=== PATIENT | male | born 1960 | race Caucasian/White ===

== ENCOUNTER 2021-08-08 11:45 | Inpatient (IN) ==
[2021-08-08] MEDS ORDERED: RAPID SEQUENCE INDUCTION BAG ONE (11:49)
[2021-08-08] MEDS ORDERED: PROPOFOL IV EMULSION 10 MG/ML 100 ML VIAL IV ONE (11:56)
[2021-08-08] MEDS ORDERED: SODIUM CHLORIDE 0.9% 1000ML 1,000 ML IV ONE ×2 (12:02→12:58)
[2021-08-08] MEDS ORDERED: dexAMETHasone**PF** 10 MG/ML VIAL IV ONE (12:02)
--- NOTE | 2021-08-08 12:04 | Emergency Department Note ---
Impression & Plan Acute respiratory failure due to COVID-19, Elevated troponin I level, Elevated lactic acid level, Acute encephalopathy ED Provider Note Name: HOSSEIN SANCHEZ Age: 61 Sex: M Arrives Via: Walk-In Informant: Family: Mother & Sister in ER, Daughter over phone ED Provider: Klever Almeida MD Chief Complaint: Weakness Impression: Acute Respiratory Failure Due to Covid-19 Elevated lactic acid Elevated Troponin Acute Encephalopathy Medical Decision Makin yr old male with reported history alcoholism and no other reported PMH who has been ill for 5 days arrives via private vehicle with family for evaluation of respiratory distress and weakness. Obtunded on arrival, blue discoloration and O2 sats in 40s on RA. I was immediately called to bedside by nursing and evaluated patient. Placed on NRB with mild improvement sats to 70s, and patient a bit more responsive though minimal conversation able to be had. Given severity of respiratory distress felt intubation indicated emergently. By this time family had noted a known positive covid test for patient a few days ago (per them he is unvaccinated for covid). Intubated by me without difficulty. By exam he is significantly dehydrated and given 3L NSS bolus (2L NSS, 1 Banana bag). Required large dosing of sedation with some resultant hypotension. Labs consistent with dehydration, illness. Covid is positive. Reviewed at length with Dr Schaefer of [facility] who placed central line and feels hold off on ABX at this time. Dimer elevated though sats doing OK thus will defer CTA as well as CT head to primary team discussion. Had multiple discussions with mother to keep her informed of his situation. Prior Medical Record and Triage/Nursing Notes reviewed by Me Additional history obtained from family Differentials:Infection, dehydration, metabolic abnormality, hypo/hyperglycemia, electrolyte disturbance, anemia, hypoxia, cardiac sources, intracerebral event, toxicologic, neurologic, as well as other pathologies. Vital Signs: reviewed and remarkable for hypoxia, febrile Interventions: saline lock, nss bolus 2 L IV, banana bag 1 L IV, decadron 10mg iv, fentanyl iv, versed iv, propofol iv Labs:Reviewed and remarkable for elevated lactate, elevated cr, elevated troponin Imaging:X ray results are stated below per my interpretation: Chest: 1 view: ET Tube in place, diffuse infiltrates EKG:Per My Interpretation: Indication Respiratory Failure: NSR 97 bpm, qtc 447. No Ectopy. No Ischemia. No previous for comparison. Cardiac/Tele Monitoring: Cardiac Monitoring: An Order was placed for continuous cardiac monitoring. The monitor shows a rate of 90 with a normal sinus rhythm. Consults:Dr Schaefer [facility]. Dr Sabina Avery Hospitalist Plan: Disposition:Hospitalization. Condition: Guarded History of Present Illness:61 yr old male arrives for evaluation of breathing difficulty. Patient was diagnosed on Wednesday/Wednesday with covid. Since then worsening weakness. Today not answering phone thus family broke in to house and found him confused and blue with difficulty breathing. Brought him by POV to ed for evaluation. Patient without known history. Unknown if any treatments nor medications prior to arrival. Per family he is not covid vaccinated. 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 dehydrated appearing EYES: No scleral icterus, unremarkable pupils. ENT: Mucous membranes dry, no nasal congestion. NECK: No masses appreciated, nomeningismus, trachea is midline. RESPIRATORY: tachypnea/dyspnea though poor inspiratory effort, diffuse crackles CARDIOVASCULAR: Regular rate and rhythm.No murmurs, rubs, gallops appreciated. GASTROINTESTINAL: Abdomen soft, non-tender, no peritonitis.Bowel sounds positive.No masses appreciated. BACK: No midline tenderness, no CVA tenderness EXTREMITIES: Normal motion all extremities, no cyanosis, no edema. NEUROLOGIC: Obtunded, no acute motor or sensory deficits, no focal weakness, cranial nerves grossly intact. SKIN: Pale mottled extremities, no rash, no jaundice, no diaphoresis. ED Course: Times/Reassessments: extensive bedside management and frequent re-assessments over course of care Procedures: Endotracheal Intubation Indication: Respiratory Failure secondary to COVID 19 The patient was being bagged by respiratory with BVM. Suction, airway equipment, RSI drugs, respiratory equipment, and appropriate personnel were prepared prior to the initiation of the procedure. A time out was taken. Induction was performed with Etomidate/Succinylcholine. After observing the clinical benefit of the medications, the airway was easily visualized utilizing a Glidescope #3 blade and slight cricoid pressure. A 7.5 size ETT tube was placed atraumatically to 24 cm using standard technique. The cuff inflated without signs of malfunction. There were bilateral breath sounds, positive colormetric change, no gastric sounds, a good capnography waveform, and post procedure pulse oximetry was 91%. Post intubation sedation and paralysis was administered using propofol, versed, fentanyl. There were no complications. Critical Care: I have personally spent 55 minutes of critical care time in the direct management of this patient. Acute Respiratory Failure secondary to COVID 19. This was a life/limb threatening event. This 55 minutes is in excess of all separately billable procedures. Klever Almeida MD Past Med/Surg History Medical History Alcohol use History of tobacco use Surgical History No history of previous surgery Family History Father Diabetes Social History Smoking Status: Former smoker Hx Alcohol Use: Yes Feels Safe at Home: Declines to Answer Allergies Allergies Allergy/AdvReac Type Severity Reaction Status Date / Time No Known Allergies Allergy Unverified 08/08/21 13:09 Home Meds Home Medications Medication Instructions Recorded Confirmed No Known Home Medications 08/08/21 08/08/21 Results & Data (ED) Vital Signs Vital Signs - 24 hr 08/08/21 11:46 08/08/21 11:49 08/08/21 12:04 Temperature 37.9 C H Temperature Source Rectal Pulse Rate 116 H 108 H Pulse Rate from SpO2 Sensor 109 H Pulse Rhythm Regular Respiratory Rate 36 H 50 H Respiratory Effort / Characteristics Short of Breath Labored Short of Breath Respiratory Depth Shallow Shallow Respiratory Pattern Regular Gasping Irregular Blood Pressure 144/100 H 141/69 H Blood Pressure Mean 114 93 Blood Pressure Position Lying Pulse Oximetry 63 L 75 L Oxygen Delivery Method Non-rebreather Room Air Oxygen Flow Rate 15 Fraction of Inspired Oxygen Sepsis Recent Fever Within 48 Hours Yes Sepsis New/Unexplained Change in Mental Status Yes Sepsis Action Taken by Nursing MD Previously Notified End-Tidal CO2 08/08/21 12:05 08/08/21 12:22 08/08/21 12:30 Temperature Temperature Source Pulse Rate 101 H 98 H Pulse Rate from SpO2 Sensor 101 H 98 H Pulse Rhythm Respiratory Rate 16 Respiratory Effort / Characteristics Respiratory Depth Respiratory Pattern Blood Pressure 102/66 110/61 Blood Pressure Mean 78 77 Blood Pressure Position Pulse Oximetry 92 96 Oxygen Delivery Method Oxygen Flow Rate Fraction of Inspired Oxygen 100 Sepsis Recent Fever Within 48 Hours Sepsis New/Unexplained Change in Mental Status Sepsis Action Taken by Nursing End-Tidal CO2 35 08/08/21 12:40 08/08/21 12:50 08/08/21 13:01 Temperature Temperature Source Pulse Rate 95 H 92 H 89 Pulse Rate from SpO2 Sensor 96 H 92 H 91 H Pulse Rhythm Respiratory Rate Respiratory Effort / Characteristics Respiratory Depth Respiratory Pattern Blood Pressure 85/52 L 77/52 L 91/61 L Blood Pressure Mean 63 60 71 Blood Pressure Position Pulse Oximetry 98 96 94 Oxygen Delivery Method Oxygen Flow Rate Fraction of Inspired Oxygen Sepsis Recent Fever Within 48 Hours Sepsis New/Unexplained Change in Mental Status Sepsis Action Taken by Nursing End-Tidal CO2 19 33 74 08/08/21 13:10 08/08/21 13:20 08/08/21 13:30 Temperature Temperature Source Pulse Rate 88 90 90 Pulse Rate from SpO2 Sensor 93 H 90 90 Pulse Rhythm Respiratory Rate Respiratory Effort / Characteristics Respiratory Depth Respiratory Pattern Blood Pressure 101/60 96/59 L 94/60 L Blood Pressure Mean 73 71 71 Blood Pressure Position Pulse Oximetry 94 95 95 Oxygen Delivery Method Oxygen Flow Rate Fraction of Inspired Oxygen Sepsis Recent Fever Within 48 Hours Sepsis New/Unexplained Change in Mental Status Sepsis Action Taken by Nursing End-Tidal CO2 29 34 31 08/08/21 13:40 08/08/21 13:50 08/08/21 14:58 Temperature Temperature Source Pulse Rate 89 91 H 81 Pulse Rate from SpO2 Sensor 90 91 H Pulse Rhythm Respiratory Rate 16 Respiratory Effort / Characteristics Respiratory Depth Respiratory Pattern Blood Pressure 87/58 L 86/57 L Blood Pressure Mean 67 66 Blood Pressure Position Pulse Oximetry 97 97 94 Oxygen Delivery Method Oxygen Flow Rate Fraction of Inspired Oxygen 80 Sepsis Recent Fever Within 48 Hours Sepsis New/Unexplained Change in Mental Status Sepsis Action Taken by Nursing End-Tidal CO2 34 34 33 Laboratory Data Result diagrams: 08/08/21 12:01 08/08/21 12:01 Lab Results 08/08/21 08/08/21 08/08/21 Range/Units 12:01 12:01 12:01 WBC 11.94 H (4.8-10.8) K/uL RBC 4.18 L (4.7-6.1) M/uL Hgb 13.7 L (14.0-18.0) g/dL POC Hgb (14.0-18.0) g/dl Hct 40.3 L (42-52) % POC Hct (42-52) % MCV 96.4 (80-100) fL MCH 32.8 (25-34) pg MCHC 34.0 (32-36) g/dL RDW Std Deviation 44.7 (36.4-46.3) fL RDW Coeff of Roshan 12.7 (11.5-14.5) % Plt Count 395 (130-400) K/uL MPV 10.0 (7.4-10.4) fL Immature Gran % (Auto) 0.3 % Neut % (Auto) 83.1 % Lymph % (Auto) 11.0 % [place] % (Auto) 5.4 % Eos % (Auto) 0.0 % Baso % (Auto) 0.2 % Neut # (Auto) 9.92 H (1.4-6.5) K/uL Lymph # (Auto) 1.31 (1.2-3.4) K/uL [place] # (Auto) 0.65 H (0.11-0.59) K/uL Eos # (Auto) 0.00 (0-0.5) K/uL Baso # (Auto) 0.02 (0-0.2) K/uL Immature Gran # (Auto) 0.04 H (0.00-0.02) K/uL ESR (0-20) mm/hr PT 11.2 (9.0-12.0) Seconds INR 1.1 (0.9-1.1) D-Dimer 2070 H* (0-500) ug/L FEU POC pH (7.35-7.45) POC pCO2 (35-46) mmHg POC pO2 (80-95) mmHg POC HCO3 (19-24) jose ramon/L POC Total CO2 (24-31) mmol/L POC Base Excess (-9-1.8) jose ramon/L POC ABG O2 Sat (90-95) % POC Sodium (135-144) mmol/L Sodium (136-145) mmol/L POC Potassium (3.3-5.0) mmol/L Potassium (3.5-5.1) mmol/L Chloride (98-107) mmol/L Carbon Dioxide (21-32) mmol/L Anion Gap (3-11) BUN (7-18) mg/dl Creatinine (0.6-1.4) mg/dl Est Cr Clr Drug Dosing Est GFR ( Amer) ml/min Est GFR (Non-Af Amer) ml/min BUN/Creatinine Ratio (10-20) Glucose (70-99) mg/dl Lactate 3.0 H* (0.4-2.0) mmol/L Calcium (8.5-10.1) mg/dl Magnesium (1.8-2.4) mg/dl Ferritin (8-388) ng/ml Total Bilirubin (0.2-1) mg/dl Direct Bilirubin (0-0.2) mg/dl AST (15-37) U/L ALT (12-78) U/L Alkaline Phosphatase (45-117) U/L Troponin I (0-0.045) ng/ml C-Reactive Protein (0-0.29) mg/dl Total Protein (6.4-8.2) gm/dl Albumin (3.4-5.0) gm/dl Lipase (73-393) U/L Procalcitonin (0-0.5) ng/ml Urine Color Urine Appearance (Clear) Urine pH (4.5-7.5) Ur Specific [place] (1.000-1.030) Urine Protein (Negative) Urine Glucose (UA) (Negative) Urine Ketones (Negative) Urine Blood (Negative) Urine Nitrite (Negative) Urine Bilirubin (Negative) Urine Urobilinogen (Negative) Ur Leukocyte Esterase (Negative) Urine WBC (Auto) (0-5) /hpf Urine RBC (Auto) (0-4) /hpf U Hyaline Cast (Auto) (0-5) /lpf U Epithel Cells (Auto) (0-5) /lpf Urine Bacteria (Auto) (Negative) Ur Renal Epithelial Cell Amorphous Sediment (None Prsent) Granular Casts (0) /lpf Urine Mucus (None Prsent) Urine Yeast Ethyl Alcohol mg/dL (0-3) mg/dl Adenovirus (PCR) (NotDetected) B. pertussis DNA (PCR) (NotDetected) B.parapertussis DNA PCR (NotDetected) C. pneumoniae DNA (PCR) (NotDetected) Coronavirus OC43 (PCR) (NotDetected) Coronavirus HKU1 (PCR) (NotDetected) Coronavirus 229E (PCR) (NotDetected) COVID-19 Eval Order SARS-CoV-2 (PCR) (NotDetected) Coronavirus NL63 (PCR) (NotDetected) Human Metapneumovir PCR (NotDetected) Influenza Type A (PCR) (NotDetected) Influenza Type B (PCR) (NotDetected) M. pneumoniae (PCR) (NotDetected) Parainfluenza 1 (PCR) (NotDetected) Parainfluenza 2 (PCR) (NotDetected) Parainfluenza 3 (PCR) (NotDetected) Parainfluenza 4 (PCR) (NotDetected) RSV (PCR) (NotDetected) Entero/Rhino (PCR) (NotDetected) 08/08/21 08/08/21 08/08/21 Range/Units 12:01 12:01 12:01 WBC (4.8-10.8) K/uL RBC (4.7-6.1) M/uL Hgb (14.0-18.0) g/dL POC Hgb (14.0-18.0) g/dl Hct (42-52) % POC Hct (42-52) % MCV (80-100) fL MCH (25-34) pg MCHC (32-36) g/dL RDW Std Deviation (36.4-46.3) fL RDW Coeff of Roshan (11.5-14.5) % Plt Count (130-400) K/uL MPV (7.4-10.4) fL Immature Gran % (Auto) % Neut % (Auto) % Lymph % (Auto) % [place] % (Auto) % Eos % (Auto) % Baso % (Auto) % Neut # (Auto) (1.4-6.5) K/uL Lymph # (Auto) (1.2-3.4) K/uL [place] # (Auto) (0.11-0.59) K/uL Eos # (Auto) (0-0.5) K/uL Baso # (Auto) (0-0.2) K/uL Immature Gran # (Auto) (0.00-0.02) K/uL ESR (0-20) mm/hr PT (9.0-12.0) Seconds INR (0.9-1.1) D-Dimer Cancelled (0-500) ug/L FEU POC pH (7.35-7.45) POC pCO2 (35-46) mmHg POC pO2 (80-95) mmHg POC HCO3 (19-24) jose ramon/L POC Total CO2 (24-31) mmol/L POC Base Excess (-9-1.8) jose ramon/L POC ABG O2 Sat (90-95) % POC Sodium (135-144) mmol/L Sodium 133 L (136-145) mmol/L POC Potassium (3.3-5.0) mmol/L Potassium 3.8 (3.5-5.1) mmol/L Chloride 100 (98-107) mmol/L Carbon Dioxide 21 (21-32) mmol/L Anion Gap 11.0 (3-11) BUN 33 H (7-18) mg/dl Creatinine 1.69 H (0.6-1.4) mg/dl Est Cr Clr Drug Dosing Not Reportable Est GFR ( Amer) 50.4 ml/min Est GFR (Non-Af Amer) 43.5 ml/min BUN/Creatinine Ratio 19.6 (10-20) Glucose 135 H (70-99) mg/dl Lactate (0.4-2.0) mmol/L Calcium 8.4 L (8.5-10.1) mg/dl Magnesium 2.8 H (1.8-2.4) mg/dl Ferritin (8-388) ng/ml Total Bilirubin 0.7 (0.2-1) mg/dl Direct Bilirubin 0.3 H (0-0.2) mg/dl AST 64 H (15-37) U/L ALT 36 (12-78) U/L Alkaline Phosphatase 55 (45-117) U/L Troponin I 0.104 H* (0-0.045) ng/ml C-Reactive Protein (0-0.29) mg/dl Total Protein 8.0 (6.4-8.2) gm/dl Albumin 3.1 L (3.4-5.0) gm/dl Lipase 312 (73-393) U/L Procalcitonin 0.77 H (0-0.5) ng/ml Urine Color Urine Appearance (Clear) Urine pH (4.5-7.5) Ur Specific [place] (1.000-1.030) Urine Protein (Negative) Urine Glucose (UA) (Negative) Urine Ketones (Negative) Urine Blood (Negative) Urine Nitrite (Negative) Urine Bilirubin (Negative) Urine Urobilinogen (Negative) Ur Leukocyte Esterase (Negative) Urine WBC (Auto) (0-5) /hpf Urine RBC (Auto) (0-4) /hpf U Hyaline Cast (Auto) (0-5) /lpf U Epithel Cells (Auto) (0-5) /lpf Urine Bacteria (Auto) (Negative) Ur Renal Epithelial Cell Amorphous Sediment (None Prsent) Granular Casts (0) /lpf Urine Mucus (None Prsent) Urine Yeast Ethyl Alcohol mg/dL (0-3) mg/dl Adenovirus (PCR) (NotDetected) B. pertussis DNA (PCR) (NotDetected) B.parapertussis DNA PCR (NotDetected) C. pneumoniae DNA (PCR) (NotDetected) Coronavirus OC43 (PCR) (NotDetected) Coronavirus HKU1 (PCR) (NotDetected) Coronavirus 229E (PCR) (NotDetected) COVID-19 Eval Order SARS-CoV-2 (PCR) (NotDetected) Coronavirus NL63 (PCR) (NotDetected) Human Metapneumovir PCR (NotDetected) Influenza Type A (PCR) (NotDetected) Influenza Type B (PCR) (NotDetected) M. pneumoniae (PCR) (NotDetected) Parainfluenza 1 (PCR) (NotDetected) Parainfluenza 2 (PCR) (NotDetected) Parainfluenza 3 (PCR) (NotDetected) Parainfluenza 4 (PCR) (NotDetected) RSV (PCR) (NotDetected) Entero/Rhino (PCR) (NotDetected) 08/08/21 08/08/21 08/08/21 Range/Units 12:01 12:01 12:13 WBC (4.8-10.8) K/uL RBC (4.7-6.1) M/uL Hgb (14.0-18.0) g/dL POC Hgb 12.6 L (14.0-18.0) g/dl Hct (42-52) % POC Hct 37 L (42-52) % MCV (80-100) fL MCH (25-34) pg MCHC (32-36) g/dL RDW Std Deviation (36.4-46.3) fL RDW Coeff of Roshan (11.5-14.5) % Plt Count (130-400) K/uL MPV (7.4-10.4) fL Immature Gran % (Auto) % Neut % (Auto) % Lymph % (Auto) % [place] % (Auto) % Eos % (Auto) % Baso % (Auto) % Neut # (Auto) (1.4-6.5) K/uL Lymph # (Auto) (1.2-3.4) K/uL [place] # (Auto) (0.11-0.59) K/uL Eos # (Auto) (0-0.5) K/uL Baso # (Auto) (0-0.2) K/uL Immature Gran # (Auto) (0.00-0.02) K/uL ESR 94 H (0-20) mm/hr PT (9.0-12.0) Seconds INR (0.9-1.1) D-Dimer (0-500) ug/L FEU POC pH 7.34 L (7.35-7.45) POC pCO2 41 (35-46) mmHg POC pO2 65 L (80-95) mmHg POC HCO3 22 (19-24) jose ramon/L POC Total CO2 23 L (24-31) mmol/L POC Base Excess -4.0 (-9-1.8) jose ramon/L POC ABG O2 Sat 91.0 (90-95) % POC Sodium 137 (135-144) mmol/L Sodium (136-145) mmol/L POC Potassium 3.9 (3.3-5.0) mmol/L Potassium (3.5-5.1) mmol/L Chloride (98-107) mmol/L Carbon Dioxide (21-32) mmol/L Anion Gap (3-11) BUN (7-18) mg/dl Creatinine (0.6-1.4) mg/dl Est Cr Clr Drug Dosing Est GFR ( Amer) ml/min Est GFR (Non-Af Amer) ml/min BUN/Creatinine Ratio (10-20) Glucose (70-99) mg/dl Lactate (0.4-2.0) mmol/L Calcium (8.5-10.1) mg/dl Magnesium (1.8-2.4) mg/dl Ferritin 1191.7 H (8-388) ng/ml Total Bilirubin (0.2-1) mg/dl Direct Bilirubin (0-0.2) mg/dl AST (15-37) U/L ALT (12-78) U/L Alkaline Phosphatase (45-117) U/L Troponin I (0-0.045) ng/ml C-Reactive Protein 24.60 H (0-0.29) mg/dl Total Protein (6.4-8.2) gm/dl Albumin (3.4-5.0) gm/dl Lipase (73-393) U/L Procalcitonin (0-0.5) ng/ml Urine Color Urine Appearance (Clear) Urine pH (4.5-7.5) Ur Specific [place] (1.000-1.030) Urine Protein (Negative) Urine Glucose (UA) (Negative) Urine Ketones (Negative) Urine Blood (Negative) Urine Nitrite (Negative) Urine Bilirubin (Negative) Urine Urobilinogen (Negative) Ur Leukocyte Esterase (Negative) Urine WBC (Auto) (0-5) /hpf Urine RBC (Auto) (0-4) /hpf U Hyaline Cast (Auto) (0-5) /lpf U Epithel Cells (Auto) (0-5) /lpf Urine Bacteria (Auto) (Negative) Ur Renal Epithelial Cell Amorphous Sediment (None Prsent) Granular Casts (0) /lpf Urine Mucus (None Prsent) Urine Yeast Ethyl Alcohol mg/dL (0-3) mg/dl Adenovirus (PCR) (NotDetected) B. pertussis DNA (PCR) (NotDetected) B.parapertussis DNA PCR (NotDetected) C. pneumoniae DNA (PCR) (NotDetected) Coronavirus OC43 (PCR) (NotDetected) Coronavirus HKU1 (PCR) (NotDetected) Coronavirus 229E (PCR) (NotDetected) COVID-19 Eval Order SARS-CoV-2 (PCR) (NotDetected) Coronavirus NL63 (PCR) (NotDetected) Human Metapneumovir PCR (NotDetected) Influenza Type A (PCR) (NotDetected) Influenza Type B (PCR) (NotDetected) M. pneumoniae (PCR) (NotDetected) Parainfluenza 1 (PCR) (NotDetected) Parainfluenza 2 (PCR) (NotDetected) Parainfluenza 3 (PCR) (NotDetected) Parainfluenza 4 (PCR) (NotDetected) RSV (PCR) (NotDetected) Entero/Rhino (PCR) (NotDetected) 08/08/21 08/08/21 08/08/21 Range/Units 12:14 12:14 12:33 WBC (4.8-10.8) K/uL RBC (4.7-6.1) M/uL Hgb (14.0-18.0) g/dL POC Hgb (14.0-18.0) g/dl Hct (42-52) % POC Hct (42-52) % MCV (80-100) fL MCH (25-34) pg MCHC (32-36) g/dL RDW Std Deviation (36.4-46.3) fL RDW Coeff of Roshan (11.5-14.5) % Plt Count (130-400) K/uL MPV (7.4-10.4) fL Immature Gran % (Auto) % Neut % (Auto) % Lymph % (Auto) % [place] % (Auto) % Eos % (Auto) % Baso % (Auto) % Neut # (Auto) (1.4-6.5) K/uL Lymph # (Auto) (1.2-3.4) K/uL [place] # (Auto) (0.11-0.59) K/uL Eos # (Auto) (0-0.5) K/uL Baso # (Auto) (0-0.2) K/uL Immature Gran # (Auto) (0.00-0.02) K/uL ESR (0-20) mm/hr PT (9.0-12.0) Seconds INR (0.9-1.1) D-Dimer (0-500) ug/L FEU POC pH (7.35-7.45) POC pCO2 (35-46) mmHg POC pO2 (80-95) mmHg POC HCO3 (19-24) jose ramon/L POC Total CO2 (24-31) mmol/L POC Base Excess (-9-1.8) jose ramon/L POC ABG O2 Sat (90-95) % POC Sodium (135-144) mmol/L Sodium (136-145) mmol/L POC Potassium (3.3-5.0) mmol/L Potassium (3.5-5.1) mmol/L Chloride (98-107) mmol/L Carbon Dioxide (21-32) mmol/L Anion Gap (3-11) BUN (7-18) mg/dl Creatinine (0.6-1.4) mg/dl Est Cr Clr Drug Dosing Est GFR ( Amer) ml/min Est GFR (Non-Af Amer) ml/min BUN/Creatinine Ratio (10-20) Glucose (70-99) mg/dl Lactate (0.4-2.0) mmol/L Calcium (8.5-10.1) mg/dl Magnesium (1.8-2.4) mg/dl Ferritin (8-388) ng/ml Total Bilirubin (0.2-1) mg/dl Direct Bilirubin (0-0.2) mg/dl AST (15-37) U/L ALT (12-78) U/L Alkaline Phosphatase (45-117) U/L Troponin I (0-0.045) ng/ml C-Reactive Protein (0-0.29) mg/dl Total Protein (6.4-8.2) gm/dl Albumin (3.4-5.0) gm/dl Lipase (73-393) U/L Procalcitonin (0-0.5) ng/ml Urine Color Urine Appearance (Clear) Urine pH (4.5-7.5) Ur Specific [place] (1.000-1.030) Urine Protein (Negative) Urine Glucose (UA) (Negative) Urine Ketones (Negative) Urine Blood (Negative) Urine Nitrite (Negative) Urine Bilirubin (Negative) Urine Urobilinogen (Negative) Ur Leukocyte Esterase (Negative) Urine WBC (Auto) (0-5) /hpf Urine RBC (Auto) (0-4) /hpf U Hyaline Cast (Auto) (0-5) /lpf U Epithel Cells (Auto) (0-5) /lpf Urine Bacteria (Auto) (Negative) Ur Renal Epithelial Cell Amorphous Sediment (None Prsent) Granular Casts (0) /lpf Urine Mucus (None Prsent) Urine Yeast Ethyl Alcohol mg/dL < 3.0 (0-3) mg/dl Adenovirus (PCR) Not Detected (NotDetected) B. pertussis DNA (PCR) Not Detected (NotDetected) B.parapertussis DNA PCR Not Detected (NotDetected) C. pneumoniae DNA (PCR) Not Detected (NotDetected) Coronavirus OC43 (PCR) Not Detected (NotDetected) Coronavirus HKU1 (PCR) Not Detected (NotDetected) Coronavirus 229E (PCR) Not Detected (NotDetected) COVID-19 Eval Order [facility] at [facility] SARS-CoV-2 (PCR) DETECTED A* (NotDetected) Coronavirus NL63 (PCR) Not Detected (NotDetected) Human Metapneumovir PCR Not Detected (NotDetected) Influenza Type A (PCR) Not Detected (NotDetected) Influenza Type B (PCR) Not Detected (NotDetected) M. pneumoniae (PCR) Not Detected (NotDetected) Parainfluenza 1 (PCR) Not Detected (NotDetected) Parainfluenza 2 (PCR) Not Detected (NotDetected) Parainfluenza 3 (PCR) Not Detected (NotDetected) Parainfluenza 4 (PCR) Not Detected (NotDetected) RSV (PCR) Not Detected (NotDetected) Entero/Rhino (PCR) Not Detected (NotDetected) 08/08/21 08/08/21 Range/Units 12:35 13:57 WBC (4.8-10.8) K/uL RBC (4.7-6.1) M/uL Hgb (14.0-18.0) g/dL POC Hgb (14.0-18.0) g/dl Hct (42-52) % POC Hct (42-52) % MCV (80-100) fL MCH (25-34) pg MCHC (32-36) g/dL RDW Std Deviation (36.4-46.3) fL RDW Coeff of Roshan (11.5-14.5) % Plt Count (130-400) K/uL MPV (7.4-10.4) fL Immature Gran % (Auto) % Neut % (Auto) % Lymph % (Auto) % [place] % (Auto) % Eos % (Auto) % Baso % (Auto) % Neut # (Auto) (1.4-6.5) K/uL Lymph # (Auto) (1.2-3.4) K/uL [place] # (Auto) (0.11-0.59) K/uL Eos # (Auto) (0-0.5) K/uL Baso # (Auto) (0-0.2) K/uL Immature Gran # (Auto) (0.00-0.02) K/uL ESR (0-20) mm/hr PT (9.0-12.0) Seconds INR (0.9-1.1) D-Dimer (0-500) ug/L FEU POC pH (7.35-7.45) POC pCO2 (35-46) mmHg POC pO2 (80-95) mmHg POC HCO3 (19-24) jose ramon/L POC Total CO2 (24-31) mmol/L POC Base Excess (-9-1.8) jose ramon/L POC ABG O2 Sat (90-95) % POC Sodium (135-144) mmol/L Sodium (136-145) mmol/L POC Potassium (3.3-5.0) mmol/L Potassium (3.5-5.1) mmol/L Chloride (98-107) mmol/L Carbon Dioxide (21-32) mmol/L Anion Gap (3-11) BUN (7-18) mg/dl Creatinine (0.6-1.4) mg/dl Est Cr Clr Drug Dosing Est GFR ( Amer) ml/min Est GFR (Non-Af Amer) ml/min BUN/Creatinine Ratio (10-20) Glucose (70-99) mg/dl Lactate 1.2 (0.4-2.0) mmol/L Calcium (8.5-10.1) mg/dl Magnesium (1.8-2.4) mg/dl Ferritin (8-388) ng/ml Total Bilirubin (0.2-1) mg/dl Direct Bilirubin (0-0.2) mg/dl AST (15-37) U/L ALT (12-78) U/L Alkaline Phosphatase (45-117) U/L Troponin I (0-0.045) ng/ml C-Reactive Protein (0-0.29) mg/dl Total Protein (6.4-8.2) gm/dl Albumin (3.4-5.0) gm/dl Lipase (73-393) U/L Procalcitonin (0-0.5) ng/ml Urine Color Dark Yellow Urine Appearance Cloudy A (Clear) Urine pH 5.5 (4.5-7.5) Ur Specific [place] 1.023 (1.000-1.030) Urine Protein 2+ H (Negative) Urine Glucose (UA) Negative (Negative) Urine Ketones Trace H (Negative) Urine Blood Negative (Negative) Urine Nitrite Negative (Negative) Urine Bilirubin Negative (Negative) Urine Urobilinogen Negative (Negative) Ur Leukocyte Esterase Negative (Negative) Urine WBC (Auto) 5-10 H (0-5) /hpf Urine RBC (Auto) 0-4 (0-4) /hpf U Hyaline Cast (Auto) 1-5 (0-5) /lpf U Epithel Cells (Auto) >30 H (0-5) /lpf Urine Bacteria (Auto) 1+ H (Negative) Ur Renal Epithelial Cell Not Reportable Amorphous Sediment Present A (None Prsent) Granular Casts 1-5 H (0) /lpf Urine Mucus Present A (None Prsent) Urine Yeast Not Reportable Ethyl Alcohol mg/dL (0-3) mg/dl Adenovirus (PCR) (NotDetected) B. pertussis DNA (PCR) (NotDetected) B.parapertussis DNA PCR (NotDetected) C. pneumoniae DNA (PCR) (NotDetected) Coronavirus OC43 (PCR) (NotDetected) Coronavirus HKU1 (PCR) (NotDetected) Coronavirus 229E (PCR) (NotDetected) COVID-19 Eval Order SARS-CoV-2 (PCR) (NotDetected) Coronavirus NL63 (PCR) (NotDetected) Human Metapneumovir PCR (NotDetected) Influenza Type A (PCR) (NotDetected) Influenza Type B (PCR) (NotDetected) M. pneumoniae (PCR) (NotDetected) Parainfluenza 1 (PCR) (NotDetected) Parainfluenza 2 (PCR) (NotDetected) Parainfluenza 3 (PCR) (NotDetected) Parainfluenza 4 (PCR) (NotDetected) RSV (PCR) (NotDetected) Entero/Rhino (PCR) (NotDetected) Administered Medications Discontinued Medications Dexamethasone Sodium Phosphate (DexamethasonePf 10 Mg/Ml Vial) 10 mg IV NOW ONE Stop: 08/08/21 12:03 Last Admin: 08/08/21 12:44 Dose: 10 mg Documented by: [id number] Sodium Chloride (Nss 1000ml) 1,000 mls @ 999 mls/hr IV .Q1H1M ONE Stop: 08/08/21 13:02 Last Infusion: 08/08/21 14:10 Dose: 0 mls/hr Documented by: [id number] Admin: 08/08/21 12:16 Dose: 999 mls/hr Documented by: [id number] Multivitamins 10 ml/ Thiamine HCl 100 mg/ Folic Acid 1 mg/Sodium Chloride 1,011.2 mls @ 1,011.2 mls/hr IV .Q1H ONE Stop: 08/08/21 13:11 Last Admin: 08/08/21 14:04 Dose: 1,011.2 mls/hr Documented by: [id number] Sodium Chloride (Nss 1000ml) 1,000 mls @ 999 mls/hr IV .Q1H1M ONE Stop: 08/08/21 13:58 Last Infusion: 08/08/21 14:10 Dose: 0 mls/hr Documented by: [id number] Admin: 08/08/21 13:16 Dose: 999 mls/hr Documented by: [id number] Miscellaneous (Patient's Height And/Or Weight Needed) 1 ea N/A NOW ONE Stop: 08/08/21 12:46 Last Admin: 08/08/21 13:21 Dose: 1 ea Documented by: [id number] Propofol (Propofol Iv Emulsion 10 Mg/Ml 100 Ml Vial) Confirm Administered Dose 1,000 mg IV .[employer] ONE Stop: 08/08/21 11:57 Last Admin: 08/08/21 12:13 Dose: 1,000 mg Documented by: [id number] Cosigned by: [id number] Imaging Data Radiologist's Impression: Chest X-Ray 08/08/21 12:03 XR chest 1V portable INDICATION: MN ^post intubation . TECHNIQUE: Single frontal radiograph of the chest was obtained. Comparison: None available at the time of this dictation. FINDINGS: Endotracheal tube terminates 41 mm from the cee. The cardiomediastinal silhouette is normal. No focal airspace opacities are seen bilaterally. No evidence of pleural effusion or pneumothorax. IMPRESSION: 1. Multifocal airspace opacities which may represent atelectasis, pneumonia, and/or aspiration. 2. Satisfactory position of endotracheal tube. ACT 112: Negative or not required by law. Electronically signed by: Juan C Floyd M.D. 08/08/2021 12:31 PM Chest X-Ray 08/08/21 13:12 XR chest 1V portable HISTORY: 61 years-old Male post right subclavian central line acute respiratory failure COMPARISON: Chest radiograph of same day at 12:13 PM TECHNIQUE: Supine portable AP view of the chest FINDINGS: Cardiac silhouette is mildly enlarged. Endotracheal tube overlies the midline, 4.4 cm superior to the cee. Left IJ central venous catheter distal tip is noted in the expected location of the brachiocephalic vein. No pneumothorax or large pleural effusion. Multifocal airspace opacities are noted on a background of interstitial coarsening. Spondylitic spurring of the spine. IMPRESSION: 1. Endotracheal tube and left IJ central venous catheter placement as above. No pneumothorax. 2. Multifocal bilateral airspace opacities redemonstrated suggestive of multifocal pneumonia. ACT 112: Negative or not required by law. The above report was generated using voice recognition software. It may contain grammatical, syntax or spelling errors. Electronically signed by: Eddie Martins M.D. 08/08/2021 1:[address] 08/08/21 14:10 CT SCAN OF THE BRAIN WITHOUT IV CONTRAST CLINICAL HISTORY: Change in mental status. Covid. COMPARISON STUDY: No priors. TECHNIQUE: Unenhanced axial CT scan of the brain is performed from the vertex to the skull base. A dose lowering technique was utilized adhering to the principles of ALARA. CT DOSE: 671.51 mGycm FINDINGS: An endotracheal tube is noted on the sub master tomogram. Brain parenchyma: There is mild microradiographic change. There is no hemorrhage, mass effect, or evidence of acute territorial ischemia by CT criteria. Vargas-white matter differentiation is preserved. No extra-axial fluid collection is seen. Ventricles, sulci, cisterns: Normal in configuration. Intracranial vasculature: There is atherosclerotic calcification of the cavernous carotid and vertebral arteries. Calvarium: Unremarkable. Sinuses and mastoids: Moderate mucosal thickening is noted in the ethmoid sinuses. Trace mucosal thickening is seen within the frontal, maxillary, and sphenoid sinuses. The mastoid air cells are well pneumatized. Orbits: The bony orbits are grossly intact. IMPRESSION: There is no hemorrhage, mass effect, or evidence of acute territorial ischemia by CT criteria. ACT 112: Negative or not required by law. Electronically signed by: Ignacio Kwok M.D. 08/08/2021 2:56 PM Discharge Plan Visit Data Chief Complaint: Shortness of Breath/Dyspnea Stated Complaint: CANT MOVE,LOW OX,SOB ED Provider: Klever Almeida Discharge Problem: Acute respiratory failure due to COVID-19, Elevated troponin I level, Elevated lactic acid level, Acute encephalopathy Forms Stand Alone Forms: My [employer] Prescriptions Prescriptions: No Action No Known Home Medications RF: 0 Referrals Referrals: PCP,NO [Primary Care Provider] -
[2021-08-08] MEDS ORDERED: MULTI-VITAMIN INFUSION 10 ML, THIAMINE HCL 100 MG, FOLIC ACID 1 MG in SODIUM CHLORIDE 0... IV ONE (12:12)
[2021-08-08] MEDS ORDERED: MIDAZOLAM HCL 5 MG/ML 1 ML VIAL IV STA (12:21)
[2021-08-08] MEDS ORDERED: fentaNYL citrate 100 MCG/2 ML VIAL IV STA (12:21)
[2021-08-08 12:22] LABS: Hematocrit (blood only) 40.3 % (42-52); Hemoglobin 13.7 g/dL (14.0-18.0); Mean Corpuscular Hemoglobin 32.8 pg (25-34); Mean Corpuscular Volume 96.4 fL (80-100); Platelet Count 395 K/uL (130-400); RDW Coefficient of Variation 12.7 % (11.5-14.5); RDW Standard Deviation 44.7 fL (36.4-46.3); Red Blood Count 4.18 M/uL (4.7-6.1); White Blood Count 11.94 K/uL (4.8-10.8)
[2021-08-08] MEDS ORDERED: PROPOFOL BOLUS FROM BAG IV PRN (12:22)
[2021-08-08] MEDS ORDERED: STAT IV Infusion **Titration per Protocol STA ×2 (12:22→14:10)
[2021-08-08 12:27] LABS: iSTAT Arterial Blood Gas HCO3 22 meg/L (19-24); iSTAT Arterial Blood Gas pCO2 41 mmHg (35-46); iSTAT Arterial Blood Gas pH 7.34 (7.35-7.45); iSTAT Arterial Blood Gas pO2 65 mmHg (80-95); iSTAT Carbon Dioxide 23 mmol/L (24-31); iSTAT Hematocrit 37 % (42-52); iSTAT Hemoglobin 12.6 g/dl (14.0-18.0); iSTAT Potassium 3.9 mmol/L (3.3-5.0); iSTAT Sodium 137 mmol/L (135-144)
[2021-08-08 12:30] LABS: INR 1.1 (0.9-1.1); Prothrombin Time 11.2 Seconds (9.0-12.0)
--- NOTE | 2021-08-08 12:32 | XRay Report ---
XR chest 1V portable INDICATION: MN ^post intubation . TECHNIQUE: Single frontal radiograph of the chest was obtained. Comparison: None available at the time of this dictation. FINDINGS: Endotracheal tube terminates 41 mm from the cee. The cardiomediastinal silhouette is normal. No fo hiwot airspace opacities are seen bilaterally. No evidence of pleural effusion or pneumothorax. IMPRESSION: 1. Multifocal airspace opacities which may represent atelectasis, pneumonia, and/or aspiration. 2. Satisfactory position of endotracheal tube. ACT 112: Negative or not required by law. Electronically signed by: Juan C Floyd M.D. 08/08/2021 12:31 PM
[2021-08-08 12:39] LABS: Alanine Aminotransferase 36 U/L (12-78); Albumin Level 3.1 gm/dl (3.4-5.0); Aspartate Aminotransferase 64 U/L (15-37); BUN Creatinine Ratio 19.6 (10-20); Blood Urea Nitrogen 33 mg/dl (7-18); Calcium 8.4 mg/dl (8.5-10.1); Carbon Dioxide 21 mmol/L (21-32); Chloride 100 mmol/L (98-107); Est GFR (African American) 50.4 ml/min; Est GFR (Non-African American) 43.5 ml/min; Glucose 135 mg/dl (70-99); Lipase 312 U/L (73-393); Magnesium 2.8 mg/dl (1.8-2.4); Potassium 3.8 mmol/L (3.5-5.1); Sodium 133 mmol/L (136-145)
[2021-08-08] MEDS ORDERED: PATIENT'S HEIGHT AND/OR WEIGHT NEEDED ONE (12:45)
[2021-08-08 12:46] LABS: Basophils # (auto) 0.02 K/uL (0-0.2); Basophils % (auto) 0.2 %; Immature Granulocytes # (auto) 0.04 K/uL (0.00-0.02); Immature Granulocytes % (auto) 0.3 %; Lymphocytes # (auto) 1.31 K/uL (1.2-3.4); Monocytes # (auto) 0.65 K/uL (0.11-0.59); Monocytes % (auto) 5.4 %; Neutrophils # (auto) 9.92 K/uL (1.4-6.5); Neutrophils % (auto) 83.1 %
[2021-08-08 12:57] LABS: Alkaline Phosphatase 55 U/L (45-117); Bilirubin Direct 0.3 mg/dl (0-0.2); Bilirubin,Total 0.7 mg/dl (0.2-1); Troponin I 0.104 ng/ml (0-0.045)
[2021-08-08 12:58] LABS: D Dimer 2070 ug/L FEU (0-500)
--- NOTE | 2021-08-08 13:07 | History & Physical Report ---
Date of Service August 08, 2021 Assessment & Plan (1) Acute respiratory failure due to COVID-19: (2) Acute encephalopathy: (3) Hypotension: (4) Elevated troponin I level: (5) Elevated lactic acid level: (6) Elevated d-dimer: (7) Alcohol use: Plan: Pt is a 61 y/o M with PMH alcohol use and prior tobacco use presented to ER for respiratory distress. Reported pt tested positive for COVID-19 4 days ago. Non- vaccinated. +COVID-19 contact. In ER found to have oxygen sat in 40's-60's. Pt was intubated. CXR: multifocal airspace opacities. BP: 144/100 down to 77/52 He is on propofol, was given 2L NSS, banana bag, dexamethasone 10mg IV Cr: 1.69. Unsure of baseline Lactate: 3.0. Repeat pending CRP, ferritin pending Troponin: 0.1 Admit ICU Mechanical vent and further care per online trader Full Code as per discussion with pt's mother Pt does not have PCP for routine care Pt was seen and care coordinated with Dr Muhammad. See addendum History of Present Illness Chief Complaint: Respiratory distress Primary Care Provider: NO PCP Pt is a 61 y/o M with PMH alcohol use and prior tobacco use presented to ER for respiratory distress. History obtained from ER staff and pt's mother. Reported that pt tested positive for COVID-19 4 days ago. Thinks pt started with symptoms 4-5 days ago. Reports patient's brother is currently admitted at [facility] for COVID- 19. Patient and brother were together for the weekend 8 days ago. Pt did not answer phone today so they broke into his house and found him confused and blue in color. He was transported to ER via private vehicle. In ER found to have oxygen sat in 40's-60's. Pt was intubated. CXR: multifocal airspace opacities. He is on propofol, was given 2L NSS, banana bag, dexamethasone 10mg IV. Was able to speak to pt's mother, Chantell Perdue. She reports that pt is not vaccinated for COVID-19. She reports pt quit smoking approximately 10 years ago. She knows he drinks beer everyday but is not sure of the amount but thinks it may be a 12 pack. Unknown if pt uses illicit drugs. She is unaware of any medication allergies. Does not think patient has any known medical problems or takes any medications. States patient does not see PCP. Chantell Perdue - Mother. Home Phone number [phone] [employer] - Daughter. Is currently in the service and is in [place] (unsure of her phone number) Basia - Sister. Cell Phone number: [phone] Allergies Allergy/AdvReac Type Severity Reaction Status Date / Time No Known Allergies Allergy Unverified 08/08/21 13:09 Home Medications Medication Instructions Recorded Confirmed Type No Known Home Medications 08/08/21 08/08/21 History Past Med/Surg History Medical History Alcohol use History of tobacco use Surgical History No history of previous surgery Family History Father Diabetes Social History Smoking Status: Former smoker Hx Alcohol Use: Yes Component Inspector Required: No Current Living Situation: Alone Feels Safe at Home: Declines to Answer Review of Systems Review of Systems: Unobtainable due to endotracheal tube Physical Exam Physical Exam: PE per Dr Muhammad Results & Data Results & Data ([facility]) Vital Signs (Past 12 Hours) Vital Signs Temp Pulse Resp BP Pulse Ox 08/08/21 12:50 92 H 77/52 L 96 08/08/21 12:40 95 H 85/52 L 98 08/08/21 12:30 98 H 110/61 96 08/08/21 12:22 101 H 102/66 92 08/08/21 12:05 16 08/08/21 11:49 108 H 50 H 141/69 H 75 L 08/08/21 11:46 37.9 C H 116 H 36 H 144/100 H 63 L Laboratory Results Short CBC 08/08/21 Range/Units 12:01 WBC 11.94 H (4.8-10.8) K/uL Hgb 13.7 L (14.0-18.0) g/dL Hct 40.3 L (42-52) % Plt Count 395 (130-400) K/uL BMP 08/08/21 12:01 Sodium 133 L Potassium 3.8 Chloride 100 Carbon Dioxide 21 BUN 33 H Creatinine 1.69 H Glucose 135 H Calcium 8.4 L Cardiac Enzymes 08/08/21 Range/Units 12:01 Troponin I 0.104 H* (0-0.045) ng/ml Liver Function 08/08/21 Range/Units 12:01 Total Bilirubin 0.7 (0.2-1) mg/dl Direct Bilirubin 0.3 H (0-0.2) mg/dl AST 64 H (15-37) U/L ALT 36 (12-78) U/L Alkaline Phosphatase 55 (45-117) U/L Albumin 3.1 L (3.4-5.0) gm/dl Diagnostic Findings Chest X-Ray 08/08/21 12:03 XR chest 1V portable INDICATION: MN ^post intubation . TECHNIQUE: Single frontal radiograph of the chest was obtained. Comparison: None available at the time of this dictation. FINDINGS: Endotracheal tube terminates 41 mm from the cee. The cardiomediastinal silhouette is normal. No focal airspace opacities are seen bilaterally. No evidence of pleural effusion or pneumothorax. IMPRESSION: 1. Multifocal airspace opacities which may represent atelectasis, pneumonia, and/or aspiration. 2. Satisfactory position of endotracheal tube. ACT 112: Negative or not required by law. Electronically signed by: Juan C Floyd M.D. 08/08/2021 12:31 PM Code Status & VTE Plan VTE Prophylaxis Plan VTE Prophylaxis will be ordered: Yes Supervising Physician Co-Signing Physician Notes Patient is a 61-year-old male with history of alcohol and tobacco use disorder presents with respiratory distress. He was tested positive for quadrant 4 days ago. Currently while in ED he was intubated and sedated. Unable to obtain any history from the patient. He was found to be cyanotic and confused by family. He was found to be in acute respiratory failure with oxygen sats in 40s to 60s. CT head showed no acute intracranial findings. Chest x-ray showed multifocal opacities. Blood work suggestive of leukocytosis 12 K, D-dimer elevated at 2070, creatinine 1.69, lactic acidosis 3.0, ferritin 1191, mild troponin elevation 0.10, procalcitonin 0.7, CRP 24.6. Urinalysis likely contaminated sample. He did alcohol level less than 3.0. Physical Exam: Vitals signs as noted above General Appearance:Moderately built and nourished, sedated and intubated Head: normocephalic, Atraumatic Eyes: normal inspection Neck: supple, Trachea midline Respiratory/Chest: Decreased breath sounds, CTA, No accessory muscle use Cardiovascular: S1, S2, No murmur Abdomen/GI:Soft, Non tender, Bowel sounds present Extremities/Musculoskeletal:normal inspection, no edema Neurologic/Psych:Sedated and Intubated Skin: normal color, warm Acute respiratory failure with hypoxia Acute metabolic encephalopathy Multifocal COVID-19 pneumonia Respiratory support through vent Appreciate critical care input Continue IV dexamethasone Troponin elevation likely secondary to Covid On Lovenox for DVT prophylaxis Consider empiric antibiotics if needed Medications is likely secondary to hypoxia Alcohol use disorder Continue thiamine Monitor for withdrawal I personally reviewed the record. Patient is interviewed and examined at bedside. Patient's care is coordinated with Heidi Rich PA-C. Please refer to the documentation above for details of patient's presentation and for discussion of other issues.
[2021-08-08 13:34] LABS: Appearance Urine Cloudy (Clear); Bilirubin Urine Negative (Negative); Blood Urine Negative (Negative); Color Urine Dark Yellow; Epithelial Cell Urine Auto >30 /lpf (0-5); Glucose Urine UA Negative (Negative); Ketones Urine Trace (Negative); Leukocyte Esterase Urine Negative (Negative); Nitrite Urine Negative (Negative); Protein Urine 2+ (Negative); RBC Urine Automated 0-4 /hpf (0-4); Specific Gravity Urine 1.023 (1.000-1.030); Urobilinogen Urine Negative (Negative); pH Urine 5.5 (4.5-7.5)
[2021-08-08 13:41] LABS: Mucus Urine Present (None Prsent)
[2021-08-08 13:43] LABS: Amorphous Sediment Urine Present (None Prsent)
[2021-08-08 13:44] LABS: Bacteria Urine Automated 1+ (Negative)
--- NOTE | 2021-08-08 13:45 | XRay Report ---
XR chest 1V portable HISTORY: 61 years-old Male post right subclavian central line acute respiratory failure COMPARISON: Chest radiograph of same day at 12:13 PM TECHNIQUE: Supine portable AP view of the chest FINDINGS: Cardiac silhouette is mildly enlarged. Endotracheal tube overlies the midline, 4.4 cm superior to the cee. Left IJ central venous catheter distal tip is noted in the expected location of the brachioc ephalic vein. No pneumothorax or large pleural effusion. Multifocal airspace opacities are noted on a background of interstitial coarsening. Spondylitic spurring of the spine. IMPRESSION: 1. Endotracheal tube and left IJ central venous catheter placement as above. No pneumothorax. 2. Multifocal bilateral airspace opacities redemonstrated suggestive of multifocal pneumonia. ACT 112: Negative or not required by law. The above report was generated using voice recognition software. It may contain grammatical, syntax o r spelling errors. Electronically signed by: Eddie Martins M.D. 08/08/2021 1:43 PM
--- NOTE | 2021-08-08 13:49 | Procedure Note ---
Procedure Note Date of Service August 08, 2021 Note Procedure date: Noted above Procedure: Radial artery cannulation Pre-procedure Diagnosis: Need for invasive monitoring, hypotension/frequent blood draws Post-procedure Diagnosis: same as above Prior to Procedure: Informed Consent: Emergent consent implied. Attending Staff: Ivelisse Schaefer DO Skin Prep: Chlorhexidine Anesthesia: 3 mL 1% lidocaine without epinephrine The identity of the patient was confirmed and a bedside time out was performed. Description of Procedure: After sterile prep and sterile drape utilizing standard sterile technique the superficial skin of the left radial artery was anesthetized. The target artery was identified via dynamic ultrasound guidance and entered with a 20-gauge arrow Angiocath. Pulsatile bright red blood return was noted. Via modified Seldinger technique the self-contained guidewire was advanced and the Angiocath advanced over the guidewire. The guidewire was removed and brisk arterial blood return was noted. The pressure monitor was connected, and the arterial line was secured via commercial securement device. A sterile dressing was then applied. Complications: None Estimated blood loss: Trace Patient tolerated the procedure well. Coding CPT Codes Tubes, Drains, and Vasc Access - Tubes, Drains, and Vasc Access: [id number] Place Catheter In Artery ([id number]) [facility] [place] Codes (Charges) Tubes, Drains, and Vasc Access Procedure 1: Tubes, Drains, and Vasc Access: [id number] Place Catheter In Artery
--- NOTE | 2021-08-08 13:51 | Procedure Note ---
Procedure Note Date of Service August 08, 2021 Note Procedure date: Noted above Procedure: Central venous access Pre-procedure indication: Need for vasoactive medication administration Post-procedure Diagnosis: same as above Prior to Procedure: Informed Consent: Emergent consent implied. Attending Staff: Ivelisse Schaefer DO Resident/APC: Julien Skin Prep: Chlorhexidine Anesthesia: 4 mL 1% lidocaine without epinephrine The identity of the patient was confirmed and a bedside time out was performed. Description of Procedure: After sterile prep and sterile drape utilizing standard sterile technique the superficial skin of the left internal jugular area was anesthetized. The target vessel was identified via dynamic ultrasound guidance and entered with an 18-gauge needle. Dark venous blood return was noted. A guidewire was inserted through the needle and into the vessel. The needle was withdrawn and a skin mikael was made. A tissue dilator was advanced via Seldinger technique and removed. A triple lumen catheter was inserted via Seldinger technique and the guidewire removed. All ports veda and flushed easily. A Biopatch was placed, and the catheter was secured via silk suture. A sterile dressing was then applied. Complications: None Estimated blood loss: Trace Patient tolerated the procedure well. Coding CPT Codes Tubes, Drains, and Vasc Access - Tubes, Drains, and Vasc Access: [id number] Insertion Of Non-tunneled Catheter Age 7 Yrs> ([id number]) [facility] [place] Codes (Charges) Tubes, Drains, and Vasc Access Procedure 1: Tubes, Drains, and Vasc Access: [id number] Insertion Of Non-tunneled Catheter Age 7 Yrs>
[2021-08-08 13:56] LABS: Adenovirus PCR Not Detected (NotDetected); Bordetella parapertussis PCR Not Detected (NotDetected); Bordetella pertussis PCR Not Detected (NotDetected); Chlamydia pneumoniae PCR Not Detected (NotDetected); Coronavirus 229E PCR Not Detected (NotDetected); Coronavirus HKU1 PCR Not Detected (NotDetected); Coronavirus NL63 PCR Not Detected (NotDetected); Coronavirus OC43PCR Not Detected (NotDetected); Human Metapneumovirus PCR Not Detected (NotDetected); Influenza A PCR Not Detected (NotDetected); Influenza B PCR Not Detected (NotDetected); Mycoplasma pneumoniae PCR Not Detected (NotDetected); Parainfluenza Virus 1 PCR Not Detected (NotDetected); Parainfluenza Virus 2 PCR Not Detected (NotDetected); Parainfluenza Virus 3 PCR Not Detected (NotDetected); Parainfluenza Virus 4 PCR Not Detected (NotDetected); Respiratory Syncytial VirusPCR Not Detected (NotDetected); Rhinovirus/Enterovirus PCR Not Detected (NotDetected)
--- NOTE | 2021-08-08 14:02 | Critical Care Consultation ---
Date of Consultation August 08, 2021 Assessment & Plan (1) Acute respiratory failure due to COVID-19: Reason Critically Ill: 61-year-old male with acute encephalopathy and acute hypoxic respiratory failure secondary to COVID-19 pneumonia PLAN: Neuro: Acute encephalopathy -Probable toxic/metabolic -Obtain CT head low threshold for MRI -Low threshold for EEG rule out nonconvulsive status -Possible anoxic injury: Given clinical history of being found blue Alcohol dependence -Transition to Versed infusion and fentanyl for sedation -High-dose thiamine -Alcohol withdrawal scoring Resp: Acute hypoxic respiratory failure secondary to COVID-19 pneumonia -CRP pending, follow-up CRP in morning -Decadron 6 mg IV x10 days -High PEEP low FiO2 table -Intubation 08/08 day 1 CV: Elevated troponins -Trend troponins -If hypotensive will obtain echocardiogram otherwise can hold in setting of COVID-19 Fluids/Renal: Judicious use of maintenance fluids Elevated creatinine -Unknown baseline Electrolyte protocol ID: COVID-19 pneumonia GI/Nutrition: Trickle feeds Elevated AST -Suspect secondary to alcohol use however will send hepatitis panel Heme: Baseline anemia NOS - guaiac stool DVT prophylaxis: Lovenox 40 mg twice daily Endocrine: ICU hyperglycemia protocol Vascular access: Right subclavian triple-lumen placed 08/08, left radial arterial line placed 08/08 Code Status: Full Disposition: ICU (2) Acute encephalopathy: (3) Elevated AST (SGOT): (4) Elevated troponin I level: (5) Elevated lactic acid level: (6) Elevated creatine kinase: (7) Alcohol use: Supervising Physician Co-Signing Physician Notes I have personally spent 70 minutes of critical care time in the direct management of this patient. This is a life/limb threatening event. This includes time spent evaluating patient, direct bedside care, chart review, placing orders, interpretation of diagnostic studies, discussion with consultants, patient, and/or family members regarding treatment decisions, as well as other required patient management activities. This time is exclusive of all separately billable procedures, and teaching time and separate from and in addition to any other critical care service time. History of Present Illness Reason for Consultation: Acute hypoxic respiratory failure secondary to COVID-19 pneumonia Requesting Physician: Klever Almeida History of Present Illness History is obtained from prior records and internal medicine and emergency medicine staff.:Pt is a 61 y/o M with PMH alcohol use and prior tobacco use presented to ER for respiratory distress. History obtained from ER staff and pt's mother. Reported that pt tested positive for COVID-19 4-5 days ago. Pt did not answer phone today so they broke into his house and found him confused and blue in appearance. He was transported to ER via private vehicle. In ER found to have oxygen sat in 40's-60's. Pt was intubated. CXR: multifocal airspace opacities. He is on propofol, was given 2L NSS, banana bag, dexamethasone 10mg IV. Was able to speak to pt's mother, Chantell Perdue. She reports pt quit smoking approximately 10 years ago. She knows he drinks beer everyday but is not sure of the amount but thinks it may be a 12 pack. Unknown if pt uses illicit drugs. She is unaware of any medication allergies. Does not think patient has any known medical problems or takes any medications. States patient does not see PCP. Allergies Allergy/AdvReac Type Severity Reaction Status Date / Time No Known Allergies Allergy Unverified 08/08/21 13:09 Home Medications Medication Instructions Recorded Confirmed Type No Known Home Medications 08/08/21 08/08/21 History Patient History Medical History Alcohol use History of tobacco use Surgical History No history of previous surgery Family History Father Diabetes Social History Smoking Status: Former smoker Hx Alcohol Use: Yes Feels Safe at Home: Declines to Answer Review of Systems Review of Systems: Unobtainable due to endotracheal tube and Unobtainable due to reduced consciousness Physical Exam Physical Exam: General: Glascow Coma Scale: Eyes: 1, Verbal 1T, Motor 4, Total 6T. nontoxic. Skin: Warm, dry, Head: Atraumatic Ears, nose, mouth and throat: airway obscured by endotracheal tube Cardiovascular: Normal peripheral perfusion Respiratory: no respiratory distress, ventilator settings reviewed Gastrointestinal: Non distended Musculoskeletal: No deformity Results & Data Results & Data ([facility]) Vital Signs (Past 12 Hours) Vital Signs Temp Pulse Resp BP Pulse Ox 08/08/21 13:40 89 87/58 L 97 08/08/21 13:30 90 94/60 L 95 08/08/21 13:20 90 96/59 L 95 08/08/21 13:10 88 101/60 94 08/08/21 13:01 89 91/61 L 94 08/08/21 12:50 92 H 77/52 L 96 08/08/21 12:40 95 H 85/52 L 98 08/08/21 12:30 98 H 110/61 96 08/08/21 12:22 101 H 102/66 92 08/08/21 12:05 16 08/08/21 11:49 108 H 50 H 141/69 H 75 L 08/08/21 11:46 37.9 C H 116 H 36 H 144/100 H 63 L Laboratory Results 08/08/21 08/08/21 08/08/21 Range/Units 12:35 12:33 12:14 WBC (4.8-10.8) K/uL RBC (4.7-6.1) M/uL Hgb (14.0-18.0) g/dL POC Hgb (14.0-18.0) g/dl Hct (42-52) % POC Hct (42-52) % MCV (80-100) fL MCH (25-34) pg MCHC (32-36) g/dL RDW Std Deviation (36.4-46.3) fL RDW Coeff of Roshan (11.5-14.5) % Plt Count (130-400) K/uL MPV (7.4-10.4) fL Immature Gran % (Auto) % Neut % (Auto) % Lymph % (Auto) % Williams % (Auto) % Eos % (Auto) % Baso % (Auto) % Neut # (Auto) (1.4-6.5) K/uL Lymph # (Auto) (1.2-3.4) K/uL Williams # (Auto) (0.11-0.59) K/uL Eos # (Auto) (0-0.5) K/uL Baso # (Auto) (0-0.2) K/uL Immature Gran # (Auto) (0.00-0.02) K/uL ESR PT (9.0-12.0) Seconds INR (0.9-1.1) D-Dimer (0-500) ug/L FEU POC pH (7.35-7.45) POC pCO2 (35-46) mmHg POC pO2 (80-95) mmHg POC HCO3 (19-24) jose ramon/L POC Total CO2 (24-31) mmol/L POC Base Excess (-9-1.8) jose ramon/L POC ABG O2 Sat (90-95) % POC Sodium (135-144) mmol/L Sodium (136-145) mmol/L POC Potassium (3.3-5.0) mmol/L Potassium (3.5-5.1) mmol/L Chloride (98-107) mmol/L Carbon Dioxide (21-32) mmol/L Anion Gap (3-11) BUN (7-18) mg/dl Creatinine (0.6-1.4) mg/dl Est Cr Clr Drug Dosing Est GFR ( Amer) ml/min Est GFR (Non-Af Amer) ml/min BUN/Creatinine Ratio (10-20) Glucose (70-99) mg/dl Lactate (0.4-2.0) mmol/L Calcium (8.5-10.1) mg/dl Magnesium (1.8-2.4) mg/dl Ferritin Total Bilirubin (0.2-1) mg/dl Direct Bilirubin (0-0.2) mg/dl AST (15-37) U/L ALT (12-78) U/L Alkaline Phosphatase (45-117) U/L Troponin I (0-0.045) ng/ml C-Reactive Protein Total Protein (6.4-8.2) gm/dl Albumin (3.4-5.0) gm/dl Lipase (73-393) U/L Procalcitonin (0-0.5) ng/ml Urine Color Dark Yellow Urine Appearance Cloudy A (Clear) Urine pH 5.5 (4.5-7.5) Ur Specific Gormania 1.023 (1.000-1.030) Urine Protein 2+ H (Negative) Urine Glucose (UA) Negative (Negative) Urine Ketones Trace H (Negative) Urine Blood Negative (Negative) Urine Nitrite Negative (Negative) Urine Bilirubin Negative (Negative) Urine Urobilinogen Negative (Negative) Ur Leukocyte Esterase Negative (Negative) Urine WBC (Auto) 5-10 H (0-5) /hpf Urine RBC (Auto) 0-4 (0-4) /hpf U Hyaline Cast (Auto) 1-5 (0-5) /lpf U Epithel Cells (Auto) >30 H (0-5) /lpf Urine Bacteria (Auto) 1+ H (Negative) Ur Renal Epithelial Cell Not Reportable Amorphous Sediment Present A (None Prsent) Granular Casts 1-5 H (0) /lpf Urine Mucus Present A (None Prsent) Urine Yeast Not Reportable Ethyl Alcohol mg/dL < 3.0 (0-3) mg/dl Adenovirus (PCR) Pending B. pertussis DNA (PCR) Pending B.parapertussis DNA PCR Pending C. pneumoniae DNA (PCR) Pending Coronavirus OC43 (PCR) Pending Coronavirus HKU1 (PCR) Pending Coronavirus 229E (PCR) Pending COVID-19 Eval Order SARS-CoV-2 (PCR) Pending Coronavirus NL63 (PCR) Pending Human Metapneumovir PCR Pending Influenza Type B (PCR) Pending M. pneumoniae (PCR) Pending Parainfluenza 1 (PCR) Pending Parainfluenza 2 (PCR) Pending Parainfluenza 3 (PCR) Pending Parainfluenza 4 (PCR) Pending RSV (PCR) Pending Entero/Rhino (PCR) Pending 08/08/21 08/08/21 08/08/21 Range/Units 12:14 12:13 12:01 WBC (4.8-10.8) K/uL RBC (4.7-6.1) M/uL Hgb (14.0-18.0) g/dL POC Hgb 12.6 L (14.0-18.0) g/dl Hct (42-52) % POC Hct 37 L (42-52) % MCV (80-100) fL MCH (25-34) pg MCHC (32-36) g/dL RDW Std Deviation (36.4-46.3) fL RDW Coeff of Roshan (11.5-14.5) % Plt Count (130-400) K/uL MPV (7.4-10.4) fL Immature Gran % (Auto) % Neut % (Auto) % Lymph % (Auto) % Williams % (Auto) % Eos % (Auto) % Baso % (Auto) % Neut # (Auto) (1.4-6.5) K/uL Lymph # (Auto) (1.2-3.4) K/uL Williams # (Auto) (0.11-0.59) K/uL Eos # (Auto) (0-0.5) K/uL Baso # (Auto) (0-0.2) K/uL Immature Gran # (Auto) (0.00-0.02) K/uL ESR PT (9.0-12.0) Seconds INR (0.9-1.1) D-Dimer (0-500) ug/L FEU POC pH 7.34 L (7.35-7.45) POC pCO2 41 (35-46) mmHg POC pO2 65 L (80-95) mmHg POC HCO3 22 (19-24) jose ramon/L POC Total CO2 23 L (24-31) mmol/L POC Base Excess -4.0 (-9-1.8) jose ramon/L POC ABG O2 Sat 91.0 (90-95) % POC Sodium 137 (135-144) mmol/L Sodium (136-145) mmol/L POC Potassium 3.9 (3.3-5.0) mmol/L Potassium (3.5-5.1) mmol/L Chloride (98-107) mmol/L Carbon Dioxide (21-32) mmol/L Anion Gap (3-11) BUN (7-18) mg/dl Creatinine (0.6-1.4) mg/dl Est Cr Clr Drug Dosing Est GFR ( Amer) ml/min Est GFR (Non-Af Amer) ml/min BUN/Creatinine Ratio (10-20) Glucose (70-99) mg/dl Lactate (0.4-2.0) mmol/L Calcium (8.5-10.1) mg/dl Magnesium (1.8-2.4) mg/dl Ferritin Pending Total Bilirubin (0.2-1) mg/dl Direct Bilirubin (0-0.2) mg/dl AST (15-37) U/L ALT (12-78) U/L Alkaline Phosphatase (45-117) U/L Troponin I (0-0.045) ng/ml C-Reactive Protein Pending Total Protein (6.4-8.2) gm/dl Albumin (3.4-5.0) gm/dl Lipase (73-393) U/L Procalcitonin (0-0.5) ng/ml Urine Color Urine Appearance (Clear) Urine pH (4.5-7.5) Ur Specific Gormania (1.000-1.030) Urine Protein (Negative) Urine Glucose (UA) (Negative) Urine Ketones (Negative) Urine Blood (Negative) Urine Nitrite (Negative) Urine Bilirubin (Negative) Urine Urobilinogen (Negative) Ur Leukocyte Esterase (Negative) Urine WBC (Auto) (0-5) /hpf Urine RBC (Auto) (0-4) /hpf U Hyaline Cast (Auto) (0-5) /lpf U Epithel Cells (Auto) (0-5) /lpf Urine Bacteria (Auto) (Negative) Ur Renal Epithelial Cell Amorphous Sediment (None Prsent) Granular Casts (0) /lpf Urine Mucus (None Prsent) Urine Yeast Ethyl Alcohol mg/dL (0-3) mg/dl Adenovirus (PCR) B. pertussis DNA (PCR) B.parapertussis DNA PCR C. pneumoniae DNA (PCR) Coronavirus OC43 (PCR) Coronavirus HKU1 (PCR) Coronavirus 229E (PCR) COVID-19 Eval Order [facility]PNP at [facility] SARS-CoV-2 (PCR) Coronavirus NL63 (PCR) Human Metapneumovir PCR Influenza Type B (PCR) M. pneumoniae (PCR) Parainfluenza 1 (PCR) Parainfluenza 2 (PCR) Parainfluenza 3 (PCR) Parainfluenza 4 (PCR) RSV (PCR) Entero/Rhino (PCR) 08/08/21 08/08/21 08/08/21 Range/Units 12:01 12:01 12:01 WBC (4.8-10.8) K/uL RBC (4.7-6.1) M/uL Hgb (14.0-18.0) g/dL POC Hgb (14.0-18.0) g/dl Hct (42-52) % POC Hct (42-52) % MCV (80-100) fL MCH (25-34) pg MCHC (32-36) g/dL RDW Std Deviation (36.4-46.3) fL RDW Coeff of Roshan (11.5-14.5) % Plt Count (130-400) K/uL MPV (7.4-10.4) fL Immature Gran % (Auto) % Neut % (Auto) % Lymph % (Auto) % Williams % (Auto) % Eos % (Auto) % Baso % (Auto) % Neut # (Auto) (1.4-6.5) K/uL Lymph # (Auto) (1.2-3.4) K/uL Williams # (Auto) (0.11-0.59) K/uL Eos # (Auto) (0-0.5) K/uL Baso # (Auto) (0-0.2) K/uL Immature Gran # (Auto) (0.00-0.02) K/uL ESR Pending PT (9.0-12.0) Seconds INR (0.9-1.1) D-Dimer Cancelled (0-500) ug/L FEU POC pH (7.35-7.45) POC pCO2 (35-46) mmHg POC pO2 (80-95) mmHg POC HCO3 (19-24) jose ramon/L POC Total CO2 (24-31) mmol/L POC Base Excess (-9-1.8) jose ramon/L POC ABG O2 Sat (90-95) % POC Sodium (135-144) mmol/L Sodium (136-145) mmol/L POC Potassium (3.3-5.0) mmol/L Potassium (3.5-5.1) mmol/L Chloride (98-107) mmol/L Carbon Dioxide (21-32) mmol/L Anion Gap (3-11) BUN (7-18) mg/dl Creatinine (0.6-1.4) mg/dl Est Cr Clr Drug Dosing Est GFR ( Amer) ml/min Est GFR (Non-Af Amer) ml/min BUN/Creatinine Ratio (10-20) Glucose (70-99) mg/dl Lactate (0.4-2.0) mmol/L Calcium (8.5-10.1) mg/dl Magnesium (1.8-2.4) mg/dl Ferritin Total Bilirubin (0.2-1) mg/dl Direct Bilirubin (0-0.2) mg/dl AST (15-37) U/L ALT (12-78) U/L Alkaline Phosphatase (45-117) U/L Troponin I (0-0.045) ng/ml C-Reactive Protein Total Protein (6.4-8.2) gm/dl Albumin (3.4-5.0) gm/dl Lipase (73-393) U/L Procalcitonin 0.77 H (0-0.5) ng/ml Urine Color Urine Appearance (Clear) Urine pH (4.5-7.5) Ur Specific Gormania (1.000-1.030) Urine Protein (Negative) Urine Glucose (UA) (Negative) Urine Ketones (Negative) Urine Blood (Negative) Urine Nitrite (Negative) Urine Bilirubin (Negative) Urine Urobilinogen (Negative) Ur Leukocyte Esterase (Negative) Urine WBC (Auto) (0-5) /hpf Urine RBC (Auto) (0-4) /hpf U Hyaline Cast (Auto) (0-5) /lpf U Epithel Cells (Auto) (0-5) /lpf Urine Bacteria (Auto) (Negative) Ur Renal Epithelial Cell Amorphous Sediment (None Prsent) Granular Casts (0) /lpf Urine Mucus (None Prsent) Urine Yeast Ethyl Alcohol mg/dL (0-3) mg/dl Adenovirus (PCR) B. pertussis DNA (PCR) B.parapertussis DNA PCR C. pneumoniae DNA (PCR) Coronavirus OC43 (PCR) Coronavirus HKU1 (PCR) Coronavirus 229E (PCR) COVID-19 Eval Order SARS-CoV-2 (PCR) Coronavirus NL63 (PCR) Human Metapneumovir PCR Influenza Type B (PCR) M. pneumoniae (PCR) Parainfluenza 1 (PCR) Parainfluenza 2 (PCR) Parainfluenza 3 (PCR) Parainfluenza 4 (PCR) RSV (PCR) Entero/Rhino (PCR) 08/08/21 08/08/21 08/08/21 Range/Units 12:01 12:01 12:01 WBC 11.94 H (4.8-10.8) K/uL RBC 4.18 L (4.7-6.1) M/uL Hgb 13.7 L (14.0-18.0) g/dL POC Hgb (14.0-18.0) g/dl Hct 40.3 L (42-52) % POC Hct (42-52) % MCV 96.4 (80-100) fL MCH 32.8 (25-34) pg MCHC 34.0 (32-36) g/dL RDW Std Deviation 44.7 (36.4-46.3) fL RDW Coeff of Roshan 12.7 (11.5-14.5) % Plt Count 395 (130-400) K/uL MPV 10.0 (7.4-10.4) fL Immature Gran % (Auto) 0.3 % Neut % (Auto) 83.1 % Lymph % (Auto) 11.0 % Williams % (Auto) 5.4 % Eos % (Auto) 0.0 % Baso % (Auto) 0.2 % Neut # (Auto) 9.92 H (1.4-6.5) K/uL Lymph # (Auto) 1.31 (1.2-3.4) K/uL Williams # (Auto) 0.65 H (0.11-0.59) K/uL Eos # (Auto) 0.00 (0-0.5) K/uL Baso # (Auto) 0.02 (0-0.2) K/uL Immature Gran # (Auto) 0.04 H (0.00-0.02) K/uL ESR PT 11.2 (9.0-12.0) Seconds INR 1.1 (0.9-1.1) D-Dimer 2070 H* (0-500) ug/L FEU POC pH (7.35-7.45) POC pCO2 (35-46) mmHg POC pO2 (80-95) mmHg POC HCO3 (19-24) jose ramon/L POC Total CO2 (24-31) mmol/L POC Base Excess (-9-1.8) jose ramon/L POC ABG O2 Sat (90-95) % POC Sodium (135-144) mmol/L Sodium 133 L (136-145) mmol/L POC Potassium (3.3-5.0) mmol/L Potassium 3.8 (3.5-5.1) mmol/L Chloride 100 (98-107) mmol/L Carbon Dioxide 21 (21-32) mmol/L Anion Gap 11.0 (3-11) BUN 33 H (7-18) mg/dl Creatinine 1.69 H (0.6-1.4) mg/dl Est Cr Clr Drug Dosing Not Reportable Est GFR ( Amer) 50.4 ml/min Est GFR (Non-Af Amer) 43.5 ml/min BUN/Creatinine Ratio 19.6 (10-20) Glucose 135 H (70-99) mg/dl Lactate (0.4-2.0) mmol/L Calcium 8.4 L (8.5-10.1) mg/dl Magnesium 2.8 H (1.8-2.4) mg/dl Ferritin Total Bilirubin 0.7 (0.2-1) mg/dl Direct Bilirubin 0.3 H (0-0.2) mg/dl AST 64 H (15-37) U/L ALT 36 (12-78) U/L Alkaline Phosphatase 55 (45-117) U/L Troponin I 0.104 H* (0-0.045) ng/ml C-Reactive Protein Total Protein 8.0 (6.4-8.2) gm/dl Albumin 3.1 L (3.4-5.0) gm/dl Lipase 312 (73-393) U/L Procalcitonin (0-0.5) ng/ml Urine Color Urine Appearance (Clear) Urine pH (4.5-7.5) Ur Specific Gormania (1.000-1.030) Urine Protein (Negative) Urine Glucose (UA) (Negative) Urine Ketones (Negative) Urine Blood (Negative) Urine Nitrite (Negative) Urine Bilirubin (Negative) Urine Urobilinogen (Negative) Ur Leukocyte Esterase (Negative) Urine WBC (Auto) (0-5) /hpf Urine RBC (Auto) (0-4) /hpf U Hyaline Cast (Auto) (0-5) /lpf U Epithel Cells (Auto) (0-5) /lpf Urine Bacteria (Auto) (Negative) Ur Renal Epithelial Cell Amorphous Sediment (None Prsent) Granular Casts (0) /lpf Urine Mucus (None Prsent) Urine Yeast Ethyl Alcohol mg/dL (0-3) mg/dl Adenovirus (PCR) B. pertussis DNA (PCR) B.parapertussis DNA PCR C. pneumoniae DNA (PCR) Coronavirus OC43 (PCR) Coronavirus HKU1 (PCR) Coronavirus 229E (PCR) COVID-19 Eval Order SARS-CoV-2 (PCR) Coronavirus NL63 (PCR) Human Metapneumovir PCR Influenza Type B (PCR) M. pneumoniae (PCR) Parainfluenza 1 (PCR) Parainfluenza 2 (PCR) Parainfluenza 3 (PCR) Parainfluenza 4 (PCR) RSV (PCR) Entero/Rhino (PCR) 08/08/21 Range/Units 12:01 WBC (4.8-10.8) K/uL RBC (4.7-6.1) M/uL Hgb (14.0-18.0) g/dL POC Hgb (14.0-18.0) g/dl Hct (42-52) % POC Hct (42-52) % MCV (80-100) fL MCH (25-34) pg MCHC (32-36) g/dL RDW Std Deviation (36.4-46.3) fL RDW Coeff of Roshan (11.5-14.5) % Plt Count (130-400) K/uL MPV (7.4-10.4) fL Immature Gran % (Auto) % Neut % (Auto) % Lymph % (Auto) % Williams % (Auto) % Eos % (Auto) % Baso % (Auto) % Neut # (Auto) (1.4-6.5) K/uL Lymph # (Auto) (1.2-3.4) K/uL Williams # (Auto) (0.11-0.59) K/uL Eos # (Auto) (0-0.5) K/uL Baso # (Auto) (0-0.2) K/uL Immature Gran # (Auto) (0.00-0.02) K/uL ESR PT (9.0-12.0) Seconds INR (0.9-1.1) D-Dimer (0-500) ug/L FEU POC pH (7.35-7.45) POC pCO2 (35-46) mmHg POC pO2 (80-95) mmHg POC HCO3 (19-24) jose ramon/L POC Total CO2 (24-31) mmol/L POC Base Excess (-9-1.8) jose ramon/L POC ABG O2 Sat (90-95) % POC Sodium (135-144) mmol/L Sodium (136-145) mmol/L POC Potassium (3.3-5.0) mmol/L Potassium (3.5-5.1) mmol/L Chloride (98-107) mmol/L Carbon Dioxide (21-32) mmol/L Anion Gap (3-11) BUN (7-18) mg/dl Creatinine (0.6-1.4) mg/dl Est Cr Clr Drug Dosing Est GFR ( Amer) ml/min Est GFR (Non-Af Amer) ml/min BUN/Creatinine Ratio (10-20) Glucose (70-99) mg/dl Lactate 3.0 H* (0.4-2.0) mmol/L Calcium (8.5-10.1) mg/dl Magnesium (1.8-2.4) mg/dl Ferritin Total Bilirubin (0.2-1) mg/dl Direct Bilirubin (0-0.2) mg/dl AST (15-37) U/L ALT (12-78) U/L Alkaline Phosphatase (45-117) U/L Troponin I (0-0.045) ng/ml C-Reactive Protein Total Protein (6.4-8.2) gm/dl Albumin (3.4-5.0) gm/dl Lipase (73-393) U/L Procalcitonin (0-0.5) ng/ml Urine Color Urine Appearance (Clear) Urine pH (4.5-7.5) Ur Specific Gormania (1.000-1.030) Urine Protein (Negative) Urine Glucose (UA) (Negative) Urine Ketones (Negative) Urine Blood (Negative) Urine Nitrite (Negative) Urine Bilirubin (Negative) Urine Urobilinogen (Negative) Ur Leukocyte Esterase (Negative) Urine WBC (Auto) (0-5) /hpf Urine RBC (Auto) (0-4) /hpf U Hyaline Cast (Auto) (0-5) /lpf U Epithel Cells (Auto) (0-5) /lpf Urine Bacteria (Auto) (Negative) Ur Renal Epithelial Cell Amorphous Sediment (None Prsent) Granular Casts (0) /lpf Urine Mucus (None Prsent) Urine Yeast Ethyl Alcohol mg/dL (0-3) mg/dl Adenovirus (PCR) B. pertussis DNA (PCR) B.parapertussis DNA PCR C. pneumoniae DNA (PCR) Coronavirus OC43 (PCR) Coronavirus HKU1 (PCR) Coronavirus 229E (PCR) COVID-19 Eval Order SARS-CoV-2 (PCR) Coronavirus NL63 (PCR) Human Metapneumovir PCR Influenza Type B (PCR) M. pneumoniae (PCR) Parainfluenza 1 (PCR) Parainfluenza 2 (PCR) Parainfluenza 3 (PCR) Parainfluenza 4 (PCR) RSV (PCR) Entero/Rhino (PCR) Diagnostic Findings I have reviewed the chest x-ray status post central venous access Medications Administered Medication List Sodium Chloride (Nss 1000ml) 1,000 mls @ 999 mls/hr IV .Q1H1M ONE Stop: 08/08/21 13:58 Last Admin: 08/08/21 13:16 Dose: 999 mls/hr Documented by: [id number] Discontinued Medications Dexamethasone Sodium Phosphate (DexamethasonePf 10 Mg/Ml Vial) 10 mg IV NOW ONE Stop: 08/08/21 12:03 Last Admin: 08/08/21 12:44 Dose: 10 mg Documented by: [id number] Sodium Chloride (Nss 1000ml) 1,000 mls @ 999 mls/hr IV .Q1H1M ONE Stop: 08/08/21 13:02 Last Admin: 08/08/21 12:16 Dose: 999 mls/hr Documented by: [id number] Miscellaneous (Patient's Height And/Or Weight Needed) 1 ea N/A NOW ONE Stop: 08/08/21 12:46 Last Admin: 08/08/21 13:21 Dose: 1 ea Documented by: [id number] Propofol (Propofol Iv Emulsion 10 Mg/Ml 100 Ml Vial) Confirm Administered Dose 1,000 mg IV .STK-MED ONE Stop: 08/08/21 11:57 Last Admin: 08/08/21 12:13 Dose: 1,000 mg Documented by: [id number] Cosigned by: [id number] Coding Level of Care Code Critical Care 1st 30-74 mins Diagnoses Acute encephalopathy G93.40 Elevated AST (SGOT) R74.01 Elevated troponin I level R77.8 Elevated lactic acid level R79.89 Elevated creatine kinase R74.8 Acute respiratory failure due to COVID-19 U07.1; J96.00 Alcohol use Z72.89
[2021-08-08 14:03] LABS: Coronavirus CoV-2 (COVID19)PCR DETECTED (NotDetected)
[2021-08-08 14:16] LABS: C Reactive Protein 24.6 mg/dl (0-0.29); Ferritin 1191.7 ng/ml (8-388)
[2021-08-08] MEDS ORDERED: ETOMIDATE 2 MG/ML 20 ML VIAL IV ONE (14:20)
[2021-08-08] MEDS ORDERED: MIDAZOLAM HCL 5 MG/ML 1 ML VIAL IV ONE (14:20)
[2021-08-08] MEDS ORDERED: fentaNYL citrate 100 MCG/2 ML VIAL IV ONE (14:20)
[2021-08-08] MEDS ORDERED: SUCCINYLCHOLINE CHLORIDE 20 MG/ML 10 ML VIAL IV ONE (14:20)
--- NOTE | 2021-08-08 14:58 | CT Scan Report ---
CT SCAN OF THE BRAIN WITHOUT IV CONTRAST CLINICAL HISTORY: Change in mental status. Covid. COMPARISON STUDY: No priors. TECHNIQUE: Unenhanced axial CT scan of the brain is performed from the vertex to the skull base. A d ose lowering technique was utilized adhering to the principles of ALARA. CT DOSE: 671.51 mGycm FINDINGS: An endotracheal tube is noted on the tree thinner tomogram. Brain parenchyma: There is mild microradiographic change. There is no hemorrhage, mass effect, or alejandrina dence of acute territorial ischemia by CT criteria. Vargas-white matter differentiation is preserved. N o extra-axial fluid collection is seen. Ventricles, sulci, cisterns: Normal in configuration. Intracranial vasculature: There is atherosclerotic calcification of the cavernous carotid and vertebr al arteries. Calvarium: Unremarkable. Sinuses and mastoids: Moderate mucosal thickening is noted in the ethmoid sinuses. Trace mucosal thic kening is seen within the frontal, maxillary, and sphenoid sinuses. The mastoid air cells are well pn eumatized. Orbits: The bony orbits are grossly intact. IMPRESSION: There is no hemorrhage, mass effect, or evidence of acute territorial ischemia by CT kevin dalal. ACT 112: Negative or not required by law. Electronically signed by: Ignacio Kwok M.D. 08/08/2021 2:56 PM
[2021-08-08] MEDS ORDERED: NORMOSOL-R 1,000 ML IV SCH (15:44)
[2021-08-08] MEDS ORDERED: ICU PROTOCOL FOR HYPERGLYCEMIA PRN ×2 (15:44)
[2021-08-08] MEDS: propofoL 1,000 MG/100 ML VIAL IV SCH ×2 (15:59→21:51)
[2021-08-08] MEDS ORDERED: PATIENT'S HEIGHT AND/OR WEIGHT NEEDED SCH (16:00)
[2021-08-08] MEDS: NORMOSOL-R 1,000 ML IV SCH (16:41)
--- NOTE | 2021-08-08 16:59 | Electrocardiogram Report ---
Test Reason : Blood Pressure : / mmHG Vent. Rate : 076 BPM Atrial Rate : 076 BPM P-R Int : 184 ms QRS Dur : 074 ms QT Int : 404 ms P-R-T Axes : 064 040 034 degrees QTc Int : 454 ms Poor data quality, interpretation may be adversely affected Normal sinus rhythm Normal ECG No previous ECGs available Confirmed by Clem Bower ([id number]) on 08/08/2021 4:58:55 PM Referred By: REFERRED SELF Confirmed By:Clem Bower
[2021-08-08 17:36] LABS: Hepatitis B Surf Ag Rflx Conf Neg (Neg)
--- NOTE | 2021-08-08 17:40 | XRay Report ---
SINGLE VIEW CHEST CLINICAL HISTORY: Enteric tube placement. FINDINGS: An AP, portable, upright chest radiograph is compared to study performed earlier the same d ay 08/08/2021. An endotracheal tube and a left internal jugular central venous catheter are unchanged in position. An enteric tube has been placed. The tip projects below the diaphragm over the proximal stomach. The cardiomediastinal silhouette is unremarkable. Multifocal patchy airspace consolidation i s unchanged from today's earlier examination. No large pleural effusion or pneumothorax is seen. Ther e is chronic posttraumatic deformity of the right clavicle. IMPRESSION: 1. An enteric tube has been placed as above. 2. Additional lines and tubes are unchanged in position. 3. Multifocal airspace consolidation is unchanged from today's earlier examination and typical for mu ltifocal pneumonia. Radiographic follow-up to resolution is recommended. ACT 112: Negative or not required by law. Electronically signed by: Ignacio Kwok M.D. 08/08/2021 5:38 PM
[2021-08-08 18:04] LABS: Hepatitis C IgG 13Yrs+Old_Rflx Neg (Neg)
[2021-08-08] MEDS: THIAMINE HCL 500 MG in SODIUM CHLORIDE 0.9% 50 ML IV SCH ×2 (18:21→21:59)
[2021-08-08] MEDS: PEPTAMEN INTENSE VHP 1.0 CAL 1,000 ML BAG GT SCH (18:22)
[2021-08-08] MEDS: fentaNYL DRIP 1,250 MCG/250 ML BAG IV SCH (18:42)
[2021-08-08] MEDS: MIDAZOLAM HCL 125 MG/250 ML BAG IV SCH (18:44)
[2021-08-08] MEDS: MIDAZOLAM BOLUS FROM BAG IV PRN (19:57)
[2021-08-08] MEDS: ICU ELECTROLYTE REPLACEMENT PROTOCOL SCH (21:46)
[2021-08-08] MEDS: ENOXAPARIN INJ 40 MG/0.4 ML SYR SQ SCH (22:00)
[2021-08-08] MEDS ORDERED: DEXTROSE 50% 50 ML SYRINGE IV PRN (23:45)
[2021-08-08] MEDS ORDERED: CARBOHYDRATES FOR HYPOGLYCEMIA PO PRN (23:45)
[2021-08-08] MEDS ORDERED: GLUCOSE 10 TABS/TUBE PO PRN (23:45)
[2021-08-08] MEDS ORDERED: GLUCOSE 40% GEL 15 GM TUBE PO PRN (23:45)
[2021-08-08] MEDS ORDERED: GLUCAGON FOR INJ 1 MG VIAL IM PRN (23:45)
[2021-08-08] MEDS ORDERED: PHARMACY GLYCEMIC MGMT CONSULT PRN (23:54)
[2021-08-09] MEDS ORDERED: INSULIN GLARGINE SOLOSTAR 100 UNITS/ML 3 ML PEN SC ONE
[2021-08-09] MEDS: INSULIN ASPART 100 UNITS/ML 3 ML PEN SC SCH ×12 (00:25→23:30)
[2021-08-09 03:09] LABS: iSTAT Art Bld Gas pCO2 Correct 36 mmHg (35-46); iSTAT Art Bld Gas pH Corrected 7.415 (7.35-7.45); iSTAT Arterial Blood Gas HCO3 23 meg/L (19-24); iSTAT Arterial Blood Gas pCO2 38 mmHg (35-46); iSTAT Arterial Blood Gas pO2 90 mmHg (80-95); iSTAT Arterial Blood Gas pO2 C 85; iSTAT Carbon Dioxide 24 mmol/L (24-31); iSTAT FiO2 60 %; iSTAT Hematocrit 30 % (42-52); iSTAT Hemoglobin 10.2 g/dl (14.0-18.0); iSTAT Potassium 3.9 mmol/L (3.3-5.0); iSTAT Site Art Line; iSTAT Sodium 138 mmol/L (135-144)
[2021-08-09] MEDS: propofoL 1,000 MG/100 ML VIAL IV SCH ×3 (03:58→15:48)
[2021-08-09] MEDS ORDERED: STAT IV Infusion **Titration per Protocol STA (03:58)
[2021-08-09] MEDS ORDERED: NOREPINEPHRINE/D5W 8 MG/508 ML BAG IV SCH (04:00)
[2021-08-09] MEDS: NORMOSOL-R 1,000 ML IV SCH (04:03)
[2021-08-09] MEDS ORDERED: NOREPINEPHRINE/D5W 8 MG/508 ML IV ONE (04:06)
[2021-08-09 04:17] LABS: Basophils # (auto) 0.01 K/uL (0-0.2); Basophils % (auto) 0.1 %; Hematocrit (blood only) 32.9 % (42-52); Hemoglobin 10.9 g/dL (14.0-18.0); Immature Granulocytes # (auto) 0.03 K/uL (0.00-0.02); Immature Granulocytes % (auto) 0.4 %; Lymphocytes # (auto) 0.74 K/uL (1.2-3.4); Lymphocytes % (auto) 8.7 %; Mean Corpuscular Hemoglobin 32.3 pg (25-34); Mean Corpuscular Hgb Conc 33.1 g/dL (32-36); Mean Corpuscular Volume 97.6 fL (80-100); Mean Platelet Volume 9.8 fL (7.4-10.4); Monocytes # (auto) 0.29 K/uL (0.11-0.59); Monocytes % (auto) 3.4 %; Neutrophils # (auto) 7.39 K/uL (1.4-6.5); Neutrophils % (auto) 87.4 %; Platelet Count 280 K/uL (130-400); RDW Coefficient of Variation 13.1 % (11.5-14.5); RDW Standard Deviation 46.4 fL (36.4-46.3); Red Blood Count 3.37 M/uL (4.7-6.1); White Blood Count 8.46 K/uL (4.8-10.8)
[2021-08-09 04:51] LABS: Albumin Level 2.3 gm/dl (3.4-5.0); BUN Creatinine Ratio 30.6 (10-20); Bilirubin Direct 0.2 mg/dl (0-0.2); Bilirubin,Total 0.4 mg/dl (0.2-1); C Reactive Protein 20.9 mg/dl (0-0.29); Calcium 7.3 mg/dl (8.5-10.1); Creatinine Clr Calc Pharmacy 86.6 ml/min; Est GFR (African American) 84.7 ml/min; Est GFR (Non-African American) 73.1 ml/min; Phosphorus 2.8 mg/dl (2.5-4.9); Potassium 3.9 mmol/L (3.5-5.1); Total Protein 6.4 gm/dl (6.4-8.2); Troponin I 0.044 ng/ml (0-0.045)
[2021-08-09] MEDS: ICU ELECTROLYTE REPLACEMENT PROTOCOL SCH ×2 (04:59→17:21)
[2021-08-09] MEDS: POTASSIUM CHLORIDE 20 MEQ/15 ML UDC NG SCH ×2 (05:29→08:18)
[2021-08-09] MEDS: dexAMETHasone 6 MG in SYRINGE 0 ML IV SCH (08:14)
[2021-08-09] MEDS: ENOXAPARIN INJ 40 MG/0.4 ML SYR SQ SCH ×2 (08:14→19:59)
[2021-08-09] MEDS: THIAMINE HCL 500 MG in SODIUM CHLORIDE 0.9% 50 ML IV SCH ×3 (08:18→19:58)
--- NOTE | 2021-08-09 08:48 | XRay Report ---
XR chest 1V portable HISTORY: 61 years-old Male intubation acute respiratory failure COMPARISON: Chest radiograph 08/08/2021 TECHNIQUE: Portable AP view of the chest FINDINGS: Endotracheal tube overlies the midline 4.7 cm superior to the cee. Enteric tube distal tip project s over the proximal stomach. Left IJ central venous catheter is noted with distal tip noted within th e region of the brachiocephalic SVC confluence. No pneumothorax or large pleural effusion. Multifocal bilateral airspace opacities, left greater than right are unchanged. No acute fracture. IMPRESSION: 1. Lines and tubes as above. 2. Left greater than right bilateral airspace opacities compatible with multifocal pneumonia appear s table from comparison. ACT 112: Negative or not required by law. The above report was generated using voice recognition software. It may contain grammatical, syntax o r spelling errors. Electronically signed by: Eddie Martins M.D. 08/09/2021 8:47 AM
[2021-08-09] MEDS ORDERED: PANTOprazole 40 MG TAB PO SCH (09:00)
[2021-08-09] MEDS ORDERED: INSULIN GLARGINE SOLOSTAR 100 UNITS/ML 3 ML PEN SC SCH (09:00)
--- NOTE | 2021-08-09 10:06 | Critical Care Progress Note ---
Date of Service August 09, 2021 Assessment & Plan (1) Acute respiratory failure due to COVID-19: Plan: Reason Critically Ill: 61-year-old male with acute encephalopathy and acute hypoxic respiratory failure secondary to COVID-19 pneumonia PLAN: Neuro: Acute encephalopathy -Probable toxic/metabolic -CT head reviewed -Possible anoxic injury: Given clinical history of being found blue -low threshold for MRI -Low threshold for EEG rule out nonconvulsive status Alcohol dependence -Transition to Versed infusion and fentanyl for sedation -High-dose thiamine -Alcohol withdrawal scoring Resp: Acute hypoxic respiratory failure secondary to COVID-19 pneumonia -CRP pending, follow-up CRP in morning -Decadron 6 mg IV x10 days -High PEEP low FiO2 table: Wean as tolerated -Intubation 08/08 day 2 CV: Elevated troponins improving -Trend troponins -If hypotensive will obtain echocardiogram otherwise can hold in setting of COVID-19 Fluids/Renal: Elevated creatinine: Improving -Unknown baseline -Discontinue maintenance fluids today Electrolyte protocol ID: COVID-19 pneumonia GI/Nutrition: Trickle feeds: Can progress per dietary recommendations Elevated AST -Suspect secondary to alcohol use -Hepatitis panel preliminarily negative Elevated lipase -Continue to trend -If elevated tomorrow would modify tube feeds and obtain abdominal ultrasound Heme: Baseline anemia NOS - guaiac stool DVT prophylaxis: Lovenox 40 mg twice daily Endocrine: ICU hyperglycemia protocol Vascular access: Right subclavian triple-lumen placed 08/08, left radial arterial line placed 08/08 Code Status: Full Disposition: ICU (2) Acute encephalopathy: (3) Elevated AST (SGOT): (4) Elevated troponin I level: (5) Elevated lactic acid level: (6) Elevated creatine kinase: (7) Alcohol use: Admission and Anticipated Discharge Date Admission Date: August 08, 2021 Supervising Physician Co-Signing Physician Notes I have personally spent 45 minutes of critical care time in the direct management of this patient. This is a life/limb threatening event. This includes time spent evaluating patient, direct bedside care, chart review, placing orders, interpretation of diagnostic studies, discussion with consultants, patient, and/or family members regarding treatment decisions, as well as other required patient management activities. This time is exclusive of all separately billable procedures, and teaching time and separate from and in addition to any other critical care service time. Subjective No overnight events Physical Exam Physical Exam: General: nontoxic. Skin: Warm, dry, Head: Atraumatic Ears, nose, mouth and throat: airway obscured by endotracheal tube Cardiovascular: Normal peripheral perfusion Respiratory: no respiratory distress, ventilator settings reviewed Gastrointestinal: Non distended Musculoskeletal: No deformity Results & Data Results & Data ([facility]) Vital Signs (Past 12 Hours) Vital Signs Temp Pulse Resp BP Pulse Ox 08/09/21 08:44 69 25 H 93 08/09/21 06:00 36.5 C 77 16 112/74 90 08/09/21 05:00 36.5 C 73 18 146/87 H 91 08/09/21 04:00 36.3 C L 85 16 111/67 86 L 08/09/21 03:10 36.1 C L 80 20 110/63 92 08/09/21 03:00 35.6 C L 83 22 105/66 92 08/09/21 02:51 81 23 94 08/09/21 02:00 36.0 C L 82 12 101/60 90 08/09/21 01:17 84 08/09/21 01:00 36.2 C L 84 27 H 110/79 95 08/09/21 00:40 36.1 C L 80 16 08/09/21 00:00 36.1 C L 79 21 110/69 94 08/08/21 23:15 80 26 H 88 L 08/08/21 23:00 36.0 C L 80 22 118/68 93 08/08/21 22:00 35.8 C L 83 22 113/75 91 Laboratory Results 08/09/21 08/09/21 08/09/21 Range/Units 07:58 03:49 03:45 WBC (4.8-10.8) K/uL RBC (4.7-6.1) M/uL Hgb (14.0-18.0) g/dL POC Hgb (14.0-18.0) g/dl Hct (42-52) % POC Hct (42-52) % MCV (80-100) fL MCH (25-34) pg MCHC (32-36) g/dL RDW Std Deviation (36.4-46.3) fL RDW Coeff of Roshan (11.5-14.5) % Plt Count (130-400) K/uL MPV (7.4-10.4) fL Immature Gran % (Auto) % Neut % (Auto) % Lymph % (Auto) % [place] % (Auto) % Eos % (Auto) % Baso % (Auto) % Neut # (Auto) (1.4-6.5) K/uL Lymph # (Auto) (1.2-3.4) K/uL [place] # (Auto) (0.11-0.59) K/uL Eos # (Auto) (0-0.5) K/uL Baso # (Auto) (0-0.2) K/uL Immature Gran # (Auto) (0.00-0.02) K/uL ESR (0-20) mm/hr PT (9.0-12.0) Seconds INR (0.9-1.1) D-Dimer (0-500) ug/L FEU Sample Site POC pH (7.35-7.45) POC pCO2 (35-46) mmHg POC pO2 (80-95) mmHg POC HCO3 (19-24) jose ramon/L POC Total CO2 (24-31) mmol/L POC Base Excess (-9-1.8) jose ramon/L ABG pH (Temp Correct) (7.35-7.45) ABG pCO2 (Temp Corrct (35-46) mmHg POC ABG pO2 at Pt Temp POC ABG O2 Sat (90-95) % John Test O2 Delivery Device POC O2 Rate POC FiO2 % Tidal Volume PEEP POC Sodium (135-144) mmol/L Sodium 135 L (136-145) mmol/L POC Potassium (3.3-5.0) mmol/L Potassium 3.9 (3.5-5.1) mmol/L Chloride 108 H (98-107) mmol/L Carbon Dioxide 22 (21-32) mmol/L Anion Gap 5.0 (3-11) BUN 34 H (7-18) mg/dl Creatinine 1.10 D (0.6-1.4) mg/dl Est Cr Clr Drug Dosing 86.6 Est GFR ( Amer) 84.7 ml/min Est GFR (Non-Af Amer) 73.1 ml/min BUN/Creatinine Ratio 30.6 H (10-20) Glucose 202 H (70-99) mg/dl POC Glucose 198 H 200 H (70-99) mg/dl Lactate (0.4-2.0) mmol/L Calcium 7.3 L (8.5-10.1) mg/dl Phosphorus 2.8 (2.5-4.9) mg/dl Magnesium 3.0 H (1.8-2.4) mg/dl Ferritin (8-388) ng/ml Total Bilirubin 0.4 (0.2-1) mg/dl Direct Bilirubin 0.2 (0-0.2) mg/dl AST 55 H (15-37) U/L ALT 33 (12-78) U/L Alkaline Phosphatase 45 (45-117) U/L Troponin I 0.044 (0-0.045) ng/ml C-Reactive Protein 20.90 H (0-0.29) mg/dl Total Protein 6.4 (6.4-8.2) gm/dl Albumin 2.3 L (3.4-5.0) gm/dl Lipase 1575 H (73-393) U/L Procalcitonin (0-0.5) ng/ml Urine Color Urine Appearance (Clear) Urine pH (4.5-7.5) Ur Specific [place] (1.000-1.030) Urine Protein (Negative) Urine Glucose (UA) (Negative) Urine Ketones (Negative) Urine Blood (Negative) Urine Nitrite (Negative) Urine Bilirubin (Negative) Urine Urobilinogen (Negative) Ur Leukocyte Esterase (Negative) Urine WBC (Auto) (0-5) /hpf Urine RBC (Auto) (0-4) /hpf U Hyaline Cast (Auto) (0-5) /lpf U Epithel Cells (Auto) (0-5) /lpf Urine Bacteria (Auto) (Negative) Ur Renal Epithelial Cell Amorphous Sediment (None Prsent) Granular Casts (0) /lpf Urine Mucus (None Prsent) Urine Yeast Nasal Screen MRSA (PCR) (Negative) Ethyl Alcohol mg/dL (0-3) mg/dl Adenovirus (PCR) (NotDetected) B. pertussis DNA (PCR) (NotDetected) B.parapertussis DNA PCR (NotDetected) C. pneumoniae DNA (PCR) (NotDetected) Coronavirus OC43 (PCR) (NotDetected) Coronavirus HKU1 (PCR) (NotDetected) Coronavirus 229E (PCR) (NotDetected) COVID-19 Eval Order SARS-CoV-2 (PCR) (NotDetected) Coronavirus NL63 (PCR) (NotDetected) Hepatitis A IgM Ab Hep Bs Antigen (Neg) Hep B Core IgM Ab Hepatitis C Antibody (Neg) Human Metapneumovir PCR (NotDetected) Influenza Type A (PCR) (NotDetected) Influenza Type B (PCR) (NotDetected) M. pneumoniae (PCR) (NotDetected) Parainfluenza 1 (PCR) (NotDetected) Parainfluenza 2 (PCR) (NotDetected) Parainfluenza 3 (PCR) (NotDetected) Parainfluenza 4 (PCR) (NotDetected) RSV (PCR) (NotDetected) Entero/Rhino (PCR) (NotDetected) 08/09/21 08/09/21 08/08/21 Range/Units 03:45 02:50 23:49 WBC 8.46 (4.8-10.8) K/uL RBC 3.37 L (4.7-6.1) M/uL Hgb 10.9 L (14.0-18.0) g/dL POC Hgb 10.2 L (14.0-18.0) g/dl Hct 32.9 L (42-52) % POC Hct 30 L (42-52) % MCV 97.6 (80-100) fL MCH 32.3 (25-34) pg MCHC 33.1 (32-36) g/dL RDW Std Deviation 46.4 H (36.4-46.3) fL RDW Coeff of Roshan 13.1 (11.5-14.5) % Plt Count 280 (130-400) K/uL MPV 9.8 (7.4-10.4) fL Immature Gran % (Auto) 0.4 % Neut % (Auto) 87.4 % Lymph % (Auto) 8.7 % [place] % (Auto) 3.4 % Eos % (Auto) 0.0 % Baso % (Auto) 0.1 % Neut # (Auto) 7.39 H (1.4-6.5) K/uL Lymph # (Auto) 0.74 L (1.2-3.4) K/uL [place] # (Auto) 0.29 (0.11-0.59) K/uL Eos # (Auto) 0.00 (0-0.5) K/uL Baso # (Auto) 0.01 (0-0.2) K/uL Immature Gran # (Auto) 0.03 H (0.00-0.02) K/uL ESR (0-20) mm/hr PT (9.0-12.0) Seconds INR (0.9-1.1) D-Dimer (0-500) ug/L FEU Sample Site Art Line POC pH 7.40 (7.35-7.45) POC pCO2 38 (35-46) mmHg POC pO2 90 (80-95) mmHg POC HCO3 23 (19-24) jose ramon/L POC Total CO2 24 (24-31) mmol/L POC Base Excess -2.0 (-9-1.8) jose ramon/L ABG pH (Temp Correct) 7.415 (7.35-7.45) ABG pCO2 (Temp Corrct 36 (35-46) mmHg POC ABG pO2 at Pt Temp 85 POC ABG O2 Sat 97.0 H (90-95) % John Test NA O2 Delivery Device Ventilator POC O2 Rate 16 POC FiO2 60 % Tidal Volume 500 PEEP 16 POC Sodium 138 (135-144) mmol/L Sodium (136-145) mmol/L POC Potassium 3.9 (3.3-5.0) mmol/L Potassium (3.5-5.1) mmol/L Chloride (98-107) mmol/L Carbon Dioxide (21-32) mmol/L Anion Gap (3-11) BUN (7-18) mg/dl Creatinine (0.6-1.4) mg/dl Est Cr Clr Drug Dosing Est GFR ( Amer) ml/min Est GFR (Non-Af Amer) ml/min BUN/Creatinine Ratio (10-20) Glucose (70-99) mg/dl POC Glucose 199 H (70-99) mg/dl Lactate (0.4-2.0) mmol/L Calcium (8.5-10.1) mg/dl Phosphorus (2.5-4.9) mg/dl Magnesium (1.8-2.4) mg/dl Ferritin (8-388) ng/ml Total Bilirubin (0.2-1) mg/dl Direct Bilirubin (0-0.2) mg/dl AST (15-37) U/L ALT (12-78) U/L Alkaline Phosphatase (45-117) U/L Troponin I (0-0.045) ng/ml C-Reactive Protein (0-0.29) mg/dl Total Protein (6.4-8.2) gm/dl Albumin (3.4-5.0) gm/dl Lipase (73-393) U/L Procalcitonin (0-0.5) ng/ml Urine Color Urine Appearance (Clear) Urine pH (4.5-7.5) Ur Specific [place] (1.000-1.030) Urine Protein (Negative) Urine Glucose (UA) (Negative) Urine Ketones (Negative) Urine Blood (Negative) Urine Nitrite (Negative) Urine Bilirubin (Negative) Urine Urobilinogen (Negative) Ur Leukocyte Esterase (Negative) Urine WBC (Auto) (0-5) /hpf Urine RBC (Auto) (0-4) /hpf U Hyaline Cast (Auto) (0-5) /lpf U Epithel Cells (Auto) (0-5) /lpf Urine Bacteria (Auto) (Negative) Ur Renal Epithelial Cell Amorphous Sediment (None Prsent) Granular Casts (0) /lpf Urine Mucus (None Prsent) Urine Yeast Nasal Screen MRSA (PCR) (Negative) Ethyl Alcohol mg/dL (0-3) mg/dl Adenovirus (PCR) (NotDetected) B. pertussis DNA (PCR) (NotDetected) B.parapertussis DNA PCR (NotDetected) C. pneumoniae DNA (PCR) (NotDetected) Coronavirus OC43 (PCR) (NotDetected) Coronavirus HKU1 (PCR) (NotDetected) Coronavirus 229E (PCR) (NotDetected) COVID-19 Eval Order SARS-CoV-2 (PCR) (NotDetected) Coronavirus NL63 (PCR) (NotDetected) Hepatitis A IgM Ab Hep Bs Antigen (Neg) Hep B Core IgM Ab Hepatitis C Antibody (Neg) Human Metapneumovir PCR (NotDetected) Influenza Type A (PCR) (NotDetected) Influenza Type B (PCR) (NotDetected) M. pneumoniae (PCR) (NotDetected) Parainfluenza 1 (PCR) (NotDetected) Parainfluenza 2 (PCR) (NotDetected) Parainfluenza 3 (PCR) (NotDetected) Parainfluenza 4 (PCR) (NotDetected) RSV (PCR) (NotDetected) Entero/Rhino (PCR) (NotDetected) 08/08/21 08/08/21 08/08/21 Range/Units 21:12 17:00 16:36 WBC (4.8-10.8) K/uL RBC (4.7-6.1) M/uL Hgb (14.0-18.0) g/dL POC Hgb (14.0-18.0) g/dl Hct (42-52) % POC Hct (42-52) % MCV (80-100) fL MCH (25-34) pg MCHC (32-36) g/dL RDW Std Deviation (36.4-46.3) fL RDW Coeff of Roshan (11.5-14.5) % Plt Count (130-400) K/uL MPV (7.4-10.4) fL Immature Gran % (Auto) % Neut % (Auto) % Lymph % (Auto) % [place] % (Auto) % Eos % (Auto) % Baso % (Auto) % Neut # (Auto) (1.4-6.5) K/uL Lymph # (Auto) (1.2-3.4) K/uL [place] # (Auto) (0.11-0.59) K/uL Eos # (Auto) (0-0.5) K/uL Baso # (Auto) (0-0.2) K/uL Immature Gran # (Auto) (0.00-0.02) K/uL ESR (0-20) mm/hr PT (9.0-12.0) Seconds INR (0.9-1.1) D-Dimer (0-500) ug/L FEU Sample Site POC pH (7.35-7.45) POC pCO2 (35-46) mmHg POC pO2 (80-95) mmHg POC HCO3 (19-24) jose ramon/L POC Total CO2 (24-31) mmol/L POC Base Excess (-9-1.8) jose ramon/L ABG pH (Temp Correct) (7.35-7.45) ABG pCO2 (Temp Corrct (35-46) mmHg POC ABG pO2 at Pt Temp POC ABG O2 Sat (90-95) % John Test O2 Delivery Device POC O2 Rate POC FiO2 % Tidal Volume PEEP POC Sodium (135-144) mmol/L Sodium (136-145) mmol/L POC Potassium (3.3-5.0) mmol/L Potassium (3.5-5.1) mmol/L Chloride (98-107) mmol/L Carbon Dioxide (21-32) mmol/L Anion Gap (3-11) BUN (7-18) mg/dl Creatinine (0.6-1.4) mg/dl Est Cr Clr Drug Dosing Est GFR ( Amer) ml/min Est GFR (Non-Af Amer) ml/min BUN/Creatinine Ratio (10-20) Glucose (70-99) mg/dl POC Glucose (70-99) mg/dl Lactate (0.4-2.0) mmol/L Calcium (8.5-10.1) mg/dl Phosphorus (2.5-4.9) mg/dl Magnesium (1.8-2.4) mg/dl Ferritin (8-388) ng/ml Total Bilirubin (0.2-1) mg/dl Direct Bilirubin (0-0.2) mg/dl AST (15-37) U/L ALT (12-78) U/L Alkaline Phosphatase (45-117) U/L Troponin I 0.086 H* 0.189 H* (0-0.045) ng/ml C-Reactive Protein (0-0.29) mg/dl Total Protein (6.4-8.2) gm/dl Albumin (3.4-5.0) gm/dl Lipase (73-393) U/L Procalcitonin (0-0.5) ng/ml Urine Color Urine Appearance (Clear) Urine pH (4.5-7.5) Ur Specific [place] (1.000-1.030) Urine Protein (Negative) Urine Glucose (UA) (Negative) Urine Ketones (Negative) Urine Blood (Negative) Urine Nitrite (Negative) Urine Bilirubin (Negative) Urine Urobilinogen (Negative) Ur Leukocyte Esterase (Negative) Urine WBC (Auto) (0-5) /hpf Urine RBC (Auto) (0-4) /hpf U Hyaline Cast (Auto) (0-5) /lpf U Epithel Cells (Auto) (0-5) /lpf Urine Bacteria (Auto) (Negative) Ur Renal Epithelial Cell Amorphous Sediment (None Prsent) Granular Casts (0) /lpf Urine Mucus (None Prsent) Urine Yeast Nasal Screen MRSA (PCR) Negative (Negative) Ethyl Alcohol mg/dL (0-3) mg/dl Adenovirus (PCR) (NotDetected) B. pertussis DNA (PCR) (NotDetected) B.parapertussis DNA PCR (NotDetected) C. pneumoniae DNA (PCR) (NotDetected) Coronavirus OC43 (PCR) (NotDetected) Coronavirus HKU1 (PCR) (NotDetected) Coronavirus 229E (PCR) (NotDetected) COVID-19 Eval Order SARS-CoV-2 (PCR) (NotDetected) Coronavirus NL63 (PCR) (NotDetected) Hepatitis A IgM Ab Hep Bs Antigen (Neg) Hep B Core IgM Ab Hepatitis C Antibody (Neg) Human Metapneumovir PCR (NotDetected) Influenza Type A (PCR) (NotDetected) Influenza Type B (PCR) (NotDetected) M. pneumoniae (PCR) (NotDetected) Parainfluenza 1 (PCR) (NotDetected) Parainfluenza 2 (PCR) (NotDetected) Parainfluenza 3 (PCR) (NotDetected) Parainfluenza 4 (PCR) (NotDetected) RSV (PCR) (NotDetected) Entero/Rhino (PCR) (NotDetected) 08/08/21 08/08/21 08/08/21 Range/Units 16:36 16:36 16:16 WBC (4.8-10.8) K/uL RBC (4.7-6.1) M/uL Hgb (14.0-18.0) g/dL POC Hgb (14.0-18.0) g/dl Hct (42-52) % POC Hct (42-52) % MCV (80-100) fL MCH (25-34) pg MCHC (32-36) g/dL RDW Std Deviation (36.4-46.3) fL RDW Coeff of Roshan (11.5-14.5) % Plt Count (130-400) K/uL MPV (7.4-10.4) fL Immature Gran % (Auto) % Neut % (Auto) % Lymph % (Auto) % [place] % (Auto) % Eos % (Auto) % Baso % (Auto) % Neut # (Auto) (1.4-6.5) K/uL Lymph # (Auto) (1.2-3.4) K/uL [place] # (Auto) (0.11-0.59) K/uL Eos # (Auto) (0-0.5) K/uL Baso # (Auto) (0-0.2) K/uL Immature Gran # (Auto) (0.00-0.02) K/uL ESR (0-20) mm/hr PT (9.0-12.0) Seconds INR (0.9-1.1) D-Dimer (0-500) ug/L FEU Sample Site POC pH (7.35-7.45) POC pCO2 (35-46) mmHg POC pO2 (80-95) mmHg POC HCO3 (19-24) jose ramon/L POC Total CO2 (24-31) mmol/L POC Base Excess (-9-1.8) jose ramon/L ABG pH (Temp Correct) (7.35-7.45) ABG pCO2 (Temp Corrct (35-46) mmHg POC ABG pO2 at Pt Temp POC ABG O2 Sat (90-95) % John Test O2 Delivery Device POC O2 Rate POC FiO2 % Tidal Volume PEEP POC Sodium (135-144) mmol/L Sodium (136-145) mmol/L POC Potassium (3.3-5.0) mmol/L Potassium (3.5-5.1) mmol/L Chloride (98-107) mmol/L Carbon Dioxide (21-32) mmol/L Anion Gap (3-11) BUN (7-18) mg/dl Creatinine (0.6-1.4) mg/dl Est Cr Clr Drug Dosing Est GFR ( Amer) ml/min Est GFR (Non-Af Amer) ml/min BUN/Creatinine Ratio (10-20) Glucose (70-99) mg/dl POC Glucose 150 H (70-99) mg/dl Lactate (0.4-2.0) mmol/L Calcium (8.5-10.1) mg/dl Phosphorus (2.5-4.9) mg/dl Magnesium (1.8-2.4) mg/dl Ferritin (8-388) ng/ml Total Bilirubin (0.2-1) mg/dl Direct Bilirubin (0-0.2) mg/dl AST (15-37) U/L ALT (12-78) U/L Alkaline Phosphatase (45-117) U/L Troponin I (0-0.045) ng/ml C-Reactive Protein (0-0.29) mg/dl Total Protein (6.4-8.2) gm/dl Albumin (3.4-5.0) gm/dl Lipase (73-393) U/L Procalcitonin (0-0.5) ng/ml Urine Color Urine Appearance (Clear) Urine pH (4.5-7.5) Ur Specific [place] (1.000-1.030) Urine Protein (Negative) Urine Glucose (UA) (Negative) Urine Ketones (Negative) Urine Blood (Negative) Urine Nitrite (Negative) Urine Bilirubin (Negative) Urine Urobilinogen (Negative) Ur Leukocyte Esterase (Negative) Urine WBC (Auto) (0-5) /hpf Urine RBC (Auto) (0-4) /hpf U Hyaline Cast (Auto) (0-5) /lpf U Epithel Cells (Auto) (0-5) /lpf Urine Bacteria (Auto) (Negative) Ur Renal Epithelial Cell Amorphous Sediment (None Prsent) Granular Casts (0) /lpf Urine Mucus (None Prsent) Urine Yeast Nasal Screen MRSA (PCR) (Negative) Ethyl Alcohol mg/dL (0-3) mg/dl Adenovirus (PCR) (NotDetected) B. pertussis DNA (PCR) (NotDetected) B.parapertussis DNA PCR (NotDetected) C. pneumoniae DNA (PCR) (NotDetected) Coronavirus OC43 (PCR) (NotDetected) Coronavirus HKU1 (PCR) (NotDetected) Coronavirus 229E (PCR) (NotDetected) COVID-19 Eval Order SARS-CoV-2 (PCR) (NotDetected) Coronavirus NL63 (PCR) (NotDetected) Hepatitis A IgM Ab Pending Hep Bs Antigen Neg (Neg) Hep B Core IgM Ab Pending Hepatitis C Antibody Neg (Neg) Human Metapneumovir PCR (NotDetected) Influenza Type A (PCR) (NotDetected) Influenza Type B (PCR) (NotDetected) M. pneumoniae (PCR) (NotDetected) Parainfluenza 1 (PCR) (NotDetected) Parainfluenza 2 (PCR) (NotDetected) Parainfluenza 3 (PCR) (NotDetected) Parainfluenza 4 (PCR) (NotDetected) RSV (PCR) (NotDetected) Entero/Rhino (PCR) (NotDetected) 08/08/21 08/08/21 08/08/21 Range/Units 13:57 12:35 12:33 WBC (4.8-10.8) K/uL RBC (4.7-6.1) M/uL Hgb (14.0-18.0) g/dL POC Hgb (14.0-18.0) g/dl Hct (42-52) % POC Hct (42-52) % MCV (80-100) fL MCH (25-34) pg MCHC (32-36) g/dL RDW Std Deviation (36.4-46.3) fL RDW Coeff of Roshan (11.5-14.5) % Plt Count (130-400) K/uL MPV (7.4-10.4) fL Immature Gran % (Auto) % Neut % (Auto) % Lymph % (Auto) % [place] % (Auto) % Eos % (Auto) % Baso % (Auto) % Neut # (Auto) (1.4-6.5) K/uL Lymph # (Auto) (1.2-3.4) K/uL [place] # (Auto) (0.11-0.59) K/uL Eos # (Auto) (0-0.5) K/uL Baso # (Auto) (0-0.2) K/uL Immature Gran # (Auto) (0.00-0.02) K/uL ESR (0-20) mm/hr PT (9.0-12.0) Seconds INR (0.9-1.1) D-Dimer (0-500) ug/L FEU Sample Site POC pH (7.35-7.45) POC pCO2 (35-46) mmHg POC pO2 (80-95) mmHg POC HCO3 (19-24) jose ramon/L POC Total CO2 (24-31) mmol/L POC Base Excess (-9-1.8) jose ramon/L ABG pH (Temp Correct) (7.35-7.45) ABG pCO2 (Temp Corrct (35-46) mmHg POC ABG pO2 at Pt Temp POC ABG O2 Sat (90-95) % John Test O2 Delivery Device POC O2 Rate POC FiO2 % Tidal Volume PEEP POC Sodium (135-144) mmol/L Sodium (136-145) mmol/L POC Potassium (3.3-5.0) mmol/L Potassium (3.5-5.1) mmol/L Chloride (98-107) mmol/L Carbon Dioxide (21-32) mmol/L Anion Gap (3-11) BUN (7-18) mg/dl Creatinine (0.6-1.4) mg/dl Est Cr Clr Drug Dosing Est GFR ( Amer) ml/min Est GFR (Non-Af Amer) ml/min BUN/Creatinine Ratio (10-20) Glucose (70-99) mg/dl POC Glucose (70-99) mg/dl Lactate 1.2 (0.4-2.0) mmol/L Calcium (8.5-10.1) mg/dl Phosphorus (2.5-4.9) mg/dl Magnesium (1.8-2.4) mg/dl Ferritin (8-388) ng/ml Total Bilirubin (0.2-1) mg/dl Direct Bilirubin (0-0.2) mg/dl AST (15-37) U/L ALT (12-78) U/L Alkaline Phosphatase (45-117) U/L Troponin I (0-0.045) ng/ml C-Reactive Protein (0-0.29) mg/dl Total Protein (6.4-8.2) gm/dl Albumin (3.4-5.0) gm/dl Lipase (73-393) U/L Procalcitonin (0-0.5) ng/ml Urine Color Dark Yellow Urine Appearance Cloudy A (Clear) Urine pH 5.5 (4.5-7.5) Ur Specific [place] 1.023 (1.000-1.030) Urine Protein 2+ H (Negative) Urine Glucose (UA) Negative (Negative) Urine Ketones Trace H (Negative) Urine Blood Negative (Negative) Urine Nitrite Negative (Negative) Urine Bilirubin Negative (Negative) Urine Urobilinogen Negative (Negative) Ur Leukocyte Esterase Negative (Negative) Urine WBC (Auto) 5-10 H (0-5) /hpf Urine RBC (Auto) 0-4 (0-4) /hpf U Hyaline Cast (Auto) 1-5 (0-5) /lpf U Epithel Cells (Auto) >30 H (0-5) /lpf Urine Bacteria (Auto) 1+ H (Negative) Ur Renal Epithelial Cell Not Reportable Amorphous Sediment Present A (None Prsent) Granular Casts 1-5 H (0) /lpf Urine Mucus Present A (None Prsent) Urine Yeast Not Reportable Nasal Screen MRSA (PCR) (Negative) Ethyl Alcohol mg/dL < 3.0 (0-3) mg/dl Adenovirus (PCR) (NotDetected) B. pertussis DNA (PCR) (NotDetected) B.parapertussis DNA PCR (NotDetected) C. pneumoniae DNA (PCR) (NotDetected) Coronavirus OC43 (PCR) (NotDetected) Coronavirus HKU1 (PCR) (NotDetected) Coronavirus 229E (PCR) (NotDetected) COVID-19 Eval Order SARS-CoV-2 (PCR) (NotDetected) Coronavirus NL63 (PCR) (NotDetected) Hepatitis A IgM Ab Hep Bs Antigen (Neg) Hep B Core IgM Ab Hepatitis C Antibody (Neg) Human Metapneumovir PCR (NotDetected) Influenza Type A (PCR) (NotDetected) Influenza Type B (PCR) (NotDetected) M. pneumoniae (PCR) (NotDetected) Parainfluenza 1 (PCR) (NotDetected) Parainfluenza 2 (PCR) (NotDetected) Parainfluenza 3 (PCR) (NotDetected) Parainfluenza 4 (PCR) (NotDetected) RSV (PCR) (NotDetected) Entero/Rhino (PCR) (NotDetected) 08/08/21 08/08/21 08/08/21 Range/Units 12:14 12:14 12:13 WBC (4.8-10.8) K/uL RBC (4.7-6.1) M/uL Hgb (14.0-18.0) g/dL POC Hgb 12.6 L (14.0-18.0) g/dl Hct (42-52) % POC Hct 37 L (42-52) % MCV (80-100) fL MCH (25-34) pg MCHC (32-36) g/dL RDW Std Deviation (36.4-46.3) fL RDW Coeff of Roshan (11.5-14.5) % Plt Count (130-400) K/uL MPV (7.4-10.4) fL Immature Gran % (Auto) % Neut % (Auto) % Lymph % (Auto) % [place] % (Auto) % Eos % (Auto) % Baso % (Auto) % Neut # (Auto) (1.4-6.5) K/uL Lymph # (Auto) (1.2-3.4) K/uL [place] # (Auto) (0.11-0.59) K/uL Eos # (Auto) (0-0.5) K/uL Baso # (Auto) (0-0.2) K/uL Immature Gran # (Auto) (0.00-0.02) K/uL ESR (0-20) mm/hr PT (9.0-12.0) Seconds INR (0.9-1.1) D-Dimer (0-500) ug/L FEU Sample Site POC pH 7.34 L (7.35-7.45) POC pCO2 41 (35-46) mmHg POC pO2 65 L (80-95) mmHg POC HCO3 22 (19-24) jose ramon/L POC Total CO2 23 L (24-31) mmol/L POC Base Excess -4.0 (-9-1.8) jose ramon/L ABG pH (Temp Correct) (7.35-7.45) ABG pCO2 (Temp Corrct (35-46) mmHg POC ABG pO2 at Pt Temp POC ABG O2 Sat 91.0 (90-95) % John Test O2 Delivery Device POC O2 Rate POC FiO2 % [place] Volume PEEP POC Sodium 137 (135-144) mmol/L Sodium (136-145) mmol/L POC Potassium 3.9 (3.3-5.0) mmol/L Potassium (3.5-5.1) mmol/L Chloride (98-107) mmol/L Carbon Dioxide (21-32) mmol/L Anion Gap (3-11) BUN (7-18) mg/dl Creatinine (0.6-1.4) mg/dl Est Cr Clr Drug Dosing Est GFR ( Amer) ml/min Est GFR (Non-Af Amer) ml/min BUN/Creatinine Ratio (10-20) Glucose (70-99) mg/dl POC Glucose (70-99) mg/dl Lactate (0.4-2.0) mmol/L Calcium (8.5-10.1) mg/dl Phosphorus (2.5-4.9) mg/dl Magnesium (1.8-2.4) mg/dl Ferritin (8-388) ng/ml Total Bilirubin (0.2-1) mg/dl Direct Bilirubin (0-0.2) mg/dl AST (15-37) U/L ALT (12-78) U/L Alkaline Phosphatase (45-117) U/L Troponin I (0-0.045) ng/ml C-Reactive Protein (0-0.29) mg/dl Total Protein (6.4-8.2) gm/dl Albumin (3.4-5.0) gm/dl Lipase (73-393) U/L Procalcitonin (0-0.5) ng/ml Urine Color Urine Appearance (Clear) Urine pH (4.5-7.5) Ur Specific [place] (1.000-1.030) Urine Protein (Negative) Urine Glucose (UA) (Negative) Urine Ketones (Negative) Urine Blood (Negative) Urine Nitrite (Negative) Urine Bilirubin (Negative) Urine Urobilinogen (Negative) Ur Leukocyte Esterase (Negative) Urine WBC (Auto) (0-5) /hpf Urine RBC (Auto) (0-4) /hpf U Hyaline Cast (Auto) (0-5) /lpf U Epithel Cells (Auto) (0-5) /lpf Urine Bacteria (Auto) (Negative) Ur Renal Epithelial Cell Amorphous Sediment (None Prsent) Granular Casts (0) /lpf Urine Mucus (None Prsent) Urine Yeast Nasal Screen MRSA (PCR) (Negative) Ethyl Alcohol mg/dL (0-3) mg/dl Adenovirus (PCR) Not Detected (NotDetected) B. pertussis DNA (PCR) Not Detected (NotDetected) B.parapertussis DNA PCR Not Detected (NotDetected) C. pneumoniae DNA (PCR) Not Detected (NotDetected) Coronavirus OC43 (PCR) Not Detected (NotDetected) Coronavirus HKU1 (PCR) Not Detected (NotDetected) Coronavirus 229E (PCR) Not Detected (NotDetected) COVID-19 Eval Order RESPNP at [facility] SARS-CoV-2 (PCR) DETECTED A* (NotDetected) Coronavirus NL63 (PCR) Not Detected (NotDetected) Hepatitis A IgM Ab Hep Bs Antigen (Neg) Hep B Core IgM Ab Hepatitis C Antibody (Neg) Human Metapneumovir PCR Not Detected (NotDetected) Influenza Type A (PCR) Not Detected (NotDetected) Influenza Type B (PCR) Not Detected (NotDetected) M. pneumoniae (PCR) Not Detected (NotDetected) Parainfluenza 1 (PCR) Not Detected (NotDetected) Parainfluenza 2 (PCR) Not Detected (NotDetected) Parainfluenza 3 (PCR) Not Detected (NotDetected) Parainfluenza 4 (PCR) Not Detected (NotDetected) RSV (PCR) Not Detected (NotDetected) Entero/Rhino (PCR) Not Detected (NotDetected) 08/08/21 08/08/21 08/08/21 Range/Units 12:01 12:01 12:01 WBC (4.8-10.8) K/uL RBC (4.7-6.1) M/uL Hgb (14.0-18.0) g/dL POC Hgb (14.0-18.0) g/dl Hct (42-52) % POC Hct (42-52) % MCV (80-100) fL MCH (25-34) pg MCHC (32-36) g/dL RDW Std Deviation (36.4-46.3) fL RDW Coeff of Roshan (11.5-14.5) % Plt Count (130-400) K/uL MPV (7.4-10.4) fL Immature Gran % (Auto) % Neut % (Auto) % Lymph % (Auto) % [place] % (Auto) % Eos % (Auto) % Baso % (Auto) % Neut # (Auto) (1.4-6.5) K/uL Lymph # (Auto) (1.2-3.4) K/uL [place] # (Auto) (0.11-0.59) K/uL Eos # (Auto) (0-0.5) K/uL Baso # (Auto) (0-0.2) K/uL Immature Gran # (Auto) (0.00-0.02) K/uL ESR 94 H (0-20) mm/hr PT (9.0-12.0) Seconds INR (0.9-1.1) D-Dimer Cancelled (0-500) ug/L FEU Sample Site POC pH (7.35-7.45) POC pCO2 (35-46) mmHg POC pO2 (80-95) mmHg POC HCO3 (19-24) jose ramon/L POC Total CO2 (24-31) mmol/L POC Base Excess (-9-1.8) jose ramon/L ABG pH (Temp Correct) (7.35-7.45) ABG pCO2 (Temp Corrct (35-46) mmHg POC ABG pO2 at Pt Temp POC ABG O2 Sat (90-95) % John Test O2 Delivery Device POC O2 Rate POC FiO2 % Tidal Volume PEEP POC Sodium (135-144) mmol/L Sodium (136-145) mmol/L POC Potassium (3.3-5.0) mmol/L Potassium (3.5-5.1) mmol/L Chloride (98-107) mmol/L Carbon Dioxide (21-32) mmol/L Anion Gap (3-11) BUN (7-18) mg/dl Creatinine (0.6-1.4) mg/dl Est Cr Clr Drug Dosing Est GFR ( Amer) ml/min Est GFR (Non-Af Amer) ml/min BUN/Creatinine Ratio (10-20) Glucose (70-99) mg/dl POC Glucose (70-99) mg/dl Lactate (0.4-2.0) mmol/L Calcium (8.5-10.1) mg/dl Phosphorus (2.5-4.9) mg/dl Magnesium (1.8-2.4) mg/dl Ferritin 1191.7 H (8-388) ng/ml Total Bilirubin (0.2-1) mg/dl Direct Bilirubin (0-0.2) mg/dl AST (15-37) U/L ALT (12-78) U/L Alkaline Phosphatase (45-117) U/L Troponin I (0-0.045) ng/ml C-Reactive Protein 24.60 H (0-0.29) mg/dl Total Protein (6.4-8.2) gm/dl Albumin (3.4-5.0) gm/dl Lipase (73-393) U/L Procalcitonin (0-0.5) ng/ml Urine Color Urine Appearance (Clear) Urine pH (4.5-7.5) Ur Specific [place] (1.000-1.030) Urine Protein (Negative) Urine Glucose (UA) (Negative) Urine Ketones (Negative) Urine Blood (Negative) Urine Nitrite (Negative) Urine Bilirubin (Negative) Urine Urobilinogen (Negative) Ur Leukocyte Esterase (Negative) Urine WBC (Auto) (0-5) /hpf Urine RBC (Auto) (0-4) /hpf U Hyaline Cast (Auto) (0-5) /lpf U Epithel Cells (Auto) (0-5) /lpf Urine Bacteria (Auto) (Negative) Ur Renal Epithelial Cell Amorphous Sediment (None Prsent) Granular Casts (0) /lpf Urine Mucus (None Prsent) Urine Yeast Nasal Screen MRSA (PCR) (Negative) Ethyl Alcohol mg/dL (0-3) mg/dl Adenovirus (PCR) (NotDetected) B. pertussis DNA (PCR) (NotDetected) B.parapertussis DNA PCR (NotDetected) C. pneumoniae DNA (PCR) (NotDetected) Coronavirus OC43 (PCR) (NotDetected) Coronavirus HKU1 (PCR) (NotDetected) Coronavirus 229E (PCR) (NotDetected) COVID-19 Eval Order SARS-CoV-2 (PCR) (NotDetected) Coronavirus NL63 (PCR) (NotDetected) Hepatitis A IgM Ab Hep Bs Antigen (Neg) Hep B Core IgM Ab Hepatitis C Antibody (Neg) Human Metapneumovir PCR (NotDetected) Influenza Type A (PCR) (NotDetected) Influenza Type B (PCR) (NotDetected) M. pneumoniae (PCR) (NotDetected) Parainfluenza 1 (PCR) (NotDetected) Parainfluenza 2 (PCR) (NotDetected) Parainfluenza 3 (PCR) (NotDetected) Parainfluenza 4 (PCR) (NotDetected) RSV (PCR) (NotDetected) Entero/Rhino (PCR) (NotDetected) 08/08/21 08/08/21 08/08/21 Range/Units 12:01 12:01 12:01 WBC (4.8-10.8) K/uL RBC (4.7-6.1) M/uL Hgb (14.0-18.0) g/dL POC Hgb (14.0-18.0) g/dl Hct (42-52) % POC Hct (42-52) % MCV (80-100) fL MCH (25-34) pg MCHC (32-36) g/dL RDW Std Deviation (36.4-46.3) fL RDW Coeff of Roshan (11.5-14.5) % Plt Count (130-400) K/uL MPV (7.4-10.4) fL Immature Gran % (Auto) % Neut % (Auto) % Lymph % (Auto) % [place] % (Auto) % Eos % (Auto) % Baso % (Auto) % Neut # (Auto) (1.4-6.5) K/uL Lymph # (Auto) (1.2-3.4) K/uL [place] # (Auto) (0.11-0.59) K/uL Eos # (Auto) (0-0.5) K/uL Baso # (Auto) (0-0.2) K/uL Immature Gran # (Auto) (0.00-0.02) K/uL ESR (0-20) mm/hr PT 11.2 (9.0-12.0) Seconds INR 1.1 (0.9-1.1) D-Dimer 2070 H* (0-500) ug/L FEU Sample Site POC pH (7.35-7.45) POC pCO2 (35-46) mmHg POC pO2 (80-95) mmHg POC HCO3 (19-24) jose ramon/L POC Total CO2 (24-31) mmol/L POC Base Excess (-9-1.8) jose ramon/L ABG pH (Temp Correct) (7.35-7.45) ABG pCO2 (Temp Corrct (35-46) mmHg POC ABG pO2 at Pt Temp POC ABG O2 Sat (90-95) % John Test O2 Delivery Device POC O2 Rate POC FiO2 % Tidal Volume PEEP POC Sodium (135-144) mmol/L Sodium 133 L (136-145) mmol/L POC Potassium (3.3-5.0) mmol/L Potassium 3.8 (3.5-5.1) mmol/L Chloride 100 (98-107) mmol/L Carbon Dioxide 21 (21-32) mmol/L Anion Gap 11.0 (3-11) BUN 33 H (7-18) mg/dl Creatinine 1.69 H (0.6-1.4) mg/dl Est Cr Clr Drug Dosing Not Reportable Est GFR ( Amer) 50.4 ml/min Est GFR (Non-Af Amer) 43.5 ml/min BUN/Creatinine Ratio 19.6 (10-20) Glucose 135 H (70-99) mg/dl POC Glucose (70-99) mg/dl Lactate (0.4-2.0) mmol/L Calcium 8.4 L (8.5-10.1) mg/dl Phosphorus (2.5-4.9) mg/dl Magnesium 2.8 H (1.8-2.4) mg/dl Ferritin (8-388) ng/ml Total Bilirubin 0.7 (0.2-1) mg/dl Direct Bilirubin 0.3 H (0-0.2) mg/dl AST 64 H (15-37) U/L ALT 36 (12-78) U/L Alkaline Phosphatase 55 (45-117) U/L Troponin I 0.104 H* (0-0.045) ng/ml C-Reactive Protein (0-0.29) mg/dl Total Protein 8.0 (6.4-8.2) gm/dl Albumin 3.1 L (3.4-5.0) gm/dl Lipase 312 (73-393) U/L Procalcitonin 0.77 H (0-0.5) ng/ml Urine Color Urine Appearance (Clear) Urine pH (4.5-7.5) Ur Specific [place] (1.000-1.030) Urine Protein (Negative) Urine Glucose (UA) (Negative) Urine Ketones (Negative) Urine Blood (Negative) Urine Nitrite (Negative) Urine Bilirubin (Negative) Urine Urobilinogen (Negative) Ur Leukocyte Esterase (Negative) Urine WBC (Auto) (0-5) /hpf Urine RBC (Auto) (0-4) /hpf U Hyaline Cast (Auto) (0-5) /lpf U Epithel Cells (Auto) (0-5) /lpf Urine Bacteria (Auto) (Negative) Ur Renal Epithelial Cell Amorphous Sediment (None Prsent) Granular Casts (0) /lpf Urine Mucus (None Prsent) Urine Yeast Nasal Screen MRSA (PCR) (Negative) Ethyl Alcohol mg/dL (0-3) mg/dl Adenovirus (PCR) (NotDetected) B. pertussis DNA (PCR) (NotDetected) B.parapertussis DNA PCR (NotDetected) C. pneumoniae DNA (PCR) (NotDetected) Coronavirus OC43 (PCR) (NotDetected) Coronavirus HKU1 (PCR) (NotDetected) Coronavirus 229E (PCR) (NotDetected) COVID-19 Eval Order SARS-CoV-2 (PCR) (NotDetected) Coronavirus NL63 (PCR) (NotDetected) Hepatitis A IgM Ab Hep Bs Antigen (Neg) Hep B Core IgM Ab Hepatitis C Antibody (Neg) Human Metapneumovir PCR (NotDetected) Influenza Type A (PCR) (NotDetected) Influenza Type B (PCR) (NotDetected) M. pneumoniae (PCR) (NotDetected) Parainfluenza 1 (PCR) (NotDetected) Parainfluenza 2 (PCR) (NotDetected) Parainfluenza 3 (PCR) (NotDetected) Parainfluenza 4 (PCR) (NotDetected) RSV (PCR) (NotDetected) Entero/Rhino (PCR) (NotDetected) 08/08/21 08/08/21 Range/Units 12:01 12:01 WBC 11.94 H (4.8-10.8) K/uL RBC 4.18 L (4.7-6.1) M/uL Hgb 13.7 L (14.0-18.0) g/dL POC Hgb (14.0-18.0) g/dl Hct 40.3 L (42-52) % POC Hct (42-52) % MCV 96.4 (80-100) fL MCH 32.8 (25-34) pg MCHC 34.0 (32-36) g/dL RDW Std Deviation 44.7 (36.4-46.3) fL RDW Coeff of Roshan 12.7 (11.5-14.5) % Plt Count 395 (130-400) K/uL MPV 10.0 (7.4-10.4) fL Immature Gran % (Auto) 0.3 % Neut % (Auto) 83.1 % Lymph % (Auto) 11.0 % [place] % (Auto) 5.4 % Eos % (Auto) 0.0 % Baso % (Auto) 0.2 % Neut # (Auto) 9.92 H (1.4-6.5) K/uL Lymph # (Auto) 1.31 (1.2-3.4) K/uL [place] # (Auto) 0.65 H (0.11-0.59) K/uL Eos # (Auto) 0.00 (0-0.5) K/uL Baso # (Auto) 0.02 (0-0.2) K/uL Immature Gran # (Auto) 0.04 H (0.00-0.02) K/uL ESR (0-20) mm/hr PT (9.0-12.0) Seconds INR (0.9-1.1) D-Dimer (0-500) ug/L FEU Sample Site POC pH (7.35-7.45) POC pCO2 (35-46) mmHg POC pO2 (80-95) mmHg POC HCO3 (19-24) jose ramon/L POC Total CO2 (24-31) mmol/L POC Base Excess (-9-1.8) jose ramon/L ABG pH (Temp Correct) (7.35-7.45) ABG pCO2 (Temp Corrct (35-46) mmHg POC ABG pO2 at Pt Temp POC ABG O2 Sat (90-95) % John Test O2 Delivery Device POC O2 Rate POC FiO2 % Tidal Volume PEEP POC Sodium (135-144) mmol/L Sodium (136-145) mmol/L POC Potassium (3.3-5.0) mmol/L Potassium (3.5-5.1) mmol/L Chloride (98-107) mmol/L Carbon Dioxide (21-32) mmol/L Anion Gap (3-11) BUN (7-18) mg/dl Creatinine (0.6-1.4) mg/dl Est Cr Clr Drug Dosing Est GFR ( Amer) ml/min Est GFR (Non-Af Amer) ml/min BUN/Creatinine Ratio (10-20) Glucose (70-99) mg/dl POC Glucose (70-99) mg/dl Lactate 3.0 H* (0.4-2.0) mmol/L Calcium (8.5-10.1) mg/dl Phosphorus (2.5-4.9) mg/dl Magnesium (1.8-2.4) mg/dl Ferritin (8-388) ng/ml Total Bilirubin (0.2-1) mg/dl Direct Bilirubin (0-0.2) mg/dl AST (15-37) U/L ALT (12-78) U/L Alkaline Phosphatase (45-117) U/L Troponin I (0-0.045) ng/ml C-Reactive Protein (0-0.29) mg/dl Total Protein (6.4-8.2) gm/dl Albumin (3.4-5.0) gm/dl Lipase (73-393) U/L Procalcitonin (0-0.5) ng/ml Urine Color Urine Appearance (Clear) Urine pH (4.5-7.5) Ur Specific [place] (1.000-1.030) Urine Protein (Negative) Urine Glucose (UA) (Negative) Urine Ketones (Negative) Urine Blood (Negative) Urine Nitrite (Negative) Urine Bilirubin (Negative) Urine Urobilinogen (Negative) Ur Leukocyte Esterase (Negative) Urine WBC (Auto) (0-5) /hpf Urine RBC (Auto) (0-4) /hpf U Hyaline Cast (Auto) (0-5) /lpf U Epithel Cells (Auto) (0-5) /lpf Urine Bacteria (Auto) (Negative) Ur Renal Epithelial Cell Amorphous Sediment (None Prsent) Granular Casts (0) /lpf Urine Mucus (None Prsent) Urine Yeast Nasal Screen MRSA (PCR) (Negative) Ethyl Alcohol mg/dL (0-3) mg/dl Adenovirus (PCR) (NotDetected) B. pertussis DNA (PCR) (NotDetected) B.parapertussis DNA PCR (NotDetected) C. pneumoniae DNA (PCR) (NotDetected) Coronavirus OC43 (PCR) (NotDetected) Coronavirus HKU1 (PCR) (NotDetected) Coronavirus 229E (PCR) (NotDetected) COVID-19 Eval Order SARS-CoV-2 (PCR) (NotDetected) Coronavirus NL63 (PCR) (NotDetected) Hepatitis A IgM Ab Hep Bs Antigen (Neg) Hep B Core IgM Ab Hepatitis C Antibody (Neg) Human Metapneumovir PCR (NotDetected) Influenza Type A (PCR) (NotDetected) Influenza Type B (PCR) (NotDetected) M. pneumoniae (PCR) (NotDetected) Parainfluenza 1 (PCR) (NotDetected) Parainfluenza 2 (PCR) (NotDetected) Parainfluenza 3 (PCR) (NotDetected) Parainfluenza 4 (PCR) (NotDetected) RSV (PCR) (NotDetected) Entero/Rhino (PCR) (NotDetected) Coding Level of Care Code Critical Care 1st 30-74 mins Diagnoses Acute respiratory failure due to COVID-19 U07.1; J96.00 Acute encephalopathy G93.40 Elevated AST (SGOT) R74.01 Elevated troponin I level R77.8 Elevated lactic acid level R79.89 Elevated creatine kinase R74.8 Alcohol use Z72.89
[2021-08-09] MEDS: fentaNYL DRIP 1,250 MCG/250 ML BAG IV SCH ×2 (13:13→20:55)
[2021-08-09] MEDS ORDERED: VANCOMYCIN CONSULT ACTIVE PRN (14:52)
[2021-08-09] MEDS ORDERED: CEFEPIME CONSULT ACTIVE PRN (14:53)
[2021-08-09] MEDS ORDERED: CEFEPIME 2,000 MG in SYRINGE 0 ML IV SCH (15:15)
--- NOTE | 2021-08-09 15:40 | Hospitalist Progress Note ---
Date of Service August 09, 2021 Assessment & Plan (1) Acute respiratory failure due to COVID-19: (2) Acute encephalopathy: (3) Hypotension: (4) Elevated troponin I level: (5) Elevated lactic acid level: (6) Elevated d-dimer: (7) Alcohol use: Plan: Patient is a 61 yr male with H/O Alcohol use and prior tobacco use presented to ER for respiratory distress. Reported pt tested positive for COVID-19 4 days ago. Non-vaccinated. +COVID-19 contact. Acute respiratory failure with Hypoxia Secondary to COVID-19 pneumonia Acute metabolic encephalopathy secondary to above Lactic acidosis -CXR:Multifocal airspace opacities which may represent atelectasis, pneumonia, and/or aspiration. -CT Head:There is no hemorrhage, mass effect, or evidence of acute territorial ischemia by CT criteria. 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 Continue dexamethasone on Tube feeds Lasix/Nebs PRN Encourage to prone when able On Tube feeds Suspected Bacteremia Abnormal UA 1/2 Blood Cx: Gram-positive cocci in clusters MRSA PCR negative Urine culture: No growth to date Apparently started on cefepime Repeat blood cultures Alcohol use disorder Continue thiamine Monitor for withdrawal Evaded troponin Likely due to demand ischemia In setting of COVID-19 infection Denies chest pain Consider echo if needed DVT Px: On Lovenox SQ Code Status Full Code Admission and Anticipated Discharge Date Admission Date: August 08, 2021 Subjective Patient is seen and examined at bedside Sedated and Intubated Discussed with ICU team 1/2 Blood Cx: Gram positive cocci Leukocytosis resolved Review of Systems Review of Systems: Unobtainable due to endotracheal tube Physical Exam Physical Exam: Physical Exam: Vitals signs as noted above General Appearance:Moderately built and nourished, no apparent distress, +Intubated Head: normocephalic, Atraumatic Eyes: normal inspection, EOMI Neck: supple, Trachea midline Respiratory/Chest: Normal breath sounds, CTA Cardiovascular: S1, S2, No murmur Abdomen/GI:Soft, Non tender, Bowel sounds present Extremities/Musculoskeletal:normal inspection, no edema Neurologic/Psych:AA, grossly no focal neurological deficits, +Intubated Skin: normal color, warm Results & Data Results & Data ([facility]) Vital Signs (Past 12 Hours) Vital Signs Temp Pulse Resp BP Pulse Ox 08/09/21 15:00 37.0 C 74 19 100/68 86 L 08/09/21 14:00 36.9 C 71 16 105/67 93 08/09/21 13:00 36.7 C 70 17 100/65 91 08/09/21 12:00 36.6 C 70 12 99/65 L 91 08/09/21 11:49 70 16 92 08/09/21 11:30 36.6 C 72 18 90 08/09/21 11:00 36.6 C 71 16 91 08/09/21 10:30 36.6 C 68 18 91 08/09/21 10:23 69 08/09/21 10:01 36.7 C 92 H 18 84 L 08/09/21 09:00 36.5 C 70 20 126/79 93 08/09/21 08:44 69 25 H 93 08/09/21 08:00 36.5 C 70 21 119/77 92 08/09/21 07:00 36.6 C 75 17 105/78 92 08/09/21 06:00 36.5 C 77 16 112/74 90 08/09/21 05:00 36.5 C 73 18 146/87 H 91 08/09/21 04:00 36.3 C L 85 16 111/67 86 L Laboratory Results Short CBC 08/09/21 Range/Units 03:45 WBC 8.46 (4.8-10.8) K/uL Hgb 10.9 L (14.0-18.0) g/dL Hct 32.9 L (42-52) % Plt Count 280 (130-400) K/uL BMP 08/09/21 03:45 Sodium 135 L Potassium 3.9 Chloride 108 H Carbon Dioxide 22 BUN 34 H Creatinine 1.10 D Glucose 202 H Calcium 7.3 L Cardiac Enzymes 08/08/21 08/08/21 08/09/21 Range/Units 16:36 21:12 03:45 Troponin I 0.189 H* 0.086 H* 0.044 (0-0.045) ng/ml Liver Function 08/09/21 Range/Units 03:45 Total Bilirubin 0.4 (0.2-1) mg/dl Direct Bilirubin 0.2 (0-0.2) mg/dl AST 55 H (15-37) U/L ALT 33 (12-78) U/L Alkaline Phosphatase 45 (45-117) U/L Albumin 2.3 L (3.4-5.0) gm/dl
[2021-08-09] MEDS: CEFEPIME 2,000 MG in SYRINGE 0 ML IV SCH (16:59)
[2021-08-09] MEDS: PEPTAMEN INTENSE VHP 1.0 CAL 1,000 ML BAG GT SCH (17:00)
[2021-08-09] MEDS: MIDAZOLAM BOLUS FROM BAG IV PRN ×3 (17:49→23:53)
[2021-08-09] MEDS: PANTOprazole 40 MG in SYRINGE 0 ML IV SCH (18:07)
[2021-08-09] MEDS: INSULIN GLARGINE SOLOSTAR 100 UNITS/ML 3 ML PEN SC SCH (20:15)
[2021-08-09] MEDS: ACETAMINOPHEN 325 MG TAB PO PRN (23:30)
[2021-08-10] MEDS: fentaNYL DRIP 1,250 MCG/250 ML BAG IV SCH ×2 (02:40→16:10)
[2021-08-10] MEDS: MIDAZOLAM HCL 125 MG/250 ML BAG IV SCH (03:27)
[2021-08-10] MEDS: CEFEPIME 2,000 MG in SYRINGE 0 ML IV SCH ×2 (03:55→16:10)
[2021-08-10] MEDS: INSULIN ASPART 100 UNITS/ML 3 ML PEN SC SCH ×5 (03:55→20:23)
[2021-08-10 04:58] LABS: iSTAT Art Bld Gas pCO2 Correct 38 mmHg (35-46); iSTAT Art Bld Gas pH Corrected 7.405 (7.35-7.45); iSTAT Arterial Blood Gas HCO3 24 meg/L (19-24); iSTAT Arterial Blood Gas pCO2 37 mmHg (35-46); iSTAT Arterial Blood Gas pH 7.41 (7.35-7.45); iSTAT Arterial Blood Gas pO2 69 mmHg (80-95); iSTAT Arterial Blood Gas pO2 C 71; iSTAT Carbon Dioxide 25 mmol/L (24-31); iSTAT FiO2 60 %; iSTAT Hematocrit 30 % (42-52); iSTAT Hemoglobin 10.2 g/dl (14.0-18.0); iSTAT Potassium 4.8 mmol/L (3.3-5.0); iSTAT Site Art Line; iSTAT Sodium 141 mmol/L (135-144)
--- NOTE | 2021-08-10 06:44 | Electrocardiogram Report ---
Test Reason : Blood Pressure : / mmHG Vent. Rate : 095 BPM Atrial Rate : 095 BPM P-R Int : 142 ms QRS Dur : 078 ms QT Int : 356 ms P-R-T Axes : 062 035 046 degrees QTc Int : 447 ms Poor data quality, interpretation may be adversely affected Normal sinus rhythm Normal ECG No previous ECGs available Confirmed by Diomedes Gonzalez ([id number]) on 08/10/2021 6:44:07 AM Referred By: REFERRED SELF Confirmed By:Diomedes Gonzalez
[2021-08-10 07:01] LABS: Hepatitis A Antibody IgM NON-REACTIVE (NON-REACTIVE); Hepatitis B Core Antibody IgM NON-REACTIVE (NON-REACTIVE)
[2021-08-10 07:05] LABS: Basophils # (auto) 0.01 K/uL (0-0.2); Basophils % (auto) 0.1 %; Hematocrit (blood only) 32.3 % (42-52); Hemoglobin 10.7 g/dL (14.0-18.0); Immature Granulocytes # (auto) 0.08 K/uL (0.00-0.02); Immature Granulocytes % (auto) 0.7 %; Lymphocytes # (auto) 0.65 K/uL (1.2-3.4); Lymphocytes % (auto) 5.5 %; Mean Corpuscular Hgb Conc 33.1 g/dL (32-36); Mean Corpuscular Volume 96.7 fL (80-100); Monocytes # (auto) 0.23 K/uL (0.11-0.59); Monocytes % (auto) 1.9 %; Neutrophils # (auto) 10.84 K/uL (1.4-6.5); Neutrophils % (auto) 91.8 %; Platelet Count 338 K/uL (130-400); RDW Coefficient of Variation 13.3 % (11.5-14.5); RDW Standard Deviation 47.2 fL (36.4-46.3); Red Blood Count 3.34 M/uL (4.7-6.1); White Blood Count 11.81 K/uL (4.8-10.8)
[2021-08-10 07:40] LABS: Albumin Level 2.4 gm/dl (3.4-5.0); BUN Creatinine Ratio 32.5 (10-20); Bilirubin Direct 0.2 mg/dl (0-0.2); Bilirubin,Total 0.3 mg/dl (0.2-1); Creatinine Clr Calc Pharmacy 88.9 ml/min; Est GFR (African American) 86.6 ml/min; Est GFR (Non-African American) 74.7 ml/min; Magnesium 3.3 mg/dl (1.8-2.4); Phosphorus 2.7 mg/dl (2.5-4.9); Total Protein 6.4 gm/dl (6.4-8.2)
[2021-08-10] MEDS: ICU ELECTROLYTE REPLACEMENT PROTOCOL SCH ×2 (07:57→17:14)
[2021-08-10] MEDS: ENOXAPARIN INJ 40 MG/0.4 ML SYR SQ SCH ×2 (08:14→20:24)
[2021-08-10] MEDS: ACETAMINOPHEN 325 MG TAB PO PRN (08:14)
[2021-08-10] MEDS: THIAMINE HCL 500 MG in SODIUM CHLORIDE 0.9% 50 ML IV SCH ×3 (08:14→20:25)
[2021-08-10] MEDS: PANTOprazole 40 MG in SYRINGE 0 ML IV SCH (08:15)
[2021-08-10] MEDS: dexAMETHasone 6 MG in SYRINGE 0 ML IV SCH (08:17)
[2021-08-10] MEDS: INSULIN GLARGINE SOLOSTAR 100 UNITS/ML 3 ML PEN SC SCH ×2 (08:17→20:59)
--- NOTE | 2021-08-10 08:45 | XRay Report ---
SINGLE VIEW CHEST CLINICAL HISTORY: Respiratory failure. FINDINGS: An AP, portable, upright chest radiograph is compared to study performed earlier the same d ay 08/09/2021. The examination is degraded by portable technique and patient rotation. An endotracheal tube, an enteric tube, and a left internal jugular central venous catheter are unchanged in position . The cardiomediastinal silhouette is unremarkable. Multifocal patchy airspace consolidation is uncha nged to modestly worsened as compared to yesterday. No large pleural effusion or pneumothorax is seen . There is chronic posttraumatic deformity of the right clavicle. IMPRESSION: 1. Stable lines and tubes. 3. Multifocal airspace consolidation is unchanged to modestly worsened as compared to yesterday. Radi ographic follow-up to resolution is recommended. ACT 112: Negative or not required by law. Electronically signed by: Ignacio Kwok M.D. 08/10/2021 8:44 AM
[2021-08-10] MEDS ORDERED: STAT IV Infusion **Titration per Protocol STA (09:14)
[2021-08-10] MEDS ORDERED: CISATRACURIUM BESYLATE IV SOLN 2 MG/ML 10 ML VIAL IV STA (09:14)
[2021-08-10] MEDS ORDERED: CISATRACURIUM BESYLATE 40 MG in 0.9 % SODIUM CHLORIDE 80 ML IV SCH (09:15)
[2021-08-10] MEDS: ARTIFICIAL TEARS OP OINT 3.5 GM TUBE OP SCH ×4 (10:13→20:25)
--- NOTE | 2021-08-10 12:07 | Critical Care Progress Note ---
Date of Service August 10, 2021 Assessment & Plan (1) Acute respiratory failure due to COVID-19: Plan: Reason Critically Ill: 61-year-old male with acute encephalopathy and acute hypoxic respiratory failure secondary to COVID-19 pneumonia PLAN: Neuro: Acute encephalopathy -Probable toxic/metabolic -CT head reviewed -Possible anoxic injury: Given clinical history of being found blue -low threshold for MRI -Staff report patient was following complex commands while being intubated Alcohol dependence -Transition to Versed infusion and fentanyl for sedation -High-dose thiamine -Alcohol withdrawal precautions Resp: Acute hypoxic respiratory failure secondary to COVID-19 pneumonia -CRP pending, follow-up CRP in morning -Decadron 10 mg IV x10 days -High PEEP low FiO2 table: Wean as tolerated -Intubation 08/08 day 3 Severe ARDS -Intermittent boluses of neuromuscular eleazar -I feel this is safer than continuous infusion and may allow patient to show signs of alcohol withdrawal if this develops CV: Elevated troponins resolved -If hypotensive will obtain echocardiogram otherwise can hold in setting of COVID-19 Fluids/Renal: Elevated creatinine (acute kidney injury): Resolved -Unknown baseline Electrolyte protocol ID: COVID-19 pneumonia GI/Nutrition: Trickle feeds: Secondary to neuromuscular eleazar Elevated AST -Suspect secondary to alcohol use -Hepatitis panel negative Elevated lipase: Improving -Continue observation for development of pancreatitis Heme: Baseline anemia NOS - guaiac stool -Suspect bone marrow suppression, will send reticulocyte count and iron studies DVT prophylaxis: Lovenox 40 mg twice daily Endocrine: ICU hyperglycemia protocol Vascular access: Right subclavian triple-lumen placed 08/08, left radial arterial line placed 08/08 Code Status: Full Disposition: ICU (2) Acute encephalopathy: (3) Elevated AST (SGOT): (4) Elevated troponin I level: (5) Elevated lactic acid level: (6) Elevated creatine kinase: (7) Alcohol use: Admission and Anticipated Discharge Date Admission Date: August 08, 2021 Supervising Physician Co-Signing Physician Notes I have personally spent 45 minutes of critical care time in the direct management of this patient. This is a life/limb threatening event. This includes time spent evaluating patient, direct bedside care, chart review, placing orders, interpretation of diagnostic studies, discussion with consultants, patient, and/or family members regarding treatment decisions, as well as other required patient management activities. This time is exclusive of all separately billable procedures, and teaching time and separate from and in addition to any other critical care service time. Subjective No overnight events in the morning he had high peak pressures and was desaturating requiring neuromuscular blockade Physical Exam Physical Exam: General: GCS: 3 TP. nontoxic. Skin: Warm, dry, Head: Atraumatic Ears, nose, mouth and throat: airway obscured by endotracheal tube Cardiovascular: Normal peripheral perfusion Respiratory: no respiratory distress, ventilator settings reviewed Gastrointestinal: Non distended Musculoskeletal: No deformity Results & Data Results & Data ([facility]) Vital Signs (Past 12 Hours) Vital Signs Temp Pulse Resp BP Pulse Ox 08/10/21 11:47 65 25 H 91 08/10/21 11:00 37.1 C 71 104/65 96 08/10/21 10:00 37.4 C 65 110/73 95 08/10/21 09:00 37.9 C H 69 108/72 93 08/10/21 08:48 72 27 H 94 08/10/21 08:00 38.1 C H 70 121/77 96 08/10/21 07:00 37.9 C H 70 119/72 95 08/10/21 06:00 37.8 C H 69 122/74 96 08/10/21 05:00 37.5 C 68 24 116/73 95 08/10/21 04:00 37.4 C 67 24 116/73 94 08/10/21 03:01 37.4 C 67 24 108/70 91 08/10/21 02:58 68 27 H 93 08/10/21 02:00 37.7 C H 68 24 96/61 L 94 08/10/21 01:00 37.9 C H 71 22 90/60 L 92 08/10/21 00:00 38.3 C H 76 107/63 90 08/09/21 23:59 75 Laboratory Results 08/10/21 08/10/21 08/10/21 Range/Units 08:04 06:07 06:07 WBC 11.81 H (4.8-10.8) K/uL RBC 3.34 L (4.7-6.1) M/uL Hgb 10.7 L (14.0-18.0) g/dL POC Hgb (14.0-18.0) g/dl Hct 32.3 L (42-52) % POC Hct (42-52) % MCV 96.7 (80-100) fL MCH 32.0 (25-34) pg MCHC 33.1 (32-36) g/dL RDW Std Deviation 47.2 H (36.4-46.3) fL RDW Coeff of Roshan 13.3 (11.5-14.5) % Plt Count 338 (130-400) K/uL MPV 10.0 (7.4-10.4) fL Immature Gran % (Auto) 0.7 % Neut % (Auto) 91.8 % Lymph % (Auto) 5.5 % Cobb % (Auto) 1.9 % Eos % (Auto) 0.0 % Baso % (Auto) 0.1 % Neut # (Auto) 10.84 H (1.4-6.5) K/uL Lymph # (Auto) 0.65 L (1.2-3.4) K/uL Cobb # (Auto) 0.23 (0.11-0.59) K/uL Eos # (Auto) 0.00 (0-0.5) K/uL Baso # (Auto) 0.01 (0-0.2) K/uL Immature Gran # (Auto) 0.08 H (0.00-0.02) K/uL Sample Site POC pH (7.35-7.45) POC pCO2 (35-46) mmHg POC pO2 (80-95) mmHg POC HCO3 (19-24) jose ramon/L POC Total CO2 (24-31) mmol/L POC Base Excess (-9-1.8) jose ramon/L ABG pH (Temp Correct) (7.35-7.45) ABG pCO2 (Temp Corrct (35-46) mmHg POC ABG pO2 at Pt Temp POC ABG O2 Sat (90-95) % John Test O2 Delivery Device POC O2 Rate Minute Ventilation POC FiO2 % Tidal Volume PEEP POC Sodium (135-144) mmol/L Sodium 140 (136-145) mmol/L POC Potassium (3.3-5.0) mmol/L Potassium 5.0 D (3.5-5.1) mmol/L Chloride 111 H (98-107) mmol/L Carbon Dioxide 23 (21-32) mmol/L Anion Gap 6.0 (3-11) BUN 35 H (7-18) mg/dl Creatinine 1.08 (0.6-1.4) mg/dl Est Cr Clr Drug Dosing 88.9 ml/min Est GFR ( Amer) 86.6 ml/min Est GFR (Non-Af Amer) 74.7 ml/min BUN/Creatinine Ratio 32.5 H (10-20) Glucose 134 H (70-99) mg/dl POC Glucose 114 H (70-99) mg/dl Estimat Average Glucose Hemoglobin A1c Calcium 8.0 L (8.5-10.1) mg/dl Phosphorus 2.7 (2.5-4.9) mg/dl Magnesium 3.3 H (1.8-2.4) mg/dl Total Bilirubin 0.3 (0.2-1) mg/dl Direct Bilirubin 0.2 (0-0.2) mg/dl AST 39 H (15-37) U/L ALT 29 (12-78) U/L Alkaline Phosphatase 50 (45-117) U/L Total Protein 6.4 (6.4-8.2) gm/dl Albumin 2.4 L (3.4-5.0) gm/dl Lipase 667 H (73-393) U/L Hepatitis A IgM Ab (NON-REACTIVE) Hep B Core IgM Ab (NON-REACTIVE) Bld Cult Staph aureus PCR (Negative) Blood Culture MRSA PCR (Negative) 08/10/21 08/10/21 08/10/21 Range/Units 06:07 04:43 03:53 WBC (4.8-10.8) K/uL RBC (4.7-6.1) M/uL Hgb (14.0-18.0) g/dL POC Hgb 10.2 L (14.0-18.0) g/dl Hct (42-52) % POC Hct 30 L (42-52) % MCV (80-100) fL MCH (25-34) pg MCHC (32-36) g/dL RDW Std Deviation (36.4-46.3) fL RDW Coeff of Roshan (11.5-14.5) % Plt Count (130-400) K/uL MPV (7.4-10.4) fL Immature Gran % (Auto) % Neut % (Auto) % Lymph % (Auto) % Cobb % (Auto) % Eos % (Auto) % Baso % (Auto) % Neut # (Auto) (1.4-6.5) K/uL Lymph # (Auto) (1.2-3.4) K/uL Cobb # (Auto) (0.11-0.59) K/uL Eos # (Auto) (0-0.5) K/uL Baso # (Auto) (0-0.2) K/uL Immature Gran # (Auto) (0.00-0.02) K/uL Sample Site Art Line POC pH 7.41 (7.35-7.45) POC pCO2 37 (35-46) mmHg POC pO2 69 L (80-95) mmHg POC HCO3 24 (19-24) jose ramon/L POC Total CO2 25 (24-31) mmol/L POC Base Excess -1.0 (-9-1.8) jose ramon/L ABG pH (Temp Correct) 7.405 (7.35-7.45) ABG pCO2 (Temp Corrct 38 (35-46) mmHg POC ABG pO2 at Pt Temp 71 POC ABG O2 Sat 94.0 (90-95) % John Test NA O2 Delivery Device Ventilator POC O2 Rate 16 Minute Ventilation 8.0 POC FiO2 60 % Tidal Volume 500 PEEP 20 POC Sodium 141 (135-144) mmol/L Sodium (136-145) mmol/L POC Potassium 4.8 (3.3-5.0) mmol/L Potassium (3.5-5.1) mmol/L Chloride (98-107) mmol/L Carbon Dioxide (21-32) mmol/L Anion Gap (3-11) BUN (7-18) mg/dl Creatinine (0.6-1.4) mg/dl Est Cr Clr Drug Dosing ml/min Est GFR ( Amer) ml/min Est GFR (Non-Af Amer) ml/min BUN/Creatinine Ratio (10-20) Glucose (70-99) mg/dl POC Glucose 124 H (70-99) mg/dl Estimat Average Glucose Pending Hemoglobin A1c Pending Calcium (8.5-10.1) mg/dl Phosphorus (2.5-4.9) mg/dl Magnesium (1.8-2.4) mg/dl Total Bilirubin (0.2-1) mg/dl Direct Bilirubin (0-0.2) mg/dl AST (15-37) U/L ALT (12-78) U/L Alkaline Phosphatase (45-117) U/L Total Protein (6.4-8.2) gm/dl Albumin (3.4-5.0) gm/dl Lipase (73-393) U/L Hepatitis A IgM Ab (NON-REACTIVE) Hep B Core IgM Ab (NON-REACTIVE) Bld Cult Staph aureus PCR (Negative) Blood Culture MRSA PCR (Negative) 08/09/21 08/09/21 08/09/21 Range/Units 23:29 19:48 16:44 WBC (4.8-10.8) K/uL RBC (4.7-6.1) M/uL Hgb (14.0-18.0) g/dL POC Hgb (14.0-18.0) g/dl Hct (42-52) % POC Hct (42-52) % MCV (80-100) fL MCH (25-34) pg MCHC (32-36) g/dL RDW Std Deviation (36.4-46.3) fL RDW Coeff of Roshan (11.5-14.5) % Plt Count (130-400) K/uL MPV (7.4-10.4) fL Immature Gran % (Auto) % Neut % (Auto) % Lymph % (Auto) % Cobb % (Auto) % Eos % (Auto) % Baso % (Auto) % Neut # (Auto) (1.4-6.5) K/uL Lymph # (Auto) (1.2-3.4) K/uL Cobb # (Auto) (0.11-0.59) K/uL Eos # (Auto) (0-0.5) K/uL Baso # (Auto) (0-0.2) K/uL Immature Gran # (Auto) (0.00-0.02) K/uL Sample Site POC pH (7.35-7.45) POC pCO2 (35-46) mmHg POC pO2 (80-95) mmHg POC HCO3 (19-24) jose ramon/L POC Total CO2 (24-31) mmol/L POC Base Excess (-9-1.8) jose ramon/L ABG pH (Temp Correct) (7.35-7.45) ABG pCO2 (Temp Corrct (35-46) mmHg POC ABG pO2 at Pt Temp POC ABG O2 Sat (90-95) % John Test O2 Delivery Device POC O2 Rate Minute Ventilation POC FiO2 % Tidal Volume PEEP POC Sodium (135-144) mmol/L Sodium (136-145) mmol/L POC Potassium (3.3-5.0) mmol/L Potassium (3.5-5.1) mmol/L Chloride (98-107) mmol/L Carbon Dioxide (21-32) mmol/L Anion Gap (3-11) BUN (7-18) mg/dl Creatinine (0.6-1.4) mg/dl Est Cr Clr Drug Dosing ml/min Est GFR ( Amer) ml/min Est GFR (Non-Af Amer) ml/min BUN/Creatinine Ratio (10-20) Glucose (70-99) mg/dl POC Glucose 140 H 146 H 180 H (70-99) mg/dl Estimat Average Glucose Hemoglobin A1c Calcium (8.5-10.1) mg/dl Phosphorus (2.5-4.9) mg/dl Magnesium (1.8-2.4) mg/dl Total Bilirubin (0.2-1) mg/dl Direct Bilirubin (0-0.2) mg/dl AST (15-37) U/L ALT (12-78) U/L Alkaline Phosphatase (45-117) U/L Total Protein (6.4-8.2) gm/dl Albumin (3.4-5.0) gm/dl Lipase (73-393) U/L Hepatitis A IgM Ab (NON-REACTIVE) Hep B Core IgM Ab (NON-REACTIVE) Bld Cult Staph aureus PCR (Negative) Blood Culture MRSA PCR (Negative) 08/09/21 08/08/21 08/08/21 Range/Units 12:19 16:36 12:04 WBC (4.8-10.8) K/uL RBC (4.7-6.1) M/uL Hgb (14.0-18.0) g/dL POC Hgb (14.0-18.0) g/dl Hct (42-52) % POC Hct (42-52) % MCV (80-100) fL MCH (25-34) pg MCHC (32-36) g/dL RDW Std Deviation (36.4-46.3) fL RDW Coeff of Orshan (11.5-14.5) % Plt Count (130-400) K/uL MPV (7.4-10.4) fL Immature Gran % (Auto) % Neut % (Auto) % Lymph % (Auto) % Cobb % (Auto) % Eos % (Auto) % Baso % (Auto) % Neut # (Auto) (1.4-6.5) K/uL Lymph # (Auto) (1.2-3.4) K/uL Cobb # (Auto) (0.11-0.59) K/uL Eos # (Auto) (0-0.5) K/uL Baso # (Auto) (0-0.2) K/uL Immature Gran # (Auto) (0.00-0.02) K/uL Sample Site POC pH (7.35-7.45) POC pCO2 (35-46) mmHg POC pO2 (80-95) mmHg POC HCO3 (19-24) jose ramon/L POC Total CO2 (24-31) mmol/L POC Base Excess (-9-1.8) jose ramon/L ABG pH (Temp Correct) (7.35-7.45) ABG pCO2 (Temp Corrct (35-46) mmHg POC ABG pO2 at Pt Temp POC ABG O2 Sat (90-95) % John Test O2 Delivery Device POC O2 Rate Minute Ventilation POC FiO2 % Tidal Volume PEEP POC Sodium (135-144) mmol/L Sodium (136-145) mmol/L POC Potassium (3.3-5.0) mmol/L Potassium (3.5-5.1) mmol/L Chloride (98-107) mmol/L Carbon Dioxide (21-32) mmol/L Anion Gap (3-11) BUN (7-18) mg/dl Creatinine (0.6-1.4) mg/dl Est Cr Clr Drug Dosing ml/min Est GFR ( Amer) ml/min Est GFR (Non-Af Amer) ml/min BUN/Creatinine Ratio (10-20) Glucose (70-99) mg/dl POC Glucose 170 H (70-99) mg/dl Estimat Average Glucose Hemoglobin A1c Calcium (8.5-10.1) mg/dl Phosphorus (2.5-4.9) mg/dl Magnesium (1.8-2.4) mg/dl Total Bilirubin (0.2-1) mg/dl Direct Bilirubin (0-0.2) mg/dl AST (15-37) U/L ALT (12-78) U/L Alkaline Phosphatase (45-117) U/L Total Protein (6.4-8.2) gm/dl Albumin (3.4-5.0) gm/dl Lipase (73-393) U/L Hepatitis A IgM Ab NON-REACTIVE (NON-REACTIVE) Hep B Core IgM Ab NON-REACTIVE (NON-REACTIVE) Bld Cult Staph aureus PCR Negative (Negative) Blood Culture MRSA PCR Negative (Negative) Coding Level of Care Code Critical Care 1st 30-74 mins Diagnoses Acute respiratory failure due to COVID-19 U07.1; J96.00 Acute encephalopathy G93.40 Elevated AST (SGOT) R74.01 Elevated troponin I level R77.8 Elevated lactic acid level R79.89 Elevated creatine kinase R74.8 Alcohol use Z72.89
[2021-08-10] MEDS: dexAMETHasone 10 MG in SYRINGE 0 ML IV SCH (13:07)
--- NOTE | 2021-08-10 13:07 | Pharmacy Report ---
Pharmacy Glycemic Short Note 2 - Date of Service August 10, 2021 - Glycemic Short BSG Results (Last 24 hours): 08/09/21 08/09/21 08/09/21 16:44 19:48 23:29 Glucose POC Glucose 180 H 146 H 140 H 08/10/21 08/10/21 08/10/21 03:53 06:07 08:04 Glucose 134 H POC Glucose 124 H 114 H 08/10/21 12:24 Glucose POC Glucose 135 H OUTPATIENT ANTIDIABETIC REGIMEN: * n/a * A1c pending ASSESSMENT: * Kp is a 61 yo male admitted with acute hypoxic respiratory failure secondary to COVID-19 pneumonia * No known h/o diabetes. No anti-diabetic agents on home med list. * Hyperglycemia likely due to COVID-19. Patient is on daily dexamethasone and fentanyl and versed infusions. * Patient was started on weight based SQ insulin on admission. He received a total of 28 units of insulin yesterday. Will continue to titrate. PLAN FOR INPATIENT GLYCEMIC CONTROL: * Basal insulin * Lantus per scale SQ BID: * 0 units for BSG < 140 * 7 units for BSG 140-180 * 15 units for BSG > 180 * Bolus insulin * NovoLog per scale ACHS or Q6hrs while NPO * Goal Range: Low 110 mg/dL - High 150 mg/dL * Correction Factor: 20 mg/dL/unit * Nutritional / Prandial insulin per carb ratio of 1 unit per 7 grams CHO consumed PLAN FOR DISCHARGE: *
[2021-08-10] MEDS: CISATRACURIUM BESYLATE IV SOLN 2 MG/ML 10 ML VIAL IV PRN ×4 (14:00→18:38)
--- NOTE | 2021-08-10 15:11 | Hospitalist Progress Note ---
Date of Service August 10, 2021 Assessment & Plan (1) Acute respiratory failure due to COVID-19: (2) Acute encephalopathy: (3) Hypotension: (4) Elevated troponin I level: (5) Elevated lactic acid level: (6) Elevated d-dimer: (7) Alcohol use: Plan: Patient is a 61 yr male with H/O Alcohol use and prior tobacco use presented to ER for respiratory distress. Reported pt tested positive for COVID-19 4 days ago. Non-vaccinated. +COVID-19 contact. Acute respiratory failure with Hypoxia Secondary to COVID-19 pneumonia Acute metabolic encephalopathy secondary to above Lactic acidosis ARDS -CXR:Multifocal airspace opacities which may represent atelectasis, pneumonia, and/or aspiration. -CT Head:There is no hemorrhage, mass effect, or evidence of acute territorial ischemia by CT criteria. Vent support as per ICU team Appreciate polisher apprentice help Continue dexamethasone on Tube feeds Lasix/Nebs PRN Encourage to prone when able On Tube feeds Neuromuscular blockade as per ICU Suspected Bacteremia--Less Likely Abnormal UA 1/2 Blood Cx: Coagulase-negative staph Repeat blood cultures pending MRSA PCR negative Urine culture: No growth to date Apparently started on cefepime Empirically started on cefepime Alcohol use disorder Continue thiamine Monitor for withdrawal Evaded troponin Likely due to demand ischemia In setting of COVID-19 infection Denies chest pain Consider echo if needed DVT Px: On Lovenox SQ Code Status Full Code Admission and Anticipated Discharge Date Admission Date: August 08, 2021 Subjective Patient is seen and examined at bedside Sedated and Intubated Discussed with ICU team Neuromuscular blockade overnight On Tube feeds Blood Cx: Negative Review of Systems Review of Systems: All systems reviewed & are unremarkable except as noted in Subjective Physical Exam Physical Exam: Physical Exam: Vitals signs as noted above General Appearance:Moderately built and nourished, no apparent distress, +Intubated Head: normocephalic, Atraumatic Eyes: normal inspection, EOMI Neck: supple, Trachea midline Respiratory/Chest: Normal breath sounds, CTA Cardiovascular: S1, S2, No murmur Abdomen/GI:Soft, Non tender, Bowel sounds present Extremities/Musculoskeletal:normal inspection, no edema Neurologic/Psych:AA, grossly no focal neurological deficits, +Intubated Skin: normal color, warm Results & Data Results & Data ([facility]) Vital Signs (Past 12 Hours) Vital Signs Temp Pulse Resp BP Pulse Ox 08/10/21 12:00 65 08/10/21 11:47 65 25 H 91 08/10/21 11:00 37.1 C 71 104/65 96 08/10/21 10:00 37.4 C 65 110/73 95 08/10/21 09:00 37.9 C H 69 108/72 93 08/10/21 08:48 72 27 H 94 08/10/21 08:00 38.1 C H 70 121/77 96 08/10/21 07:00 37.9 C H 70 119/72 95 08/10/21 06:00 37.8 C H 69 122/74 96 08/10/21 05:00 37.5 C 68 24 116/73 95 08/10/21 04:00 37.4 C 67 24 116/73 94 Laboratory Results Short CBC 08/10/21 Range/Units 06:07 WBC 11.81 H (4.8-10.8) K/uL Hgb 10.7 L (14.0-18.0) g/dL Hct 32.3 L (42-52) % Plt Count 338 (130-400) K/uL BMP 08/10/21 06:07 Sodium 140 Potassium 5.0 D Chloride 111 H Carbon Dioxide 23 BUN 35 H Creatinine 1.08 Glucose 134 H Calcium 8.0 L Liver Function 08/10/21 Range/Units 06:07 Total Bilirubin 0.3 (0.2-1) mg/dl Direct Bilirubin 0.2 (0-0.2) mg/dl AST 39 H (15-37) U/L ALT 29 (12-78) U/L Alkaline Phosphatase 50 (45-117) U/L Albumin 2.4 L (3.4-5.0) gm/dl
[2021-08-10] MEDS: PEPTAMEN INTENSE VHP 1.0 CAL 1,000 ML BAG GT SCH (16:10)
[2021-08-11] MEDS: INSULIN ASPART 100 UNITS/ML 3 ML PEN SC SCH ×6 (00:09→19:52)
[2021-08-11] MEDS: ARTIFICIAL TEARS OP OINT 3.5 GM TUBE OP SCH ×6 (03:30→21:56)
[2021-08-11] MEDS: CEFEPIME 2,000 MG in SYRINGE 0 ML IV SCH ×2 (03:30→15:48)
[2021-08-11] MEDS: fentaNYL DRIP 1,250 MCG/250 ML BAG IV SCH ×5 (03:38→19:55)
[2021-08-11] MEDS: MIDAZOLAM HCL 125 MG/250 ML BAG IV SCH ×3 (03:38→15:48)
[2021-08-11] MEDS: MIDAZOLAM BOLUS FROM BAG IV PRN ×5 (03:45→19:56)
[2021-08-11] MEDS: CISATRACURIUM BESYLATE IV SOLN 2 MG/ML 10 ML VIAL IV PRN (05:17)
[2021-08-11 05:19] LABS: iSTAT Allen Test Pass; iSTAT Art Bld Gas pCO2 Correct 36 mmHg (35-46); iSTAT Art Bld Gas pH Corrected 7.443 (7.35-7.45); iSTAT Arterial Blood Gas HCO3 25 meg/L (19-24); iSTAT Arterial Blood Gas pCO2 36 mmHg (35-46); iSTAT Arterial Blood Gas pH 7.44 (7.35-7.45); iSTAT Arterial Blood Gas pO2 56 mmHg (80-95); iSTAT Arterial Blood Gas pO2 C 56; iSTAT Carbon Dioxide 26 mmol/L (24-31); iSTAT FiO2 50 %; iSTAT Hematocrit 28 % (42-52); iSTAT Hemoglobin 9.5 g/dl (14.0-18.0); iSTAT Potassium 4.9 mmol/L (3.3-5.0); iSTAT Site L Radial; iSTAT Sodium 141 mmol/L (135-144)
[2021-08-11 06:14] LABS: Basophils # (auto) 0.01 K/uL (0-0.2); Basophils % (auto) 0.1 %; Hematocrit (blood only) 32.4 % (42-52); Hemoglobin 10.3 g/dL (14.0-18.0); Immature Granulocytes # (auto) 0.06 K/uL (0.00-0.02); Immature Granulocytes % (auto) 0.7 %; Lymphocytes # (auto) 0.59 K/uL (1.2-3.4); Lymphocytes % (auto) 7.2 %; Mean Corpuscular Hemoglobin 31.6 pg (25-34); Mean Corpuscular Hgb Conc 31.8 g/dL (32-36); Mean Corpuscular Volume 99.4 fL (80-100); Mean Platelet Volume 9.6 fL (7.4-10.4); Monocytes # (auto) 0.23 K/uL (0.11-0.59); Monocytes % (auto) 2.8 %; Neutrophils # (auto) 7.26 K/uL (1.4-6.5); Neutrophils % (auto) 89.2 %; Platelet Count 349 K/uL (130-400); RDW Coefficient of Variation 13.7 % (11.5-14.5); Red Blood Count 3.26 M/uL (4.7-6.1); Reticulocytes # 0.03 10^6/uL (0.02-0.10); White Blood Count 8.15 K/uL (4.8-10.8)
[2021-08-11 06:51] LABS: Albumin Level 2.1 gm/dl (3.4-5.0); BUN Creatinine Ratio 33.3 (10-20); Bilirubin Direct 0.1 mg/dl (0-0.2); Est GFR (African American) 105.1 ml/min; Est GFR (Non-African American) 90.7 ml/min; Magnesium 3.2 mg/dl (1.8-2.4); Phosphorus 3.2 mg/dl (2.5-4.9)
[2021-08-11 06:57] LABS: Bilirubin,Total 0.2 mg/dl (0.2-1); Ferritin 832.4 ng/ml (8-388); Total Protein 6.3 gm/dl (6.4-8.2)
[2021-08-11] MEDS: ICU ELECTROLYTE REPLACEMENT PROTOCOL SCH ×2 (06:58→18:34)
[2021-08-11 07:58] LABS: Estimated Average Glucose 134 mg/dl; Hemoglobin A1C 6.3 % (4.5-5.6)
--- NOTE | 2021-08-11 08:19 | XRay Report ---
SINGLE VIEW CHEST CLINICAL HISTORY: Respiratory failure. FINDINGS: An AP, portable, upright chest radiograph is compared to study dated 08/10/2021. The examina tion is degraded by portable technique and patient rotation. An endotracheal tube, an enteric tube, a nd a left internal jugular central venous catheter are unchanged in position. The cardiomediastinal s ilhouette is unremarkable. Multifocal patchy airspace consolidation is unchanged from yesterday. No l arge pleural effusion or pneumothorax is seen. There is chronic posttraumatic deformity of the right clavicle. IMPRESSION: 1. Stable lines and tubes. 2. Multifocal airspace consolidation is unchanged from yesterday. ACT 112: Negative or not required by law. Electronically signed by: Ignacio Kwok M.D. 08/11/2021 8:17 AM
[2021-08-11] MEDS ORDERED: FUROSEMIDE 40 MG in SYRINGE 0 ML IV ONE (08:22)
[2021-08-11] MEDS ORDERED: FUROSEMIDE 40 MG/4 ML VIAL IV ONE (08:30)
[2021-08-11] MEDS: INSULIN GLARGINE SOLOSTAR 100 UNITS/ML 3 ML PEN SC SCH ×2 (09:23→19:54)
[2021-08-11] MEDS: THIAMINE HCL 500 MG in SODIUM CHLORIDE 0.9% 50 ML IV SCH (09:24)
[2021-08-11] MEDS: dexAMETHasone 10 MG in SYRINGE 0 ML IV SCH (09:24)
[2021-08-11] MEDS: ENOXAPARIN INJ 40 MG/0.4 ML SYR SQ SCH ×2 (09:25→19:53)
[2021-08-11] MEDS: PANTOprazole 40 MG in SYRINGE 0 ML IV SCH (10:58)
[2021-08-11] MEDS: VECURONIUM BROMIDE 10 MG VIAL IV PRN (11:07)
[2021-08-11] MEDS: THIAMINE HCL 100 MG TAB PO SCH (11:19)
[2021-08-11] MEDS: TUBE FEEDING WATER FLUSH OG SCH ×3 (13:52→21:56)
--- NOTE | 2021-08-11 14:54 | Hospitalist Progress Note ---
Date of Service August 11, 2021 Assessment & Plan (1) Acute respiratory failure due to COVID-19: (2) Acute encephalopathy: (3) Hypotension: (4) Elevated troponin I level: (5) Elevated lactic acid level: (6) Elevated d-dimer: (7) Alcohol use: Plan: Patient is a 61 yr male with H/O Alcohol use and prior tobacco use presented to ER for respiratory distress. Reported pt tested positive for COVID-19 4 days ago. Non-vaccinated. +COVID-19 contact. Acute respiratory failure with Hypoxia Secondary to COVID-19 pneumonia Acute metabolic encephalopathy secondary to above Lactic acidosis ARDS -CXR:Multifocal airspace opacities which may represent atelectasis, pneumonia, and/or aspiration. -CT Head:There is no hemorrhage, mass effect, or evidence of acute territorial ischemia by CT criteria. Vent support as per ICU team Appreciate tar heater help Continue dexamethasone on Tube feeds Lasix/Nebs PRN Neuromuscular blockade as per ICU team Received a dose of lasix Suspected Bacteremia--Less Likely Abnormal UA 1/2 Blood Cx: Coagulase-negative staph Repeat blood cultures No growth MRSA PCR negative Urine culture: No growth to date Empirically started on cefepime Alcohol use disorder Continue thiamine Monitor for withdrawal Elevated troponin Likely due to demand ischemia In setting of COVID-19 infection Denies chest pain Consider echo if needed DVT Px: On Lovenox SQ Code Status Full Code Admission and Anticipated Discharge Date Admission Date: August 08, 2021 Subjective Patient is seen and examined at bedside Remains sedated and Intubated On Tube feeds Received a dose of Lasix Follows commands off sedation Review of Systems Review of Systems: Unobtainable due to endotracheal tube Physical Exam Physical Exam: Physical Exam: Vitals signs as noted above General Appearance:Moderately built and nourished, no apparent distress, +Intubated Head: normocephalic, Atraumatic Eyes: normal inspection, EOMI Neck: supple, Trachea midline Respiratory/Chest: Normal breath sounds, CTA Cardiovascular: S1, S2, No murmur Abdomen/GI:Soft, Non tender, Bowel sounds present Extremities/Musculoskeletal:normal inspection, no edema Neurologic/Psych:AA, grossly no focal neurological deficits, +Intubated Skin: normal color, warm Results & Data Results & Data ([facility]) Vital Signs (Past 12 Hours) Vital Signs Temp Pulse Resp BP Pulse Ox 08/11/21 13:00 37.1 C 57 L 128/71 91 08/11/21 12:00 37.1 C 61 123/71 90 08/11/21 11:24 60 23 92 08/11/21 11:14 60 08/11/21 11:00 37.1 C 62 22 131/76 91 08/11/21 10:30 37.0 C 57 L 138/87 89 L 08/11/21 10:00 36.9 C 61 141/87 H 90 08/11/21 09:30 36.9 C 60 142/72 H 90 08/11/21 09:00 36.9 C 56 L 131/77 91 08/11/21 08:30 36.8 C 57 L 137/76 91 08/11/21 08:08 58 L 26 H 90 08/11/21 08:00 36.9 C 58 L 129/79 92 08/11/21 07:30 37.0 C 60 128/77 89 L 08/11/21 07:00 37.0 C 58 L 126/76 91 08/11/21 06:30 37.0 C 59 L 16 127/79 90 08/11/21 06:00 37.0 C 61 16 121/75 91 08/11/21 05:30 37.0 C 62 16 127/76 96 08/11/21 05:03 37.0 C 61 122/75 88 L 08/11/21 04:30 61 18 125/68 92 08/11/21 04:00 37.0 C 61 18 119/66 88 L 08/11/21 03:30 37.1 C 65 22 122/65 89 L 08/11/21 03:00 37.3 C 61 18 114/68 91 Laboratory Results Short CBC 08/11/21 Range/Units 05:52 WBC 8.15 (4.8-10.8) K/uL Hgb 10.3 L (14.0-18.0) g/dL Hct 32.4 L (42-52) % Plt Count 349 (130-400) K/uL BMP 08/11/21 05:52 Sodium 141 Potassium 5.0 Chloride 111 H Carbon Dioxide 26 BUN 31 H Creatinine 0.92 Glucose 150 H Calcium 8.0 L Liver Function 08/11/21 Range/Units 05:52 Total Bilirubin 0.2 (0.2-1) mg/dl Direct Bilirubin 0.1 (0-0.2) mg/dl AST 29 (15-37) U/L ALT 25 (12-78) U/L Alkaline Phosphatase 48 (45-117) U/L Albumin 2.1 L (3.4-5.0) gm/dl
[2021-08-11] MEDS: PEPTAMEN INTENSE VHP 1.0 CAL 1,000 ML BAG OG SCH (15:48)
--- NOTE | 2021-08-11 17:12 | Critical Care Progress Note ---
Date of Service August 11, 2021 Assessment & Plan (1) Acute respiratory failure due to COVID-19: (2) Admitted to intensive care unit: (3) Elevated d-dimer: (4) Pneumonia due to 2019 novel coronavirus: Plan: Reason Critically Ill: 61-year-old male with acute encephalopathy and acute hypoxic respiratory failure secondary to COVID-19 pneumonia PLAN: Neuro: Acute encephalopathy -Probable toxic/metabolic -CT head reviewed -? anoxic injury: Given clinical history of being found blue --> unlikely -low threshold for MRI -Staff report patient was following complex commands while being intubated Alcohol dependence - Versed infusion and fentanyl for sedation -Continue with thiamine and multivitamin -Alcohol withdrawal precautions Resp: Acute hypoxic respiratory failure secondary to COVID-19 pneumonia -CRP pending, follow-up CRP in morning -Decadron 10 mg IV x10 days -High PEEP low FiO2 table: Wean as tolerated -Intubation 08/08 day 3 Severe ARDS -Intermittent boluses of neuromuscular eleazar CV: Elevated troponin Likely type II LA from demand ischemia Fluids/Renal: Monitor BUN/creatinine Avoid nephrotoxic medication Replace electrolytes as needed ID: COVID-19 pneumonia GI/Nutrition: Trickle feeds Elevated AST -Suspect secondary to alcohol use -Hepatitis panel negative Elevated lipase: Improving -Continue observation for development of pancreatitis -Avoid propofol Heme: Baseline anemia NOS --> monitor H&H DVT prophylaxis: Lovenox 40 mg twice daily Endocrine: ICU hyperglycemia protocol --Prophylaxis VTE: Lovenox GI: Protonix Lines:Right subclavian 08/08, left radial arterial line 08/08, positive Fregoso Diet: Tube feeds Plan: In/out: +128, urine output 1320, patient is positive 4179 since coming to the hospital AB.4/36/56 on PEEP of 16 50% FiO2 Patient has history of alcohol abuse, would continue with Versed drip for the time being he also had elevated lipase when he came in, avoid propofol. X-ray shows some improvement in the opacities bilaterally. 40 mg of Lasix given to the patient. Patient's potassium is a bit on the higher side. We will keep a close eye on it I gradually went down on the PEEP to 10. Patient does have breath stacking occasionally. Giving him as needed paralytics. I have personally spent 41 minutes of critical care time in the direct management of this patient. This is a life/limb threatening event. This includes time spent evaluating patient, direct bedside care, chart review, placing orders, interpretation of diagnostic studies, discussion with consultants, patient, and family members, as well as other required patient management activities. This time is exclusive of all separately billable procedures, and teaching time and separate from and in addition to any other critical care service time. Please note the above document was generated using voice recognition software. It may contain grammatical, syntax or spelling errors. Admission and Anticipated Discharge Date Admission Date: August 08, 2021 Subjective Patient seen and examined at bedside. No acute distress, no adverse events overnight Patient was on 5 of Versed, 100 of fentanyl at the time of examination He was breathing over the vent he did have breath stacking He does move his extremities on his own He was on PEEP of 14 Review of Systems Review of Systems: Unobtainable due to endotracheal tube Physical Exam Physical Exam: Constitutional: No acute distress HEENT: PERRLA, positive ETT Respiratory system: Decreased air entry bilaterally, no wheeze, no rhonchi, positive crackles bilateral lower lobes CVS: S1-S2 positive, no murmurs or gallops Abdomen: Soft, nontender, nondistended, positive bowel sounds x4 Extremities: +2 pulses bilaterally radialis/ dorsalis pedis, no cyanosis, no edema Neuro: RASS -1, breathing over the vent, moves extremities on his own Psych: Unable to assess G/U: Positive Fregoso Skin: no rashes, warm and dry Lymphatic: no cervical or axillary lymphadenopathy Results & Data Results & Data ([facility]) Vital Signs (Past 12 Hours) Vital Signs Temp Pulse Resp BP Pulse Ox 08/11/21 16:47 59 L 08/11/21 16:02 61 28 H 89 L 08/11/21 16:00 37.3 C 61 124/72 90 08/11/21 15:30 37.3 C 61 119/71 90 08/11/21 15:00 37.2 C 60 129/72 91 08/11/21 14:30 37.2 C 60 126/72 90 08/11/21 14:00 37.1 C 60 128/75 08/11/21 13:30 37.1 C 59 L 121/75 08/11/21 13:00 37.1 C 57 L 128/71 08/11/21 12:00 37.1 C 61 123/71 90 08/11/21 11:24 60 23 92 08/11/21 11:14 60 08/11/21 11:00 37.1 C 62 22 131/76 91 08/11/21 10:30 37.0 C 57 L 138/87 89 L 08/11/21 10:00 36.9 C 61 141/87 H 90 08/11/21 09:30 36.9 C 60 142/72 H 90 08/11/21 09:00 36.9 C 56 L 131/77 91 08/11/21 08:30 36.8 C 57 L 137/76 91 08/11/21 08:08 58 L 26 H 90 08/11/21 08:00 36.9 C 58 L 129/79 92 08/11/21 07:30 37.0 C 60 128/77 89 L 08/11/21 07:00 37.0 C 58 L 126/76 91 08/11/21 06:30 37.0 C 59 L 16 127/79 90 08/11/21 06:00 37.0 C 61 16 121/75 91 08/11/21 05:30 37.0 C 62 16 127/76 96 08/11/21 05:03 37.0 C 61 122/75 88 L 08/11/21 05:52 08/11/21 05:52 Coding Level of Care Code Critical Care 1st 30-74 mins Diagnoses Acute respiratory failure due to COVID-19 U07.1; J96.00 Admitted to intensive care unit Z78.9 Elevated d-dimer R79.89 Pneumonia due to 2019 novel coronavirus U07.1; J12.82 Time Spent (min) 41
[2021-08-12] MEDS: MIDAZOLAM HCL 125 MG/250 ML BAG IV SCH ×2 (00:31→15:08)
[2021-08-12] MEDS: INSULIN ASPART 100 UNITS/ML 3 ML PEN SC SCH ×6 (00:37→20:20)
[2021-08-12] MEDS: TUBE FEEDING WATER FLUSH OG SCH ×6 (01:39→22:43)
[2021-08-12] MEDS: ARTIFICIAL TEARS OP OINT 3.5 GM TUBE OP SCH ×6 (01:39→20:06)
[2021-08-12] MEDS: fentaNYL DRIP 1,250 MCG/250 ML BAG IV SCH ×8 (01:44→22:42)
[2021-08-12] MEDS: MIDAZOLAM BOLUS FROM BAG IV PRN ×6 (02:45→15:08)
[2021-08-12] MEDS: VECURONIUM BROMIDE 10 MG VIAL IV PRN ×3 (02:57→15:08)
[2021-08-12] MEDS: CEFEPIME 2,000 MG in SYRINGE 0 ML IV SCH ×3 (04:11→22:42)
[2021-08-12 05:07] LABS: iSTAT Allen Test Pass; iSTAT Art Bld Gas pCO2 Correct 39 mmHg (35-46); iSTAT Art Bld Gas pH Corrected 7.418 (7.35-7.45); iSTAT Arterial Blood Gas HCO3 25 meg/L (19-24); iSTAT Arterial Blood Gas pCO2 38 mmHg (35-46); iSTAT Arterial Blood Gas pH 7.42 (7.35-7.45); iSTAT Arterial Blood Gas pO2 51 mmHg (80-95); iSTAT Arterial Blood Gas pO2 C 52; iSTAT Carbon Dioxide 26 mmol/L (24-31); iSTAT FiO2 70 %; iSTAT Hematocrit 31 % (42-52); iSTAT Hemoglobin 10.5 g/dl (14.0-18.0); iSTAT Potassium 4.3 mmol/L (3.3-5.0); iSTAT Site R Radial; iSTAT Sodium 145 mmol/L (135-144)
[2021-08-12] MEDS ORDERED: VECURONIUM BROMIDE 10 MG VIAL IV STA (05:58)
[2021-08-12] MEDS ORDERED: STAT IV Infusion **Titration per Protocol STA ×2 (05:58→10:47)
[2021-08-12] MEDS: DEXMEDETOMIDINE HCL 200 MCG in SODIUM CHLORIDE 0.9% 48 ML IV SCH ×2 (06:32→09:56)
[2021-08-12] MEDS: ACETAMINOPHEN 325 MG TAB PO PRN (06:32)
[2021-08-12 07:15] LABS: Basophils # (auto) 0.02 K/uL (0-0.2); Basophils % (auto) 0.2 %; Eosinophils # (auto) 0.01 K/uL (0-0.5); Eosinophils % (auto) 0.1 %; Hematocrit (blood only) 37.7 % (42-52); Hemoglobin 11.6 g/dL (14.0-18.0); Immature Granulocytes # (auto) 0.17 K/uL (0.00-0.02); Immature Granulocytes % (auto) 1.5 %; Lymphocytes # (auto) 1.22 K/uL (1.2-3.4); Lymphocytes % (auto) 10.6 %; Mean Corpuscular Hemoglobin 31.7 pg (25-34); Mean Corpuscular Hgb Conc 30.8 g/dL (32-36); Mean Platelet Volume 9.7 fL (7.4-10.4); Monocytes # (auto) 0.31 K/uL (0.11-0.59); Monocytes % (auto) 2.7 %; Neutrophils # (auto) 9.78 K/uL (1.4-6.5); Neutrophils % (auto) 84.9 %; Platelet Count 429 K/uL (130-400); RDW Coefficient of Variation 13.6 % (11.5-14.5); RDW Standard Deviation 51.5 fL (36.4-46.3); Red Blood Count 3.66 M/uL (4.7-6.1); White Blood Count 11.51 K/uL (4.8-10.8)
[2021-08-12 07:41] LABS: BUN Creatinine Ratio 38.6 (10-20); Calcium 8.4 mg/dl (8.5-10.1); Creatinine Clr Calc Pharmacy 113.5 ml/min; Est GFR (African American) 111.1 ml/min; Est GFR (Non-African American) 95.8 ml/min; Magnesium 2.4 mg/dl (1.8-2.4); Phosphorus 3.4 mg/dl (2.5-4.9); Potassium 4.3 mmol/L (3.5-5.1)
[2021-08-12] MEDS: THIAMINE HCL 100 MG TAB PO SCH (07:41)
[2021-08-12] MEDS: MULTI VIT W/MINERALS LIQUID 15 ML UDP NG SCH (07:42)
[2021-08-12] MEDS: ENOXAPARIN INJ 40 MG/0.4 ML SYR SQ SCH ×2 (07:42→20:06)
[2021-08-12] MEDS: INSULIN GLARGINE SOLOSTAR 100 UNITS/ML 3 ML PEN SC SCH (07:53)
[2021-08-12] MEDS: dexAMETHasone 10 MG in SYRINGE 0 ML IV SCH (07:59)
[2021-08-12] MEDS: ICU ELECTROLYTE REPLACEMENT PROTOCOL SCH ×2 (08:32→17:05)
--- NOTE | 2021-08-12 10:35 | Critical Care Progress Note ---
Date of Service August 12, 2021 Assessment & Plan (1) Acute respiratory failure due to COVID-19: (2) Admitted to intensive care unit: (3) Elevated d-dimer: (4) Pneumonia due to 2019 novel coronavirus: Plan: Reason Critically Ill: 61-year-old male with acute encephalopathy and acute hypoxic respiratory failure secondary to COVID-19 pneumonia PLAN: Neuro: Acute encephalopathy -Probable toxic/metabolic -CT head reviewed -? anoxic injury: Given clinical history of being found blue --> unlikely -low threshold for MRI -Staff report patient was following complex commands while being intubated Alcohol dependence - Versed infusion and fentanyl for sedation -Continue with thiamine and multivitamin -Alcohol withdrawal precautions Resp: Acute hypoxic respiratory failure secondary to COVID-19 pneumonia -CRP pending, follow-up CRP in morning -Decadron 10 mg IV x10 days -High PEEP low FiO2 table: Wean as tolerated -Intubation 08/08 day 3 Severe ARDS -Intermittent boluses of neuromuscular eleazar CV: Elevated troponin Likely type II PA from demand ischemia Fluids/Renal: Monitor BUN/creatinine Avoid nephrotoxic medication Replace electrolytes as needed ID: COVID-19 pneumonia GI/Nutrition: Trickle feeds Elevated AST -Suspect secondary to alcohol use -Hepatitis panel negative Elevated lipase: Improving -Continue observation for development of pancreatitis -Avoid propofol Heme: Baseline anemia NOS --> monitor H&H DVT prophylaxis: Lovenox 40 mg twice daily Endocrine: ICU hyperglycemia protocol --Prophylaxis VTE: Lovenox GI: Protonix Lines:Right subclavian 08/08, left radial arterial line 08/08, positive Fregoso Diet: Tube feeds Plan: In/out: -1681, urine output 3610 AB.42/38/51 on PEEP 10, 70% FiO2 Chest x-ray from today does not show any significant change compared to yesterday. I will DC the Precedex and start the patient on propofol. Patient did have history of elevated lipase we will repeat the lipase prior to that. Continue with as needed rocuronium. We will decrease the frequency to every 4 hours. Patient has been spiking fever for a while. Blood cultures were done recently on the and have been negative so far We will do sputum culture Patient is making good amount of urine. We will consider another 20 mg of Lasix today. I have personally spent 36 minutes of critical care time in the direct management of this patient. This is a life/limb threatening event. This includes time spent evaluating patient, direct bedside care, chart review, placing orders, interpretation of diagnostic studies, discussion with consultants, patient, and family members, as well as other required patient management activities. This time is exclusive of all separately billable procedures, and teaching time and separate from and in addition to any other critical care service time. Please note the above document was generated using voice recognition software. It may contain grammatical, syntax or spelling errors. Admission and Anticipated Discharge Date Admission Date: August 08, 2021 Subjective Patient seen and examined at bedside. No acute distress. Overnight patient did get restless underwent he was given rocuronium as well as started on Precedex Patient's oxygen requirement also has increased along with the PEEP compared to yesterday Patient was on PEEP of 14, 70% the time of examination saturating 94% I went down on PEEP to 12 and decrease FiO2 to 60% Patient still having some breath stacking not that frequent. Review of Systems Review of Systems: Unobtainable due to endotracheal tube Physical Exam Physical Exam: Constitutional: No acute distress HEENT: PERRLA, positive ETT Respiratory system: Decreased air entry bilaterally, no wheeze, no rhonchi, positive crackles bilateral lower lobes CVS: S1-S2 positive, no murmurs or gallops Abdomen: Soft, nontender, nondistended, positive bowel sounds x4 Extremities: +2 pulses bilaterally radialis/ dorsalis pedis, no cyanosis, no edema Neuro: RASS -1, breathing over the vent, breathing over the vent Psych: Unable to assess G/U: Positive Fregoso Skin: no rashes, warm and dry Lymphatic: no cervical or axillary lymphadenopathy Results & Data Results & Data ([facility]) Vital Signs (Past 12 Hours) Vital Signs Temp Pulse Pulse Resp BP BP Pulse Ox 08/12/21 08:00 100 H 08/12/21 07:08 73 24 91 08/12/21 06:57 38.4 C H 84 26 H 141/90 H 87 L 08/12/21 06:31 38.1 C H 126 H 24 242/120 H 96 08/12/21 06:00 37.7 C H 80 22 191/98 H 92 08/12/21 05:30 37.4 C 64 135/81 94 08/12/21 05:00 37.3 C 65 128/74 90 08/12/21 04:30 37.3 C 69 128/75 83 L 08/12/21 04:01 37.1 C 103 H 86 L 08/12/21 03:41 77 23 91 08/12/21 03:30 37.3 C 64 131/73 91 08/12/21 03:00 37.6 C H 62 124/74 93 08/12/21 02:30 37.5 C 59 L 129/76 88 L 08/12/21 02:00 37.5 C 58 L 118/76 90 08/12/21 01:30 37.4 C 57 L 123/73 88 L 08/12/21 01:00 37.6 C H 59 L 125/70 91 08/12/21 00:30 37.5 C 60 125/74 88 L 08/12/21 00:00 37.5 C 59 L 131/73 92 08/11/21 23:30 37.4 C 59 L 123/70 91 08/11/21 23:00 37.4 C 57 L 123/73 91 08/11/21 22:51 87 27 H 91 08/12/21 06:27 08/12/21 06:27 Coding Level of Care Code Established Pt Critical Care 1st 30-74 mins Patient Type Established Diagnoses Acute respiratory failure due to COVID-19 U07.1; J96.00 Admitted to intensive care unit Z78.9 Elevated d-dimer R79.89 Pneumonia due to 2019 novel coronavirus U07.1; J12.82 Time Spent (min) 36
[2021-08-12] MEDS: propofoL 1,000 MG/100 ML VIAL IV SCH ×2 (10:52→18:51)
[2021-08-12] MEDS: PANTOprazole 40 MG in SYRINGE 0 ML IV SCH (10:52)
[2021-08-12] MEDS ORDERED: FUROSEMIDE 20 MG in SYRINGE 0 ML IV ONE (10:53)
[2021-08-12] MEDS ORDERED: FUROSEMIDE 40 MG/4 ML VIAL IV SCH (11:00)
--- NOTE | 2021-08-12 11:07 | XRay Report ---
XR chest 1V portable CLINICAL HISTORY: Resp failure COMPARISON STUDY: August 11, 2021 FINDINGS: No pneumothorax. No pleural effusion. Patchy airspace opacities are again seen bilaterally, unchanged since prior. Cardiomediastinal silhouette is within normal limits in size. Pulmonary vasculature is obscured.. Osseous structures: Degenerative changes of the spine. Tip of endotracheal tube is seen projecting 3.8 cm above cee. Stable position of the gastric tube with tip and fenestrated side-port below level of hemidiaphragm. Stable position of left-sided IJ central venous line. IMPRESSION: 1. Stable multifocal pneumonia. 2. Tip of endotracheal tube is seen projecting 3.8 cm above cee. The rest of support apparatus as above. ACT 112: Negative or not required by law. The above report was generated using voice recognition software. It may contain grammatical, syntax o r spelling errors. Electronically signed by: Michelle Tucker DO 08/12/2021 11:06 AM
[2021-08-12] MEDS: PEPTAMEN INTENSE VHP 1.0 CAL 1,000 ML BAG OG SCH (15:03)
--- NOTE | 2021-08-12 16:06 | Hospitalist Progress Note ---
Date of Service August 12, 2021 Assessment & Plan (1) Acute respiratory failure due to COVID-19: (2) Acute encephalopathy: (3) Hypotension: (4) Elevated troponin I level: (5) Elevated lactic acid level: (6) Elevated d-dimer: (7) Alcohol use: Plan: Patient is a 61 yr male with H/O Alcohol use and prior tobacco use presented to ER for respiratory distress. Reported pt tested positive for COVID-19 4 days ago. Non-vaccinated. +COVID-19 contact. Acute respiratory failure with Hypoxia Secondary to COVID-19 pneumonia Acute metabolic encephalopathy secondary to above Lactic acidosis ARDS -CXR:Multifocal airspace opacities which may represent atelectasis, pneumonia, and/or aspiration. -CT Head:There is no hemorrhage, mass effect, or evidence of acute territorial ischemia by CT criteria. Vent support as per ICU team Appreciate bolt labeler help Continue dexamethasone on Tube feeds Lasix/Nebs PRN Neuromuscular blockade PRN as per ICU team Received lasix Sputum Cx obtained Febrile today Blood Cultures remain negative Suspected Bacteremia--Less Likely Abnormal UA 1/2 Blood Cx: Coagulase-negative staph Repeat blood cultures No growth MRSA PCR negative Urine culture: No growth to date Empirically started on cefepime Alcohol use disorder Continue thiamine Monitor for withdrawal Elevated troponin Likely due to demand ischemia In setting of COVID-19 infection Denies chest pain Consider echo if needed DVT Px: On Lovenox SQ Code Status Full Code Admission and Anticipated Discharge Date Admission Date: August 08, 2021 Subjective Patient is seen and examined at bedside Sedated and Intubated Discussed with ICU team On Tube feeds Vent adjusted to PEEP 12, FiO2 60% No distress on exam Review of Systems Review of Systems: Unobtainable due to endotracheal tube Physical Exam Physical Exam: Physical Exam: Vitals signs as noted above General Appearance:Moderately built and nourished, no apparent distress, +Intubated Head: normocephalic, Atraumatic Eyes: normal inspection, EOMI Neck: supple, Trachea midline Respiratory/Chest: Normal breath sounds, CTA Cardiovascular: S1, S2, No murmur Abdomen/GI:Soft, Non tender, Bowel sounds present Extremities/Musculoskeletal:normal inspection, no edema Neurologic/Psych:AA, grossly no focal neurological deficits, +Intubated Skin: normal color, warm Results & Data Results & Data ([facility]) Vital Signs (Past 12 Hours) Vital Signs Temp Pulse Pulse Resp BP BP Pulse Ox 08/12/21 15:00 36.8 C 54 L 132/77 93 08/12/21 14:30 36.9 C 53 L 124/77 93 08/12/21 14:00 37.0 C 55 L 125/80 94 08/12/21 13:30 37.0 C 54 L 123/81 93 08/12/21 13:00 37.1 C 58 L 124/80 91 08/12/21 12:30 36.8 C 57 L 128/82 92 08/12/21 12:00 36.7 C 55 L 137/85 92 08/12/21 11:30 37.0 C 58 L 22 136/85 94 08/12/21 11:00 58 L 151/97 H 97 08/12/21 10:30 37.6 C H 58 L 159/97 H 93 08/12/21 10:00 37.7 C H 58 L 143/93 H 97 08/12/21 09:30 37.8 C H 58 L 147/93 H 96 08/12/21 09:00 37.8 C H 58 L 152/93 H 97 08/12/21 08:30 37.9 C H 59 L 154/94 H 97 08/12/21 08:00 37.9 C H 63 153/89 H 96 08/12/21 07:30 38.1 C H 76 142/99 H 85 L 08/12/21 07:08 73 24 91 08/12/21 07:00 38.4 C H 77 145/84 H 89 L 08/12/21 06:57 38.4 C H 84 26 H 141/90 H 87 L 08/12/21 06:31 38.1 C H 126 H 24 242/120 H 96 08/12/21 06:00 37.7 C H 80 22 191/98 H 92 08/12/21 05:30 37.4 C 64 135/81 94 08/12/21 05:00 37.3 C 65 128/74 90 08/12/21 04:30 37.3 C 69 128/75 83 L Laboratory Results Short CBC 08/12/21 Range/Units 06:27 WBC 11.51 H (4.8-10.8) K/uL Hgb 11.6 L (14.0-18.0) g/dL Hct 37.7 L (42-52) % Plt Count 429 H (130-400) K/uL BMP 08/12/21 06:27 Sodium 143 Potassium 4.3 Chloride 112 H Carbon Dioxide 28 BUN 33 H Creatinine 0.84 Glucose 108 H Calcium 8.4 L
[2021-08-12] MEDS ORDERED: INSULIN GLARGINE SOLOSTAR 100 UNITS/ML 3 ML PEN SC SCH (21:00)
[2021-08-13] MEDS: INSULIN ASPART 100 UNITS/ML 3 ML PEN SC SCH ×6 (00:21→20:00)
[2021-08-13] MEDS: TUBE FEEDING WATER FLUSH OG SCH ×5 (02:29→16:51)
[2021-08-13] MEDS: ARTIFICIAL TEARS OP OINT 3.5 GM TUBE OP SCH ×6 (02:29→22:14)
[2021-08-13] MEDS: MIDAZOLAM BOLUS FROM BAG IV PRN ×6 (02:30→21:41)
[2021-08-13] MEDS: VECURONIUM BROMIDE 10 MG VIAL IV PRN ×2 (02:42→06:51)
[2021-08-13] MEDS: MIDAZOLAM HCL 125 MG/250 ML BAG IV SCH ×5 (03:36→20:26)
[2021-08-13] MEDS: fentaNYL DRIP 1,250 MCG/250 ML BAG IV SCH ×7 (03:36→22:12)
[2021-08-13] MEDS: PROPOFOL BOLUS FROM BAG IV PRN ×5 (04:06→21:41)
[2021-08-13 04:43] LABS: iSTAT Allen Test Pass; iSTAT Art Bld Gas pCO2 Correct 47 mmHg (35-46); iSTAT Art Bld Gas pH Corrected 7.409 (7.35-7.45); iSTAT Arterial Blood Gas HCO3 29 meg/L (19-24); iSTAT Arterial Blood Gas pCO2 47 mmHg (35-46); iSTAT Arterial Blood Gas pH 7.41 (7.35-7.45); iSTAT Arterial Blood Gas pO2 52 mmHg (80-95); iSTAT Arterial Blood Gas pO2 C 52; iSTAT Carbon Dioxide 31 mmol/L (24-31); iSTAT FiO2 85 %; iSTAT Hematocrit 32 % (42-52); iSTAT Hemoglobin 10.9 g/dl (14.0-18.0); iSTAT Potassium 4.5 mmol/L (3.3-5.0); iSTAT Site R Radial; iSTAT Sodium 144 mmol/L (135-144)
[2021-08-13] MEDS: CEFEPIME 2,000 MG in SYRINGE 0 ML IV SCH ×3 (06:01→22:14)
[2021-08-13] MEDS: propofoL 1,000 MG/100 ML VIAL IV SCH ×2 (06:03→16:48)
[2021-08-13 06:38] LABS: Basophils # (auto) 0.01 K/uL (0-0.2); Basophils % (auto) 0.1 %; Eosinophils # (auto) 0.12 K/uL (0-0.5); Eosinophils % (auto) 1.2 %; Hematocrit (blood only) 35.2 % (42-52); Lymphocytes # (auto) 0.82 K/uL (1.2-3.4); Lymphocytes % (auto) 8.1 %; Mean Corpuscular Hemoglobin 32.4 pg (25-34); Mean Corpuscular Hgb Conc 31.3 g/dL (32-36); Mean Corpuscular Volume 103.8 fL (80-100); Mean Platelet Volume 9.5 fL (7.4-10.4); Monocytes # (auto) 0.19 K/uL (0.11-0.59); Monocytes % (auto) 1.9 %; Neutrophils # (auto) 8.77 K/uL (1.4-6.5); Neutrophils % (auto) 86.7 %; Platelet Count 392 K/uL (130-400); RDW Coefficient of Variation 13.6 % (11.5-14.5); RDW Standard Deviation 51.9 fL (36.4-46.3); Red Blood Count 3.39 M/uL (4.7-6.1); White Blood Count 10.11 K/uL (4.8-10.8)
[2021-08-13] MEDS: ACETAMINOPHEN 325 MG TAB PO PRN (06:55)
[2021-08-13 07:13] LABS: Calcium 8.3 mg/dl (8.5-10.1); Creatinine Clr Calc Pharmacy 132.3 ml/min; Est GFR (African American) 122.7 ml/min; Est GFR (Non-African American) 105.8 ml/min; Magnesium 2.4 mg/dl (1.8-2.4); Potassium 4.6 mmol/L (3.5-5.1)
[2021-08-13] MEDS: ICU ELECTROLYTE REPLACEMENT PROTOCOL SCH ×2 (07:29→18:17)
[2021-08-13] MEDS ORDERED: FUROSEMIDE 40 MG in SYRINGE 0 ML IV ONE (07:56)
[2021-08-13] MEDS: MULTI VIT W/MINERALS LIQUID 15 ML UDP NG SCH (07:57)
[2021-08-13] MEDS: ENOXAPARIN INJ 40 MG/0.4 ML SYR SQ SCH ×2 (07:57→20:09)
[2021-08-13] MEDS: THIAMINE HCL 100 MG TAB PO SCH (07:58)
[2021-08-13] MEDS: dexAMETHasone 10 MG in SYRINGE 0 ML IV SCH (08:09)
[2021-08-13] MEDS ORDERED: FUROSEMIDE 40 MG/4 ML VIAL IV ONE ×2 (08:15→19:00)
--- NOTE | 2021-08-13 09:15 | XRay Report ---
XR chest 1V portable CLINICAL HISTORY: Resp failure COMPARISON STUDY: August 12, 2021 FINDINGS: No pneumothorax. No pleural effusion. Redemonstration of patchy airspace opacities which are seen bilaterally, not significantly changed si nce prior. Cardiomediastinal silhouette is within normal limits in size. Pulmonary vasculature is obscured.. Osseous structures: Degenerative changes of the spine and right shoulder. Fracture deformity of the right clavicle. Tip of endotracheal tube is projecting 3.0 cm above cee. Stable position of the left-sided IJ veno us catheter and visualized portion of the gastric tube, tip and fenestrated side-port are outside of [id number] and below level of the left hemidiaphragm. IMPRESSION: 1. Stable multifocal pneumonia. 2. Tip of endotracheal tube is projecting 3.0 cm above cee. The rest of support apparatus as abov e. ACT 112: Negative or not required by law. The above report was generated using voice recognition software. It may contain grammatical, syntax o r spelling errors. Electronically signed by: Michelle Tucker DO 08/13/2021 9:13 AM
[2021-08-13] MEDS ORDERED: STAT IV Infusion **Titration per Protocol STA (10:30)
[2021-08-13] MEDS ORDERED: ARTIFICIAL TEARS OP OINT 3.5 GM TUBE OP SCH (10:30)
[2021-08-13] MEDS ORDERED: CISATRACURIUM BESYLATE IV SOLN 2 MG/ML 10 ML VIAL IV STA (10:30)
--- NOTE | 2021-08-13 10:52 | Hospitalist Progress Note ---
Date of Service August 13, 2021 Assessment & Plan (1) Acute respiratory failure due to COVID-19: (2) Acute encephalopathy: (3) Hypotension: (4) Elevated troponin I level: (5) Elevated lactic acid level: (6) Elevated d-dimer: (7) Alcohol use: Plan: 61 yr male with H/O Alcohol use and prior tobacco use presented to ER for respiratory distress. Reported pt tested positive for COVID-19 4 days ago. Non- vaccinated. +COVID-19 contact. Acute respiratory failure with Hypoxia Secondary to COVID-19 pneumonia Acute metabolic encephalopathy secondary to above Lactic acidosis ARDS -CXR:Multifocal airspace opacities which may represent atelectasis, pneumonia, and/or aspiration. -CT Head:There is no hemorrhage, mass effect, or evidence of acute territorial ischemia by CT criteria. Continue vent management per access specialist Appreciate senior recruiter help Continue dexamethasone 10mg IV Neuromuscular blockade PRN as per ICU team Follow-up sputum culture. Abnormal UA but negative urine culture 1/2 Blood Cx: Coagulase-negative staph Repeat blood cultures No growth Possibly contaminant MRSA PCR negative Was empirically started on cefepime Alcohol use disorder Continue thiamine Withdrawal precautions Elevated troponin Likely due to demand ischemia In setting of COVID-19 infection Troponin trended down DVT Px: On Lovenox SQ Code Status Full Code Admission and Anticipated Discharge Date Admission Date: August 08, 2021 Subjective 61-year-old man with a history of alcohol use who presented to the ER with respiratory distress Being managed for acute hypoxic respiratory failure due to COVID-19 pneumonia. Patient currently intubated. Currently on Versed and fentanyl. Review of Systems Review of Systems: Unobtainable due to endotracheal tube Physical Exam Constitutional: Intubated and sedated ENMT: ETT in situ Respiratory: Diminished breath sounds bilaterally on ventilatory support. Cardiovascular: Regular rate and rhythm Gastrointestinal (Abdomen): normal bowel sounds, soft, nontender, no hepatosplenomegaly Musculoskeletal: No pedal edema Neurologic: Intubated and sedated Genitourinary: Fregoso in situ Results & Data Results & Data ([facility]) Vital Signs (Past 12 Hours) Vital Signs Temp Pulse Resp BP Pulse Ox 08/13/21 09:30 37.9 C H 70 124/80 94 08/13/21 09:00 37.8 C H 67 127/81 91 08/13/21 08:30 38.1 C H 70 111/75 89 L 08/13/21 08:16 83 26 H 87 L 08/13/21 08:00 38.3 C H 87 129/71 88 L 08/13/21 07:30 38.4 C H 105 H 151/91 H 94 08/13/21 07:00 38.3 C H 81 152/79 H 93 08/13/21 06:30 38.2 C H 64 26 H 139/80 96 08/13/21 06:01 38.0 C H 66 26 H 98 08/13/21 05:30 37.7 C H 60 26 H 147/79 H 98 08/13/21 05:00 37.4 C 56 L 149/83 H 95 08/13/21 04:30 37.0 C 58 L 126/72 91 08/13/21 04:00 36.8 C 61 123/77 85 L 08/13/21 03:30 36.7 C 98 H 24 163/91 H 94 08/13/21 03:07 36.7 C 85 156/93 H 93 08/13/21 02:30 36.8 C 54 L 124/78 83 L 08/13/21 02:00 36.8 C 66 106/78 89 L 08/13/21 01:30 36.8 C 49 L 134/83 92 08/13/21 01:00 36.8 C 47 L 125/78 93 08/13/21 00:30 36.8 C 48 L 126/75 93 08/13/21 00:00 36.7 C 50 L 121/78 89 L 08/12/21 23:30 36.6 C 48 L 24 129/82 93 08/12/21 23:25 56 L 08/12/21 23:13 50 L 24 89 L 08/12/21 23:00 36.7 C 52 L 123/79 87 L Laboratory Results Abnormal lab results 08/12/21 08/12/21 08/13/21 Range/Units 16:40 19:58 00:07 RBC (4.7-6.1) M/uL Hgb (14.0-18.0) g/dL POC Hgb (14.0-18.0) g/dl Hct (42-52) % POC Hct (42-52) % MCV (80-100) fL MCHC (32-36) g/dL RDW Std Deviation (36.4-46.3) fL Neut # (Auto) (1.4-6.5) K/uL Lymph # (Auto) (1.2-3.4) K/uL Immature Gran # (Auto) (0.00-0.02) K/uL POC pCO2 (35-46) mmHg POC pO2 (80-95) mmHg POC HCO3 (19-24) jose ramon/L POC Base Excess (-9-1.8) jose ramon/L ABG pCO2 (Temp Corrct (35-46) mmHg POC ABG O2 Sat (90-95) % Chloride (98-107) mmol/L BUN (7-18) mg/dl BUN/Creatinine Ratio (10-20) Glucose (70-99) mg/dl POC Glucose 156 H 152 H 128 H (70-99) mg/dl Calcium (8.5-10.1) mg/dl 08/13/21 08/13/21 08/13/21 Range/Units 04:28 06:08 06:08 RBC 3.39 L (4.7-6.1) M/uL Hgb 11.0 L (14.0-18.0) g/dL POC Hgb 10.9 L (14.0-18.0) g/dl Hct 35.2 L (42-52) % POC Hct 32 L (42-52) % MCV 103.8 H (80-100) fL MCHC 31.3 L (32-36) g/dL RDW Std Deviation 51.9 H (36.4-46.3) fL Neut # (Auto) 8.77 H (1.4-6.5) K/uL Lymph # (Auto) 0.82 L (1.2-3.4) K/uL Immature Gran # (Auto) 0.20 H (0.00-0.02) K/uL POC pCO2 47 H (35-46) mmHg POC pO2 52 L (80-95) mmHg POC HCO3 29 H (19-24) jose ramon/L POC Base Excess 5.0 H (-9-1.8) jose ramon/L ABG pCO2 (Temp Corrct 47 H (35-46) mmHg POC ABG O2 Sat 86.0 L (90-95) % Chloride 109 H (98-107) mmol/L BUN 28 H (7-18) mg/dl BUN/Creatinine Ratio 42.0 H (10-20) Glucose 100 H (70-99) mg/dl POC Glucose (70-99) mg/dl Calcium 8.3 L (8.5-10.1) mg/dl 08/13/ Range/Units 11:29 RBC (4.7-6.1) M/uL Hgb (14.0-18.0) g/dL POC Hgb (14.0-18.0) g/dl Hct (42-52) % POC Hct (42-52) % MCV (80-100) fL MCHC (32-36) g/dL RDW Std Deviation (36.4-46.3) fL Neut # (Auto) (1.4-6.5) K/uL Lymph # (Auto) (1.2-3.4) K/uL Immature Gran # (Auto) (0.00-0.02) K/uL POC pCO2 (35-46) mmHg POC pO2 (80-95) mmHg POC HCO3 (19-24) jose ramon/L POC Base Excess (-9-1.8) jose ramon/L ABG pCO2 (Temp Corrct (35-46) mmHg POC ABG O2 Sat (90-95) % Chloride (98-107) mmol/L BUN (7-18) mg/dl BUN/Creatinine Ratio (10-20) Glucose (70-99) mg/dl POC Glucose 119 H (70-99) mg/dl Calcium (8.5-10.1) mg/dl
[2021-08-13] MEDS: PANTOprazole 40 MG in SYRINGE 0 ML IV SCH (11:35)
[2021-08-13] MEDS: CISATRACURIUM BESYLATE 40 MG in 0.9 % SODIUM CHLORIDE 80 ML IV SCH ×3 (11:36→19:15)
--- NOTE | 2021-08-13 11:59 | Critical Care Progress Note ---
Date of Service August 13, 2021 Assessment & Plan (1) Acute respiratory failure due to COVID-19: (2) Admitted to intensive care unit: (3) Elevated d-dimer: (4) Pneumonia due to 2019 novel coronavirus: Plan: Reason Critically Ill: 61-year-old male with acute encephalopathy and acute hypoxic respiratory failure secondary to COVID-19 pneumonia PLAN: Neuro: Acute encephalopathy -Probable toxic/metabolic -CT head reviewed -? anoxic injury: Given clinical history of being found blue --> unlikely -low threshold for MRI -Staff report patient was following complex commands while being intubated Alcohol dependence - Versed infusion and fentanyl for sedation -Continue with thiamine and multivitamin -Alcohol withdrawal precautions Resp: Acute hypoxic respiratory failure secondary to COVID-19 pneumonia -CRP pending, follow-up CRP in morning -Decadron 10 mg IV x10 days -High PEEP low FiO2 table: Wean as tolerated -Intubation 08/08 day 3 Severe ARDS -Intermittent boluses of neuromuscular eleazar CV: Elevated troponin Likely type II VT from demand ischemia Fluids/Renal: Monitor BUN/creatinine Avoid nephrotoxic medication Replace electrolytes as needed ID: COVID-19 pneumonia S/p 5 days of cefepime Blood culture 08/09/2021 negative to date Sputum culture 08/12/2021 negative GI/Nutrition: Trickle feeds Elevated AST -Suspect secondary to alcohol use -Trending down -Hepatitis panel negative Elevated lipase: Improving -Continue observation for development of pancreatitis Heme: Baseline anemia NOS --> monitor H&H DVT prophylaxis: Lovenox 40 mg twice daily Endocrine: ICU hyperglycemia protocol --Prophylaxis VTE: Lovenox GI: Protonix Lines:Right subclavian 08/08, left radial arterial line 08/08, positive Fregoso Diet: Tube feeds Plan: In/out: -343, urine output 2875 AB.41/47/52 on 14 of PEEP 85% Chest x-ray from today shows worsening of infiltrate bilaterally. A dose of Lasix given to the patient Patient has been bucking the vent and having dyssynchrony with the vent very frequently and he has been needing vecuronium also on a regular basis Because of the increasing oxygen demand as well as the increasing PEEP I will start the patient on Nimbex to paralyze him Chest x-ray from today does not show any significant change compared to yesterday. Sputum culture has been negative I have personally spent 38 minutes of critical care time in the direct management of this patient. This is a life/limb threatening event. This includes time spent evaluating patient, direct bedside care, chart review, placing orders, interpretation of diagnostic studies, discussion with consultants, patient, and family members, as well as other required patient management activities. This time is exclusive of all separately billable procedures, and teaching time and separate from and in addition to any other critical care service time. Please note the above document was generated using voice recognition software. It may contain grammatical, syntax or spelling errors. Admission and Anticipated Discharge Date Admission Date: August 08, 2021 Subjective Patient seen and examined at bedside. No acute distress. Overnight patient required 2 times rocuronium. Patient has been bucking the vent and having double triggering This has lead to any significant increase in the PEEP as well as FiO2 requirement Still spiking fever Review of Systems Review of Systems: Unobtainable due to endotracheal tube Physical Exam Physical Exam: Constitutional: No acute distress HEENT: PERRLA, positive ETT Respiratory system: Decreased air entry bilaterally, no wheeze, no rhonchi, positive crackles bilateral lower lobes CVS: S1-S2 positive, no murmurs or gallops Abdomen: Soft, nontender, nondistended, positive bowel sounds x4 Extremities: +2 pulses bilaterally radialis/ dorsalis pedis, no cyanosis, no jailene ma Neuro: Paralyzed and sedated Psych: Unable to assess G/U: Positive Fregoso Skin: no rashes, warm and dry Lymphatic: no cervical or axillary lymphadenopathy Results & Data Results & Data ([facility]) Vital Signs (Past 12 Hours) Vital Signs Temp Pulse Resp BP Pulse Ox 08/13/21 09:30 37.9 C H 70 124/80 94 08/13/21 09:00 37.8 C H 67 127/81 91 08/13/21 08:30 38.1 C H 70 111/75 89 L 08/13/21 08:16 83 26 H 87 L 08/13/21 08:00 38.3 C H 87 129/71 88 L 08/13/21 07:30 38.4 C H 105 H 151/91 H 94 08/13/21 07:00 38.3 C H 81 152/79 H 93 08/13/21 06:30 38.2 C H 64 26 H 139/80 96 09/29/21 06:01 38.0 C H 66 26 H 98 08/13/21 05:30 37.7 C H 60 26 H 147/79 H 98 08/13/21 05:00 37.4 C 56 L 149/83 H 95 08/13/21 04:30 37.0 C 58 L 126/72 91 08/13/21 04:00 36.8 C 61 123/77 85 L 08/13/21 03:30 36.7 C 98 H 24 163/91 H 94 08/13/21 03:07 36.7 C 85 156/93 H 93 08/13/21 02:30 36.8 C 54 L 124/78 83 L 08/13/21 02:00 36.8 C 66 106/78 89 L 08/13/21 01:30 36.8 C 49 L 134/83 92 08/13/21 01:00 36.8 C 47 L 125/78 93 08/13/21 00:30 36.8 C 48 L 126/75 93 08/13/21 00:00 36.7 C 50 L 121/78 89 L 08/13/21 06:08 08/13/21 06:08 Coding Level of Care Code Critical Care 1st 30-74 mins Diagnoses Acute respiratory failure due to COVID-19 U07.1; J96.00 Admitted to intensive care unit Z78.9 Elevated d-dimer R79.89 Pneumonia due to 2019 novel coronavirus U07.1; J12.82 Time Spent (min) 38
--- NOTE | 2021-08-13 13:43 | Pharmacy Report ---
Pharmacy Glycemic Short Note 2 - Date of Service August 13, 2021 - Glycemic Short BSG Results (Last 24 hours): 08/12/21 08/12/21 08/13/21 16:40 19:58 00:07 Glucose POC Glucose 156 H 152 H 128 H 08/13/21 08/13/21 08/13/21 03:40 06:08 08:15 Glucose 100 H POC Glucose 90 98 08/13/21 11:29 Glucose POC Glucose 119 H OUTPATIENT ANTIDIABETIC REGIMEN: * n/a * A1c pending ASSESSMENT: 08/13 * Patient continues to be intubated, sedated with fentanyl/versed/propofol, patient started on continues cisatracurium today * BSGs have been well controlled ranging 105-156 mg/dL yesterday * Fasting this AM 98 mg/dL- will decrease nightly lantus to 5 units * Continue to monitor for adjustments, continues on peptamen, Dex 10 mg IV daily 08/10 * Kp is a 61 yo male admitted with acute hypoxic respiratory failure secondary to COVID-19 pneumonia * No known h/o diabetes. No anti-diabetic agents on home med list. * Hyperglycemia likely due to COVID-19. Patient is on daily dexamethasone and fentanyl and versed infusions. * Patient was started on weight based SQ insulin on admission. He received a total of 28 units of insulin yesterday. Will continue to titrate. PLAN FOR INPATIENT GLYCEMIC CONTROL: * Basal insulin * Lantus 5 units HS * Bolus insulin * NovoLog per scale ACHS or Q6hrs while NPO * Goal Range: Low 110 mg/dL - High 150 mg/dL * Correction Factor: 20 mg/dL/unit * Nutritional / Prandial insulin per carb ratio of 1 unit per 7 grams CHO consumed PLAN FOR DISCHARGE: *
[2021-08-13] MEDS: PEPTAMEN INTENSE VHP 1.0 CAL 1,000 ML BAG OG SCH (14:10)
[2021-08-13] MEDS ORDERED: FUROSEMIDE 20 MG in SYRINGE 0 ML IV ONE (18:44)
[2021-08-13] MEDS: INSULIN GLARGINE SOLOSTAR 100 UNITS/ML 3 ML PEN SC SCH (21:37)
[2021-08-13] MEDS: CISATRACURIUM BESYLATE 80 MG in SODIUM CHLORIDE 0.9% 160 ML IV SCH (22:11)
[2021-08-14] MEDS: TUBE FEEDING WATER FLUSH OG SCH ×7 (00:33→21:40)
[2021-08-14] MEDS: INSULIN ASPART 100 UNITS/ML 3 ML PEN SC SCH ×6 (00:34→20:03)
[2021-08-14] MEDS: propofoL 1,000 MG/100 ML VIAL IV SCH ×6 (00:36→21:47)
[2021-08-14] MEDS: ARTIFICIAL TEARS OP OINT 3.5 GM TUBE OP SCH ×6 (00:37→21:40)
[2021-08-14] MEDS: CISATRACURIUM BESYLATE 40 MG in 0.9 % SODIUM CHLORIDE 80 ML IV SCH (00:38)
[2021-08-14] MEDS: CISATRACURIUM BESYLATE 80 MG in SODIUM CHLORIDE 0.9% 160 ML IV SCH ×4 (04:06→23:00)
[2021-08-14] MEDS: fentaNYL DRIP 1,250 MCG/250 ML BAG IV SCH ×8 (04:29→18:18)
[2021-08-14] MEDS: MIDAZOLAM BOLUS FROM BAG IV PRN ×2 (05:35→06:40)
[2021-08-14 05:45] LABS: iSTAT Art Bld Gas pCO2 Correct 56 mmHg (35-46); iSTAT Arterial Blood Gas HCO3 33 meg/L (19-24); iSTAT Arterial Blood Gas pCO2 56 mmHg (35-46); iSTAT Arterial Blood Gas pH 7.38 (7.35-7.45); iSTAT Arterial Blood Gas pO2 67 mmHg (80-95); iSTAT Arterial Blood Gas pO2 C 67; iSTAT Carbon Dioxide 35 mmol/L (24-31); iSTAT FiO2 80 %; iSTAT Hematocrit 34 % (42-52); iSTAT Hemoglobin 11.6 g/dl (14.0-18.0); iSTAT Potassium 4.1 mmol/L (3.3-5.0); iSTAT Site L Radial; iSTAT Sodium 142 mmol/L (135-144)
[2021-08-14] MEDS: CEFEPIME 2,000 MG in SYRINGE 0 ML IV SCH ×2 (06:01→16:18)
[2021-08-14] MEDS: MIDAZOLAM HCL 125 MG/250 ML BAG IV SCH ×2 (06:28→18:19)
[2021-08-14] MEDS: PROPOFOL BOLUS FROM BAG IV PRN (06:40)
[2021-08-14 06:47] LABS: Basophils # (auto) 0.02 K/uL (0-0.2); Basophils % (auto) 0.2 %; Eosinophils # (auto) 0.22 K/uL (0-0.5); Eosinophils % (auto) 2.2 %; Hematocrit (blood only) 35.4 % (42-52); Hemoglobin 11.4 g/dL (14.0-18.0); Immature Granulocytes # (auto) 0.43 K/uL (0.00-0.02); Immature Granulocytes % (auto) 4.3 %; Lymphocytes # (auto) 1.07 K/uL (1.2-3.4); Lymphocytes % (auto) 10.7 %; Mean Corpuscular Hgb Conc 32.2 g/dL (32-36); Mean Corpuscular Volume 99.4 fL (80-100); Mean Platelet Volume 9.5 fL (7.4-10.4); Monocytes # (auto) 0.26 K/uL (0.11-0.59); Monocytes % (auto) 2.6 %; Neutrophils # (auto) 8.02 K/uL (1.4-6.5); Platelet Count 384 K/uL (130-400); RDW Coefficient of Variation 13.5 % (11.5-14.5); RDW Standard Deviation 48.7 fL (36.4-46.3); Red Blood Count 3.56 M/uL (4.7-6.1); White Blood Count 10.02 K/uL (4.8-10.8)
[2021-08-14 07:14] LABS: D Dimer 15950 ug/L FEU (0-500)
[2021-08-14 07:20] LABS: Albumin Level 2.1 gm/dl (3.4-5.0); BUN Creatinine Ratio 45.1 (10-20); Calcium 8.4 mg/dl (8.5-10.1); Creatinine Clr Calc Pharmacy 154.6 ml/min; Est GFR (African American) 126.7 ml/min; Est GFR (Non-African American) 109.3 ml/min; Magnesium 2.2 mg/dl (1.8-2.4)
[2021-08-14 07:22] LABS: Albumin Globulin Ratio 0.5 (0.9-2); Bilirubin,Total 0.4 mg/dl (0.2-1); Globulin 4.4 gm/dl (2.5-4.0); Phosphorus 2.7 mg/dl (2.5-4.9); Total Protein 6.5 gm/dl (6.4-8.2)
[2021-08-14] MEDS: ICU ELECTROLYTE REPLACEMENT PROTOCOL SCH ×2 (07:35→17:07)
[2021-08-14] MEDS: dexAMETHasone 10 MG in SYRINGE 0 ML IV SCH (08:15)
[2021-08-14] MEDS: ENOXAPARIN INJ 40 MG/0.4 ML SYR SQ SCH ×2 (08:16→21:44)
[2021-08-14] MEDS: THIAMINE HCL 100 MG TAB PO SCH (08:16)
[2021-08-14] MEDS: MULTI VIT W/MINERALS LIQUID 15 ML UDP NG SCH (08:16)
--- NOTE | 2021-08-14 09:51 | XRay Report ---
XR chest 1V portable CLINICAL HISTORY: f/u COMPARISON STUDY: August 13, 2021 FINDINGS: No pneumothorax. No pleural effusion. Bilateral patchy airspace opacities are unchanged since prior. Evaluation is suboptimal due to rotation. Cardiomediastinal silhouette is within normal limits in size. Pulmonary vasculature is obscured.. Osseous structures: Degenerative changes of the spine and right shoulder. Tip of endotracheal tube is projecting 6.2 cm above cee. Stable position of left sided IJ intraven ous line. Fenestrated side-port of gastric tube is seen at the level of the left hemidiaphragm. Tip is projecti ng to the left upper quadrant. IMPRESSION: 1. Multifocal pneumonia, unchanged since prior. 2. Fenestrated side-port of gastric tube is seen at the level of hemidiaphragm. Repositioning approx imately 5 cm forward is recommended. 3. Tip of endotracheal tube is projecting 6.2 cm above cee. 4. The rest of findings as above. ACT 112: Negative or not required by law. The above report was generated using voice recognition software. It may contain grammatical, syntax o r spelling errors. Electronically signed by: Michelle Tucker DO 08/14/2021 9:49 AM
--- NOTE | 2021-08-14 10:15 | Hospitalist Progress Note ---
Date of Service August 14, 2021 Assessment & Plan (1) Acute respiratory failure due to COVID-19: (2) Acute encephalopathy: (3) Hypotension: (4) Elevated troponin I level: (5) Elevated lactic acid level: (6) Elevated d-dimer: (7) Alcohol use: Plan: 61 yr male with H/O Alcohol use and prior tobacco use presented to ER for respiratory distress. Reported pt tested positive for COVID-19 4 days ago. Non- vaccinated. +COVID-19 contact. Acute respiratory failure with Hypoxia Secondary to COVID-19 pneumonia Acute metabolic encephalopathy secondary to above Lactic acidosis ARDS -CXR:Multifocal airspace opacities which may represent atelectasis, pneumonia, and/or aspiration. -CT Head:There is no hemorrhage, mass effect, or evidence of acute territorial ischemia by CT criteria. Continue vent management per pharmacy specialist Currently on dexamethasone 10mg IV On propofol, fentanyl, Versed and Nimbex drips D-dimer is significantly elevated today at 15,000. CRP improving Abnormal UA but negative urine culture 1/2 Blood Cx: Coagulase-negative staph Repeat blood cultures No growth Possibly contaminant MRSA PCR negative Currently on cefepime. Will discuss with pharmacy specialist about discontinuing cefepime. Alcohol use disorder Continue thiamine Withdrawal precautions Elevated troponin Likely due to demand ischemia In setting of COVID-19 infection Troponin trended down DVT Px: On Lovenox SQ Code Status Full Code Admission and Anticipated Discharge Date Admission Date: August 08, 2021 Subjective 61-year-old man with a history of alcohol use who presented to the ER with respiratory distress Being managed for acute hypoxic respiratory failure due to COVID-19 pneumonia. Patient currently intubated. Had been bucking the vent was sedated on Nimbex drip. 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 Currently on propofol, fentanyl, Versed and Nimbex drips Review of Systems Review of Systems: Unobtainable due to endotracheal tube Physical Exam Constitutional: Intubated and sedated ENMT: ETT and OGT in place Neck: Left neck central line Respiratory: On mechanical ventilator Diminished breath sounds Cardiovascular: Regular rate and rhythm, S1-S2 Gastrointestinal (Abdomen): normal bowel sounds, soft, nontender, no hepatosplenomegaly Musculoskeletal: No pedal edema Neurologic: Intubated and sedated Genitourinary: Fregoso in situ Results & Data Results & Data ([facility]) Vital Signs (Past 12 Hours) Vital Signs Temp Pulse Resp BP Pulse Ox 08/14/21 09:30 37.2 C 75 90 08/14/21 09:00 144/81 H 08/14/21 08:30 169/94 H 08/14/21 08:00 193/93 H 08/14/21 07:43 97 H 22 89 L 08/14/21 07:30 37.2 C 77 91 08/14/21 07:00 136/78 08/14/21 06:30 193/88 H 08/14/21 06:00 36.2 C L 91 H 172/81 H 92 08/14/21 05:30 36.1 C L 95 H 160/80 H 93 08/14/21 05:00 131/81 08/14/21 04:30 36.8 C 55 L 116/67 88 L 08/14/21 04:00 36.8 C 55 L 22 110/63 88 L 08/14/21 03:30 36.7 C 53 L 22 112/63 88 L 08/14/21 03:00 36.7 C 54 L 22 111/65 88 L 08/14/21 02:30 22 109/64 88 L 08/14/21 02:00 36.6 C 53 L 22 106/94 88 L 08/14/21 01:30 36.6 C 55 L 104/63 88 L 08/14/21 01:00 36.6 C 56 L 22 102/64 88 L 08/14/21 00:30 36.7 C 75 89 L 08/14/21 00:00 56 L 104/63 91 08/13/21 23:55 58 L 08/13/21 23:30 36.6 C 58 L 102/64 91 08/13/21 23:00 36.6 C 56 L 91 08/13/21 22:30 36.6 C 59 L 90 Laboratory Results Abnormal lab results 08/13/21 08/13/21 08/13/21 Range/Units 11:29 15:42 19:59 RBC (4.7-6.1) M/uL Hgb (14.0-18.0) g/dL POC Hgb (14.0-18.0) g/dl Hct (42-52) % POC Hct (42-52) % RDW Std Deviation (36.4-46.3) fL Neut # (Auto) (1.4-6.5) K/uL Lymph # (Auto) (1.2-3.4) K/uL Immature Gran # (Auto) (0.00-0.02) K/uL D-Dimer (0-500) ug/L FEU POC pCO2 (35-46) mmHg POC pO2 (80-95) mmHg POC HCO3 (19-24) jose ramon/L POC Total CO2 (24-31) mmol/L POC Base Excess (-9-1.8) jose ramon/L ABG pCO2 (Temp Corrct (35-46) mmHg BUN (7-18) mg/dl BUN/Creatinine Ratio (10-20) Glucose (70-99) mg/dl POC Glucose 119 H 158 H 171 H (70-99) mg/dl Calcium (8.5-10.1) mg/dl AST (15-37) U/L ALT (12-78) U/L C-Reactive Protein (0-0.29) mg/dl Albumin (3.4-5.0) gm/dl Globulin (2.5-4.0) gm/dl Albumin/Globulin Ratio (0.9-2) 08/14/21 08/14/21 08/14/21 Range/Units 00:23 05:22 06:17 RBC 3.56 L (4.7-6.1) M/uL Hgb 11.4 L (14.0-18.0) g/dL POC Hgb 11.6 L (14.0-18.0) g/dl Hct 35.4 L (42-52) % POC Hct 34 L (42-52) % RDW Std Deviation 48.7 H (36.4-46.3) fL Neut # (Auto) 8.02 H (1.4-6.5) K/uL Lymph # (Auto) 1.07 L (1.2-3.4) K/uL Immature Gran # (Auto) 0.43 H (0.00-0.02) K/uL D-Dimer (0-500) ug/L FEU POC pCO2 56 H (35-46) mmHg POC pO2 67 L (80-95) mmHg POC HCO3 33 H (19-24) jose armon/L POC Total CO2 35 H (24-31) mmol/L POC Base Excess 8.0 H (-9-1.8) jose ramon/L ABG pCO2 (Temp Corrct 56 H (35-46) mmHg BUN (7-18) mg/dl BUN/Creatinine Ratio (10-20) Glucose (70-99) mg/dl POC Glucose 116 H (70-99) mg/dl Calcium (8.5-10.1) mg/dl AST (15-37) U/L ALT (12-78) U/L C-Reactive Protein (0-0.29) mg/dl Albumin (3.4-5.0) gm/dl Globulin (2.5-4.0) gm/dl Albumin/Globulin Ratio (0.9-2) 08/14/21 08/14/21 08/14/21 Range/Units 06:17 06:17 08:01 RBC (4.7-6.1) M/uL Hgb (14.0-18.0) g/dL POC Hgb (14.0-18.0) g/dl Hct (42-52) % POC Hct (42-52) % RDW Std Deviation (36.4-46.3) fL Neut # (Auto) (1.4-6.5) K/uL Lymph # (Auto) (1.2-3.4) K/uL Immature Gran # (Auto) (0.00-0.02) K/uL D-Dimer [id number] H* (0-500) ug/L FEU POC pCO2 (35-46) mmHg POC pO2 (80-95) mmHg POC HCO3 (19-24) jose ramon/L POC Total CO2 (24-31) mmol/L POC Base Excess (-9-1.8) jose ramon/L ABG pCO2 (Temp Corrct (35-46) mmHg BUN 27 H (7-18) mg/dl BUN/Creatinine Ratio 45.1 H (10-20) Glucose 115 H (70-99) mg/dl POC Glucose 112 H (70-99) mg/dl Calcium 8.4 L (8.5-10.1) mg/dl AST 60 H (15-37) U/L ALT 79 H (12-78) U/L C-Reactive Protein 11.00 H (0-0.29) mg/dl Albumin 2.1 L (3.4-5.0) gm/dl Globulin 4.4 H (2.5-4.0) gm/dl Albumin/Globulin Ratio 0.5 L (0.9-2)
[2021-08-14] MEDS: FUROSEMIDE 40 MG in SYRINGE 0 ML IV SCH ×2 (10:18→21:45)
[2021-08-14] MEDS: PANTOprazole 40 MG in SYRINGE 0 ML IV SCH (13:00)
[2021-08-14] MEDS: DOCUSATE SODIUM SYRUP 100 MG/10 ML UDC NG SCH ×2 (13:00→21:45)
[2021-08-14] MEDS: SENNOSIDES 8.8 MG/5 ML UDC PO SCH (13:42)
[2021-08-14] MEDS: PEPTAMEN INTENSE VHP 1.0 CAL 1,000 ML BAG OG SCH (16:18)
--- NOTE | 2021-08-14 18:00 | Critical Care Progress Note ---
Date of Service August 14, 2021 Assessment & Plan (1) Acute respiratory failure due to COVID-19: (2) Admitted to intensive care unit: (3) Elevated d-dimer: (4) Pneumonia due to 2019 novel coronavirus: Plan: Reason Critically Ill: 61-year-old male with acute encephalopathy and acute hypoxic respiratory failure secondary to COVID-19 pneumonia PLAN: Neuro: Acute encephalopathy -Probable toxic/metabolic -CT head reviewed -? anoxic injury: Given clinical history of being found blue --> unlikely -low threshold for MRI -Staff report patient was following complex commands while being intubated - On paralytics since 08/13/2021 Alcohol dependence - Versed infusion and fentanyl for sedation -Continue with thiamine and multivitamin -Alcohol withdrawal precautions Resp: Acute hypoxic respiratory failure secondary to COVID-19 pneumonia -CRP pending, follow-up CRP in morning -Decadron 10 mg IV x10 days -High PEEP low FiO2 table: Wean as tolerated -Intubation 08/08 day 3 Severe ARDS -Intermittent boluses of neuromuscular eleazar CV: Elevated troponin Likely type II IL from demand ischemia Fluids/Renal: Monitor BUN/creatinine Avoid nephrotoxic medication Replace electrolytes as needed ID: COVID-19 pneumonia S/p 5 days of cefepime Blood culture 08/09/2021 negative to date Sputum culture 08/12/2021 negative GI/Nutrition: Trickle feeds, Colace and senna on a daily basis Elevated AST -Suspect secondary to alcohol use -Trending down -Hepatitis panel negative Elevated lipase: Improving -Continue observation for development of pancreatitis Heme: Baseline anemia NOS --> monitor H&H DVT prophylaxis: Lovenox 40 mg twice daily Endocrine: ICU hyperglycemia protocol --Prophylaxis VTE: Lovenox GI: Protonix Lines:Right subclavian 08/08, left radial arterial line 08/08, positive Fregoso Diet: Tube feeds Plan: In/out:-1.5 L, urine output 4650 AB.38/56/67 on 12 of PEEP, 80% Chest x-ray from today still shows diffuse bilateral infiltrates I do think patient likely aspirated Patient was given Lasix today as well Is negative balance would continue diuresis Patient has completed 5 days of cefepime will discontinue today Will advance ET tube by 1 cm I have personally spent 37 minutes of critical care time in the direct management of this patient. This is a life/limb threatening event. This includes time spent evaluating patient, direct bedside care, chart review, placing orders, interpretation of diagnostic studies, discussion with consultants, patient, and family members, as well as other required patient management activities. This time is exclusive of all separately billable procedures, and teaching time and separate from and in addition to any other critical care service time. Please note the above document was generated using voice recognition software. It may contain grammatical, syntax or spelling errors. Admission and Anticipated Discharge Date Admission Date: August 08, 2021 Subjective Patient seen and examined at bedside. No acute distress Patient is paralyzed He was synchronized with Ventilator. He was on PEEP of 14, FiO2 65% saturating 91-92% I went down on FiO2 to 60% Review of Systems Review of Systems: Unobtainable due to endotracheal tube Physical Exam Physical Exam: Constitutional: No acute distress HEENT: PERRLA, positive ETT Respiratory system: Decreased air entry bilaterally, no wheeze, no rhonchi, positive crackles bilateral lower lobes CVS: S1-S2 positive, no murmurs or gallops Abdomen: Soft, nontender, nondistended, positive bowel sounds x4 Extremities: +2 pulses bilaterally radialis/ dorsalis pedis, no cyanosis, no edema Neuro: Paralyzed and sedated Psych: Unable to assess G/U: Positive Fregoso Skin: no rashes, warm and dry Lymphatic: no cervical or axillary lymphadenopathy Results & Data Results & Data ([facility]) Vital Signs (Past 12 Hours) Vital Signs Temp Pulse Resp BP Pulse Ox 08/14/21 17:00 36.7 C 58 L 114/72 89 L 08/14/21 16:00 36.8 C 67 89 L 08/14/21 15:22 117 H 22 91 08/14/21 15:00 36.5 C 66 22 116/74 90 08/14/21 14:00 36.7 C 109 H 22 155/98 H 91 08/14/21 13:00 37.1 C 63 22 122/71 94 08/14/21 12:00 37.3 C 65 22 94 08/14/21 11:30 37.2 C 63 08/14/21 11:02 65 22 92 08/14/21 11:00 37.1 C 63 22 126/81 08/14/21 10:00 37.2 C 69 22 127/78 08/14/21 09:30 37.2 C 75 90 08/14/21 09:00 144/81 H 08/14/21 08:30 169/94 H 08/14/21 08:00 193/93 H 08/14/21 07:43 97 H 22 89 L 08/14/21 07:30 37.2 C 77 91 08/14/21 07:00 136/78 08/14/21 06:30 193/88 H 08/14/21 06:00 36.2 C L 91 H 172/81 H 92 08/14/21 06:17 08/14/21 06:17 Coding Level of Care Code Critical Care 1st 30-74 mins Diagnoses Acute respiratory failure due to COVID-19 U07.1; J96.00 Admitted to intensive care unit Z78.9 Elevated d-dimer R79.89 Pneumonia due to 2019 novel coronavirus U07.1; J12.82 Time Spent (min) 37
[2021-08-14] MEDS ORDERED: FUROSEMIDE 20 MG in SYRINGE 0 ML IV ONE (18:01)
[2021-08-14] MEDS ORDERED: FUROSEMIDE 40 MG/4 ML VIAL IV SCH (18:15)
[2021-08-14] MEDS: INSULIN GLARGINE SOLOSTAR 100 UNITS/ML 3 ML PEN SC SCH (21:42)
[2021-08-15] MEDS: INSULIN ASPART 100 UNITS/ML 3 ML PEN SC SCH ×6 (00:14→22:01)
[2021-08-15] MEDS: ARTIFICIAL TEARS OP OINT 3.5 GM TUBE OP SCH ×6 (00:45→21:23)
[2021-08-15] MEDS: fentaNYL DRIP 1,250 MCG/250 ML BAG IV SCH ×3 (01:05→22:00)
[2021-08-15] MEDS: propofoL 1,000 MG/100 ML VIAL IV SCH ×4 (01:15→15:38)
[2021-08-15] MEDS: TUBE FEEDING WATER FLUSH OG SCH ×6 (02:08→22:02)
[2021-08-15 04:43] LABS: iSTAT Allen Test Pass; iSTAT Art Bld Gas pCO2 Correct 58 mmHg (35-46); iSTAT Art Bld Gas pH Corrected 7.391 (7.35-7.45); iSTAT Arterial Blood Gas HCO3 35 meg/L (19-24); iSTAT Arterial Blood Gas pCO2 58 mmHg (35-46); iSTAT Arterial Blood Gas pH 7.39 (7.35-7.45); iSTAT Arterial Blood Gas pO2 61 mmHg (80-95); iSTAT Arterial Blood Gas pO2 C 61; iSTAT Carbon Dioxide 37 mmol/L (24-31); iSTAT FiO2 75 %; iSTAT Hematocrit 35 % (42-52); iSTAT Hemoglobin 11.9 g/dl (14.0-18.0); iSTAT Site R Radial; iSTAT Sodium 141 mmol/L (135-144)
[2021-08-15] MEDS: CISATRACURIUM BESYLATE 80 MG in SODIUM CHLORIDE 0.9% 160 ML IV SCH ×4 (05:33→23:16)
[2021-08-15 06:21] LABS: Basophils # (auto) 0.02 K/uL (0-0.2); Basophils % (auto) 0.2 %; Eosinophils # (auto) 0.18 K/uL (0-0.5); Eosinophils % (auto) 1.5 %; Hematocrit (blood only) 35.8 % (42-52); Hemoglobin 11.5 g/dL (14.0-18.0); Immature Granulocytes # (auto) 0.52 K/uL (0.00-0.02); Immature Granulocytes % (auto) 4.4 %; Lymphocytes # (auto) 0.74 K/uL (1.2-3.4); Lymphocytes % (auto) 6.3 %; Mean Corpuscular Hgb Conc 32.1 g/dL (32-36); Mean Corpuscular Volume 99.7 fL (80-100); Mean Platelet Volume 9.5 fL (7.4-10.4); Monocytes # (auto) 0.54 K/uL (0.11-0.59); Monocytes % (auto) 4.6 %; Neutrophils # (auto) 9.78 K/uL (1.4-6.5); Platelet Count 388 K/uL (130-400); RDW Coefficient of Variation 13.4 % (11.5-14.5); RDW Standard Deviation 48.6 fL (36.4-46.3); Red Blood Count 3.59 M/uL (4.7-6.1); White Blood Count 11.78 K/uL (4.8-10.8)
[2021-08-15 07:02] LABS: BUN Creatinine Ratio 43.6 (10-20); Calcium 8.6 mg/dl (8.5-10.1); Creatinine Clr Calc Pharmacy 145.1 ml/min; Est GFR (African American) 123.4 ml/min; Est GFR (Non-African American) 106.5 ml/min; Magnesium 2.1 mg/dl (1.8-2.4); Phosphorus 3.1 mg/dl (2.5-4.9); Potassium 3.9 mmol/L (3.5-5.1)
[2021-08-15] MEDS: ICU ELECTROLYTE REPLACEMENT PROTOCOL SCH (07:30)
[2021-08-15] MEDS: MIDAZOLAM HCL 125 MG/250 ML BAG IV SCH ×4 (07:51→22:00)
[2021-08-15] MEDS: ENOXAPARIN INJ 40 MG/0.4 ML SYR SQ SCH ×2 (07:58→21:20)
[2021-08-15] MEDS: DOCUSATE SODIUM SYRUP 100 MG/10 ML UDC NG SCH ×2 (07:58→21:20)
[2021-08-15] MEDS: SENNOSIDES 8.8 MG/5 ML UDC PO SCH (07:58)
[2021-08-15] MEDS: MULTI VIT W/MINERALS LIQUID 15 ML UDP NG SCH (07:58)
[2021-08-15] MEDS: THIAMINE HCL 100 MG TAB PO SCH (07:58)
[2021-08-15] MEDS: dexAMETHasone 10 MG in SYRINGE 0 ML IV SCH (08:01)
[2021-08-15] MEDS: FUROSEMIDE 40 MG in SYRINGE 0 ML IV SCH ×2 (08:01→21:19)
--- NOTE | 2021-08-15 08:41 | XRay Report ---
XR chest 1V portable INDICATION: MN ^f/u . TECHNIQUE: Single frontal radiograph of the chest was obtained. Comparison: Comparison is made to chest one view 08/14/2021 FINDINGS: Previous seen noted enteric tube has been advanced and is now in satisfactory position. Additional li natali and tubes are stable. The cardiomediastinal silhouette is normal. Redemonstration of diffuse bila teral airspace opacities. No evidence of pleural effusion or pneumothorax. IMPRESSION: 1. Multifocal pneumonia, unchanged from prior. 2. Interval advancement of the enteric tube, now in satisfactory position. ACT 112: Negative or not required by law. Electronically signed by: Juan C Floyd M.D. 08/15/2021 8:40 AM
--- NOTE | 2021-08-15 10:31 | Hospitalist Progress Note ---
Date of Service August 15, 2021 Assessment & Plan (1) Acute respiratory failure due to COVID-19: (2) Acute encephalopathy: (3) Hypotension: (4) Elevated troponin I level: (5) Elevated lactic acid level: (6) Elevated d-dimer: (7) Alcohol use: Plan: 61 yr male with H/O Alcohol use and prior tobacco use presented to ER for respiratory distress. Reported pt tested positive for COVID-19 4 days ago. Non- vaccinated. +COVID-19 contact. Acute respiratory failure with Hypoxia Secondary to COVID-19 pneumonia Acute metabolic encephalopathy secondary to above Lactic acidosis ARDS -CXR:Multifocal airspace opacities which may represent atelectasis, pneumonia, and/or aspiration. -CT Head:There is no hemorrhage, mass effect, or evidence of acute territorial ischemia by CT criteria. Continue vent management per document design specialist Currently on dexamethasone 10mg IV On fentanyl, Versed and Nimbex drips Propofol drip discontinued for now due to elevated triglycerides Continue to monitor inflammatory markers. Follow-up CT PE ordered by client retention specialist Abnormal UA but negative urine culture 1/2 Blood Cx: Coagulase-negative staph Repeat blood cultures No growth Possibly contaminant MRSA PCR negative Alcohol use disorder Continue thiamine Withdrawal precautions Elevated troponin Likely due to demand ischemia In setting of COVID-19 infection Troponin trended down DVT Px: On Lovenox SQ Code Status Full Code Admission and Anticipated Discharge Date Admission Date: August 08, 2021 Subjective 61-year-old man with a history of alcohol use who presented to the ER with respiratory distress Being managed for acute hypoxic respiratory failure due to COVID-19 pneumonia. Patient currently intubated. Currently on fentanyl, Versed and Nimbex drips TG is 429. Propofol drip discontinued for now Review of Systems Review of Systems: Unobtainable due to endotracheal tube Physical Exam ENMT: ETT and OGT in place Respiratory: Mechanical ventilation Diminished breath sounds bilaterally Cardiovascular: RRR. S1-S2 Gastrointestinal (Abdomen): normal bowel sounds, soft, nontender, no hepatosplenomegaly Musculoskeletal: No pedal edema Neurologic: Intubated and sedated Genitourinary: Fregoso in situ Results & Data Results & Data ([facility]) Vital Signs (Past 12 Hours) Vital Signs Temp Pulse Resp BP Pulse Ox 08/15/21 09:00 37.1 C 107 H 137/76 89 L 08/15/21 08:55 87 23 89 L 08/15/21 08:45 37.2 C 109 H 133/81 88 L 08/15/21 08:30 37.2 C 106 H 147/78 H 89 L 08/15/21 08:15 37.1 C 87 125/75 88 L 08/15/21 08:00 37.1 C 92 H 132/69 89 L 08/15/21 07:45 37.1 C 96 H 132/71 89 L 08/15/21 07:30 37.2 C 91 H 129/70 88 L 08/15/21 07:15 37.2 C 94 H 128/66 88 L 08/15/21 07:00 37.2 C 89 128/66 89 L 08/15/21 06:45 37.2 C 96 H 138/73 88 L 08/15/21 06:30 37.3 C 105 H 151/78 H 88 L 08/15/21 06:15 37.3 C 103 H 144/75 H 88 L 08/15/21 06:00 37.3 C 93 H 150/77 H 87 L 08/15/21 05:45 37.3 C 92 H 138/71 87 L 08/15/21 05:30 37.3 C 94 H 142/75 H 87 L 08/15/21 05:15 37.3 C 97 H 146/73 H 87 L 08/15/21 05:00 37.3 C 102 H 152/75 H 87 L 08/15/21 04:45 37.3 C 100 H 159/76 H 87 L 08/15/21 04:30 37.2 C 103 H 165/81 H 88 L 08/15/21 04:15 37.1 C 99 H 146/71 H 87 L 08/15/21 04:00 37.1 C 95 H 155/76 H 87 L 08/15/21 03:45 37.0 C 94 H 155/76 H 88 L 08/15/21 03:34 100 H 22 90 08/15/21 03:30 36.8 C 101 H 150/76 H 90 08/15/21 03:15 36.8 C 101 H 146/74 H 92 08/15/21 03:00 36.7 C 96 H 22 146/73 H 93 08/15/21 02:45 36.8 C 85 139/66 92 08/15/21 02:30 36.9 C 68 141/69 H 93 08/15/21 02:15 65 116/64 90 08/15/21 02:00 36.9 C 61 22 106/64 89 L 08/15/21 01:45 36.9 C 54 L 92/59 L 89 L 08/15/21 01:30 36.9 C 55 L 98/59 L 89 L 08/15/21 01:16 36.8 C 54 L 90 08/15/21 01:00 36.9 C 56 L 22 93/61 L 88 L 08/15/21 00:45 36.9 C 57 L 97/60 L 87 L 08/15/21 00:30 36.8 C 56 L 84 L 08/15/21 00:18 36.9 C 59 L 88 L 08/15/21 00:00 37.0 C 57 L 22 99/58 L 89 L 08/14/21 23:45 37.0 C 57 L 100/59 L 88 L 08/14/21 23:30 37.0 C 58 L 96/59 L 87 L 08/14/21 23:15 36.9 C 58 L 97/58 L 87 L 08/14/21 23:00 36.9 C 57 L 22 100/58 L 87 L 08/14/21 22:45 36.9 C 54 L 22 100/55 L 87 L Laboratory Results Abnormal lab results 08/14/21 08/14/21 08/15/21 Range/Units 16:12 19:54 00:05 WBC (4.8-10.8) K/uL RBC (4.7-6.1) M/uL Hgb (14.0-18.0) g/dL POC Hgb (14.0-18.0) g/dl Hct (42-52) % POC Hct (42-52) % RDW Std Deviation (36.4-46.3) fL Neut # (Auto) (1.4-6.5) K/uL Lymph # (Auto) (1.2-3.4) K/uL Immature Gran # (Auto) (0.00-0.02) K/uL POC pCO2 (35-46) mmHg POC pO2 (80-95) mmHg POC HCO3 (19-24) jose ramon/L POC Total CO2 (24-31) mmol/L POC Base Excess (-9-1.8) jose ramon/L ABG pCO2 (Temp Corrct (35-46) mmHg BUN (7-18) mg/dl BUN/Creatinine Ratio (10-20) Glucose (70-99) mg/dl POC Glucose 180 H 148 H 110 H (70-99) mg/dl Triglycerides (0-150) mg/dl 08/15/21 08/15/21 08/15/21 Range/Units 04:26 06:00 06:00 WBC 11.78 H (4.8-10.8) K/uL RBC 3.59 L (4.7-6.1) M/uL Hgb 11.5 L (14.0-18.0) g/dL POC Hgb 11.9 L (14.0-18.0) g/dl Hct 35.8 L (42-52) % POC Hct 35 L (42-52) % RDW Std Deviation 48.6 H (36.4-46.3) fL Neut # (Auto) 9.78 H (1.4-6.5) K/uL Lymph # (Auto) 0.74 L (1.2-3.4) K/uL Immature Gran # (Auto) 0.52 H (0.00-0.02) K/uL POC pCO2 58 H (35-46) mmHg POC pO2 61 L (80-95) mmHg POC HCO3 35 H (19-24) jose ramon/L POC Total CO2 37 H (24-31) mmol/L POC Base Excess 10.0 H (-9-1.8) jose ramon/L ABG pCO2 (Temp Corrct 58 H (35-46) mmHg BUN 28 H (7-18) mg/dl BUN/Creatinine Ratio 43.6 H (10-20) Glucose 119 H (70-99) mg/dl POC Glucose (70-99) mg/dl Triglycerides 429 H (0-150) mg/dl 08/15/21 08/15/21 Range/Units 07:56 12:11 WBC (4.8-10.8) K/uL RBC (4.7-6.1) M/uL Hgb (14.0-18.0) g/dL POC Hgb (14.0-18.0) g/dl Hct (42-52) % POC Hct (42-52) % RDW Std Deviation (36.4-46.3) fL Neut # (Auto) (1.4-6.5) K/uL Lymph # (Auto) (1.2-3.4) K/uL Immature Gran # (Auto) (0.00-0.02) K/uL POC pCO2 (35-46) mmHg POC pO2 (80-95) mmHg POC HCO3 (19-24) jose ramon/L POC Total CO2 (24-31) mmol/L POC Base Excess (-9-1.8) jose ramon/L ABG pCO2 (Temp Corrct (35-46) mmHg BUN (7-18) mg/dl BUN/Creatinine Ratio (10-20) Glucose (70-99) mg/dl POC Glucose 126 H 183 H (70-99) mg/dl Triglycerides (0-150) mg/dl
[2021-08-15] MEDS: PANTOprazole 40 MG in SYRINGE 0 ML IV SCH (12:29)
[2021-08-15] MEDS: fentaNYL citrate 2,500 MCG/250 ML BAG IV SCH (14:22)
--- NOTE | 2021-08-15 14:23 | Pharmacy Report ---
Pharmacy Glycemic Short Note 2 - Date of Service August 15, 2021 - Glycemic Short BSG Results (Last 24 hours): 08/14/21 08/14/21 08/15/21 16:12 19:54 00:05 Glucose POC Glucose 180 H 148 H 110 H 08/15/21 08/15/21 08/15/21 04:08 06:00 07:56 Glucose 119 H POC Glucose 98 126 H 08/15/21 12:11 Glucose POC Glucose 183 H OUTPATIENT ANTIDIABETIC REGIMEN: * n/a * A1c pending ASSESSMENT: 08/15 * Intubated, sedated with fentanyl/versed, paralyzed with nimbex * Continue Dex 10 mg IV daily, Tube feeds were reduced to 10 ml/hr * BSGs slightly higher yesterday but still 180 mg/dL or less, will continue same today as tube feeds have been reduced 08/13 * Patient continues to be intubated, sedated with fentanyl/versed/propofol, patient started on continues cisatracurium today * BSGs have been well controlled ranging 105-156 mg/dL yesterday * Fasting this AM 98 mg/dL- will decrease nightly lantus to 5 units * Continue to monitor for adjustments, continues on peptamen, Dex 10 mg IV daily 08/10 * Kp is a 61 yo male admitted with acute hypoxic respiratory failure secondary to COVID-19 pneumonia * No known h/o diabetes. No anti-diabetic agents on home med list. * Hyperglycemia likely due to COVID-19. Patient is on daily dexamethasone and fentanyl and versed infusions. * Patient was started on weight based SQ insulin on admission. He received a total of 28 units of insulin yesterday. Will continue to titrate. PLAN FOR INPATIENT GLYCEMIC CONTROL: * Basal insulin * Lantus 5 units HS * Bolus insulin * NovoLog per scale ACHS or Q6hrs while NPO * Goal Range: Low 110 mg/dL - High 150 mg/dL * Correction Factor: 20 mg/dL/unit * Nutritional / Prandial insulin per carb ratio of 1 unit per 7 grams CHO consumed
--- NOTE | 2021-08-15 15:18 | Critical Care Progress Note ---
Date of Service August 15, 2021 Assessment & Plan (1) Acute respiratory failure due to COVID-19: (2) Admitted to intensive care unit: (3) Elevated d-dimer: (4) Pneumonia due to 2019 novel coronavirus: Plan: Reason Critically Ill: 61-year-old male with acute encephalopathy and acute hypoxic respiratory failure secondary to COVID-19 pneumonia PLAN: Neuro: Acute encephalopathy -Probable toxic/metabolic -CT head reviewed -? anoxic injury: Given clinical history of being found blue --> unlikely -low threshold for MRI -Staff report patient was following complex commands while being intubated - On paralytics since 08/13/2021 Alcohol dependence - Versed infusion and fentanyl for sedation -Continue with thiamine and multivitamin -Alcohol withdrawal precautions Resp: Acute hypoxic respiratory failure secondary to COVID-19 pneumonia -CRP pending, follow-up CRP in morning -Decadron 10 mg IV x10 days -High PEEP low FiO2 table: Wean as tolerated -Intubation 08/08 day 3 Severe ARDS -Intermittent boluses of neuromuscular eleazar CV: Elevated troponin Likely type II WA from demand ischemia Fluids/Renal: Monitor BUN/creatinine Avoid nephrotoxic medication Replace electrolytes as needed ID: COVID-19 pneumonia S/p 5 days of cefepime Blood culture 08/09/2021 negative to date Sputum culture 08/12/2021 negative GI/Nutrition: Trickle feeds, Colace and senna on a daily basis Elevated AST -Suspect secondary to alcohol use -Trending down -Hepatitis panel negative Elevated lipase: Improving -Continue observation for development of pancreatitis Heme: Baseline anemia NOS --> monitor H&H DVT prophylaxis: Lovenox 40 mg twice daily Endocrine: ICU hyperglycemia protocol --Prophylaxis VTE: Lovenox GI: Protonix Lines:Right subclavian 08/08, left radial arterial line 08/08, positive Fregoso Diet: Tube feeds Plan: In/out: -1421, urine output 4160 AB.39/58/61 on 12 of PEEP, 75% Chest x-ray still shows diffuse infiltrates bilaterally more on the left side Likely aspiration episode Patient has completed 5 days of cefepime. Blood cultures/sputum culture all have been negative Patient triglycerides are again going up. We will DC the propofol. Continue with midazolam and fentanyl I have personally spent 37 minutes of critical care time in the direct management of this patient. This is a life/limb threatening event. This includes time spent evaluating patient, direct bedside care, chart review, placing orders, interpretation of diagnostic studies, discussion with consultants, patient, and family members, as well as other required patient management activities. This time is exclusive of all separately billable procedures, and teaching time and separate from and in addition to any other critical care service time. Please note the above document was generated using voice recognition software. It may contain grammatical, syntax or spelling errors. Admission and Anticipated Discharge Date Admission Date: August 08, 2021 Subjective Patient seen and examined at bedside. No acute distress. Overnight patient again had an hypoxic episode for which his FiO2 was increased At the time of examination he was already on 75% FiO2. I was able to go down to 70% He is paralyzed Not breathing over the vent Review of Systems Review of Systems: Unobtainable due to endotracheal tube Physical Exam Physical Exam: Constitutional: No acute distress HEENT: PERRLA, positive ETT Respiratory system: Decreased air entry bilaterally, no wheeze, no rhonchi, positive crackles bilateral lower lobes CVS: S1-S2 positive, no murmurs or gallops Abdomen: Soft, nontender, nondistended, positive bowel sounds x4 Extremities: +2 pulses bilaterally radialis/ dorsalis pedis, no cyanosis, no edema Neuro: Paralyzed and sedated Psych: Unable to assess G/U: Positive Fregoso Skin: no rashes, warm and dry Lymphatic: no cervical or axillary lymphadenopathy Results & Data Results & Data ([facility]) Vital Signs (Past 12 Hours) Vital Signs Temp Pulse Resp BP Pulse Ox 08/15/21 15:09 91 H 22 92 08/15/21 13:15 37.0 C 102 H 136/84 92 08/15/21 13:00 37.0 C 108 H 130/87 93 08/15/21 12:46 93 08/15/21 12:45 36.9 C 91 H 144/79 H 93 08/15/21 12:30 36.9 C 89 135/88 92 08/15/21 12:15 36.9 C 96 H 129/74 92 08/15/21 12:00 36.9 C 91 H 141/77 H 91 08/15/21 11:45 36.9 C 93 H 131/78 90 08/15/21 11:30 37.0 C 98 H 133/83 90 08/15/21 11:27 88 24 89 L 08/15/21 11:15 37.0 C 97 H 131/78 90 08/15/21 11:00 37.1 C 101 H 141/80 H 90 08/15/21 10:45 37.1 C 100 H 158/90 H 91 08/15/21 10:30 37.1 C 110 H 173/94 H 92 08/15/21 10:15 37.1 C 94 H 124/73 88 L 08/15/21 10:00 37.1 C 95 H 117/68 88 L 08/15/21 09:45 37.1 C 97 H 118/68 88 L 08/15/21 09:30 37.1 C 105 H 147/82 H 89 L 08/15/21 09:15 37.1 C 108 H 132/74 89 L 08/15/21 09:00 37.1 C 107 H 137/76 89 L 08/15/21 08:55 87 23 89 L 08/15/21 08:45 37.2 C 109 H 133/81 88 L 08/15/21 08:30 37.2 C 106 H 147/78 H 89 L 08/15/21 08:15 37.1 C 87 125/75 88 L 08/15/21 08:00 37.1 C 92 H 132/69 89 L 08/15/21 07:45 37.1 C 96 H 132/71 89 L 08/15/21 07:30 37.2 C 91 H 129/70 88 L 08/15/21 07:15 37.2 C 94 H 128/66 88 L 08/15/21 07:00 37.2 C 89 128/66 89 L 08/15/21 06:45 37.2 C 96 H 138/73 88 L 08/15/21 06:30 37.3 C 105 H 151/78 H 88 L 08/15/21 06:15 37.3 C 103 H 144/75 H 88 L 08/15/21 06:00 37.3 C 93 H 150/77 H 87 L 08/15/21 05:45 37.3 C 92 H 138/71 87 L 08/15/21 05:30 37.3 C 94 H 142/75 H 87 L 08/15/21 05:15 37.3 C 97 H 146/73 H 87 L 08/15/21 05:00 37.3 C 102 H 152/75 H 87 L 08/15/21 04:45 37.3 C 100 H 159/76 H 87 L 08/15/21 04:30 37.2 C 103 H 165/81 H 88 L 08/15/21 04:15 37.1 C 99 H 146/71 H 87 L 08/15/21 04:00 37.1 C 95 H 155/76 H 87 L 08/15/21 03:45 37.0 C 94 H 155/76 H 88 L 08/15/21 03:34 100 H 22 90 08/15/21 03:30 36.8 C 101 H 150/76 H 90 08/15/21 06:00 08/15/21 06:00 Coding Level of Care Code Critical Care 1st 30-74 mins Diagnoses Acute respiratory failure due to COVID-19 U07.1; J96.00 Admitted to intensive care unit Z78.9 Elevated d-dimer R79.89 Pneumonia due to 2019 novel coronavirus U07.1; J12.82 Time Spent (min) 37
[2021-08-15] MEDS: PEPTAMEN INTENSE VHP 1.0 CAL 1,000 ML BAG OG SCH (17:02)
[2021-08-15] MEDS: INSULIN GLARGINE SOLOSTAR 100 UNITS/ML 3 ML PEN SC SCH (22:01)
[2021-08-16] MEDS: MIDAZOLAM HCL 125 MG/250 ML BAG IV SCH ×3 (00:17→17:53)
[2021-08-16] MEDS: ARTIFICIAL TEARS OP OINT 3.5 GM TUBE OP SCH ×6 (01:29→19:52)
[2021-08-16] MEDS: INSULIN ASPART 100 UNITS/ML 3 ML PEN SC SCH ×6 (01:29→20:14)
[2021-08-16] MEDS: fentaNYL citrate 2,500 MCG/250 ML BAG IV SCH ×3 (01:30→21:16)
[2021-08-16] MEDS: TUBE FEEDING WATER FLUSH OG SCH ×6 (03:03→19:54)
[2021-08-16] MEDS: CISATRACURIUM BESYLATE 80 MG in SODIUM CHLORIDE 0.9% 160 ML IV SCH ×5 (03:03→17:53)
[2021-08-16 05:43] LABS: iSTAT Allen Test Pass; iSTAT Art Bld Gas pCO2 Correct 66 mmHg (35-46); iSTAT Art Bld Gas pH Corrected 7.381 (7.35-7.45); iSTAT Arterial Blood Gas HCO3 39 meg/L (19-24); iSTAT Arterial Blood Gas pCO2 64 mmHg (35-46); iSTAT Arterial Blood Gas pH 7.39 (7.35-7.45); iSTAT Arterial Blood Gas pO2 68 mmHg (80-95); iSTAT Arterial Blood Gas pO2 C 72; iSTAT Carbon Dioxide > 40 mmol/L (24-31); iSTAT FiO2 80 %; iSTAT Hematocrit 37 % (42-52); iSTAT Hemoglobin 12.6 g/dl (14.0-18.0); iSTAT Potassium 4.1 mmol/L (3.3-5.0); iSTAT Site R Radial; iSTAT Sodium 141 mmol/L (135-144)
[2021-08-16 07:40] LABS: Hematocrit (blood only) 37.9 % (42-52); Hemoglobin 12.1 g/dL (14.0-18.0); Mean Corpuscular Hemoglobin 32.1 pg (25-34); Mean Corpuscular Hgb Conc 31.9 g/dL (32-36); Mean Corpuscular Volume 100.5 fL (80-100); Mean Platelet Volume 9.6 fL (7.4-10.4); Platelet Count 429 K/uL (130-400); RDW Coefficient of Variation 13.5 % (11.5-14.5); RDW Standard Deviation 49.1 fL (36.4-46.3); Red Blood Count 3.77 M/uL (4.7-6.1); White Blood Count 13.31 K/uL (4.8-10.8)
[2021-08-16 07:58] LABS: BUN Creatinine Ratio 46.8 (10-20); C Reactive Protein 6.76 mg/dl (0-0.29); Calcium 8.8 mg/dl (8.5-10.1); Creatinine Clr Calc Pharmacy 130.3 ml/min; Est GFR (African American) 121.9 ml/min; Est GFR (Non-African American) 105.2 ml/min; Magnesium 2.3 mg/dl (1.8-2.4); Phosphorus 2.7 mg/dl (2.5-4.9); Potassium 4.2 mmol/L (3.5-5.1)
[2021-08-16 08:03] LABS: D Dimer 8320 ug/L FEU (0-500)
[2021-08-16] MEDS: FUROSEMIDE 40 MG in SYRINGE 0 ML IV SCH ×2 (08:10→19:53)
[2021-08-16] MEDS: dexAMETHasone 10 MG in SYRINGE 0 ML IV SCH (08:10)
[2021-08-16] MEDS: DOCUSATE SODIUM SYRUP 100 MG/10 ML UDC NG SCH ×2 (08:10→19:53)
[2021-08-16] MEDS: MULTI VIT W/MINERALS LIQUID 15 ML UDP NG SCH (08:10)
[2021-08-16] MEDS: ENOXAPARIN INJ 40 MG/0.4 ML SYR SQ SCH ×2 (08:11→19:52)
[2021-08-16] MEDS: THIAMINE HCL 100 MG TAB PO SCH (08:11)
[2021-08-16] MEDS: SENNOSIDES 8.8 MG/5 ML UDC PO SCH (08:11)
--- NOTE | 2021-08-16 09:53 | XRay Report ---
XR chest 1V portable HISTORY: Respiratory failure. Shortness of breath. Follow-up. COMPARISON: Chest 08/15/2021. FINDINGS: Endotracheal tube terminates approximately 3.2 cm from the cee. Nasogastric tube termina kodi in the stomach. Left jugular central venous catheter terminates at the brachiocephalic/SVC juncti on. No pneumothorax. No pleural effusions. Hazy bilateral airspace opacities most pronounced within t he left lung persists. This likely represents a viral pneumonia. IMPRESSION: 1. Satisfactory support line placement. 2. No change in the multifocal airspace opacities consistent with a pneumonia. ACT 112: Negative or not required by law. Electronically signed by: Perico Baker M.D. 08/16/2021 9:52 AM
[2021-08-16] MEDS: PANTOprazole 40 MG in SYRINGE 0 ML IV SCH (11:21)
--- NOTE | 2021-08-16 11:34 | Hospitalist Progress Note ---
Date of Service August 16, 2021 Assessment & Plan (1) Acute respiratory failure due to COVID-19: (2) Acute encephalopathy: (3) Hypotension: (4) Elevated troponin I level: (5) Elevated lactic acid level: (6) Elevated d-dimer: (7) Alcohol use: Plan: 61 yr male with H/O Alcohol use and prior tobacco use presented to ER for respiratory distress. Reported pt tested positive for COVID-19 4 days ago. Non- vaccinated. +COVID-19 contact. Acute respiratory failure with Hypoxia Secondary to COVID-19 pneumonia Acute metabolic encephalopathy secondary to above Lactic acidosis ARDS -CXR:Multifocal airspace opacities which may represent atelectasis, pneumonia, and/or aspiration. -CT Head:There is no hemorrhage, mass effect, or evidence of acute territorial ischemia by CT criteria. Continue vent management per reservations specialist Currently on dexamethasone 10mg IV. Continue to complete 10 days On fentanyl, Versed and Nimbex drips Propofol drip discontinued due to elevated triglycerides Continue to monitor inflammatory markers. DD improved 35858->8320. CRP improved from 11-6.76 Abnormal UA but negative urine culture / Blood Cx: Coagulase-negative staph Repeat blood cultures No growth Possibly contaminant MRSA PCR negative Alcohol use disorder Continue thiamine Withdrawal precautions Elevated troponin Likely due to demand ischemia In setting of COVID-19 infection Troponin trended down DVT Px: On Lovenox SQ Code Status Full Code Called sister and updated her Admission and Anticipated Discharge Date Admission Date: August 08, 2021 Subjective 61-year-old man with a history of alcohol use who presented to the ER with respiratory distress Being managed for acute hypoxic respiratory failure due to COVID-19 pneumonia. Patient currently intubated. Has been on fentanyl, Versed and Nimbex drips Propofol discontinued on 08/15 due to elevated TG Review of Systems Review of Systems: Unobtainable due to endotracheal tube Physical Exam Constitutional: On mechanical ventilator ENMT: ETT and OGT in situ Respiratory: Diminished breath sounds bilaterally Cardiovascular: RRR. S1 S2 Gastrointestinal (Abdomen): normal bowel sounds, soft, nontender, no hepatosplenomegaly Musculoskeletal: No pedal edema Neurologic: Sedated and paralyzed Genitourinary: Fregoso in situ Results & Data Results & Data ([facility]) Vital Signs (Past 12 Hours) Vital Signs Temp Pulse Resp BP Pulse Ox 08/16/21 10:30 37.9 C H 100 H 122/62 92 08/16/21 10:15 38.0 C H 124 H 127/79 95 08/16/21 10:00 38.1 C H 101 H 125/85 92 08/16/21 09:45 38.1 C H 101 H 116/73 92 08/16/21 09:30 38.1 C H 105 H 119/69 92 08/16/21 09:15 38.0 C H 105 H 104/65 92 08/16/21 09:00 37.9 C H 111 H 109/68 91 08/16/21 08:45 37.9 C H 109 H 105/67 91 08/16/21 08:30 37.8 C H 110 H 131/98 91 08/16/21 08:15 37.8 C H 118 H 114/72 92 08/16/21 08:00 37.8 C H 115 H 123/71 92 08/16/21 07:45 37.8 C H 110 H 125/66 91 08/16/21 07:30 37.8 C H 121 H 126/72 92 08/16/21 07:25 115 H 24 92 08/16/21 07:15 37.8 C H 117 H 131/75 92 08/16/21 07:00 37.9 C H 111 H 126/78 91 08/16/21 06:45 37.9 C H 104 H 126/76 91 08/16/21 06:30 37.8 C H 112 H 103/65 90 08/16/21 06:15 37.8 C H 108 H 116/65 89 L 08/16/21 06:00 37.9 C H 117 H 158/93 H 91 08/16/21 05:45 37.9 C H 111 H 124/73 88 L 08/16/21 05:30 37.9 C H 119 H 149/74 H 89 L 08/16/21 05:29 37.9 C H 117 H 89 L 08/16/21 05:28 37.9 C H 117 H 88 L 08/16/21 05:27 37.9 C H 111 H 88 L 08/16/21 05:26 37.9 C H 116 H 89 L 08/16/21 05:25 37.9 C H 110 H 88 L 08/16/21 05:24 37.9 C H 112 H 89 L 08/16/21 05:23 37.9 C H 113 H 88 L 08/16/21 05:22 37.9 C H 115 H 89 L 08/16/21 05:21 37.9 C H 113 H 89 L 08/16/21 05:20 37.9 C H 114 H 89 L 08/16/21 05:19 37.9 C H 113 H 88 L 08/16/21 05:18 37.9 C H 114 H 88 L 08/16/21 05:17 37.9 C H 116 H 89 L 08/16/21 05:16 37.9 C H 115 H 89 L 08/16/21 05:15 37.9 C H 113 H 89 L 08/16/21 05:14 37.9 C H 116 H 89 L 08/16/21 05:13 37.9 C H 116 H 89 L 08/16/21 05:12 37.9 C H 115 H 89 L 08/16/21 05:11 37.9 C H 118 H 89 L 08/16/21 05:10 37.9 C H 117 H 89 L 08/16/21 05:09 37.9 C H 115 H 89 L 08/16/21 05:08 37.9 C H 116 H 89 L 08/16/21 05:07 37.9 C H 118 H 89 L 08/16/21 05:06 37.9 C H 117 H 89 L 08/16/21 05:05 37.9 C H 119 H 89 L 08/16/21 05:04 37.9 C H 120 H 89 L 08/16/21 05:03 37.9 C H 121 H 89 L 08/16/21 05:02 37.9 C H 118 H 89 L 08/16/21 05:01 37.9 C H 121 H 89 L 08/16/21 04:45 37.8 C H 116 H 158/80 H 89 L 08/16/21 04:30 37.8 C H 119 H 153/79 H 89 L 08/16/21 04:15 37.8 C H 116 H 161/78 H 88 L 08/16/21 04:00 37.8 C H 119 H 165/81 H 89 L 08/16/21 03:45 37.8 C H 114 H 147/84 H 88 L 08/16/21 03:30 37.7 C H 124 H 166/90 H 90 08/16/21 03:20 120 H 22 92 08/16/21 03:15 37.6 C H 123 H 153/85 H 93 08/16/21 03:00 37.5 C 124 H 171/84 H 94 08/16/21 02:45 37.6 C H 111 H 144/90 H 94 08/16/21 02:30 37.7 C H 103 H 115/80 93 08/16/21 02:15 37.7 C H 84 108/72 93 08/16/21 02:00 37.6 C H 83 86/59 L 92 08/16/21 01:45 37.6 C H 84 105/73 92 08/16/21 01:30 37.5 C 86 84/56 L 92 08/16/21 01:15 37.5 C 83 100/63 92 08/16/21 01:00 37.4 C 88 105/63 92 08/16/21 00:45 37.4 C 89 101/64 90 08/16/21 00:30 37.4 C 99 H 108/68 90 08/16/21 00:15 37.3 C 93 H 102/60 88 L 08/16/21 00:00 37.3 C 97 H 106/65 88 L 08/15/21 23:49 103 H 08/15/21 23:45 37.3 C 121 H 124/75 89 L Diagnostic Findings Abnormal lab results 08/15/21 08/15/21 08/16/21 Range/Units 16:47 20:29 00:04 WBC (4.8-10.8) K/uL RBC (4.7-6.1) M/uL Hgb (14.0-18.0) g/dL POC Hgb (14.0-18.0) g/dl Hct (42-52) % POC Hct (42-52) % MCV (80-100) fL MCHC (32-36) g/dL RDW Std Deviation (36.4-46.3) fL Plt Count (130-400) K/uL D-Dimer (0-500) ug/L FEU POC pCO2 (35-46) mmHg POC pO2 (80-95) mmHg POC HCO3 (19-24) jose ramon/L POC Total CO2 (24-31) mmol/L POC Base Excess (-9-1.8) jose ramon/L ABG pCO2 (Temp Corrct (35-46) mmHg Carbon Dioxide (21-32) mmol/L BUN (7-18) mg/dl BUN/Creatinine Ratio (10-20) Glucose (70-99) mg/dl POC Glucose 184 H 140 H 140 H (70-99) mg/dl C-Reactive Protein (0-0.29) mg/dl 08/16/21 08/16/21 08/16/21 Range/Units 04:50 04:54 06:42 WBC 13.31 H (4.8-10.8) K/uL RBC 3.77 L (4.7-6.1) M/uL Hgb 12.1 L (14.0-18.0) g/dL POC Hgb 12.6 L (14.0-18.0) g/dl Hct 37.9 L (42-52) % POC Hct 37 L (42-52) % MCV 100.5 H (80-100) fL MCHC 31.9 L (32-36) g/dL RDW Std Deviation 49.1 H (36.4-46.3) fL Plt Count 429 H (130-400) K/uL D-Dimer (0-500) ug/L FEU POC pCO2 64 H (35-46) mmHg POC pO2 68 L (80-95) mmHg POC HCO3 39 H (19-24) jose ramon/L POC Total CO2 > 40 H* (24-31) mmol/L POC Base Excess 14.0 H (-9-1.8) jose ramon/L ABG pCO2 (Temp Corrct 66 H (35-46) mmHg Carbon Dioxide (21-32) mmol/L BUN (7-18) mg/dl BUN/Creatinine Ratio (10-20) Glucose (70-99) mg/dl POC Glucose 155 H (70-99) mg/dl C-Reactive Protein (0-0.29) mg/dl 08/16/21 08/16/21 08/16/21 Range/Units 06:42 06:42 08:00 WBC (4.8-10.8) K/uL RBC (4.7-6.1) M/uL Hgb (14.0-18.0) g/dL POC Hgb (14.0-18.0) g/dl Hct (42-52) % POC Hct (42-52) % MCV (80-100) fL MCHC (32-36) g/dL RDW Std Deviation (36.4-46.3) fL Plt Count (130-400) K/uL D-Dimer 8320 H* (0-500) ug/L FEU POC pCO2 (35-46) mmHg POC pO2 (80-95) mmHg POC HCO3 (19-24) jose ramon/L POC Total CO2 (24-31) mmol/L POC Base Excess (-9-1.8) jose ramon/L ABG pCO2 (Temp Corrct (35-46) mmHg Carbon Dioxide 33 H (21-32) mmol/L BUN 31 H (7-18) mg/dl BUN/Creatinine Ratio 46.8 H (10-20) Glucose 159 H (70-99) mg/dl POC Glucose 149 H (70-99) mg/dl C-Reactive Protein 6.76 H (0-0.29) mg/dl 08/16/21 Range/Units 11:26 WBC (4.8-10.8) K/uL RBC (4.7-6.1) M/uL Hgb (14.0-18.0) g/dL POC Hgb (14.0-18.0) g/dl Hct (42-52) % POC Hct (42-52) % MCV (80-100) fL MCHC (32-36) g/dL RDW Std Deviation (36.4-46.3) fL Plt Count (130-400) K/uL D-Dimer (0-500) ug/L FEU POC pCO2 (35-46) mmHg POC pO2 (80-95) mmHg POC HCO3 (19-24) jose ramon/L POC Total CO2 (24-31) mmol/L POC Base Excess (-9-1.8) jose ramon/L ABG pCO2 (Temp Corrct (35-46) mmHg Carbon Dioxide (21-32) mmol/L BUN (7-18) mg/dl BUN/Creatinine Ratio (10-20) Glucose (70-99) mg/dl POC Glucose 210 H (70-99) mg/dl C-Reactive Protein (0-0.29) mg/dl
[2021-08-16] MEDS: MIDAZOLAM BOLUS FROM BAG IV PRN (12:26)
--- NOTE | 2021-08-16 13:33 | Critical Care Progress Note ---
Date of Service August 16, 2021 Assessment & Plan (1) Acute respiratory failure due to COVID-19: (2) Admitted to intensive care unit: (3) Elevated d-dimer: (4) Pneumonia due to 2019 novel coronavirus: Plan: Reason Critically Ill: 61-year-old male with acute encephalopathy and acute hypoxic respiratory failure secondary to COVID-19 pneumonia PLAN: Neuro: Acute encephalopathy -Probable toxic/metabolic -CT head reviewed -? anoxic injury: Given clinical history of being found blue --> unlikely -low threshold for MRI -Staff report patient was following complex commands while being intubated - On paralytics since 08/13/2021 Alcohol dependence - Versed infusion and fentanyl for sedation -Continue with thiamine and multivitamin -Alcohol withdrawal precautions Resp: Acute hypoxic respiratory failure secondary to COVID-19 pneumonia -CRP pending, follow-up CRP in morning -Decadron 10 mg IV x10 days -High PEEP low FiO2 table: Wean as tolerated -Intubation 08/08 day 3 Severe ARDS -Intermittent boluses of neuromuscular eleazar CV: Elevated troponin Likely type II NM from demand ischemia Fluids/Renal: Monitor BUN/creatinine Avoid nephrotoxic medication Replace electrolytes as needed ID: COVID-19 pneumonia S/p 5 days of cefepime, last dose 08/14/2021 Blood culture 08/09/2021 negative to date Sputum culture 08/12/2021 negative GI/Nutrition: Trickle feeds, Colace and senna on a daily basis Elevated AST -Suspect secondary to alcohol use -Trending down -Hepatitis panel negative Elevated lipase: Improving -Continue observation for development of pancreatitis Heme: Baseline anemia NOS --> monitor H&H DVT prophylaxis: Lovenox 40 mg twice daily Endocrine: ICU hyperglycemia protocol --Prophylaxis VTE: Lovenox GI: Protonix Lines:Right subclavian 08/08, left radial arterial line 08/08, positive Fregoso Diet: Tube feeds Plan: In/out: -1950, urine output 4095 AB.39/64/68 on PEEP of 12, 80% At the time of examination patient was saturating 95% on the same setting. I went down to FiO2 60% I will repeat sputum culture again today given the thick yellow phlegm on the suction Patient did just complete cefepime for 5 days course I will try to take the patient off the paralytics tomorrow to see how he does. Continue with Lasix twice daily Patient sister Basia Cannon [phone], was called and updated regarding patient's condition All questions inquiries were answered in depth. I have personally spent 37 minutes of critical care time in the direct management of this patient. This is a life/limb threatening event. This includes time spent evaluating patient, direct bedside care, chart review, placing orders, interpretation of diagnostic studies, discussion with consultants, patient, and family members, as well as other required patient management activities. This time is exclusive of all separately billable procedures, and teaching time and separate from and in addition to any other critical care service time. Please note the above document was generated using voice recognition software. It may contain grammatical, syntax or spelling errors. Admission and Anticipated Discharge Date Admission Date: August 08, 2021 Review of Systems Review of Systems: Unobtainable due to endotracheal tube Physical Exam Physical Exam: Constitutional: No acute distress HEENT: PERRLA, positive ETT Respiratory system: Decreased air entry bilaterally, no wheeze, no rhonchi, positive crackles bilateral lower lobes CVS: S1-S2 positive, no murmurs or gallops Abdomen: Soft, nontender, nondistended, positive bowel sounds x4 Extremities: +2 pulses bilaterally radialis/ dorsalis pedis, no cyanosis, no edema Neuro: Paralyzed and sedated Psych: Unable to assess G/U: Positive Fregoso Skin: no rashes, warm and dry Lymphatic: no cervical or axillary lymphadenopathy Results & Data Results & Data ([facility]) Vital Signs (Past 12 Hours) Vital Signs Temp Pulse Resp BP Pulse Ox 08/16/21 13:15 37.8 C H 77 102/59 L 94 08/16/21 13:00 37.7 C H 78 98/61 L 93 08/16/21 12:45 37.6 C H 85 98/58 L 93 08/16/21 12:30 37.6 C H 94 H 105/67 92 08/16/21 12:15 37.5 C 100 H 113/73 93 08/16/21 12:00 37.6 C H 105 H 129/75 93 08/16/21 11:50 105 H 22 93 08/16/21 11:45 37.8 C H 120 H 159/84 H 94 08/16/21 11:30 37.9 C H 97 H 141/75 H 92 08/16/21 11:15 38.0 C H 97 H 123/72 92 08/16/21 11:00 38.0 C H 95 H 103/59 L 91 08/16/21 10:45 38.0 C H 101 H 109/64 93 08/16/21 10:30 37.9 C H 100 H 122/62 92 08/16/21 10:15 38.0 C H 124 H 127/79 95 08/16/21 10:00 38.1 C H 101 H 125/85 92 08/16/21 09:45 38.1 C H 101 H 116/73 92 08/16/21 09:30 38.1 C H 105 H 119/69 92 08/16/21 09:15 38.0 C H 105 H 104/65 92 08/16/21 09:00 37.9 C H 111 H 109/68 91 08/16/21 08:45 37.9 C H 109 H 105/67 91 08/16/21 08:30 37.8 C H 110 H 131/98 91 08/16/21 08:15 37.8 C H 118 H 114/72 92 08/16/21 08:00 37.8 C H 115 H 123/71 92 08/16/21 07:45 37.8 C H 110 H 125/66 91 08/16/21 07:30 37.8 C H 121 H 126/72 92 08/16/21 07:25 115 H 24 92 08/16/21 07:15 37.8 C H 117 H 131/75 92 08/16/21 07:00 37.9 C H 111 H 126/78 91 08/16/21 06:45 37.9 C H 104 H 126/76 91 08/16/21 06:30 37.8 C H 112 H 103/65 90 08/16/21 06:15 37.8 C H 108 H 116/65 89 L 08/16/21 06:00 37.9 C H 117 H 158/93 H 91 08/16/21 05:45 37.9 C H 111 H 124/73 88 L 08/16/21 05:30 37.9 C H 119 H 149/74 H 89 L 08/16/21 05:29 37.9 C H 117 H 89 L 08/16/21 05:28 37.9 C H 117 H 88 L 08/16/21 05:27 37.9 C H 111 H 88 L 08/16/21 05:26 37.9 C H 116 H 89 L 08/16/21 05:25 37.9 C H 110 H 88 L 08/16/21 05:24 37.9 C H 112 H 89 L 08/16/21 05:23 37.9 C H 113 H 88 L 08/16/21 05:22 37.9 C H 115 H 89 L 08/16/21 05:21 37.9 C H 113 H 89 L 08/16/21 05:20 37.9 C H 114 H 89 L 08/16/21 05:19 37.9 C H 113 H 88 L 08/16/21 05:18 37.9 C H 114 H 88 L 08/16/21 05:17 37.9 C H 116 H 89 L 08/16/21 05:16 37.9 C H 115 H 89 L 08/16/21 05:15 37.9 C H 113 H 89 L 08/16/21 05:14 37.9 C H 116 H 89 L 08/16/21 05:13 37.9 C H 116 H 89 L 08/16/21 05:12 37.9 C H 115 H 89 L 08/16/21 05:11 37.9 C H 118 H 89 L 08/16/21 05:10 37.9 C H 117 H 89 L 08/16/21 05:09 37.9 C H 115 H 89 L 08/16/21 05:08 37.9 C H 116 H 89 L 08/16/21 05:07 37.9 C H 118 H 89 L 08/16/21 05:06 37.9 C H 117 H 89 L 08/16/21 05:05 37.9 C H 119 H 89 L 08/16/21 05:04 37.9 C H 120 H 89 L 08/16/21 05:03 37.9 C H 121 H 89 L 08/16/21 05:02 37.9 C H 118 H 89 L 08/16/21 05:01 37.9 C H 121 H 89 L 08/16/21 04:45 37.8 C H 116 H 158/80 H 89 L 08/16/21 04:30 37.8 C H 119 H 153/79 H 89 L 08/16/21 04:15 37.8 C H 116 H 161/78 H 88 L 08/16/21 04:00 37.8 C H 119 H 165/81 H 89 L 08/16/21 03:45 37.8 C H 114 H 147/84 H 88 L 08/16/21 03:30 37.7 C H 124 H 166/90 H 90 08/16/21 03:20 120 H 22 92 08/16/21 03:15 37.6 C H 123 H 153/85 H 93 08/16/21 03:00 37.5 C 124 H 171/84 H 94 08/16/21 02:45 37.6 C H 111 H 144/90 H 94 08/16/21 02:30 37.7 C H 103 H 115/80 93 08/16/21 02:15 37.7 C H 84 108/72 93 08/16/21 02:00 37.6 C H 83 86/59 L 92 08/16/21 01:45 37.6 C H 84 105/73 92 08/16/21 06:42 08/16/21 06:42 Coding Level of Care Code Critical Care 1st 30-74 mins Diagnoses Acute respiratory failure due to COVID-19 U07.1; J96.00 Admitted to intensive care unit Z78.9 Elevated d-dimer R79.89 Pneumonia due to 2019 novel coronavirus U07.1; J12.82 Time Spent (min) 37
[2021-08-16] MEDS: PEPTAMEN INTENSE VHP 1.0 CAL 1,000 ML BAG OG SCH (16:38)
[2021-08-16] MEDS: INSULIN GLARGINE SOLOSTAR 100 UNITS/ML 3 ML PEN SC SCH (21:17)
[2021-08-17] MEDS: CISATRACURIUM BESYLATE 80 MG in SODIUM CHLORIDE 0.9% 160 ML IV SCH ×2 (00:09→11:33)
[2021-08-17] MEDS: TUBE FEEDING WATER FLUSH OG SCH ×6 (01:45→19:35)
[2021-08-17] MEDS: INSULIN ASPART 100 UNITS/ML 3 ML PEN SC SCH ×5 (04:00→17:19)
[2021-08-17] MEDS: ARTIFICIAL TEARS OP OINT 3.5 GM TUBE OP SCH ×6 (04:25→19:35)
[2021-08-17] MEDS: MIDAZOLAM HCL 125 MG/250 ML BAG IV SCH ×2 (05:17→15:02)
[2021-08-17 05:44] LABS: iSTAT Allen Test Pass; iSTAT Art Bld Gas pCO2 Correct 56 mmHg (35-46); iSTAT Arterial Blood Gas HCO3 38 meg/L (19-24); iSTAT Arterial Blood Gas pCO2 53 mmHg (35-46); iSTAT Arterial Blood Gas pH 7.47 (7.35-7.45); iSTAT Arterial Blood Gas pO2 91 mmHg (80-95); iSTAT Arterial Blood Gas pO2 C 97; iSTAT Carbon Dioxide > 40 mmol/L (24-31); iSTAT FiO2 80 %; iSTAT Hematocrit 34 % (42-52); iSTAT Hemoglobin 11.6 g/dl (14.0-18.0); iSTAT Potassium 4.1 mmol/L (3.3-5.0); iSTAT Site L Radial; iSTAT Sodium 141 mmol/L (135-144)
[2021-08-17] MEDS: fentaNYL citrate 2,500 MCG/250 ML BAG IV SCH ×3 (06:32→23:44)
[2021-08-17 06:40] LABS: Hemoglobin 11.4 g/dL (14.0-18.0); Mean Corpuscular Hemoglobin 31.8 pg (25-34); Mean Corpuscular Hgb Conc 31.7 g/dL (32-36); Mean Corpuscular Volume 100.6 fL (80-100); Mean Platelet Volume 9.4 fL (7.4-10.4); Platelet Count 395 K/uL (130-400); RDW Coefficient of Variation 13.4 % (11.5-14.5); RDW Standard Deviation 49.5 fL (36.4-46.3); Red Blood Count 3.58 M/uL (4.7-6.1)
[2021-08-17 07:14] LABS: BUN Creatinine Ratio 50.5 (10-20); Calcium 8.7 mg/dl (8.5-10.1); Magnesium 2.5 mg/dl (1.8-2.4); Phosphorus 2.6 mg/dl (2.5-4.9)
[2021-08-17] MEDS: FUROSEMIDE 40 MG in SYRINGE 0 ML IV SCH ×2 (08:04→19:33)
[2021-08-17] MEDS: dexAMETHasone 10 MG in SYRINGE 0 ML IV SCH (08:04)
[2021-08-17] MEDS: MULTI VIT W/MINERALS LIQUID 15 ML UDP NG SCH (08:05)
[2021-08-17] MEDS: THIAMINE HCL 100 MG TAB PO SCH (08:05)
[2021-08-17] MEDS: DOCUSATE SODIUM SYRUP 100 MG/10 ML UDC NG SCH ×2 (08:05→19:32)
[2021-08-17] MEDS: ENOXAPARIN INJ 40 MG/0.4 ML SYR SQ SCH ×2 (08:05→19:33)
[2021-08-17] MEDS: SENNOSIDES 8.8 MG/5 ML UDC PO SCH (08:05)
--- NOTE | 2021-08-17 09:52 | XRay Report ---
XR chest 1V portable INDICATION: [place] ^f/u . TECHNIQUE: Single frontal radiograph of the chest was obtained. Comparison: None available at the time of this dictation. FINDINGS: Lines and tubes are stable. The cardiomediastinal silhouette is normal. Interval slight improvement i n left greater than right airspace opacities. No evidence of pleural effusion or pneumothorax. IMPRESSION: Multifocal airspace opacities have somewhat improved from prior exam. ACT 112: Negative or not required by law. Electronically signed by: Juan C Floyd M.D. 08/17/2021 9:51 AM
[2021-08-17] MEDS: ACETAMINOPHEN 325 MG TAB PO PRN ×2 (11:33→20:32)
[2021-08-17] MEDS: PANTOprazole 40 MG in SYRINGE 0 ML IV SCH (11:33)
[2021-08-17] MEDS: MIDAZOLAM BOLUS FROM BAG IV PRN (11:33)
--- NOTE | 2021-08-17 11:44 | Hospitalist Progress Note ---
Date of Service August 17, 2021 Assessment & Plan (1) Acute respiratory failure due to COVID-19: (2) Acute encephalopathy: (3) Hypotension: (4) Elevated troponin I level: (5) Elevated lactic acid level: (6) Elevated d-dimer: (7) Alcohol use: Plan: 61 yr male with H/O Alcohol use and prior tobacco use presented to ER for respiratory distress. Reported pt tested positive for COVID-19 4 days ago. Non- vaccinated. +COVID-19 contact. Acute respiratory failure with Hypoxia Secondary to COVID-19 pneumonia Acute metabolic encephalopathy secondary to above Lactic acidosis ARDS -CXR:Multifocal airspace opacities which may represent atelectasis, pneumonia, and/or aspiration. -CT Head:There is no hemorrhage, mass effect, or evidence of acute territorial ischemia by CT criteria. Continue vent management per guest experience specialist Currently on dexamethasone 10mg IV to complete 10 day therapy On fentanyl, Versed and Nimbex drips. marketing programs specialist may dc nimbex drip today Propofol drip discontinued due to elevated triglycerides Continue to monitor inflammatory markers. DD improved 50135->8320. CRP 11- >6.76 Abnormal UA but negative urine culture 1/2 Blood Cx: Coagulase-negative staph Repeat blood cultures No growth Possibly contaminant MRSA PCR negative Alcohol use disorder Continue thiamine Withdrawal precautions Elevated troponin Likely due to demand ischemia In setting of COVID-19 infection Troponin trended down DVT Px: On Lovenox SQ Code Status Full Code Admission and Anticipated Discharge Date Admission Date: August 08, 2021 Subjective 61-year-old man with a history of alcohol use who presented to the ER with respiratory distress Being managed for acute hypoxic respiratory failure due to COVID-19 pneumonia. Patient currently intubated. Has been on fentanyl, Versed and Nimbex drips Review of Systems Review of Systems: Unobtainable due to endotracheal tube Physical Exam Constitutional: + obese and + mechanically ventilated ENMT: ETT and OGT in situ Respiratory: +mechanically ventilated Diminished breath sounds Cardiovascular: Rate/Rhythm: regular rate and regular rhythm S1 S2 Gastrointestinal (Abdomen): normal bowel sounds, soft, nontender, no hepatosplenomegaly Musculoskeletal: No edema Neurologic: Sedated and intubated Genitourinary: Fregoso in situ Results & Data Results & Data ([facility]) Vital Signs (Past 12 Hours) Vital Signs Temp Pulse Resp BP Pulse Ox 10/03/21 11:00 38.5 C H 91 H 114/66 96 08/17/21 10:00 38.5 C H 95 H 128/79 97 08/17/21 09:54 72 L 08/17/21 09:00 38.2 C H 117 H 137/84 89 L 08/17/21 08:20 115 H 23 95 08/17/21 08:00 38.0 C H 103 H 171/94 H 93 08/17/21 07:00 37.9 C H 92 H 141/76 H 100 08/17/21 06:00 38.0 C H 94 H 118/61 94 08/17/21 05:27 108 H 22 91 08/17/21 05:00 38.1 C H 91 H 131/76 92 08/17/21 04:00 38.0 C H 105 H 117/66 92 08/17/21 03:00 38.0 C H 96 H 137/81 92 08/17/21 02:17 94 H 22 87 L 08/17/21 02:00 37.8 C H 106 H 111/64 86 L 08/17/21 01:00 37.8 C H 119 H 158/86 H 89 L 08/17/21 00:00 38.1 C H 81 110/65 90 Laboratory Results Abnormal lab results 08/16/21 08/16/21 08/17/21 Range/Units 16:02 20:13 00:05 WBC (4.8-10.8) K/uL RBC (4.7-6.1) M/uL Hgb (14.0-18.0) g/dL POC Hgb (14.0-18.0) g/dl Hct (42-52) % POC Hct (42-52) % MCV (80-100) fL MCHC (32-36) g/dL RDW Std Deviation (36.4-46.3) fL POC pH (7.35-7.45) POC pCO2 (35-46) mmHg POC HCO3 (19-24) jose ramon/L POC Total CO2 (24-31) mmol/L POC Base Excess (-9-1.8) jose ramon/L ABG pCO2 (Temp Corrct (35-46) mmHg POC ABG O2 Sat (90-95) % Carbon Dioxide (21-32) mmol/L BUN (7-18) mg/dl BUN/Creatinine Ratio (10-20) Glucose (70-99) mg/dl POC Glucose 142 H 128 H 114 H (70-99) mg/dl Magnesium (1.8-2.4) mg/dl 08/17/21 08/17/21 08/17/21 Range/Units 04:20 05:28 06:08 WBC 13.10 H (4.8-10.8) K/uL RBC 3.58 L (4.7-6.1) M/uL Hgb 11.4 L (14.0-18.0) g/dL POC Hgb 11.6 L (14.0-18.0) g/dl Hct 36.0 L (42-52) % POC Hct 34 L (42-52) % MCV 100.6 H (80-100) fL MCHC 31.7 L (32-36) g/dL RDW Std Deviation 49.5 H (36.4-46.3) fL POC pH 7.47 H (7.35-7.45) POC pCO2 53 H (35-46) mmHg POC HCO3 38 H (19-24) jose ramon/L POC Total CO2 > 40 H* (24-31) mmol/L POC Base Excess 14.0 H (-9-1.8) jose ramon/L ABG pCO2 (Temp Corrct 56 H (35-46) mmHg POC ABG O2 Sat 97.0 H (90-95) % Carbon Dioxide (21-32) mmol/L BUN (7-18) mg/dl BUN/Creatinine Ratio (10-20) Glucose (70-99) mg/dl POC Glucose 139 H (70-99) mg/dl Magnesium (1.8-2.4) mg/dl 08/17/21 08/17/21 Range/Units 06:08 08:17 WBC (4.8-10.8) K/uL RBC (4.7-6.1) M/uL Hgb (14.0-18.0) g/dL POC Hgb (14.0-18.0) g/dl Hct (42-52) % POC Hct (42-52) % MCV (80-100) fL MCHC (32-36) g/dL RDW Std Deviation (36.4-46.3) fL POC pH (7.35-7.45) POC pCO2 (35-46) mmHg POC HCO3 (19-24) jose ramon/L POC Total CO2 (24-31) mmol/L POC Base Excess (-9-1.8) jose ramon/L ABG pCO2 (Temp Corrct (35-46) mmHg POC ABG O2 Sat (90-95) % Carbon Dioxide 34 H (21-32) mmol/L BUN 37 H (7-18) mg/dl BUN/Creatinine Ratio 50.5 H (10-20) Glucose 123 H (70-99) mg/dl POC Glucose 134 H (70-99) mg/dl Magnesium 2.5 H (1.8-2.4) mg/dl
--- NOTE | 2021-08-17 13:58 | Critical Care Progress Note ---
Date of Service August 17, 2021 Assessment & Plan (1) Acute respiratory failure due to COVID-19: (2) Admitted to intensive care unit: (3) Elevated d-dimer: (4) Pneumonia due to 2019 novel coronavirus: Plan: Reason Critically Ill: 61-year-old male with acute encephalopathy and acute hypoxic respiratory failure secondary to COVID-19 pneumonia PLAN: Neuro: Acute encephalopathy -Probable toxic/metabolic -CT head reviewed -? anoxic injury: Given clinical history of being found blue --> unlikely -low threshold for MRI -Staff report patient was following complex commands while being intubated - On paralytics since 08/13/2021 Alcohol dependence - Versed infusion and fentanyl for sedation -Continue with thiamine and multivitamin -Alcohol withdrawal precautions Resp: Acute hypoxic respiratory failure secondary to COVID-19 pneumonia -CRP pending, follow-up CRP in morning -Decadron 10 mg IV x10 days -High PEEP low FiO2 table: Wean as tolerated -Intubation 08/08 day 3 Severe ARDS -Intermittent boluses of neuromuscular eleazar CV: Elevated troponin Likely type II UT from demand ischemia Fluids/Renal: Monitor BUN/creatinine Avoid nephrotoxic medication Replace electrolytes as needed ID: COVID-19 pneumonia S/p 5 days of cefepime, last dose 08/14/2021 Blood culture 08/09/2021 negative to date Sputum culture 08/12/2021 negative GI/Nutrition: Trickle feeds, Colace and senna on a daily basis Elevated AST -Suspect secondary to alcohol use -Trending down -Hepatitis panel negative Elevated lipase: Improving -Continue observation for development of pancreatitis Heme: Baseline anemia NOS --> monitor H&H DVT prophylaxis: Lovenox 40 mg twice daily Endocrine: ICU hyperglycemia protocol --Prophylaxis VTE: Lovenox GI: Protonix Lines:Right subclavian 08/08, left radial arterial line 08/08, positive Fregoso Diet: Tube feeds Plan: In/out: -2284, 4375 AB.47/53/91 on 10 Peep, 60 % Try taking off paralytics today Increase sedation. Add propofol if need be Patient sister Basia Cannon [phone] I have personally spent 35 minutes of critical care time in the direct management of this patient. This is a life/limb threatening event. This includes time spent evaluating patient, direct bedside care, chart review, placing orders, interpretation of diagnostic studies, discussion with consultants, patient, and family members, as well as other required patient management activities. This time is exclusive of all separately billable procedures, and teaching time and separate from and in addition to any other critical care service time. Please note the above document was generated using voice recognition software. It may contain grammatical, syntax or spelling errors. Admission and Anticipated Discharge Date Admission Date: August 08, 2021 Subjective Patient seen and examined at bedside. No acute distress He was still paralyzed. He was saturating 95% on 40% FiO2 and PEEP of 6. Has been spiking low-grade fever. Review of Systems Review of Systems: Unobtainable due to endotracheal tube Physical Exam Physical Exam: Constitutional: No acute distress HEENT: PERRLA, positive ETT Respiratory system: Decreased air entry bilaterally, no wheeze, no rhonchi, positive crackles bilateral lower lobes CVS: S1-S2 positive, no murmurs or gallops Abdomen: Soft, nontender, nondistended, positive bowel sounds x4 Extremities: +2 pulses bilaterally radialis/ dorsalis pedis, no cyanosis, no edema Neuro: Paralyzed and sedated Psych: Unable to assess G/U: Positive Fregoso Skin: no rashes, warm and dry Lymphatic: no cervical or axillary lymphadenopathy Results & Data Results & Data ([facility]) Vital Signs (Past 12 Hours) Vital Signs Temp Pulse Resp BP Pulse Ox 08/17/21 12:00 38.4 C H 82 98/55 L 95 08/17/21 11:20 98 H 23 95 08/17/21 11:00 38.5 C H 91 H 114/66 96 08/17/21 10:00 38.5 C H 95 H 128/79 97 08/17/21 09:54 72 L 08/17/21 09:00 38.2 C H 117 H 137/84 89 L 08/17/21 08:20 115 H 23 95 08/17/21 08:00 38.0 C H 103 H 171/94 H 93 08/17/21 07:00 37.9 C H 92 H 141/76 H 100 08/17/21 06:00 38.0 C H 94 H 118/61 94 08/17/21 05:27 108 H 22 91 08/17/21 05:00 38.1 C H 91 H 131/76 92 08/17/21 04:00 38.0 C H 105 H 117/66 92 08/17/21 03:00 38.0 C H 96 H 137/81 92 08/17/21 02:17 94 H 22 87 L 08/17/21 02:00 37.8 C H 106 H 111/64 86 L 08/17/21 06:08 08/17/21 06:08 Coding Level of Care Code Critical Care 1st 30-74 mins Diagnoses Acute respiratory failure due to COVID-19 U07.1; J96.00 Admitted to intensive care unit Z78.9 Elevated d-dimer R79.89 Pneumonia due to 2019 novel coronavirus U07.1; J12.82 Time Spent (min) 35
[2021-08-17] MEDS ORDERED: PROPOFOL BOLUS FROM BAG IV PRN (14:43)
[2021-08-17] MEDS ORDERED: STAT IV Infusion **Titration per Protocol STA (14:43)
[2021-08-17] MEDS: propofoL 1,000 MG/100 ML VIAL IV SCH ×2 (15:02→23:44)
[2021-08-17] MEDS: PEPTAMEN INTENSE VHP 1.0 CAL 1,000 ML BAG OG SCH (15:11)
[2021-08-17] MEDS: INSULIN GLARGINE SOLOSTAR 100 UNITS/ML 3 ML PEN SC SCH (19:33)
[2021-08-18] MEDS: INSULIN ASPART 100 UNITS/ML 3 ML PEN SC SCH ×4 (00:03→18:12)
[2021-08-18] MEDS: TUBE FEEDING WATER FLUSH OG SCH ×6 (01:15→20:51)
[2021-08-18] MEDS: ARTIFICIAL TEARS OP OINT 3.5 GM TUBE OP SCH ×6 (01:15→20:50)
[2021-08-18] MEDS: MIDAZOLAM HCL 125 MG/250 ML BAG IV SCH ×3 (03:15→11:02)
[2021-08-18 04:29] LABS: iSTAT Allen Test Pass; iSTAT Art Bld Gas pCO2 Correct 44 mmHg (35-46); iSTAT Art Bld Gas pH Corrected 7.537 (7.35-7.45); iSTAT Arterial Blood Gas HCO3 37 meg/L (19-24); iSTAT Arterial Blood Gas pCO2 42 mmHg (35-46); iSTAT Arterial Blood Gas pH 7.55 (7.35-7.45); iSTAT Arterial Blood Gas pO2 47 mmHg (80-95); iSTAT Arterial Blood Gas pO2 C 51; iSTAT Carbon Dioxide 38 mmol/L (24-31); iSTAT FiO2 40 %; iSTAT Hematocrit 32 % (42-52); iSTAT Hemoglobin 10.9 g/dl (14.0-18.0); iSTAT Potassium 3.5 mmol/L (3.3-5.0); iSTAT Site L Brachial; iSTAT Sodium 143 mmol/L (135-144)
[2021-08-18 06:08] LABS: Hematocrit (blood only) 34.2 % (42-52); Hemoglobin 10.9 g/dL (14.0-18.0); Mean Corpuscular Hgb Conc 31.9 g/dL (32-36); Mean Corpuscular Volume 100.3 fL (80-100); Mean Platelet Volume 9.3 fL (7.4-10.4); Platelet Count 302 K/uL (130-400); RDW Coefficient of Variation 13.2 % (11.5-14.5); RDW Standard Deviation 48.5 fL (36.4-46.3); Red Blood Count 3.41 M/uL (4.7-6.1); White Blood Count 13.67 K/uL (4.8-10.8)
[2021-08-18 06:58] LABS: BUN Creatinine Ratio 50.5 (10-20); C Reactive Protein 6.21 mg/dl (0-0.29); Calcium 8.7 mg/dl (8.5-10.1); Creatinine Clr Calc Pharmacy 109.1 ml/min; Est GFR (African American) 113.3 ml/min; Est GFR (Non-African American) 97.8 ml/min; Magnesium 2.6 mg/dl (1.8-2.4); Potassium 3.4 mmol/L (3.5-5.1)
[2021-08-18 07:18] LABS: D Dimer 6350 ug/L FEU (0-500)
--- NOTE | 2021-08-18 08:17 | XRay Report ---
XR chest 1V portable HISTORY: 61 years-old Male f/u acute respiratory failure COMPARISON: Chest radiograph 08/17/2021 TECHNIQUE: Portable AP view of the chest FINDINGS: Endotracheal tube overlies the midline, 3.8 cm superior to the cee. Enteric tube courses below the diaphragm outside the [id number]. Left IJ central venous catheter is unchanged with distal tip in the expected location of the brachiocephalic SVC confluence. Cardiac silhouette is unchanged. Mild i nterstitial coarsening with midlung zone and left basilar predominant airspace opacities, stable from comparison. Degenerative changes of the shoulders and spine. IMPRESSION: 1. Lines and tubes as above. 2. Unchanged multifocal bilateral airspace opacities compatible with pneumonia. 3. No pneumothorax. ACT 112: Negative or not required by law. The above report was generated using voice recognition software. It may contain grammatical, syntax o r spelling errors. Electronically signed by: Eddie Martins M.D. 08/18/2021 8:15 AM
[2021-08-18] MEDS: SENNOSIDES 8.8 MG/5 ML UDC PO SCH (08:24)
[2021-08-18] MEDS: POTASSIUM CHLORIDE / WTR 20 MEQ/100 ML PLCT IV SCH ×2 (08:24→10:48)
[2021-08-18] MEDS: FUROSEMIDE 40 MG in SYRINGE 0 ML IV SCH ×2 (08:25→20:50)
[2021-08-18] MEDS: ENOXAPARIN INJ 40 MG/0.4 ML SYR SQ SCH ×2 (08:25→20:50)
[2021-08-18] MEDS: MULTI VIT W/MINERALS LIQUID 15 ML UDP NG SCH (08:25)
[2021-08-18] MEDS: DOCUSATE SODIUM SYRUP 100 MG/10 ML UDC NG SCH ×2 (08:26→20:50)
[2021-08-18] MEDS: THIAMINE HCL 100 MG TAB PO SCH (08:26)
[2021-08-18] MEDS: dexAMETHasone 10 MG in SYRINGE 0 ML IV SCH (08:26)
--- NOTE | 2021-08-18 08:51 | Critical Care Progress Note ---
Date of Service August 18, 2021 Assessment & Plan (1) Acute respiratory failure due to COVID-19: (2) Admitted to intensive care unit: (3) Elevated d-dimer: (4) Pneumonia due to 2019 novel coronavirus: Plan: Reason Critically Ill: 61-year-old male with acute encephalopathy and acute hypoxic respiratory failure secondary to COVID-19 pneumonia PLAN: Neuro: Acute encephalopathy -Probable toxic/metabolic -CT head reviewed -possible anoxic injury: Given clinical history of being found blue --> unlikely -low threshold for MRI: CT head was normal -Staff report patient was following complex commands while being intubated Alcohol dependence - Versed infusion and fentanyl for sedation: Decreasing those requirements -Oxycodone 10 mg every 8 hours x3 days then 5 mg every 8 hours x3 days then discontinue -Transition to [facility] alcohol scoring for benzodiazepines -Alcohol withdrawal precautions Resp: Acute hypoxic respiratory failure secondary to COVID-19 pneumonia: Improving -Decadron 10 mg IV x10 days -High PEEP low FiO2 table: Wean as tolerated -Intubation 08/08 day 11: Trial of extubation today -Patient required BiPAP for additional support following extubation Severe ARDS -Intermittent boluses of neuromuscular eleazar: Resolved CV: Elevated troponin: Improved Likely type II SD from demand ischemia Fluids/Renal: Monitor BUN/creatinine Avoid nephrotoxic medication Replace electrolytes as needed ID: COVID-19 pneumonia S/p 5 days of cefepime, last dose 08/14/2021 Blood culture 08/09/2021 negative to date Sputum culture 08/12/2021 negative GI/Nutrition: Trickle feeds, Colace and senna on a daily basis -Course safe to allow additional feeding Elevated AST -Suspect secondary to alcohol use -Trending down -Hepatitis panel negative Elevated lipase: Improving -Continue observation for development of pancreatitis Heme: Baseline anemia NOS --> monitor H&H DVT prophylaxis: Lovenox 40 mg twice daily Endocrine: ICU hyperglycemia protocol --Prophylaxis VTE: Lovenox GI: Protonix Lines:Right subclavian 08/08, left radial arterial line 08/08, positive Fregoso -Discontinue subclavian and arterial line Diet: Tube feeds Patient sister Basia Cannon [phone] Admission and Anticipated Discharge Date Admission Date: August 08, 2021 Supervising Physician Co-Signing Physician Notes I have personally spent 60 minutes of critical care time in the direct management of this patient. This is a life/limb threatening event. This includes time spent evaluating patient, direct bedside care, chart review, placing orders, interpretation of diagnostic studies, discussion with consultants, patient, and/or family members regarding treatment decisions, as well as other required patient management activities. This time is exclusive of all separately billable procedures, and teaching time and separate from and in addition to any other critical care service time. Subjective No overnight events tolerating CPAP this morning Physical Exam Physical Exam: General: Following simple commands. nontoxic. Skin: Warm, dry, Head: Atraumatic Ears, nose, mouth and throat: airway patent Cardiovascular: Normal peripheral perfusion Respiratory: no respiratory distress, mild tachypnea Gastrointestinal: Non distended Musculoskeletal: No deformity Results & Data Results & Data ([facility]) Vital Signs (Past 12 Hours) Vital Signs Temp Pulse Resp BP Pulse Ox 08/18/21 07:57 83 15 92 08/18/21 06:00 38.0 C H 75 117/64 91 08/18/21 05:00 37.9 C H 65 88/54 L 90 08/18/21 04:00 37.9 C H 63 85/53 L 87 L 08/18/21 03:00 37.8 C H 67 22 95/54 L 89 L 08/18/21 02:00 37.7 C H 65 87/54 L 90 08/18/21 01:12 67 08/18/21 01:00 37.8 C H 63 86/54 L 90 08/18/21 00:00 37.8 C H 81 110/60 89 L 08/17/21 23:00 38.0 C H 74 96/57 L 90 08/17/21 22:59 65 23 90 08/17/21 22:00 38.1 C H 66 90/54 L 91 08/17/21 21:00 38.1 C H 67 93/53 L 90 Laboratory Results 08/18/21 08/18/21 08/18/21 Range/Units 05:51 05:51 05:51 WBC 13.67 H (4.8-10.8) K/uL RBC 3.41 L (4.7-6.1) M/uL Hgb 10.9 L (14.0-18.0) g/dL POC Hgb (14.0-18.0) g/dl Hct 34.2 L (42-52) % POC Hct (42-52) % MCV 100.3 H (80-100) fL MCH 32.0 (25-34) pg MCHC 31.9 L (32-36) g/dL RDW Std Deviation 48.5 H (36.4-46.3) fL RDW Coeff of Roshan 13.2 (11.5-14.5) % Plt Count 302 (130-400) K/uL MPV 9.3 (7.4-10.4) fL D-Dimer 6350 H* (0-500) ug/L FEU Sample Site POC pH (7.35-7.45) POC pCO2 (35-46) mmHg POC pO2 (80-95) mmHg POC HCO3 (19-24) jose ramon/L POC Total CO2 (24-31) mmol/L POC Base Excess (-9-1.8) jose ramon/L ABG pH (Temp Correct) (7.35-7.45) ABG pCO2 (Temp Corrct (35-46) mmHg POC ABG pO2 at Pt Temp POC ABG O2 Sat (90-95) % John Test O2 Delivery Device POC O2 Rate POC FiO2 % Tidal Volume PEEP POC Sodium (135-144) mmol/L Sodium 143 (136-145) mmol/L POC Potassium (3.3-5.0) mmol/L Potassium 3.4 L (3.5-5.1) mmol/L Chloride 103 (98-107) mmol/L Carbon Dioxide 34 H (21-32) mmol/L Anion Gap 6.0 (3-11) BUN 40 H (7-18) mg/dl Creatinine 0.80 (0.6-1.4) mg/dl Est Cr Clr Drug Dosing 109.1 ml/min Est GFR ( Amer) 113.3 ml/min Est GFR (Non-Af Amer) 97.8 ml/min BUN/Creatinine Ratio 50.5 H (10-20) Glucose 87 (70-99) mg/dl POC Glucose (70-99) mg/dl Calcium 8.7 (8.5-10.1) mg/dl Phosphorus 3.0 (2.5-4.9) mg/dl Magnesium 2.6 H (1.8-2.4) mg/dl C-Reactive Protein 6.21 H (0-0.29) mg/dl 08/18/21 08/18/21 08/17/21 Range/Units 04:14 04:11 23:59 WBC (4.8-10.8) K/uL RBC (4.7-6.1) M/uL Hgb (14.0-18.0) g/dL POC Hgb 10.9 L (14.0-18.0) g/dl Hct (42-52) % POC Hct 32 L (42-52) % MCV (80-100) fL MCH (25-34) pg MCHC (32-36) g/dL RDW Std Deviation (36.4-46.3) fL RDW Coeff of Roshan (11.5-14.5) % Plt Count (130-400) K/uL MPV (7.4-10.4) fL D-Dimer (0-500) ug/L FEU Sample Site L Brachial POC pH 7.55 H* (7.35-7.45) POC pCO2 42 (35-46) mmHg POC pO2 47 L (80-95) mmHg POC HCO3 37 H (19-24) jose ramon/L POC Total CO2 38 H (24-31) mmol/L POC Base Excess 15.0 H (-9-1.8) jose ramon/L ABG pH (Temp Correct) 7.537 H* (7.35-7.45) ABG pCO2 (Temp Corrct 44 (35-46) mmHg POC ABG pO2 at Pt Temp 51 POC ABG O2 Sat 88.0 L (90-95) % John Test Pass O2 Delivery Device Ventilator POC O2 Rate 22 POC FiO2 40 % Tidal Volume 480 PEEP 5 POC Sodium 143 (135-144) mmol/L Sodium (136-145) mmol/L POC Potassium 3.5 (3.3-5.0) mmol/L Potassium (3.5-5.1) mmol/L Chloride (98-107) mmol/L Carbon Dioxide (21-32) mmol/L Anion Gap (3-11) BUN (7-18) mg/dl Creatinine (0.6-1.4) mg/dl Est Cr Clr Drug Dosing ml/min Est GFR ( Amer) ml/min Est GFR (Non-Af Amer) ml/min BUN/Creatinine Ratio (10-20) Glucose (70-99) mg/dl POC Glucose 99 110 H (70-99) mg/dl Calcium (8.5-10.1) mg/dl Phosphorus (2.5-4.9) mg/dl Magnesium (1.8-2.4) mg/dl C-Reactive Protein (0-0.29) mg/dl 08/17/21 08/17/21 08/17/21 Range/Units 19:26 17:12 12:20 WBC (4.8-10.8) K/uL RBC (4.7-6.1) M/uL Hgb (14.0-18.0) g/dL POC Hgb (14.0-18.0) g/dl Hct (42-52) % POC Hct (42-52) % MCV (80-100) fL MCH (25-34) pg MCHC (32-36) g/dL RDW Std Deviation (36.4-46.3) fL RDW Coeff of Roshan (11.5-14.5) % Plt Count (130-400) K/uL MPV (7.4-10.4) fL D-Dimer (0-500) ug/L FEU Sample Site POC pH (7.35-7.45) POC pCO2 (35-46) mmHg POC pO2 (80-95) mmHg POC HCO3 (19-24) jose ramon/L POC Total CO2 (24-31) mmol/L POC Base Excess (-9-1.8) jose ramon/L ABG pH (Temp Correct) (7.35-7.45) ABG pCO2 (Temp Corrct (35-46) mmHg POC ABG pO2 at Pt Temp POC ABG O2 Sat (90-95) % John Test O2 Delivery Device POC O2 Rate POC FiO2 % Tidal Volume PEEP POC Sodium (135-144) mmol/L Sodium (136-145) mmol/L POC Potassium (3.3-5.0) mmol/L Potassium (3.5-5.1) mmol/L Chloride (98-107) mmol/L Carbon Dioxide (21-32) mmol/L Anion Gap (3-11) BUN (7-18) mg/dl Creatinine (0.6-1.4) mg/dl Est Cr Clr Drug Dosing ml/min Est GFR ( Amer) ml/min Est GFR (Non-Af Amer) ml/min BUN/Creatinine Ratio (10-20) Glucose (70-99) mg/dl POC Glucose 141 H 145 H 173 H (70-99) mg/dl Calcium (8.5-10.1) mg/dl Phosphorus (2.5-4.9) mg/dl Magnesium (1.8-2.4) mg/dl C-Reactive Protein (0-0.29) mg/dl Coding Level of Care Code Critical Care 1st 30-74 mins Diagnoses Acute respiratory failure due to COVID-19 U07.1; J96.00 Admitted to intensive care unit Z78.9 Elevated d-dimer R79.89 Pneumonia due to 2019 novel coronavirus U07.1; J12.82
--- NOTE | 2021-08-18 09:36 | XRay Report ---
KUB HISTORY: Check NG tube placement COMPARISON: None. FINDINGS: Feeding tube terminates at the gastroesophageal junction.. The bowel gas pattern is unremar kable. A rectal catheter is noted. No renal calculi. No ureteral calculi. No pneumoperitoneum or pne umatosis. IMPRESSION: Feeding tube terminates at the gastroesophageal junction. ACT 112: Negative or not required by law. Electronically signed by: Perico Baker M.D. 08/18/2021 9:35 AM
--- NOTE | 2021-08-18 09:37 | XRay Report ---
KUB HISTORY: REPOSITION NG TUBE COMPARISON: None. FINDINGS: The feeding tube is been repositioned and is now looped within the fundus of the stomach. T he bowel gas pattern is unremarkable. No renal calculi. No ureteral calculi. No pneumoperitoneum or pneumatosis. IMPRESSION: The feeding tube is now looped within the fundus of the stomach. ACT 112: Negative or not required by law. Electronically signed by: Perico Baker M.D. 08/18/2021 9:35 AM
[2021-08-18] MEDS ORDERED: LORazepam 2 MG/4 ML VIAL IV PRN (10:53)
[2021-08-18] MEDS ORDERED: LORazepam 1 MG/2 ML VIAL IV PRN (10:53)
[2021-08-18] MEDS ORDERED: LORazepam 3 MG/6 ML VIAL IV PRN (10:53)
[2021-08-18] MEDS ORDERED: ATIVAN IV ALCOHOL WITHDRAWL IV PRN (10:53)
[2021-08-18] MEDS: CISATRACURIUM BESYLATE 80 MG in SODIUM CHLORIDE 0.9% 160 ML IV SCH ×2 (11:00→11:01)
[2021-08-18] MEDS: propofoL 1,000 MG/100 ML VIAL IV SCH (11:02)
[2021-08-18] MEDS ORDERED: FUROSEMIDE 40 MG/4 ML VIAL IV ONE (12:20)
[2021-08-18] MEDS: oxyCODONE HCL SOLN 5 MG/5 ML UDC PO SCH ×2 (12:26→20:50)
[2021-08-18] MEDS: PANTOprazole 40 MG in SYRINGE 0 ML IV SCH (12:27)
--- NOTE | 2021-08-18 13:20 | Hospitalist Progress Note ---
Date of Service August 18, 2021 Assessment & Plan (1) Acute respiratory failure due to COVID-19: (2) Acute encephalopathy: (3) Hypotension: (4) Elevated troponin I level: (5) Elevated lactic acid level: (6) Elevated d-dimer: (7) Alcohol use: Plan: 61 yr male with H/O Alcohol use and prior tobacco use presented to ER for respiratory distress. Reported pt tested positive for COVID-19 4 days ago. Non- vaccinated. +COVID-19 contact. Acute respiratory failure with Hypoxia Secondary to COVID-19 pneumonia Acute metabolic encephalopathy secondary to above Lactic acidosis ARDS -CXR:Multifocal airspace opacities which may represent atelectasis, pneumonia, and/or aspiration. -CT Head:There is no hemorrhage, mass effect, or evidence of acute territorial ischemia by CT criteria. Extubated today to CPAP Monitor Currently on dexamethasone 10mg IV to complete 10 day therapy DD improved [id number]->[id number]. CRP 11->6.76 Abnormal UA but negative urine culture 1/2 Blood Cx: Coagulase-negative staph Repeat blood cultures No growth Possibly contaminant MRSA PCR negative Alcohol use disorder Continue thiamine Withdrawal precautions Elevated troponin Likely due to demand ischemia In setting of COVID-19 infection Troponin trended down DVT Px: On Lovenox SQ Code Status Full Code Will need PT/OT eval Admission and Anticipated Discharge Date Admission Date: August 08, 2021 Subjective 61-year-old man with a history of alcohol use who presented to the ER with respiratory distress Being managed for acute hypoxic respiratory failure due to COVID-19 pneumonia. Patient was extubated this morning Currently on CPAP Patient is awake and alert. Follows commands. Unable to do ROS due to CPAP Physical Exam Constitutional: + obese On CPAP Eyes: PERRL, conjunctivae normal, anicteric sclerae ENMT: CPAP mask on Respiratory: Diminished breath sounds lung bases No respiratory distress Cardiovascular: Rate/Rhythm: regular rate and regular rhythm S1 S2 Gastrointestinal (Abdomen): normal bowel sounds, soft, nontender, no hepatosplenomegaly Musculoskeletal: No pedal edema Neurologic: Awake and alert Follows commands Moves all extremities Genitourinary: Fregoso in situ Results & Data Results & Data ([facility]) Vital Signs (Past 12 Hours) Vital Signs Temp Pulse Pulse Resp BP Pulse Ox 08/18/21 12:15 90 27 H 90 08/18/21 11:20 101 H 16 90 08/18/21 10:01 38.8 C H 97 H 175/95 H 91 08/18/21 09:54 101 H 32 H 90 08/18/21 09:00 38.6 C H 89 155/87 H 89 L 08/18/21 08:00 38.4 C H 86 109/58 L 92 08/18/21 07:57 83 15 92 08/18/21 07:00 38.2 C H 78 118/63 92 08/18/21 06:00 38.0 C H 75 117/64 91 08/18/21 05:00 37.9 C H 65 88/54 L 90 08/18/21 04:00 37.9 C H 63 85/53 L 87 L 08/18/21 03:00 37.8 C H 67 22 95/54 L 89 L 08/18/21 02:00 37.7 C H 65 87/54 L 90 Laboratory Results Abnormal lab results 08/17/21 08/17/21 08/17/21 Range/Units 17:12 19:26 23:59 WBC (4.8-10.8) K/uL RBC (4.7-6.1) M/uL Hgb (14.0-18.0) g/dL POC Hgb (14.0-18.0) g/dl Hct (42-52) % POC Hct (42-52) % MCV (80-100) fL MCHC (32-36) g/dL RDW Std Deviation (36.4-46.3) fL D-Dimer (0-500) ug/L FEU POC pH (7.35-7.45) POC pO2 (80-95) mmHg POC HCO3 (19-24) jose ramon/L POC Total CO2 (24-31) mmol/L POC Base Excess (-9-1.8) jose ramon/L ABG pH (Temp Correct) (7.35-7.45) POC ABG O2 Sat (90-95) % Potassium (3.5-5.1) mmol/L Carbon Dioxide (21-32) mmol/L BUN (7-18) mg/dl BUN/Creatinine Ratio (10-20) POC Glucose 145 H 141 H 110 H (70-99) mg/dl Magnesium (1.8-2.4) mg/dl C-Reactive Protein (0-0.29) mg/dl 08/18/21 08/18/21 08/18/21 Range/Units 04:14 05:51 05:51 WBC 13.67 H (4.8-10.8) K/uL RBC 3.41 L (4.7-6.1) M/uL Hgb 10.9 L (14.0-18.0) g/dL POC Hgb 10.9 L (14.0-18.0) g/dl Hct 34.2 L (42-52) % POC Hct 32 L (42-52) % MCV 100.3 H (80-100) fL MCHC 31.9 L (32-36) g/dL RDW Std Deviation 48.5 H (36.4-46.3) fL D-Dimer 6350 H* (0-500) ug/L FEU POC pH 7.55 H* (7.35-7.45) POC pO2 47 L (80-95) mmHg POC HCO3 37 H (19-24) jose ramon/L POC Total CO2 38 H (24-31) mmol/L POC Base Excess 15.0 H (-9-1.8) jose ramon/L ABG pH (Temp Correct) 7.537 H* (7.35-7.45) POC ABG O2 Sat 88.0 L (90-95) % Potassium (3.5-5.1) mmol/L Carbon Dioxide (21-32) mmol/L BUN (7-18) mg/dl BUN/Creatinine Ratio (10-20) POC Glucose (70-99) mg/dl Magnesium (1.8-2.4) mg/dl C-Reactive Protein (0-0.29) mg/dl 08/18/21 08/18/21 Range/Units 05:51 11:55 WBC (4.8-10.8) K/uL RBC (4.7-6.1) M/uL Hgb (14.0-18.0) g/dL POC Hgb (14.0-18.0) g/dl Hct (42-52) % POC Hct (42-52) % MCV (80-100) fL MCHC (32-36) g/dL RDW Std Deviation (36.4-46.3) fL D-Dimer (0-500) ug/L FEU POC pH (7.35-7.45) POC pO2 (80-95) mmHg POC HCO3 (19-24) jose ramon/L POC Total CO2 (24-31) mmol/L POC Base Excess (-9-1.8) jose ramon/L ABG pH (Temp Correct) (7.35-7.45) POC ABG O2 Sat (90-95) % Potassium 3.4 L (3.5-5.1) mmol/L Carbon Dioxide 34 H (21-32) mmol/L BUN 40 H (7-18) mg/dl BUN/Creatinine Ratio 50.5 H (10-20) POC Glucose 156 H (70-99) mg/dl Magnesium 2.6 H (1.8-2.4) mg/dl C-Reactive Protein 6.21 H (0-0.29) mg/dl
--- NOTE | 2021-08-18 15:35 | Pharmacy Report ---
Pharmacy Glycemic Short Note 2 - Date of Service August 18, 2021 - Glycemic Short BSG Results (Last 24 hours): 08/17/21 08/17/21 08/17/21 17:12 19:26 23:59 Glucose POC Glucose 145 H 141 H 110 H 08/18/21 08/18/21 08/18/21 04:11 05:51 11:55 Glucose 87 POC Glucose 99 156 H OUTPATIENT ANTIDIABETIC REGIMEN: * n/a * A1c pending ASSESSMENT: 08/18 * Patient extubated today, but plan to continue TFs at trophic rate. Last day of Dexamethasone today. Given that and downtrending AM BSG, will hold lantus this evening and assess trend. BSGs overall well controlled. 08/15 * Intubated, sedated with fentanyl/versed, paralyzed with nimbex * Continue Dex 10 mg IV daily, Tube feeds were reduced to 10 ml/hr * BSGs slightly higher yesterday but still 180 mg/dL or less, will continue same today as tube feeds have been reduced 08/13 * Patient continues to be intubated, sedated with fentanyl/versed/propofol, patient started on continues cisatracurium today * BSGs have been well controlled ranging 105-156 mg/dL yesterday * Fasting this AM 98 mg/dL- will decrease nightly lantus to 5 units * Continue to monitor for adjustments, continues on peptamen, Dex 10 mg IV daily 08/10 * Kp is a 61 yo male admitted with acute hypoxic respiratory failure secondary to COVID-19 pneumonia * No known h/o diabetes. No anti-diabetic agents on home med list. * Hyperglycemia likely due to COVID-19. Patient is on daily dexamethasone and fentanyl and versed infusions. * Patient was started on weight based SQ insulin on admission. He received a total of 28 units of insulin yesterday. Will continue to titrate. PLAN FOR INPATIENT GLYCEMIC CONTROL: * Basal insulin * Lantus 5 units HS- hold * Bolus insulin * NovoLog per scale ACHS or Q6hrs while NPO * Goal Range: Low 110 mg/dL - High 150 mg/dL * Correction Factor: 20 mg/dL/unit * Nutritional / Prandial insulin per carb ratio of 1 unit per 7 grams CHO consumed
[2021-08-18] MEDS: ACETAMINOPHEN SUSP 325 MG/10.15 ML UDC PO PRN (17:41)
[2021-08-18] MEDS: PEPTAMEN INTENSE VHP 1.0 CAL 1,000 ML BAG OG SCH (17:42)
[2021-08-19] MEDS: INSULIN ASPART 100 UNITS/ML 3 ML PEN SC SCH ×4 (00:17→17:23)
[2021-08-19] MEDS: ARTIFICIAL TEARS OP OINT 3.5 GM TUBE OP SCH ×4 (00:38→13:21)
[2021-08-19] MEDS: TUBE FEEDING WATER FLUSH OG SCH ×5 (00:59→17:23)
[2021-08-19] MEDS: oxyCODONE HCL SOLN 5 MG/5 ML UDC PO SCH ×3 (03:37→18:42)
[2021-08-19 07:30] LABS: Hematocrit (blood only) 37.1 % (42-52); Hemoglobin 11.9 g/dL (14.0-18.0); Mean Corpuscular Hemoglobin 31.8 pg (25-34); Mean Corpuscular Hgb Conc 32.1 g/dL (32-36); Mean Corpuscular Volume 99.2 fL (80-100); Mean Platelet Volume 9.6 fL (7.4-10.4); Platelet Count 320 K/uL (130-400); RDW Coefficient of Variation 13.1 % (11.5-14.5); RDW Standard Deviation 47.3 fL (36.4-46.3); Red Blood Count 3.74 M/uL (4.7-6.1); White Blood Count 15.24 K/uL (4.8-10.8)
[2021-08-19 08:08] LABS: BUN Creatinine Ratio 42.5 (10-20); Calcium 9.2 mg/dl (8.5-10.1); Creatinine Clr Calc Pharmacy 119.6 ml/min; Est GFR (African American) 117.7 ml/min; Est GFR (Non-African American) 101.5 ml/min; Magnesium 2.3 mg/dl (1.8-2.4); Phosphorus 3.5 mg/dl (2.5-4.9); Potassium 3.2 mmol/L (3.5-5.1)
--- NOTE | 2021-08-19 08:15 | XRay Report ---
XR chest 1V portable HISTORY: Respiratory failure. Pneumonia. COMPARISON: Chest 08/18/2021. FINDINGS: Endotracheal tube is been removed. Feeding tube terminates below the diaphragm. The tip is not included on this study. No pneumothorax. No pleural effusions. Patchy bilateral airspace opacitie s persist. The heart remains normal in size. Old, healed right clavicle fracture. IMPRESSION: 1. Status post extubation. The feeding tube terminates below the diaphragm. 2. Patchy bilateral airspace opacities consistent with a pneumonia are not significantly changed. ACT 112: Negative or not required by law. Electronically signed by: Perico Baker M.D. 08/19/2021 8:14 AM
[2021-08-19] MEDS: THIAMINE HCL 100 MG TAB PO SCH (08:54)
[2021-08-19] MEDS: SENNOSIDES 8.8 MG/5 ML UDC PO SCH (08:54)
[2021-08-19] MEDS: ENOXAPARIN INJ 40 MG/0.4 ML SYR SQ SCH ×2 (08:54→20:39)
[2021-08-19] MEDS: MULTI VIT W/MINERALS LIQUID 15 ML UDP NG SCH (08:54)
[2021-08-19] MEDS: DOCUSATE SODIUM SYRUP 100 MG/10 ML UDC NG SCH ×2 (08:55→20:39)
[2021-08-19] MEDS ORDERED: POTASSIUM CHLORIDE 20 MEQ/15 ML UDC GT STA (09:28)
[2021-08-19] MEDS: PANTOprazole 40 MG in SYRINGE 0 ML IV SCH (11:01)
[2021-08-19] MEDS ORDERED: acetaZOLAMIDE 500 MG in SYRINGE 0 ML IV STA (11:45)
[2021-08-19] MEDS: FUROSEMIDE 40 MG in SYRINGE 0 ML IV SCH ×2 (12:15→20:40)
--- NOTE | 2021-08-19 12:22 | Critical Care Progress Note ---
Date of Service August 19, 2021 Assessment & Plan (1) Acute respiratory failure due to COVID-19: (2) Admitted to intensive care unit: (3) Elevated d-dimer: (4) Pneumonia due to 2019 novel coronavirus: Plan: Reason Critically Ill: 61-year-old male with acute encephalopathy and acute hypoxic respiratory failure secondary to COVID-19 pneumonia PLAN: Neuro: Acute encephalopathy: Improving -Probable toxic/metabolic -CT head reviewed -possible anoxic injury: Given clinical history of being found blue --> unlikely Alcohol dependence - Oxycodone 10 mg every 8 hours x3 days then 5 mg every 8 hours x3 days then discontinue -Transition to [facility] alcohol scoring for benzodiazepines -Alcohol withdrawal precautions Resp: Acute hypoxic respiratory failure secondary to COVID-19 pneumonia: Improving -Decadron 10 mg IV x10 days -High PEEP low FiO2 table: Wean as tolerated -Intubation 08/08 day 11: Trial of extubation 08/17 Severe ARDS: Improving -Intermittent boluses of neuromuscular eleazar: Resolved CV: Elevated troponin: Improved Fluids/Renal: Monitor BUN/creatinine Avoid nephrotoxic medication Replace electrolytes as needed ID: COVID-19 pneumonia S/p 5 days of cefepime, last dose 08/14/2021 Blood culture 08/09/2021 negative to date Sputum culture 08/12/2021 negative GI/Nutrition: Trickle feeds stopped supplemental tube feeding -Advance diet as tolerated per speech therapy recommendations Elevated AST -Suspect secondary to alcohol use -Trending down -Hepatitis panel negative Elevated lipase: Improving -Continue observation for development of pancreatitis Heme: Baseline anemia NOS --> monitor H&H DVT prophylaxis: Lovenox 40 mg twice daily Endocrine: ICU hyperglycemia protocol ENT R Vocal fold Polyp L vocal fold immobile -Per speech therapy -ENT follow-up --Prophylaxis VTE: Lovenox GI: Protonix Lines:Right subclavian 08/08, left radial arterial line 08/08, positive Fregoso -Discontinued subclavian and arterial line Diet: Tube feeds Patient sister Basia Cannon [phone] Patient's oxygen requirement is decreasing and is becoming more active, stable for downgrade from ICU standpoint. Admission and Anticipated Discharge Date Admission Date: August 08, 2021 Subjective Patient's mental status continues to slowly improve Physical Exam Physical Exam: General: Following commands. Requesting a water. Skin: Warm, dry, Head: Atraumatic Ears, nose, mouth and throat: airway patent Cardiovascular: Normal peripheral perfusion Respiratory: no respiratory distress Gastrointestinal: Non distended Musculoskeletal: No deformity Results & Data Results & Data ([facility]) Vital Signs (Past 12 Hours) Vital Signs Temp Pulse Pulse Resp BP Pulse Ox 08/19/21 11:40 84 24 93 08/19/21 11:34 91 H 22 91 08/19/21 09:00 81 143/76 H 94 08/19/21 08:37 74 18 95 08/19/21 08:00 37.5 C 82 140/79 92 08/19/21 07:00 37.5 C 78 129/77 94 08/19/21 06:00 37.6 C H 81 117/68 93 08/19/21 05:08 65 23 94 08/19/21 05:00 37.6 C H 79 130/73 94 08/19/21 04:00 37.6 C H 80 128/75 94 08/19/21 03:00 37.6 C H 86 127/75 93 08/19/21 02:00 37.6 C H 84 140/79 91 08/19/21 01:18 88 18 88 L 08/19/21 01:00 37.6 C H 83 92 Coding Level of Care Code 42154 Subseq Hosp Care Lvl 3 Diagnoses Acute respiratory failure due to COVID-19 U07.1; J96.00 Admitted to intensive care unit Z78.9 Elevated d-dimer R79.89 Pneumonia due to 2019 novel coronavirus U07.1; J12.82
--- NOTE | 2021-08-19 13:06 | Hospitalist Progress Note ---
Date of Service August 19, 2021 Assessment & Plan (1) Acute respiratory failure due to COVID-19: (2) Acute encephalopathy: (3) Hypotension: (4) Elevated troponin I level: (5) Elevated lactic acid level: (6) Elevated d-dimer: (7) Alcohol use: Plan: 61 yr male with H/O Alcohol use and prior tobacco use presented to ER for respiratory distress. Reported pt tested positive for COVID-19 4 days ago. Non- vaccinated. +COVID-19 contact. Acute respiratory failure with Hypoxia Secondary to COVID-19 pneumonia Acute metabolic encephalopathy secondary to above Lactic acidosis ARDS -CXR:Multifocal airspace opacities which may represent atelectasis, pneumonia, and/or aspiration. -CT Head:There is no hemorrhage, mass effect, or evidence of acute territorial ischemia by CT criteria. Extubated 2020 Currently on high flow nasal oxygen Wean oxygen as tolerated Completed dexamethasone today Abnormal UA but negative urine culture 1/2 Blood Cx: Coagulase-negative staph Repeat blood cultures No growth Possibly contaminant MRSA PCR negative Alcohol use disorder Continue thiamine Withdrawal precautions Elevated troponin Likely due to demand ischemia In setting of COVID-19 infection Troponin trended down DVT Px: On Lovenox SQ Code Status Full Code Speech evaluation. PT/OT eval Admission and Anticipated Discharge Date Admission Date: August 08, 2021 Subjective 61-year-old man with a history of alcohol use who presented to the ER with respiratory distress Being managed for acute hypoxic respiratory failure due to COVID-19 pneumonia. Patient was extubated on 08/18/21 Patient is currently on HFNC. Report cough, fatigue Denied any chest pain, shortness of breath Denied any nausea,vomiting, abd pain Review of Systems Review of Systems: All systems reviewed & are unremarkable except as noted in Subjective Physical Exam Constitutional: + obese Eyes: PERRL, conjunctivae normal, anicteric sclerae ENMT: on HFNC Respiratory: On high flow nasal cannula Diminished breath sounds Cardiovascular: Rate/Rhythm: regular rate and regular rhythm S1-S2 Gastrointestinal (Abdomen): normal bowel sounds, soft, nontender, no hepatosplenomegaly Musculoskeletal: No pedal edema Neurologic: PERRL, EOMI, accommodation nl, no face palsy, no dysarthria Genitourinary: Fregoso in situ Results & Data Results & Data ([facility]) Vital Signs (Past 12 Hours) Vital Signs Temp Pulse Pulse Resp BP Pulse Ox 08/19/21 11:40 84 24 93 08/19/21 11:34 91 H 22 91 08/19/21 09:00 81 143/76 H 94 08/19/21 08:37 74 18 95 08/19/21 08:00 37.5 C 82 140/79 92 08/19/21 07:00 37.5 C 78 129/77 94 08/19/21 06:00 37.6 C H 81 117/68 93 08/19/21 05:08 65 23 94 08/19/21 05:00 37.6 C H 79 130/73 94 08/19/21 04:00 37.6 C H 80 128/75 94 08/19/21 03:00 37.6 C H 86 127/75 93 08/19/21 02:00 37.6 C H 84 140/79 91 08/19/21 01:18 88 18 88 L Laboratory Results Abnormal lab results 08/18/21 08/19/21 08/19/21 Range/Units 17:46 06:05 06:30 WBC 15.24 H (4.8-10.8) K/uL RBC 3.74 L (4.7-6.1) M/uL Hgb 11.9 L (14.0-18.0) g/dL Hct 37.1 L (42-52) % RDW Std Deviation 47.3 H (36.4-46.3) fL Sodium (136-145) mmol/L Potassium (3.5-5.1) mmol/L BUN (7-18) mg/dl BUN/Creatinine Ratio (10-20) Glucose (70-99) mg/dl POC Glucose 133 H 112 H (70-99) mg/dl 08/19/21 08/19/21 08/19/21 Range/Units 06:30 08:04 11:30 WBC (4.8-10.8) K/uL RBC (4.7-6.1) M/uL Hgb (14.0-18.0) g/dL Hct (42-52) % RDW Std Deviation (36.4-46.3) fL Sodium 146 H (136-145) mmol/L Potassium 3.2 L (3.5-5.1) mmol/L BUN 31 H (7-18) mg/dl BUN/Creatinine Ratio 42.5 H (10-20) Glucose 105 H (70-99) mg/dl POC Glucose 118 H 127 H (70-99) mg/dl
[2021-08-19] MEDS: PEPTAMEN INTENSE VHP 1.0 CAL 1,000 ML BAG OG SCH (15:24)
[2021-08-19] MEDS ORDERED: acetaZOLAMIDE 500 MG in SYRINGE 0 ML IV ONE (21:00)
[2021-08-19] MEDS: ACETAMINOPHEN SUSP 325 MG/10.15 ML UDC PO PRN (23:41)
[2021-08-20] MEDS: INSULIN ASPART 100 UNITS/ML 3 ML PEN SC SCH ×5 (00:15→20:37)
[2021-08-20] MEDS: oxyCODONE HCL SOLN 5 MG/5 ML UDC PO SCH ×3 (03:32→21:31)
[2021-08-20] MEDS ORDERED: KETOROLAC TROMETHAMINE 15 MG/ML VIAL IV ONE (04:02)
[2021-08-20 05:37] LABS: Basophils # (auto) 0.02 K/uL (0-0.2); Basophils % (auto) 0.1 %; Eosinophils # (auto) 0.08 K/uL (0-0.5); Eosinophils % (auto) 0.6 %; Hemoglobin 12.8 g/dL (14.0-18.0); Immature Granulocytes # (auto) 0.12 K/uL (0.00-0.02); Immature Granulocytes % (auto) 0.8 %; Lymphocytes # (auto) 1.54 K/uL (1.2-3.4); Lymphocytes % (auto) 10.6 %; Mean Corpuscular Hemoglobin 32.2 pg (25-34); Mean Corpuscular Hgb Conc 32.8 g/dL (32-36); Mean Corpuscular Volume 98.2 fL (80-100); Mean Platelet Volume 9.5 fL (7.4-10.4); Monocytes # (auto) 0.67 K/uL (0.11-0.59); Monocytes % (auto) 4.6 %; Neutrophils # (auto) 12.11 K/uL (1.4-6.5); Neutrophils % (auto) 83.3 %; Platelet Count 333 K/uL (130-400); RDW Coefficient of Variation 13.1 % (11.5-14.5); RDW Standard Deviation 47.1 fL (36.4-46.3); Red Blood Count 3.97 M/uL (4.7-6.1); White Blood Count 14.54 K/uL (4.8-10.8)
[2021-08-20 05:44] LABS: Base Excess ABG 2.2 mEq/L (-9-1.8); HCO3 ABG 26 mmol/L (19-24); Oxygen Saturation ABG 96.2 % (90-95); PCO2 ABG 36 mmHg (35-46); PO2 ABG 77 mmHg (80-95); pH ABG 7.47 (7.35-7.45)
[2021-08-20 05:50] LABS: Allen Test Pos (Pos)
[2021-08-20 05:57] LABS: Albumin Level 2.6 gm/dl (3.4-5.0); BUN Creatinine Ratio 42.6 (10-20); Calcium 9.6 mg/dl (8.5-10.1); Creatinine Clr Calc Pharmacy 105.2 ml/min; Est GFR (African American) 111.6 ml/min; Est GFR (Non-African American) 96.3 ml/min; Magnesium 2.5 mg/dl (1.8-2.4); Potassium 3.6 mmol/L (3.5-5.1)
[2021-08-20 06:01] LABS: Albumin Globulin Ratio 0.5 (0.9-2); Bilirubin,Total 0.8 mg/dl (0.2-1); Globulin 5.7 gm/dl (2.5-4.0); Total Protein 8.3 gm/dl (6.4-8.2)
[2021-08-20] MEDS ORDERED: ALBUMIN 25% 12.5 GM/50 ML VIAL IV ONE (06:48)
--- NOTE | 2021-08-20 06:48 | Communication Note ---
Date of Service: August 20, 2021 Made aware by RN of fever, incomplete response to Tylenol. Temperature elevation since 10 AM on review of vitals. No cough, no diarrhea complaints as per RN. serum crea 0.83 (from 0.73 /) Procalcitonin within normal limits AP Fever ? Secondary to overdiuresis Rule out occult infection Rule out UTI Hold Lasix for now Check UA, follow CS Hold off on antibiotics for now until definitWill relay to AM provider.darin source found.
[2021-08-20] MEDS: ENOXAPARIN INJ 40 MG/0.4 ML SYR SQ SCH ×2 (07:58→20:12)
[2021-08-20] MEDS: DOCUSATE SODIUM SYRUP 100 MG/10 ML UDC NG SCH ×2 (07:58→20:12)
[2021-08-20] MEDS: MULTI VIT W/MINERALS LIQUID 15 ML UDP NG SCH (07:59)
[2021-08-20] MEDS: SENNOSIDES 8.8 MG/5 ML UDC PO SCH (07:59)
[2021-08-20] MEDS: THIAMINE HCL 100 MG TAB PO SCH (08:00)
--- NOTE | 2021-08-20 09:56 | Critical Care Progress Note ---
Date of Service August 20, 2021 Assessment & Plan (1) Acute respiratory failure due to COVID-19: (2) Admitted to intensive care unit: (3) Elevated d-dimer: (4) Pneumonia due to 2019 novel coronavirus: Plan: Reason Critically Ill: 61-year-old male with acute encephalopathy and acute hypoxic respiratory failure secondary to COVID-19 pneumonia. PLAN: Neuro: cam icu neg Acute encephalopathy: Improving -Probable toxic/metabolic -CT head reviewed -possible anoxic injury: Given clinical history of being found blue --> unlikely Alcohol dependence - Oxycodone 10 mg every 8 hours x3 days then 5 mg every 8 hours x3 days then discontinue -Transition to [facility] alcohol scoring for benzodiazepines. Continue [facility] protocol. -Alcohol withdrawal precautions Resp: Acute hypoxic respiratory failure secondary to COVID-19 pneumonia: Improving -Decadron 10 mg IV x10 days -High PEEP low FiO2 table: Wean as tolerated -Intubation 08/08; extubated 08/18. Currently on oxymask sa tting 92. Severe ARDS: Improving -Intermittent boluses of neuromuscular eleazar: Resolved CV: Elevated troponin: Improved Fluids/Renal: Monitor BUN/creatinine Avoid nephrotoxic medication Replace electrolytes as needed ID: COVID-19 pneumonia S/p 5 days of cefepime, last dose 08/14/2021 Blood culture 08/09/2021 negative. Repeated on 08/20, pending UC 08/20/21 pending Sputum culture 08/12/2021 negative GI/Nutrition: Trickle feeds stopped supplemental tube feeding -Advance diet as tolerated per speech therapy recommendations Elevated AST -Suspect secondary to alcohol use -Trending down -Hepatitis panel negative Elevated lipase: Improving -Continue observation for development of pancreatitis Constipation: 60mL mineral oil and methylnaltrexone Heme: Baseline anemia NOS --> monitor H&H DVT prophylaxis: Lovenox 40 mg twice daily Endocrine: ICU hyperglycemia protocol ENT R Vocal fold Polyp L vocal fold immobile -Per speech therapy -ENT follow-up --Prophylaxis VTE: Lovenox GI: Protonix Lines:Right subclavian 08/08, left radial arterial line 08/08, positive Moore -Discontinued subclavian and arterial line -Removed moore 08/20 Diet: Tube feeds Patient sister Basia Cannon [phone] Patient's oxygen requirement is decreasing and is becoming more active, stable for downgrade from ICU. Admission and Anticipated Discharge Date Admission Date: August 08, 2021 Supervising Physician Co-Signing Physician Notes Dr. Zaman was resident physician during care of patient. I separately evaluated patient for river portions of the history and the exam. I was present during the critical portion of medical decision making, and I discussed the case with the resident. I generally agree with the findings and plan. Constipation, 60 mL mineral oil and methylnaltrexone x1 Stable to discontinue tube feeds and core safe today Stable for downgrade out of ICU. Subjective No acute events overnight other than fever to 38.1C. Corsafe removed this AM. On oxymask 10L. Denies cp/sob, other ROS other than mild lower abd pain. Review of Systems Review of Systems: All systems reviewed & are unremarkable except as noted in HPI & below Physical Exam Physical Exam: General: a&Ox2 not to place. NAD. Cooperative. HEENT: Atraumatic, normocephalic. EOMI Pulm: CTAB. -wheezes, -rales, -rhonchi. No respiratory distress. Left anterior lung field is slightly decreased. Wearing oxymask 10L. Cardiac: RRR, -mrg. Radial pulses intact and symmetrical. No LE edema. Abdominal: Nontender, nondistended, soft. Integ: PIV. Results & Data Results & Data ([facility]) Vital Signs (Past 12 Hours) Vital Signs Temp Pulse Resp BP Pulse Ox 08/20/21 08:44 21 91 08/20/21 08:00 37.5 C 82 108/70 92 08/20/21 07:00 36.0 C L 82 91 08/20/21 06:00 83 93 08/20/21 05:00 37.9 C H 87 91 08/20/21 04:00 38.0 C H 87 135/88 90 08/20/21 03:00 38.1 C H 89 126/78 91 08/20/21 02:00 38.1 C H 92 H 125/88 92 08/20/21 01:00 38.1 C H 93 H 120/84 93 08/20/21 00:01 38.1 C H 103/78 89 L 08/19/21 23:00 38.0 C H 91 H 118/76 93 08/19/21 22:00 38.0 C H 90 130/83 92 Laboratory Results leukocytosis 14.54. Hb stable 12.8. AB 7.47/36/77/26. BMP reviewed. Slight bump in AST/ALT compared to admission. procalc 0.15. 08/20/21 05:07 08/20/21 05:07 Resident Activity Tracking Resident Involvement: Resident Care Provided Care Provided: Adult Hospital Medicine
--- NOTE | 2021-08-20 10:00 | Billing Data ---
Date of Service August 20, 2021 Coding Level of Care Code 10096 Subseq Hosp Care Lvl 3
[2021-08-20] MEDS ORDERED: MINERAL OIL 30 ML UDC PO STA (10:47)
[2021-08-20] MEDS ORDERED: METHYLNALTREXONE BROMIDE 12 MG/0.6 ML VIAL SQ STA (10:50)
[2021-08-20] MEDS ORDERED: POTASSIUM CHLORIDE PWD 20 MEQ PACK PO ONE (11:00)
[2021-08-20 11:28] LABS: Appearance Urine Clear (Clear); Bacteria Urine Automated 1+ (Negative); Blood Urine Negative (Negative); Color Urine Dark Yellow; Epithelial Cell Urine Auto 20-30 /lpf (0-5); Glucose Urine UA Negative (Negative); Ketones Urine Negative (Negative); Leukocyte Esterase Urine Trace (Negative); Nitrite Urine Positive (Negative); Protein Urine 1+ (Negative); Specific Gravity Urine 1.038 (1.000-1.030); Urobilinogen Urine Positive (Negative)
[2021-08-20 11:32] LABS: Bilirubin Urine 2+ (Negative)
[2021-08-20 11:45] LABS: RBC Urine Automated 0-4 /hpf (0-4)
--- NOTE | 2021-08-20 15:00 | Hospitalist Progress Note ---
Date of Service August 20, 2021 Assessment & Plan (1) Acute respiratory failure due to COVID-19: (2) Acute encephalopathy: (3) Hypotension: (4) Elevated troponin I level: (5) Elevated lactic acid level: (6) Elevated d-dimer: (7) Alcohol use: Plan: Patient is a 61 yr male with H/O Alcohol use and prior tobacco use presented to ER for respiratory distress. Reported pt tested positive for COVID-19 4 days ago. Non-vaccinated. +COVID-19 contact. Acute respiratory failure with Hypoxia Secondary to COVID-19 pneumonia Acute metabolic encephalopathy secondary to above Lactic acidosis ARDS -CXR:Multifocal airspace opacities which may represent atelectasis, pneumonia, and/or aspiration. -CT Head:There is no hemorrhage, mass effect, or evidence of acute territorial ischemia by CT criteria. 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 Elevated troponin Likely due to demand ischemia In setting of COVID-19 infection Troponin trended down DVT Px: On Lovenox SQ Code Status Full Code Admission and Anticipated Discharge Date Admission Date: August 08, 2021 Subjective Patient is seen and examined at bedside Minimal Non expectorant cough Had BM today Denies any Dyspnea, dizziness, nausea, abd pain ,chest pain Tolerates diet Has Hoarseness Review of Systems Review of Systems: All systems reviewed & are unremarkable except as noted in Subjective Physical Exam Physical Exam: Physical Exam: Vitals signs as noted above General Appearance:Moderately built and nourished, no apparent distress Head: normocephalic, Atraumatic Eyes: normal inspection, EOMI Neck: supple, Trachea midline Respiratory/Chest: Decreased breath sounds, CTA Cardiovascular: S1, S2, No murmur Abdomen/GI:Soft, Non tender, Bowel sounds present Extremities/Musculoskeletal:normal inspection, no edema Neurologic/Psych:AAO X3, grossly no focal neurological deficits Skin: normal color, warm Results & Data Results & Data ([facility]) Vital Signs (Past 12 Hours) Vital Signs Temp Pulse Resp BP Pulse Ox 08/20/21 13:00 37.7 C H 94 H 117/74 90 10/06/21 12:00 37.7 C H 97 H 113/71 92 08/20/21 11:00 37.7 C H 93 H 107/72 92 08/20/21 10:00 37.7 C H 93 H 91 08/20/21 09:00 37.4 C 106 H 108/64 92 08/20/21 08:44 21 91 08/20/21 08:00 37.5 C 82 108/70 92 08/20/21 07:00 36.0 C L 82 91 08/20/21 06:00 83 93 08/20/21 05:00 37.9 C H 87 91 08/20/21 04:00 38.0 C H 87 135/88 90 08/20/21 03:00 38.1 C H 89 126/78 91 Laboratory Results Short CBC 08/20/21 Range/Units 05:07 WBC 14.54 H (4.8-10.8) K/uL Hgb 12.8 L (14.0-18.0) g/dL Hct 39.0 L (42-52) % Plt Count 333 (130-400) K/uL BMP 08/20/21 05:07 Sodium 140 Potassium 3.6 Chloride 107 Carbon Dioxide 27 BUN 36 H Creatinine 0.83 Glucose 107 H Calcium 9.6 Liver Function 08/20/21 Range/Units 05:07 Total Bilirubin 0.8 (0.2-1) mg/dl AST 123 H (15-37) U/L ALT 187 H (12-78) U/L Alkaline Phosphatase 83 (45-117) U/L Albumin 2.6 L (3.4-5.0) gm/dl Urine 08/20/21 Range/Units 10:00 Urine Color Dark Yellow Urine Appearance Clear (Clear) Urine pH 5.0 (4.5-7.5) Ur Specific [place] 1.038 H (1.000-1.030) Urine Protein 1+ H (Negative) Urine Glucose (UA) Negative (Negative)
[2021-08-20] MEDS ORDERED: Nursing to Pharmacy Communication SCH (17:00)
[2021-08-20] MEDS ORDERED: POTASSIUM CHLORIDE CRTAB 20 MEQ TABCR PO ONE (17:18)
[2021-08-20] MEDS ORDERED: CEFEPIME CONSULT ACTIVE PRN (19:26)
[2021-08-20] MEDS: METOPROLOL TARTRATE 25 MG TAB PO SCH ×2 (20:09→20:37)
[2021-08-20] MEDS: ALBUMIN 25% 12.5 GM/50 ML VIAL IV SCH ×2 (20:18→21:30)
[2021-08-20] MEDS: CEFEPIME 2,000 MG/20 ML VIAL IV SCH (20:38)
[2021-08-21] MEDS: oxyCODONE HCL SOLN 5 MG/5 ML UDC PO SCH (03:18)
[2021-08-21 06:41] LABS: Hematocrit (blood only) 36.7 % (42-52); Mean Corpuscular Hemoglobin 31.7 pg (25-34); Mean Corpuscular Hgb Conc 32.7 g/dL (32-36); Mean Corpuscular Volume 96.8 fL (80-100); Mean Platelet Volume 9.4 fL (7.4-10.4); Platelet Count 271 K/uL (130-400); RDW Coefficient of Variation 13.1 % (11.5-14.5); RDW Standard Deviation 46.3 fL (36.4-46.3); Red Blood Count 3.79 M/uL (4.7-6.1); White Blood Count 11.41 K/uL (4.8-10.8)
[2021-08-21 07:29] LABS: BUN Creatinine Ratio 41.7 (10-20); Calcium 9.2 mg/dl (8.5-10.1); Magnesium 2.5 mg/dl (1.8-2.4); Potassium 4.4 mmol/L (3.5-5.1)
[2021-08-21 07:32] LABS: Albumin Globulin Ratio 0.6 (0.9-2); Bilirubin,Total 0.8 mg/dl (0.2-1); C Reactive Protein 5.47 mg/dl (0-0.29); Globulin 4.9 gm/dl (2.5-4.0); Total Protein 7.9 gm/dl (6.4-8.2)
[2021-08-21] MEDS: CEFEPIME 2,000 MG/20 ML VIAL IV SCH ×2 (08:21→20:18)
[2021-08-21] MEDS: MULTI VIT W/MINERALS LIQUID 15 ML UDP NG SCH (08:21)
[2021-08-21] MEDS: METOPROLOL TARTRATE 25 MG TAB PO SCH ×2 (08:22→20:18)
[2021-08-21] MEDS: THIAMINE HCL 100 MG TAB PO SCH (08:23)
[2021-08-21] MEDS: DOCUSATE SODIUM SYRUP 100 MG/10 ML UDC NG SCH ×2 (08:23→20:16)
[2021-08-21] MEDS: SENNOSIDES 8.8 MG/5 ML UDC PO SCH (08:23)
[2021-08-21] MEDS: ENOXAPARIN INJ 40 MG/0.4 ML SYR SQ SCH ×2 (08:24→20:16)
[2021-08-21] MEDS ORDERED: FUROSEMIDE 20 MG TAB PO ONE (08:38)
[2021-08-21] MEDS: INSULIN ASPART 100 UNITS/ML 3 ML PEN SC SCH ×4 (09:31→21:25)
[2021-08-21] MEDS ORDERED: oxyCODONE HCL SOLN 5 MG/5 ML UDC PO SCH (12:15)
--- NOTE | 2021-08-21 13:54 | Hospitalist Progress Note ---
Date of Service August 21, 2021 Assessment & Plan (1) Acute respiratory failure due to COVID-19: (2) Acute encephalopathy: (3) Hypotension: (4) Elevated troponin I level: (5) Elevated lactic acid level: (6) Elevated d-dimer: (7) Alcohol use: Plan: Patient is a 61 yr male with H/O Alcohol use and prior tobacco use presented to ER for respiratory distress. Reported pt tested positive for COVID-19 4 days ago. Non-vaccinated. +COVID-19 contact. Acute respiratory failure with Hypoxia Secondary to COVID-19 pneumonia Acute metabolic encephalopathy secondary to above Lactic acidosis ARDS -CXR:Multifocal airspace opacities which may represent atelectasis, pneumonia, and/or aspiration. -CT Head:There is no hemorrhage, mass effect, or evidence of acute territorial ischemia by CT criteria. Extubated on 08/08/21 Completed dexamethasone course Appreciate Critical Care Input Continue Pulmonary hygiene Titrate down oxygen as able Lasix PRN NSVT Asymptomatic Started on low dose Metoprolol UTI Urine culture growing gram-negative cocci Blood cultures negative to date Empirically on cefepime Hoarseness Right vocal fold Polyp/Left vocal fold immobile ENT consulted for Input Speech therapy eval completed Alcohol use disorder Continue thiamine Continue withdrawal precautions [employer] to quit drinking Elevated troponin Likely due to demand ischemia In setting of COVID-19 infection Troponin trended down DVT Px: On Lovenox SQ Code Status Full Code Admission and Anticipated Discharge Date Admission Date: August 08, 2021 Subjective Patient is seen and examined at bedside No new complaints Cough about same as yesterday Denies any Dyspnea, dizziness, nausea, abd pain ,chest pain Persistent Hoarseness Saturating low 90s on 6 L of supplemental oxygen Review of Systems Review of Systems: All systems reviewed & are unremarkable except as noted in Subjective Physical Exam Physical Exam: Physical Exam: Vitals signs as noted above General Appearance:Moderately built and nourished, no apparent distress Head: normocephalic, Atraumatic Eyes: normal inspection, EOMI Neck: supple, Trachea midline Respiratory/Chest: Decreased breath sounds, Basal Crackles Cardiovascular: S1, S2, No murmur Abdomen/GI:Soft, Non tender, Bowel sounds present Extremities/Musculoskeletal:normal inspection, no edema Neurologic/Psych:AAO X3, grossly no focal neurological deficits Skin: normal color, warm Results & Data Results & Data ([facility]) Vital Signs (Past 12 Hours) Vital Signs Temp Pulse Resp BP Pulse Ox 08/21/21 11:53 37.0 C 94 H 28 H 106/64 93 08/21/21 08:05 37.0 C 82 24 97/62 L 92 08/21/21 06:02 37.6 C H 08/21/21 03:17 37.6 C H 08/21/21 03:15 78 16 119/69 92 Laboratory Results Short CBC 08/21/21 Range/Units 06:23 WBC 11.41 H (4.8-10.8) K/uL Hgb 12.0 L (14.0-18.0) g/dL Hct 36.7 L (42-52) % Plt Count 271 (130-400) K/uL BMP 08/21/21 06:23 Sodium 140 Potassium 4.4 D Chloride 111 H Carbon Dioxide 25 BUN 31 H Creatinine 0.74 Glucose 97 Calcium 9.2 Liver Function 08/21/21 Range/Units 06:23 Total Bilirubin 0.8 (0.2-1) mg/dl AST 89 H (15-37) U/L ALT 171 H (12-78) U/L Alkaline Phosphatase 77 (45-117) U/L Albumin 3.0 L (3.4-5.0) gm/dl
--- NOTE | 2021-08-21 14:43 | Pharmacy Report ---
Pharmacy Glycemic Short Note 2 - Date of Service August 21, 2021 - Glycemic Short BSG Results (Last 24 hours): 08/20/21 08/20/21 08/21/21 16:17 20:24 00:41 Glucose POC Glucose 113 H 99 92 08/21/21 08/21/21 08/21/21 06:23 07:51 11:43 Glucose 97 POC Glucose 103 H 102 H OUTPATIENT ANTIDIABETIC REGIMEN: * n/a * A1c pending ASSESSMENT: 08/21 * Patient well controlled requiring minimal bolus insulin and no basal. * Will monitor BSGs with increasing PO intake, but do not anticipate the need for any major adjustments. 08/18 * Patient extubated today, but plan to continue TFs at trophic rate. Last day of Dexamethasone today. Given that and downtrending AM BSG, will hold lantus this evening and assess trend. BSGs overall well controlled. 08/15 * Intubated, sedated with fentanyl/versed, paralyzed with nimbex * Continue Dex 10 mg IV daily, Tube feeds were reduced to 10 ml/hr * BSGs slightly higher yesterday but still 180 mg/dL or less, will continue same today as tube feeds have been reduced 08/13 * Patient continues to be intubated, sedated with fentanyl/versed/propofol, patient started on continues cisatracurium today * BSGs have been well controlled ranging 105-156 mg/dL yesterday * Fasting this AM 98 mg/dL- will decrease nightly lantus to 5 units * Continue to monitor for adjustments, continues on peptamen, Dex 10 mg IV daily 08/10 * Kp is a 61 yo male admitted with acute hypoxic respiratory failure secondary to COVID-19 pneumonia * No known h/o diabetes. No anti-diabetic agents on home med list. * Hyperglycemia likely due to COVID-19. Patient is on daily dexamethasone and fentanyl and versed infusions. * Patient was started on weight based SQ insulin on admission. He received a total of 28 units of insulin yesterday. Will continue to titrate. PLAN FOR INPATIENT GLYCEMIC CONTROL: * Basal insulin * none * Bolus insulin * NovoLog per scale ACHS or Q6hrs while NPO * Goal Range: Low 110 mg/dL - High 150 mg/dL * Correction Factor: 25 mg/dL/unit * Nutritional / Prandial insulin per carb ratio of 1 unit per 8 grams CHO consumed
[2021-08-22 07:03] LABS: Hematocrit (blood only) 33.6 % (42-52); Hemoglobin 11.1 g/dL (14.0-18.0); Mean Corpuscular Hemoglobin 31.6 pg (25-34); Mean Corpuscular Volume 95.7 fL (80-100); Mean Platelet Volume 9.4 fL (7.4-10.4); Platelet Count 247 K/uL (130-400); RDW Coefficient of Variation 13.3 % (11.5-14.5); RDW Standard Deviation 46.2 fL (36.4-46.3); Red Blood Count 3.51 M/uL (4.7-6.1); White Blood Count 12.02 K/uL (4.8-10.8)
[2021-08-22 07:27] LABS: Calcium 9.2 mg/dl (8.5-10.1); Creatinine Clr Calc Pharmacy 111.9 ml/min; Est GFR (African American) 114.5 ml/min; Est GFR (Non-African American) 98.8 ml/min; Potassium 3.9 mmol/L (3.5-5.1)
[2021-08-22] MEDS: SENNOSIDES 8.8 MG/5 ML UDC PO SCH (08:47)
[2021-08-22] MEDS: DOCUSATE SODIUM SYRUP 100 MG/10 ML UDC NG SCH ×2 (08:47→20:32)
[2021-08-22] MEDS: METOPROLOL TARTRATE 25 MG TAB PO SCH ×2 (08:49→19:46)
[2021-08-22] MEDS: CEFEPIME 2,000 MG/20 ML VIAL IV SCH (08:49)
[2021-08-22] MEDS: MULTI VIT W/MINERALS LIQUID 15 ML UDP NG SCH (08:50)
[2021-08-22] MEDS: THIAMINE HCL 100 MG TAB PO SCH (08:50)
[2021-08-22] MEDS: INSULIN ASPART 100 UNITS/ML 3 ML PEN SC SCH ×4 (09:01→19:43)
[2021-08-22] MEDS: ENOXAPARIN INJ 40 MG/0.4 ML SYR SQ SCH ×2 (09:02→19:46)
[2021-08-22] MEDS ORDERED: CONSULT PHARMACY PRN (10:04)
[2021-08-22] MEDS: AMPICILLIN 1,000 MG in SODIUM CHLOR 0.9% AD-VAN 50 ML IV SCH ×3 (12:42→23:39)
--- NOTE | 2021-08-22 14:44 | Hospitalist Progress Note ---
Date of Service August 22, 2021 Assessment & Plan (1) Acute respiratory failure due to COVID-19: (2) Acute encephalopathy: (3) Hypotension: (4) Elevated troponin I level: (5) Elevated lactic acid level: (6) Elevated d-dimer: (7) Alcohol use: Plan: Patient is a 61 yr male with H/O Alcohol use and prior tobacco use presented to ER for respiratory distress. Reported pt tested positive for COVID-19 4 days ago. Non-vaccinated. +COVID-19 contact. Acute respiratory failure with Hypoxia Secondary to COVID-19 pneumonia Acute metabolic encephalopathy secondary to above Lactic acidosis ARDS -CXR:Multifocal airspace opacities which may represent atelectasis, pneumonia, and/or aspiration. -CT Head:There is no hemorrhage, mass effect, or evidence of acute territorial ischemia by CT criteria. 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 Elevated troponin Likely due to demand ischemia In setting of COVID-19 infection Troponin trended down DVT Px: On Lovenox SQ Code Status Full Code Admission and Anticipated Discharge Date Admission Date: August 08, 2021 Subjective Patient is seen and examined at bedside States feeling very tired No proning much as advised Hoarseness is better today Denies any Dysphagia, dyspnea, dizziness, nausea, abd pain ,chest pain Appetite better Urine Cx growing Enterococcus Review of Systems Review of Systems: All systems reviewed & are unremarkable except as noted in Subjective Physical Exam Physical Exam: Physical Exam: Vitals signs as noted above General Appearance:Moderately built and nourished, no apparent distress Head: normocephalic, Atraumatic Eyes: normal inspection, EOMI Neck: supple, Trachea midline Respiratory/Chest: Decreased breath sounds, B/L Basal Crackles Cardiovascular: S1, S2, No murmur Abdomen/GI:Soft, Non tender, Bowel sounds present Extremities/Musculoskeletal:normal inspection, no edema Neurologic/Psych:AAO X3, grossly no focal neurological deficits Skin: normal color, warm Results & Data Results & Data ([facility]) Vital Signs (Past 12 Hours) Vital Signs Temp Pulse Pulse Resp BP BP Pulse Ox 08/22/21 11:51 36.5 C 79 22 91/59 L 92 08/22/21 08:22 37.4 C 84 24 105/68 90 08/22/21 08:00 81 08/22/21 07:29 63 22 92 08/22/21 03:56 37.6 C H 82 26 H 96/62 L 93 Laboratory Results Short CBC 08/22/21 Range/Units 06:47 WBC 12.02 H (4.8-10.8) K/uL Hgb 11.1 L (14.0-18.0) g/dL Hct 33.6 L (42-52) % Plt Count 247 (130-400) K/uL BMP 08/22/21 06:47 Sodium 136 Potassium 3.9 Chloride 109 H Carbon Dioxide 22 BUN 30 H Creatinine 0.78 Glucose 98 Calcium 9.2
[2021-08-23] MEDS: AMPICILLIN 1,000 MG in SODIUM CHLOR 0.9% AD-VAN 50 ML IV SCH ×3 (06:07→17:44)
[2021-08-23 06:49] LABS: Hematocrit (blood only) 33.4 % (42-52); Hemoglobin 10.9 g/dL (14.0-18.0); Mean Corpuscular Hemoglobin 31.2 pg (25-34); Mean Corpuscular Hgb Conc 32.6 g/dL (32-36); Mean Corpuscular Volume 95.7 fL (80-100); Mean Platelet Volume 9.5 fL (7.4-10.4); Platelet Count 224 K/uL (130-400); RDW Coefficient of Variation 13.1 % (11.5-14.5); RDW Standard Deviation 45.4 fL (36.4-46.3); Red Blood Count 3.49 M/uL (4.7-6.1); White Blood Count 10.44 K/uL (4.8-10.8)
[2021-08-23 07:11] LABS: Albumin Level 2.5 gm/dl (3.4-5.0); BUN Creatinine Ratio 38.9 (10-20); Bilirubin Direct 0.2 mg/dl (0-0.2); C Reactive Protein 8.31 mg/dl (0-0.29); Calcium 8.9 mg/dl (8.5-10.1); Creatinine Clr Calc Pharmacy 134.3 ml/min; Est GFR (African American) 123.4 ml/min; Est GFR (Non-African American) 106.5 ml/min; Magnesium 2.1 mg/dl (1.8-2.4); Potassium 3.6 mmol/L (3.5-5.1)
[2021-08-23 07:13] LABS: Bilirubin,Total 0.5 mg/dl (0.2-1); Total Protein 7.2 gm/dl (6.4-8.2)
[2021-08-23] MEDS ORDERED: POTASSIUM CHLORIDE CRTAB 20 MEQ TABCR PO ONE (07:45)
--- NOTE | 2021-08-23 07:46 | XRay Report ---
XR chest 1V portable HISTORY: 61 years-old Male covid acute shortness of breath with viral pneumonia COMPARISON: Chest radiograph 08/19/2021 TECHNIQUE: Portable AP view of the chest FINDINGS: The cardiomediastinal and hilar silhouettes are within normal limits. Interval removal of the enteric tube. No pneumothorax, or large pleural effusion. Mildly progressed multifocal bilateral airspace op acities. No acute fracture. IMPRESSION: Mildly worsened multifocal opacities compatible with pneumonia. ACT 112: Negative or not required by law. The above report was generated using voice recognition software. It may contain grammatical, syntax o r spelling errors. Electronically signed by: Eddie Martins M.D. 08/23/2021 7:45 AM
--- NOTE | 2021-08-23 08:25 | Pharmacy Report ---
Pharmacy Glycemic Sign Off Nt - Date of Service August 23, 2021 - Assessment & Plan ASSESSMENT: * Pharmacy was consulted by Dr Muhammad on 08/08/21 for glycemic control and to write orders per [facility] inpatient glycemic control protocol. * Major changes made by pharmacy to antidiabetic regimen include: * titrating SQ basal bolus insulin regimen for steroid induced hyperglycemia secondary to dexamethasone for COVID * Patient has been receiving/requiring ~3 units of insulin per day for adequate glycemic control * BSGs ranging 96-120 mg/dl * Regimen has only required minor adjustments over the past 48hrs to achieve this level of control * Do not anticipate further changes in patient status that would quickly deteriorate glycemic control (i.e. patient to be NPO for upcoming procedure, steroids tapering, starting tube feedings, etc). * Please see recommendations for outpatient antidiabetic regimen below. PLAN FOR INPATIENT GLYCEMIC CONTROL: No changes needed to current regimen. * No basal needed * Continue NovoLog per scale ACHS/Q6hrs while NPO * Goal range = 110 140 mg/dl * CF = 25 mg/dl/unit * CR = 1 unit for ever 15 g CHO consumed * Pharmacy is signing off of glycemic consult and will no longer be making adjustments to inpatient regimen. Please feel free to re-consult if needed. Thank you. DISCHARGE RECOMMENDATIONS: * A1c 6.3 % on 08/10/21 indicating "Pre-diabetes" * ADA recs instituting lifestyle changes and atherosclerosis prevention
[2021-08-23] MEDS: DOCUSATE SODIUM SYRUP 100 MG/10 ML UDC NG SCH (08:46)
[2021-08-23] MEDS: MULTIVITAMIN TAB PO SCH (08:46)
[2021-08-23] MEDS: THIAMINE HCL 100 MG TAB PO SCH (08:46)
[2021-08-23] MEDS: METOPROLOL TARTRATE 25 MG TAB PO SCH ×2 (08:46→20:22)
[2021-08-23] MEDS: ENOXAPARIN INJ 40 MG/0.4 ML SYR SQ SCH ×2 (08:48→20:24)
[2021-08-23] MEDS: SENNOSIDES 8.8 MG/5 ML UDC PO SCH (08:48)
[2021-08-23] MEDS: INSULIN ASPART 100 UNITS/ML 3 ML PEN SC SCH ×4 (08:53→21:25)
[2021-08-23] MEDS ORDERED: ACETAMINOPHEN 325 MG TAB PO PRN (17:03)
[2021-08-23] MEDS: DOCUSATE SODIUM 100 MG CAP PO SCH (20:22)
--- NOTE | 2021-08-23 20:55 | Hospitalist Progress Note ---
Date of Service August 23, 2021 Assessment & Plan (1) Acute respiratory failure due to COVID-19: (2) Acute encephalopathy: (3) Hypotension: (4) Elevated troponin I level: (5) Elevated lactic acid level: (6) Elevated d-dimer: (7) Alcohol use: Plan: Patient is a 61 yr male with H/O Alcohol use and prior tobacco use presented to ER for respiratory distress. Reported pt tested positive for COVID-19 4 days ago. Non-vaccinated. +COVID-19 contact. Acute respiratory failure with Hypoxia Secondary to COVID-19 pneumonia Acute metabolic encephalopathy secondary to above Lactic acidosis ARDS -CXR:Multifocal airspace opacities which may represent atelectasis, pneumonia, and/or aspiration. -CT Head:There is no hemorrhage, mass effect, or evidence of acute territorial ischemia by CT criteria. Extubated on 08/08/21 Completed dexamethasone course Appreciate Critical Care Input Continue Pulmonary hygiene Titrate down oxygen as able Lasix PRN CXR today showed worsening pneumonia Encouraged to prone We will consider Lasix if blood pressure tolerated NSVT Asymptomatic Continue low dose Metoprolol UTI Urine culture growing Enterococcus Blood cultures negative to date Cefepime transitioned to Ampicillin Hoarseness Right vocal fold Polyp/Left vocal fold immobile ENT consulted for Input Speech therapy eval completed Hoarseness slowly improving Denies dysphagia Alcohol use disorder Continue thiamine 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 withdrawal 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 Elevated troponin Likely due to demand ischemia In setting of COVID-19 infection Troponin trended down DVT Px: On Lovenox SQ Code Status Full Code Admission and Anticipated Discharge Date Admission Date: August 08, 2021 Subjective Patient is seen and examined at bedside States feeling better today Has not been proning as advised CXR today showed worsening pneumonia Leukocytosis resolved Afebrile today Denies any Dysphagia, dyspnea, dizziness, nausea, abd pain ,chest pain Review of Systems Review of Systems: All systems reviewed & are unremarkable except as noted in Subjective Physical Exam Physical Exam: Physical Exam: Vitals signs as noted above General Appearance:Moderately built and nourished, no apparent distress Head: normocephalic, Atraumatic Eyes: normal inspection, EOMI Neck: supple, Trachea midline Respiratory/Chest: Decreased breath sounds, B/L Basal Crackles Cardiovascular: S1, S2, No murmur Abdomen/GI:Soft, Non tender, Bowel sounds present Extremities/Musculoskeletal:normal inspection, no edema Neurologic/Psych:AAO X3, grossly no focal neurological deficits Skin: normal color, warm Results & Data Results & Data ([facility]) Vital Signs (Past 12 Hours) Vital Signs Temp Pulse Pulse Resp BP Pulse Ox 08/23/21 20:26 37.1 C 98 H 24 108/59 L 15 L 08/23/21 18:35 85 08/23/21 16:13 37.3 C 77 20 103/60 93 08/23/21 11:39 37.1 C 80 24 103/60 91 Laboratory Results Short CBC 08/23/21 Range/Units 06:22 WBC 10.44 (4.8-10.8) K/uL Hgb 10.9 L (14.0-18.0) g/dL Hct 33.4 L (42-52) % Plt Count 224 (130-400) K/uL BMP 08/23/21 06:22 Sodium 137 Potassium 3.6 Chloride 108 H Carbon Dioxide 23 BUN 25 H Creatinine 0.65 Glucose 95 Calcium 8.9 Liver Function 08/23/21 Range/Units 06:22 Total Bilirubin 0.5 (0.2-1) mg/dl Direct Bilirubin 0.2 (0-0.2) mg/dl AST 50 H (15-37) U/L ALT 125 H (12-78) U/L Alkaline Phosphatase 70 (45-117) U/L Albumin 2.5 L (3.4-5.0) gm/dl
[2021-08-24] MEDS: AMPICILLIN 1,000 MG in SODIUM CHLOR 0.9% AD-VAN 50 ML IV SCH ×5 (02:22→23:34)
[2021-08-24 06:40] LABS: Hematocrit (blood only) 34.1 % (42-52); Hemoglobin 11.3 g/dL (14.0-18.0); Mean Corpuscular Hemoglobin 31.8 pg (25-34); Mean Corpuscular Hgb Conc 33.1 g/dL (32-36); Mean Corpuscular Volume 96.1 fL (80-100); Mean Platelet Volume 9.9 fL (7.4-10.4); Platelet Count 220 K/uL (130-400); RDW Standard Deviation 45.8 fL (36.4-46.3); Red Blood Count 3.55 M/uL (4.7-6.1)
[2021-08-24 07:06] LABS: BUN Creatinine Ratio 30.9 (10-20); Calcium 8.7 mg/dl (8.5-10.1); Creatinine Clr Calc Pharmacy 138.6 ml/min; Est GFR (Non-African American) 107.9 ml/min; Potassium 4.1 mmol/L (3.5-5.1)
--- NOTE | 2021-08-24 08:10 | Hospitalist Progress Note ---
Date of Service August 24, 2021 Assessment & Plan (1) Acute respiratory failure due to COVID-19: (2) Acute encephalopathy: (3) Hypotension: (4) Elevated troponin I level: (5) Elevated lactic acid level: (6) Elevated d-dimer: (7) Alcohol use: Plan: Patient is a 61 yr male with H/O Alcohol use and prior tobacco use presented to ER for respiratory distress. Reported pt tested positive for COVID-19 4 days ago. Non-vaccinated. +COVID-19 contact. Acute respiratory failure with Hypoxia Secondary to COVID-19 pneumonia Acute metabolic encephalopathy secondary to above Lactic acidosis ARDS -CXR:Multifocal airspace opacities which may represent atelectasis, pneumonia, and/or aspiration. -CT Head:There is no hemorrhage, mass effect, or evidence of acute territorial ischemia by CT criteria. 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 ENT consulted for Input Speech therapy eval completed Hoarseness slowly improving Denies dysphagia Alcohol use disorder Continue thiamine No signs of Alcohol withdrawal currently 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 Elevated troponin Likely due to demand ischemia In setting of COVID-19 infection Troponin trended down DVT Px: On Lovenox SQ Code Status Full Code Admission and Anticipated Discharge Date Admission Date: August 08, 2021 Subjective Patient is seen and examined at bedside Subjectively continues to improve Proned for about 2 hrs Denies any Dysphagia, dyspnea, dizziness, nausea, abd pain ,chest pain Less cough today Review of Systems Review of Systems: All systems reviewed & are unremarkable except as noted in Subjective Physical Exam Physical Exam: Physical Exam: Vitals signs as noted above General Appearance:Moderately built and nourished, no apparent distress Head: normocephalic, Atraumatic Eyes: normal inspection, EOMI Neck: supple, Trachea midline Respiratory/Chest: Decreased breath sounds, B/L Basal Crackles Cardiovascular: S1, S2, No murmur Abdomen/GI:Soft, Non tender, Bowel sounds present Extremities/Musculoskeletal:normal inspection, no edema Neurologic/Psych:AAO X3, grossly no focal neurological deficits Skin: normal color, warm Results & Data Results & Data ([facility]) Vital Signs (Past 12 Hours) Vital Signs Temp Pulse Pulse Resp BP Pulse Ox 08/24/21 07:24 36.5 C 81 27 H 99/55 L 92 08/24/21 04:30 83 08/24/21 00:00 37.3 C 85 24 104/63 92 08/23/21 20:26 37.1 C 98 H 24 108/59 L 15 L Laboratory Results Short CBC 08/24/21 Range/Units 06:01 WBC 8.60 (4.8-10.8) K/uL Hgb 11.3 L (14.0-18.0) g/dL Hct 34.1 L (42-52) % Plt Count 220 (130-400) K/uL BMP 08/24/21 06:01 Sodium 137 Potassium 4.1 Chloride 107 Carbon Dioxide 24 BUN 20 H Creatinine 0.63 Glucose 97 Calcium 8.7
[2021-08-24] MEDS: DOCUSATE SODIUM 100 MG CAP PO SCH ×2 (08:30→21:38)
[2021-08-24] MEDS ORDERED: FUROSEMIDE 20 MG TAB PO ONE (08:30)
[2021-08-24] MEDS: SENNA 8.6 MG TAB PO SCH (08:31)
[2021-08-24] MEDS: METOPROLOL TARTRATE 25 MG TAB PO SCH ×2 (08:32→21:38)
[2021-08-24] MEDS: ENOXAPARIN INJ 40 MG/0.4 ML SYR SQ SCH ×2 (08:32→21:39)
[2021-08-24] MEDS: THIAMINE HCL 100 MG TAB PO SCH (08:32)
[2021-08-24] MEDS: MULTIVITAMIN TAB PO SCH (08:32)
[2021-08-24] MEDS: INSULIN ASPART 100 UNITS/ML 3 ML PEN SC SCH ×4 (08:38→21:40)
[2021-08-24] MEDS: predniSONE 20 MG TAB PO SCH (08:41)
[2021-08-25] MEDS ORDERED: POLYETHYLENE (MIRALAX) 17 GM PACK PO PRN (00:51)
[2021-08-25] MEDS ORDERED: HYDROCORTISONE HC 2.5% CRM 30GM TUBE EXT PRN (00:52)
[2021-08-25] MEDS ORDERED: DOCUSATE SODIUM/SENNA 50/8.6MG TAB PO STA (00:57)
[2021-08-25 01:25] LABS: Basophils # (auto) 0.04 K/uL (0-0.2); Basophils % (auto) 0.5 %; Eosinophils # (auto) 0.38 K/uL (0-0.5); Eosinophils % (auto) 4.4 %; Hematocrit (blood only) 32.5 % (42-52); Hemoglobin 10.9 g/dL (14.0-18.0); Immature Granulocytes # (auto) 0.03 K/uL (0.00-0.02); Immature Granulocytes % (auto) 0.3 %; Lymphocytes # (auto) 1.51 K/uL (1.2-3.4); Lymphocytes % (auto) 17.4 %; Mean Corpuscular Hemoglobin 31.7 pg (25-34); Mean Corpuscular Hgb Conc 33.5 g/dL (32-36); Mean Corpuscular Volume 94.5 fL (80-100); Mean Platelet Volume 9.6 fL (7.4-10.4); Monocytes # (auto) 0.55 K/uL (0.11-0.59); Monocytes % (auto) 6.3 %; Neutrophils # (auto) 6.17 K/uL (1.4-6.5); Neutrophils % (auto) 71.1 %; Platelet Count 220 K/uL (130-400); RDW Standard Deviation 44.8 fL (36.4-46.3); Red Blood Count 3.44 M/uL (4.7-6.1); White Blood Count 8.68 K/uL (4.8-10.8)
[2021-08-25 01:45] LABS: Albumin Level 2.3 gm/dl (3.4-5.0); BUN Creatinine Ratio 27.8 (10-20); Calcium 8.8 mg/dl (8.5-10.1); Creatinine Clr Calc Pharmacy 134.3 ml/min; Est GFR (African American) 123.4 ml/min; Est GFR (Non-African American) 106.5 ml/min
[2021-08-25 01:48] LABS: Albumin Globulin Ratio 0.5 (0.9-2); Bilirubin,Total 0.4 mg/dl (0.2-1); Globulin 4.9 gm/dl (2.5-4.0); Total Protein 7.2 gm/dl (6.4-8.2)
[2021-08-25] MEDS: HYDROCORTISONE HC 2.5% CRM 30GM TUBE EXT PRN (05:07)
[2021-08-25] MEDS: AMPICILLIN 1,000 MG in SODIUM CHLOR 0.9% AD-VAN 50 ML IV SCH ×4 (05:08→23:55)
--- NOTE | 2021-08-25 05:39 | Communication Note ---
Date of Service: August 25, 2021 Made aware by RN of bleeding hemorrhoids. CBC now Hold Lovenox until labs back.
[2021-08-25 07:15] LABS: Hemoglobin 11.4 g/dL (14.0-18.0)
[2021-08-25] MEDS: DOCUSATE SODIUM/SENNA 50/8.6MG TAB PO SCH (08:31)
[2021-08-25] MEDS: THIAMINE HCL 100 MG TAB PO SCH (08:31)
[2021-08-25] MEDS: DOCUSATE SODIUM 100 MG CAP PO SCH ×2 (08:31→21:04)
[2021-08-25] MEDS: SENNA 8.6 MG TAB PO SCH (08:31)
[2021-08-25] MEDS: predniSONE 20 MG TAB PO SCH (08:31)
[2021-08-25] MEDS: MULTIVITAMIN TAB PO SCH (08:31)
[2021-08-25] MEDS: METOPROLOL TARTRATE 25 MG TAB PO SCH (08:33)
[2021-08-25] MEDS: INSULIN ASPART 100 UNITS/ML 3 ML PEN SC SCH ×4 (08:34→21:04)
--- NOTE | 2021-08-25 17:58 | Hospitalist Progress Note ---
Date of Service August 25, 2021 Assessment & Plan (1) Acute respiratory failure due to COVID-19: (2) Acute encephalopathy: (3) Hypotension: (4) Elevated troponin I level: (5) Elevated lactic acid level: (6) Elevated d-dimer: (7) Alcohol use: Plan: Patient is a 61 yr male with H/O Alcohol use and prior tobacco use presented to ER for respiratory distress. Reported pt tested positive for COVID-19 4 days ago. Non-vaccinated. +COVID-19 contact. Acute respiratory failure with Hypoxia Secondary to COVID-19 pneumonia Acute metabolic encephalopathy secondary to above Lactic acidosis ARDS -CXR:Multifocal airspace opacities which may represent atelectasis, pneumonia, and/or aspiration. -CT Head:There is no hemorrhage, mass effect, or evidence of acute territorial ischemia by CT criteria. 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 ENT consulted for Input Speech therapy eval completed Hoarseness slowly improving Denies dysphagia Alcohol use disorder Continue thiamine No signs of Alcohol withdrawal currently 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 Elevated troponin Likely due to demand ischemia In setting of COVID-19 infection Troponin trended down DVT Px: Lovenox SQ--Held due to hemorrhoidal bleed Code Status Full Code Admission and Anticipated Discharge Date Admission Date: August 08, 2021 Subjective Patient is seen and examined at bedside Had hemorrhoidal bleed overnight Hemoglobin stable Generalized weakness slowly improving Currently on oxymask Denies any Dysphagia, dyspnea, dizziness, nausea, abd pain ,chest pain Review of Systems Review of Systems: All systems reviewed & are unremarkable except as noted in Subjective Physical Exam Physical Exam: Physical Exam: Vitals signs as noted above General Appearance:Moderately built and nourished, no apparent distress Head: normocephalic, Atraumatic Eyes: normal inspection, EOMI Neck: supple, Trachea midline Respiratory/Chest: Decreased breath sounds, B/L Basal Crackles Cardiovascular: S1, S2, No murmur Abdomen/GI:Soft, Non tender, Bowel sounds present Extremities/Musculoskeletal:normal inspection, no edema Neurologic/Psych:AAO X3, grossly no focal neurological deficits Skin: normal color, warm Results & Data Results & Data ([facility]) Vital Signs (Past 12 Hours) Vital Signs Temp Pulse Pulse Pulse Resp BP Pulse Ox 08/25/21 17:12 37.2 C 82 19 109/71 90 08/25/21 15:00 81 08/25/21 11:19 37.5 C 87 18 98/59 L 92 08/25/21 10:49 91 08/25/21 08:43 90/47 L 08/25/21 07:36 37.2 C 85 19 99/56 L 92 Laboratory Results Short CBC 08/25/21 08/25/21 Range/Units 01:15 06:23 WBC 8.68 (4.8-10.8) K/uL Hgb 10.9 L 11.4 L (14.0-18.0) g/dL Hct 32.5 L 34.0 L (42-52) % Plt Count 220 (130-400) K/uL BMP 08/25/21 01:15 Sodium 139 Potassium 4.0 Chloride 107 Carbon Dioxide 25 BUN 18 Creatinine 0.65 Glucose 86 Calcium 8.8 Liver Function 08/25/21 Range/Units 01:15 Total Bilirubin 0.4 (0.2-1) mg/dl AST 44 H (15-37) U/L ALT 105 H (12-78) U/L Alkaline Phosphatase 70 (45-117) U/L Albumin 2.3 L (3.4-5.0) gm/dl
[2021-08-26] MEDS: AMPICILLIN 1,000 MG in SODIUM CHLOR 0.9% AD-VAN 50 ML IV SCH ×4 (05:44→23:29)
[2021-08-26 07:24] LABS: Hematocrit (blood only) 30.7 % (42-52); Hemoglobin 10.5 g/dL (14.0-18.0); Mean Corpuscular Hemoglobin 31.7 pg (25-34); Mean Corpuscular Hgb Conc 34.2 g/dL (32-36); Mean Corpuscular Volume 92.7 fL (80-100); Mean Platelet Volume 9.3 fL (7.4-10.4); Platelet Count 255 K/uL (130-400); RDW Coefficient of Variation 13.3 % (11.5-14.5); RDW Standard Deviation 44.7 fL (36.4-46.3); Red Blood Count 3.31 M/uL (4.7-6.1); White Blood Count 7.38 K/uL (4.8-10.8)
[2021-08-26 07:41] LABS: BUN Creatinine Ratio 27.5 (10-20); Calcium 8.7 mg/dl (8.5-10.1); Creatinine Clr Calc Pharmacy 155.9 ml/min; Est GFR (African American) 131.2 ml/min; Est GFR (Non-African American) 113.2 ml/min; Potassium 3.6 mmol/L (3.5-5.1)
[2021-08-26] MEDS: DOCUSATE SODIUM/SENNA 50/8.6MG TAB PO SCH (07:45)
[2021-08-26] MEDS: SENNA 8.6 MG TAB PO SCH (07:45)
[2021-08-26] MEDS: DOCUSATE SODIUM 100 MG CAP PO SCH ×2 (07:45→20:13)
[2021-08-26] MEDS: INSULIN ASPART 100 UNITS/ML 3 ML PEN SC SCH ×4 (08:45→20:18)
[2021-08-26] MEDS: MULTIVITAMIN TAB PO SCH (08:56)
[2021-08-26] MEDS: predniSONE 20 MG TAB PO SCH (08:56)
[2021-08-26] MEDS: THIAMINE HCL 100 MG TAB PO SCH (08:56)
[2021-08-26] MEDS: HYDROCORTISONE HC 2.5% CRM 30GM TUBE EXT PRN (16:05)
--- NOTE | 2021-08-26 17:06 | Hospitalist Progress Note ---
Date of Service August 26, 2021 Assessment & Plan (1) Acute respiratory failure due to COVID-19: (2) Acute encephalopathy: (3) Hypotension: (4) Elevated troponin I level: (5) Elevated lactic acid level: (6) Elevated d-dimer: (7) Alcohol use: Plan: Patient is a 61 yr male with H/O Alcohol use and prior tobacco use presented to ER for respiratory distress. Reported pt tested positive for COVID-19 4 days ago. Non-vaccinated. +COVID-19 contact. Acute respiratory failure with Hypoxia Secondary to COVID-19 pneumonia Acute metabolic encephalopathy secondary to above Lactic acidosis ARDS -CXR:Multifocal airspace opacities which may represent atelectasis, pneumonia, and/or aspiration. -CT Head:There is no hemorrhage, mass effect, or evidence of acute territorial ischemia by CT criteria. 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 ENT consulted for Input Speech therapy eval completed Hoarseness slowly improving Denies dysphagia Alcohol use disorder Continue thiamine No signs of Alcohol withdrawal currently 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 Elevated troponin Likely due to demand ischemia In setting of COVID-19 infection Troponin trended down DVT Px: Lovenox SQ--Held due to hemorrhoidal bleed Code Status Full Code Admission and Anticipated Discharge Date Admission Date: August 08, 2021 Subjective Patient is seen and examined at bedside Subjectively feels better Still has hemorrhoidal bleed Family at bedside Currently on 15L oxymask Denies any Dysphagia, dizziness, nausea, abd pain ,chest pain Less cough today Review of Systems Review of Systems: All systems reviewed & are unremarkable except as noted in Subjective Physical Exam Physical Exam: Physical Exam: Vitals signs as noted above General Appearance:Moderately built and nourished, no apparent distress Head: normocephalic, Atraumatic Eyes: normal inspection, EOMI Neck: supple, Trachea midline Respiratory/Chest: Decreased breath sounds, B/L Basal Crackles Cardiovascular: S1, S2, No murmur Abdomen/GI:Soft, Non tender, Bowel sounds present Extremities/Musculoskeletal:normal inspection, no edema Neurologic/Psych:AAO X3, grossly no focal neurological deficits Skin: normal color, warm Results & Data Results & Data ([facility]) Vital Signs (Past 12 Hours) Vital Signs Temp Pulse Pulse Resp BP Pulse Ox 08/26/21 15:00 36.4 C L 96 H 20 110/69 93 08/26/21 12:41 99 08/26/21 11:33 36.8 C 98 H 20 90/53 L 96 08/26/21 08:00 94 H 08/26/21 07:42 36.8 C 81 20 94/58 L 97 Laboratory Results Short CBC 08/26/21 Range/Units 06:50 WBC 7.38 (4.8-10.8) K/uL Hgb 10.5 L (14.0-18.0) g/dL Hct 30.7 L (42-52) % Plt Count 255 (130-400) K/uL BMP 08/26/21 06:50 Sodium 136 Potassium 3.6 Chloride 104 Carbon Dioxide 25 BUN 15 Creatinine 0.56 L Glucose 95 Calcium 8.7
[2021-08-27] MEDS: AMPICILLIN 1,000 MG in SODIUM CHLOR 0.9% AD-VAN 50 ML IV SCH (05:44)
[2021-08-27 07:53] LABS: Hemoglobin 10.1 g/dL (14.0-18.0); Mean Corpuscular Hemoglobin 31.6 pg (25-34); Mean Corpuscular Hgb Conc 33.7 g/dL (32-36); Mean Corpuscular Volume 93.8 fL (80-100); Mean Platelet Volume 9.1 fL (7.4-10.4); Platelet Count 271 K/uL (130-400); RDW Coefficient of Variation 13.3 % (11.5-14.5); RDW Standard Deviation 45.5 fL (36.4-46.3); White Blood Count 6.51 K/uL (4.8-10.8)
[2021-08-27 08:18] LABS: BUN Creatinine Ratio 24.1 (10-20); Calcium 8.5 mg/dl (8.5-10.1); Creatinine Clr Calc Pharmacy 158.7 ml/min; Est GFR (African American) 132.2 ml/min; Est GFR (Non-African American) 114.1 ml/min; Potassium 3.8 mmol/L (3.5-5.1)
[2021-08-27] MEDS: DOCUSATE SODIUM/SENNA 50/8.6MG TAB PO SCH (10:57)
[2021-08-27] MEDS: THIAMINE HCL 100 MG TAB PO SCH (10:58)
[2021-08-27] MEDS: SENNA 8.6 MG TAB PO SCH (10:58)
[2021-08-27] MEDS: predniSONE 20 MG TAB PO SCH (10:58)
[2021-08-27] MEDS: DOCUSATE SODIUM 100 MG CAP PO SCH ×2 (10:58→20:29)
[2021-08-27] MEDS: MULTIVITAMIN TAB PO SCH (10:58)
[2021-08-27] MEDS: INSULIN ASPART 100 UNITS/ML 3 ML PEN SC SCH ×4 (11:22→21:00)
--- NOTE | 2021-08-27 17:29 | Hospitalist Progress Note ---
Date of Service August 27, 2021 Assessment & Plan (1) Acute respiratory failure due to COVID-19: Plan: Secondary to ARDS and COVID-19 pneumonia. Status post intubation requiring paralytics. Status post course of Decadron and antibiotics. Still requiring high amounts of oxygen supplementation. 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 Anticoagulation held. We will reinitiate this as soon as we can. (5) UTI (urinary tract infection): Plan: UTI 2/2 enterococcus faecalis. Received 5 days of Ampicillin. Now off antibiotics. (6) Hoarseness of voice: Plan: possibly related to vocal cord dysfunction. Noted recent intubation and paralytics. No speech or voice issues prior to hospitalization. No dysphagia, s/p FEES by speech with aspiration precautions recommended. No straws, giving meds in a carrier, good oral hygiene, alternate solids and liquids. Doing well overall and hoarseness is improving. (7) DVT prophylaxis: Plan: SCDs Full Dispo-PCU while still requiring high amounts of supplemental oxygen Heike Brian DO [facility] Hospitalist Admission and Anticipated Discharge Date Admission Date: August 08, 2021 Subjective [id number] man admitted with COVID-19 pneumonia causing acute respiratory failure. He admitted to intensive care unit and was intubated for severe ARDS, required paralytics.. Received antibiotics, Decadron. Also with history of alcohol dependence and initial encephalopathy which has now resolved after treatment. 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 ENT follow-up recommended. Speech therapy evaluated. Extubated on 08/18. Also found to have a UTI secondary to Enterococcus with negative blood cultures. He was on cefepime which was transitioned to ampicillin for 5 days. Today he is still requiring large amounts of oxygen but denying significant shortness of breath except with movement. He is able to eat on 6 L nasal cannula per nursing for about 15 minutes but has to transition back to full facemask because of desaturation. High flow was discussed with nursing staff, will consider for later. Patient is compliant with proning. Otherwise no fever and appears to be recovering as well as can be expected given recent course. Review of Systems Review of Systems: At least ten systems were reviewed and negative except as indicated in HPI above. Physical Exam Physical Exam: CONSTITUTIONAL: WNWD, vitals as above, generally well- appearing EYES: normal conjunctivae, no scleral icterus ENT: external ear and nose normal, MMM NECK: trachea midline RESPIRATORY: min crackles throughout right lung field, no rales or wheezing, no increased work of breathing. CARDIOVASCULAR: regular rate and rhythm, S1 and 2 heard without murmurs, gallops or rubs, no JVD, no peripheral edema GASTROINTESTINAL: soft, nontender, nondistended. MUSCULOSKELETAL: strength 5/5 throughout, head is normocephalic and atraumatic SKIN: warm and dry NEUROLOGIC: CN 2-12 grossly intact, no sensory deficit, normal cognition, voice is hoarse, no tremor PSYCHIATRIC: alert cooperative and oriented to person, place and time. Results & Data Results & Data ([facility]) Vital Signs (Past 12 Hours) Vital Signs Temp Pulse Pulse Pulse Resp BP BP 08/27/21 15:29 36.9 C 81 24 100/63 08/27/21 11:54 36.4 C L 80 22 155/82 H 08/27/21 11:00 36.4 C L 80 24 98/62 L 08/27/21 08:22 36.4 C L 90 24 95/59 L 08/27/21 08:00 80 Pulse Ox 08/27/21 15:29 91 08/27/21 11:54 98 08/27/21 11:00 97 08/27/21 08:22 90 08/27/21 08:00 Laboratory Results Short CBC 08/27/21 Range/Units 07:33 WBC 6.51 (4.8-10.8) K/uL Hgb 10.1 L (14.0-18.0) g/dL Hct 30.0 L (42-52) % Plt Count 271 (130-400) K/uL BMP 08/27/21 07:33 Sodium 139 Potassium 3.8 Chloride 106 Carbon Dioxide 27 BUN 13 Creatinine 0.55 L Glucose 93 Calcium 8.5 Medications Administered Current Inpatient Medications Acetaminophen (Acetaminophen 325 Mg Tab) 650 mg PO Q4H PRN PRN Reason: Pain or Fever Stop: 09/22/21 17:02 Last Admin: 10/10/21 16:14 Dose: 650 mg Documented by: Dextrose (Dextrose 50% 50 Ml Syringe) 25 - 50 ml IV UD PRN; Protocol PRN Reason: Hypoglycemia Protocol Stop: 09/07/21 23:44 Docusate Sodium (Docusate Sodium 100 Mg Cap) 100 mg PO BID [facility] Stop: 09/22/21 20:59 Last Admin: 08/27/21 10:58 Dose: 100 mg Documented by: Enoxaparin Sodium (Enoxaparin Inj 40 Mg/0.4 Ml Syr) 40 mg SQ Q12H [facility] Stop: 09/07/21 20:59 Last Admin: 08/24/21 21:39 Dose: 40 mg Documented by: Glucagon (Glucagon For Inj 1 Mg Vial) 1 mg IM UD PRN; Protocol PRN Reason: Hypoglycemia Protocol Stop: 09/07/21 23:44 Glucose (Glucose 40% Gel 15 Gm Tube) 15 - 30 gm PO UD PRN; Protocol PRN Reason: Hypoglycemia Protocol Stop: 09/07/21 23:44 Glucose (Glucose 10 Tabs/Tube) 4 - 8 tabs PO UD PRN; Protocol PRN Reason: Hypoglycemia Protocol Stop: 09/07/21 23:44 Heparin Sodium (Beef Lung) (Heparin 10 Unit/Ml 5 Ml Flush) 5 ml FLUSH PRN PRN PRN Reason: Flush Stop: 09/13/21 07:37 Last Admin: 08/15/21 14:20 Dose: 15 ml Documented by: Hydrocortisone (Hydrocortisone Hc 2.5% Crm 30gm Tube) 1 appln EXT BID PRN PRN Reason: Hemorrhoid pain Stop: 09/24/21 00:51 Last Admin: 08/26/21 16:05 Dose: 1 appln Documented by: Insulin Aspart (Insulin Aspart 100 Units/Ml 3 Ml Pen) 0 units SC ACHS [facility] Stop: 09/19/21 16:59 Last Admin: 08/27/21 13:11 Dose: Not Given Documented by: Metoprolol Tartrate (Metoprolol Tartrate 25 Mg Tab) 6.25 mg PO BID [facility] Stop: 09/20/21 20:59 Last Admin: 08/25/21 08:33 Dose: Not Given Documented by: Miscellaneous (Carbohydrates For Hypoglycemia ) 15 - 30 gm PO UD PRN PRN Reason: Hypoglycemia Treatment Stop: 09/07/21 23:44 Multivitamins (Multivitamin Tab) 1 tab PO QAM [facility] Stop: 09/22/21 08:59 Last Admin: 08/27/21 10:58 Dose: 1 tab Documented by: Polyethylene Glycol (Polyethylene (Miralax) 17 Gm Pack) 17 gm PO DAILY PRN PRN Reason: Constipation Stop: 09/24/21 00:50 Prednisone (Prednisone 20 Mg Tab) 20 mg PO DAILY [facility] Stop: 08/29/21 08:59 Last Admin: 08/27/21 10:58 Dose: 20 mg Documented by: Senna/Docusate Sodium (Docusate Sodium/Senna 50/8.6mg Tab) 1 tab PO QAM [facility] Stop: 09/24/21 08:59 Last Admin: 08/27/21 10:57 Dose: 1 tab Documented by: Sennosides (Senna 8.6 Mg Tab) 8.6 mg PO QAM [facility] Stop: 09/23/21 08:59 Last Admin: 08/27/21 10:58 Dose: 8.6 mg Documented by: Thiamine HCl (Thiamine Hcl 100 Mg Tab) 100 mg PO DAILY [facility] Stop: 09/10/21 11:59 Last Admin: 08/27/21 10:58 Dose: 100 mg Documented by:
[2021-08-28] MEDS: INSULIN ASPART 100 UNITS/ML 3 ML PEN SC SCH ×4 (08:12→21:25)
[2021-08-28] MEDS: DOCUSATE SODIUM/SENNA 50/8.6MG TAB PO SCH (08:15)
[2021-08-28] MEDS: DOCUSATE SODIUM 100 MG CAP PO SCH ×2 (08:15→20:02)
[2021-08-28] MEDS: SENNA 8.6 MG TAB PO SCH (08:15)
[2021-08-28] MEDS: predniSONE 20 MG TAB PO SCH (08:16)
[2021-08-28] MEDS: MULTIVITAMIN TAB PO SCH (08:16)
[2021-08-28] MEDS: THIAMINE HCL 100 MG TAB PO SCH (08:16)
--- NOTE | 2021-08-28 09:54 | Hospitalist Progress Note ---
Date of Service August 28, 2021 Assessment & Plan (1) Acute respiratory failure due to COVID-19: Plan: Patient is a 61 yr male with H/O Alcohol use and prior tobacco use presented to ER for respiratory distress. Reported pt tested positive for COVID-19 4 days ago. Non-vaccinated. +COVID-19 contact. Initially presented with acute respiratory failure with Hypoxia 2/2 ARDS and COVID-19 pneumonia. Status post intubation requiring paralytics. Initially managed in the ICU Initial CXR with multifocal airspace opacities which may represent atelectasis, pneumonia, and/or aspiration. CT Head:There is no hemorrhage, mass effect, or evidence of acute territorial is chemia by CT criteria. Status post course of Decadron and antibiotics. Extubated on 08/08/21. Still requiring high amounts of oxygen supplementation - currently on 13 L Oxymask Continue supportive care with pulmonary hygiene (2) Acute encephalopathy: (3) Hypotension: (4) Elevated troponin I level: (5) Elevated lactic acid level: (6) Elevated d-dimer: Plan: Present on admission and have since resovled (7) Alcohol abuse: Plan: Alcohol use disorder. 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 Stool softener and Anusol started. Anticoagulation held. Recheck H&H in AM. Will reinitiate this as soon as we can. (10) UTI (urinary tract infection): Plan: UTI 2/2 enterococcus faecalis. Received 5 days of Ampicillin. Now off antibiotics. (11) Hoarseness of voice: Plan: possibly related to vocal cord dysfunction. Noted recent intubation and paralytics. No speech or voice issues prior to hospitalization. No dysphagia, s/p FEES by speech with aspiration precautions recommended. No straws, giving meds in a carrier, good oral hygiene, alternate solids and liquids. Doing well overall and hoarseness is improving. (12) DVT prophylaxis: Plan: SCDs Full Dispo-PCU while still requiring high amounts of supplemental oxygen Patient seen in collaboration with Dr. Brian. Please see addendum. Admission and Anticipated Discharge Date Admission Date: August 08, 2021 Supervising Physician Co-Signing Physician Notes I have seen and examined the patient and have discussed the case with the provider above. I agree with the assessment and plan as stated. 61-year-old man admitted with COVID-19 pneumonia causing acute respiratory failure. He admitted to intensive care unit and was intubated for severe ARDS, required paralytics. Received antibiotics, Decadron. Also with history of alcohol dependence and initial encephalopathy which has now resolved after treatment. 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 ENT follow-up recommended (not available inpatient). Speech therapy evaluated. Extubated on 08/18. Also found to have a UTI secondary to Enterococcus with negative blood cultures. He was on cefepime which was transitioned to ampicillin for 5 days-completed course. He continues to require large amounts on oxygen supplementation and is having desaturation wtih minimal exertion. He reports eating well. Denies fevers. Hemorrhoidal management as above. Noted holding DVT prophy. Physical exam with crackles throughout all lung downs, normal cardiac exam and no peripheral edema. He is oriented and cooperative with no gross neuromuscular deficits. Voice still notably hoarse but he is able to speak in a harsh whisper. Agree with plan as outlined above. [place], DO Subjective Patient is seen and examined at bedside. Subjectively feels better. Still has hemorrhoidal bleeding with bowel movements. Endorsing one Tbs of blood per bowel movement. Currently on 13 L oxymask. Denies any fever, chills, chest pain, SOB, dizziness, nausea, vomiting, abd pain, dysuria or constipation. Review of Systems Review of Systems: At least ten systems were reviewed and negative except as indicated in HPI above. Physical Exam Physical Exam: General Appearance: WD/WN, vitals as above, NAD, sitting up in bed, pleasant, communicating without issue Head: normocephalic, atraumatic Eyes: normal inspection, PERRL, conjunctivae normal, anicteric sclerae ENT: external ear and nose normal, oropharynx normal Neck: normal visual inspection, trachea midline, no thyromegaly Respiratory: min crackles throughout right lung field, no rales or wheezing, no increased work of breathing Cardiovascular: regular rate, rhythm, no murmur, normal peripheral pulses, no BLE edema. Vessels: no JVD Chest: normal inspection of chest Abdomen/GI: normal bowel sounds, soft, nontender, no hepatosplenomegaly Extremities/Musculoskeletal: no cyanosis or clubbing, extremities motor strength 5/5 Neurologic: PERRL, EOMI, accommodation nl, no face palsy, no dysarthria, CN's II-XI intact bilaterally and moves all extremities Psychiatric: A+Ox3, euthymic affect Skin: no rashes, normal color, warm/dry Results & Data Results & Data (MN) Vital Signs (Past 12 Hours) Vital Signs Temp Pulse Pulse Resp BP BP Pulse Ox 08/28/21 07:43 37 C 74 18 107/68 89 L 08/28/21 04:22 36.4 C L 74 18 99/62 L 93 08/28/21 00:03 36.4 C L 81 18 105/65 92 08/27/21 23:07 67 Diagnostic Findings Chest X-Ray 08/08/21 12:03 XR chest 1V portable INDICATION: MN ^post intubation . TECHNIQUE: Single frontal radiograph of the chest was obtained. Comparison: None available at the time of this dictation. FINDINGS: Endotracheal tube terminates 41 mm from the cee. The cardiomediastinal silhouette is normal. No focal airspace opacities are seen bilaterally. No evidence of pleural effusion or pneumothorax. IMPRESSION: 1. Multifocal airspace opacities which may represent atelectasis, pneumonia, and/or aspiration. 2. Satisfactory position of endotracheal tube. ACT 112: Negative or not required by law. Electronically signed by: Juan C Floyd M.D. 08/08/2021 12:31 PM Chest X-Ray 08/08/21 13:12 XR chest 1V portable HISTORY: 61 years-old Male post right subclavian central line acute respiratory failure COMPARISON: Chest radiograph of same day at 12:13 PM TECHNIQUE: Supine portable AP view of the chest FINDINGS: Cardiac silhouette is mildly enlarged. Endotracheal tube overlies the midline, 4.4 cm superior to the cee. Left IJ central venous catheter distal tip is noted in the expected location of the brachiocephalic vein. No pneumothorax or large pleural effusion. Multifocal airspace opacities are noted on a background of interstitial coarsening. Spondylitic spurring of the spine. IMPRESSION: 1. Endotracheal tube and left IJ central venous catheter placement as above. No pneumothorax. 2. Multifocal bilateral airspace opacities redemonstrated suggestive of multifocal pneumonia. ACT 112: Negative or not required by law. The above report was generated using voice recognition software. It may contain grammatical, syntax or spelling errors. Electronically signed by: Eddie Martins M.D. 08/08/2021 1:[address] 08/08/21 14:10 CT SCAN OF THE BRAIN WITHOUT IV CONTRAST CLINICAL HISTORY: Change in mental status. Covid. COMPARISON STUDY: No priors. TECHNIQUE: Unenhanced axial CT scan of the brain is performed from the vertex to the skull base. A dose lowering technique was utilized adhering to the principles of ALARA. CT DOSE: 671.51 mGycm FINDINGS: An endotracheal tube is noted on the rn pediatric icu tomogram. Brain parenchyma: There is mild microradiographic change. There is no hemorrhage, mass effect, or evidence of acute territorial ischemia by CT criteria. Vargas-white matter differentiation is preserved. No extra-axial fluid collection is seen. Ventricles, sulci, cisterns: Normal in configuration. Intracranial vasculature: There is atherosclerotic calcification of the cavernous carotid and vertebral arteries. Calvarium: Unremarkable. Sinuses and mastoids: Moderate mucosal thickening is noted in the ethmoid sinuses. Trace mucosal thickening is seen within the frontal, maxillary, and sphenoid sinuses. The mastoid air cells are well pneumatized. Orbits: The bony orbits are grossly intact. IMPRESSION: There is no hemorrhage, mass effect, or evidence of acute territoria l ischemia by CT criteria. ACT 112: Negative or not required by law. Electronically signed by: Ignacio Kwok M.D. 08/08/2021 2:56 PM Chest X-Ray 08/08/21 16:50 SINGLE VIEW CHEST CLINICAL HISTORY: Enteric tube placement. FINDINGS: An AP, portable, upright chest radiograph is compared to study performed earlier the same day 08/08/2021. An endotracheal tube and a left internal jugular central venous catheter are unchanged in position. An enteric tube has been placed. The tip projects below the diaphragm over the proximal stomach. The cardiomediastinal silhouette is unremarkable. Multifocal patchy airspace consolidation is unchanged from today's earlier examination. No large pleural effusion or pneumothorax is seen. There is chronic posttraumatic d eformity of the right clavicle. IMPRESSION: 1. An enteric tube has been placed as above. 2. Additional lines and tubes are unchanged in position. 3. Multifocal airspace consolidation is unchanged from today's earlier examination and typical for multifocal pneumonia. Radiographic follow-up to resolution is recommended. ACT 112: Negative or not required by law. Electronically signed by: Ignacio Kwok M.D. 08/08/2021 5:38 PM Chest X-Ray 08/09/21 06:00 XR chest 1V portable HISTORY: 61 years-old Male intubation acute respiratory failure COMPARISON: Chest radiograph 08/08/2021 TECHNIQUE: Portable AP view of the chest FINDINGS: Endotracheal tube overlies the midline 4.7 cm superior to the cee. Enteric tube distal tip projects over the proximal stomach. Left IJ central venous catheter is noted with distal tip noted within the region of the brachiocephalic SVC confluence. No pneumothorax or large pleural effusion. Multifocal bilateral airspace opacities, left greater than right are unchanged. No acute fracture. IMPRESSION: 1. Lines and tubes as above. 2. Left greater than right bilateral airspace opacities compatible with mult ifocal pneumonia appear stable from comparison. ACT 112: Negative or not required by law. The above report was generated using voice recognition software. It may contain grammatical, syntax or spelling errors. Electronically signed by: Eddie Martins M.D. 08/09/2021 8:47 AM Chest X-Ray 08/10/21 07:00 SINGLE VIEW CHEST CLINICAL HISTORY: Respiratory failure. FINDINGS: An AP, portable, upright chest radiograph is compared to study performed earlier the same day 08/09/2021. The examination is degraded by portable technique and patient rotation. An endotracheal tube, an enteric tube, and a left internal jugular central venous catheter are unchanged in position. The cardiomediastinal silhouette is unremarkable. Multifocal patchy airspace consolidation is unchanged to modestly worsened as compared to yesterday. No large pleural effusion or pneumothorax is seen. There is chronic posttraumatic deformity of the right clavicle. IMPRESSION: 1. Stable lines and tubes. 3. Multifocal airspace consolidation is unchanged to modestly worsened as compared to yesterday. Radiographic follow-up to resolution is recommended. ACT 112: Negative or not required by law. Electronically signed by: Ignacio Kwok M.D. 08/10/2021 8:44 AM Chest X-Ray 08/11/21 06:00 SINGLE VIEW CHEST CLINICAL HISTORY: Respiratory failure. FINDINGS: An AP, portable, upright chest radiograph is compared to study dated 08/10/2021. The examination is degraded by portable technique and patient rotation. An endotracheal tube, an enteric tube, and a left internal jugular central venous catheter are unchanged in position. The cardiomediastinal silhouette is unremarkable. Multifocal patchy airspace consolidation is unchanged from yesterday. No large pleural effusion or pneumothorax is seen. There is chronic posttraumatic deformity of the right clavicle. IMPRESSION: 1. Stable lines and tubes. 2. Multifocal airspace consolidation is unchanged from yesterday. ACT 112: Negative or not required by law. Electronically signed by: Ignacio Kwok M.D. 08/11/2021 8:17 AM Chest X-Ray 08/12/21 07:00 XR chest 1V portable CLINICAL HISTORY: Resp failure COMPARISON STUDY: August 11, 2021 FINDINGS: No pneumothorax. No pleural effusion. Patchy airspace opacities are again seen bilaterally, unchanged since prior. Cardiomediastinal silhouette is within normal limits in size. Pulmonary vasculature is obscured.. Osseous structures: Degenerative changes of the spine. Tip of endotracheal tube is seen projecting 3.8 cm above cee. Stable position of the gastric tube with tip and fenestrated side-port below level of hemidiaphragm. Stable position of left-sided IJ central venous line. IMPRESSION: 1. Stable multifocal pneumonia. 2. Tip of endotracheal tube is seen projecting 3.8 cm above cee. The rest of support apparatus as above. ACT 112: Negative or not required by law. The above report was generated using voice recognition software. It may contain grammatical, syntax or spelling errors. Electronically signed by: Michelle Tucker DO 08/12/2021 11:06 AM Chest X-Ray 08/13/21 07:00 XR chest 1V portable CLINICAL HISTORY: Resp failure COMPARISON STUDY: August 12, 2021 FINDINGS: No pneumothorax. No pleural effusion. Redemonstration of patchy airspace opacities which are seen bilaterally, not significantly changed since prior. Cardiomediastinal silhouette is within normal limits in size. Pulmonary vasculature is obscured.. Osseous structures: Degenerative changes of the spine and right shoulder. Fracture deformity of the right clavicle. Tip of endotracheal tube is projecting 3.0 cm above cee. Stable position of the left-sided IJ venous catheter and visualized portion of the gastric tube, tip and fenestrated side-port are outside of [id number] and below level of the left hemidiaphragm. IMPRESSION: 1. Stable multifocal pneumonia. 2. Tip of endotracheal tube is projecting 3.0 cm above cee. The rest of support apparatus as above. ACT 112: Negative or not required by law. The above report was generated using voice recognition software. It may contain grammatical, syntax or spelling errors. Electronically signed by: Michelle Tucker DO 08/13/2021 9:13 AM Chest X-Ray 08/14/21 08:23 XR chest 1V portable CLINICAL HISTORY: f/u COMPARISON STUDY: August 13, 2021 FINDINGS: No pneumothorax. No pleural effusion. Bilateral patchy airspace opacities are unchanged since prior. Evaluation is suboptimal due to rotation. Cardiomediastinal silhouette is within normal limits in size. Pulmonary vasculature is obscured.. Osseous structures: Degenerative changes of the spine and right shoulder. Tip of endotracheal tube is projecting 6.2 cm above cee. Stable position of left sided IJ intravenous line. Fenestrated side-port of gastric tube is seen at the level of the left hemidiaphragm. Tip is projecting to the left upper quadrant. IMPRESSION: 1. Multifocal pneumonia, unchanged since prior. 2. Fenestrated side-port of gastric tube is seen at the level of hemidiaphragm. Repositioning approximately 5 cm forward is recommended. 3. Tip of endotracheal tube is projecting 6.2 cm above cee. 4. The rest of findings as above. ACT 112: Negative or not required by law. The above report was generated using voice recognition software. It may contain grammatical, syntax or spelling errors. Electronically signed by: Michelle Tucker DO 08/14/2021 9:49 AM Chest X-Ray 08/15/21 07:00 XR chest 1V portable INDICATION: MN ^f/u . TECHNIQUE: Single frontal radiograph of the chest was obtained. Comparison: Comparison is made to chest one view 08/14/2021 FINDINGS: Previous seen noted enteric tube has been advanced and is now in satisfactory position. Additional lines and tubes are stable. The cardiomediastinal silhouette is normal. Redemonstration of diffuse bilateral airspace opacities. No evidence of pleural effusion or pneumothorax. IMPRESSION: 1. Multifocal pneumonia, unchanged from prior. 2. Interval advancement of the enteric tube, now in satisfactory position. ACT 112: Negative or not required by law. Electronically signed by: Juan C Floyd M.D. 08/15/2021 8:40 AM Chest X-Ray 08/16/21 07:00 XR chest 1V portable HISTORY: Respiratory failure. Shortness of breath. Follow-up. COMPARISON: Chest 08/15/2021. FINDINGS: Endotracheal tube terminates approximately 3.2 cm from the cee. Nasogastric tube terminates in the stomach. Left jugular central venous catheter terminates at the brachiocephalic/SVC junction. No pneumothorax. No pleural effusions. Hazy bilateral airspace opacities most pronounced within the left lung persists. This likely represents a viral pneumonia. IMPRESSION: 1. Satisfactory support line placement. 2. No change in the multifocal airspace opacities consistent with a pneumonia. ACT 112: Negative or not required by law. Electronically signed by: Perico Baker M.D. 08/16/2021 9:52 AM Chest X-Ray 08/17/21 07:00 XR chest 1V portable INDICATION: [place] ^f/u . TECHNIQUE: Single frontal radiograph of the chest was obtained. Comparison: None available at the time of this dictation. FINDINGS: Lines and tubes are stable. The cardiomediastinal silhouette is normal. Interval slight improvement in left greater than right airspace opacities. No evidence of pleural effusion or pneumothorax. IMPRESSION: Multifocal airspace opacities have somewhat improved from prior exam. ACT 112: Negative or not required by law. Electronically signed by: Juan C Floyd M.D. 08/17/2021 9:51 AM Chest X-Ray 08/18/21 07:00 XR chest 1V portable HISTORY: 61 years-old Male f/u acute respiratory failure COMPARISON: Chest radiograph 08/17/2021 TECHNIQUE: Portable AP view of the chest FINDINGS: Endotracheal tube overlies the midline, 3.8 cm superior to the cee. Enteric tube courses below the diaphragm outside the [id number]. Left IJ central venous catheter is unchanged with distal tip in the expected location of the brachiocephalic SVC confluence. Cardiac silhouette is unchanged. Mild interstitial coarsening with midlung zone and left basilar predominant airspace opacities, stable from comparison. Degenerative changes of the shoulders and spine. IMPRESSION: 1. Lines and tubes as above. 2. Unchanged multifocal bilateral airspace opacities compatible with pneumonia. 3. No pneumothorax. ACT 112: Negative or not required by law. The above report was generated using voice recognition software. It may contain grammatical, syntax or spelling errors. Electronically signed by: Eddie Martins M.D. 08/18/2021 8:15 AM KUB X-Ray 08/18/21 08:56 KUB HISTORY: Check NG tube placement COMPARISON: None. FINDINGS: Feeding tube terminates at the gastroesophageal junction.. The bowel gas pattern is unremarkable. A rectal catheter is noted. No renal calculi. No ureteral calculi. No pneumoperitoneum or pneumatosis. IMPRESSION: Feeding tube terminates at the gastroesophageal junction. ACT 112: Negative or not required by law. Electronically signed by: Perico Baker M.D. 08/18/2021 9:35 AM KUB X-Ray 08/18/21 09:30 KUB HISTORY: REPOSITION NG TUBE COMPARISON: None. FINDINGS: The feeding tube is been repositioned and is now looped within the fundus of the stomach. The bowel gas pattern is unremarkable. No renal calculi. No ureteral calculi. No pneumoperitoneum or pneumatosis. IMPRESSION: The feeding tube is now looped within the fundus of the stomach. ACT 112: Negative or not required by law. Electronically signed by: Perico Baker M.D. 08/18/2021 9:35 AM Chest X-Ray 08/19/21 07:00 XR chest 1V portable HISTORY: Respiratory failure. Pneumonia. COMPARISON: Chest 08/18/2021. FINDINGS: Endotracheal tube is been removed. Feeding tube terminates below the diaphragm. The tip is not included on this study. No pneumothorax. No pleural effusions. Patchy bilateral airspace opacities persist. The heart remains normal in size. Old, healed right clavicle fracture. IMPRESSION: 1. Status post extubation. The feeding tube terminates below the diaphragm. 2. Patchy bilateral airspace opacities consistent with a pneumonia are not significantly changed. ACT 112: Negative or not required by law. Electronically signed by: Perico Baker M.D. 08/19/2021 8:14 AM Chest X-Ray 08/23/21 07:00 XR chest 1V portable HISTORY: 61 years-old Male covid acute shortness of breath with viral pneumonia COMPARISON: Chest radiograph 08/19/2021 TECHNIQUE: Portable AP view of the chest FINDINGS: The cardiomediastinal and hilar silhouettes are within normal limits. Interval removal of the enteric tube. No pneumothorax, or large pleural effusion. Mildly progressed multifocal bilateral airspace opacities. No acute fracture. IMPRESSION: Mildly worsened multifocal opacities compatible with pneumonia. ACT 112: Negative or not required by law. The above report was generated using voice recognition software. It may contain grammatical, syntax or spelling errors. Electronically signed by: Eddie Martins M.D. 08/23/2021 7:45 AM
[2021-08-28] MEDS: ANUSOL SUPP 1 EA PR SCH (20:02)
[2021-08-28] MEDS ORDERED: ANUSOL SUPP 1 EA PR SCH (21:00)
[2021-08-29 07:06] LABS: Hemoglobin 11.2 g/dL (14.0-18.0); Mean Corpuscular Hemoglobin 31.7 pg (25-34); Mean Corpuscular Hgb Conc 32.9 g/dL (32-36); Mean Corpuscular Volume 96.3 fL (80-100); Mean Platelet Volume 9.2 fL (7.4-10.4); Platelet Count 383 K/uL (130-400); RDW Coefficient of Variation 13.5 % (11.5-14.5); Red Blood Count 3.53 M/uL (4.7-6.1); White Blood Count 7.58 K/uL (4.8-10.8)
[2021-08-29 07:46] LABS: BUN Creatinine Ratio 23.2 (10-20); Calcium 8.9 mg/dl (8.5-10.1); Creatinine Clr Calc Pharmacy 158.7 ml/min; Est GFR (African American) 132.2 ml/min; Est GFR (Non-African American) 114.1 ml/min; Potassium 4.3 mmol/L (3.5-5.1)
[2021-08-29] MEDS: INSULIN ASPART 100 UNITS/ML 3 ML PEN SC SCH ×4 (07:52→20:56)
[2021-08-29] MEDS: THIAMINE HCL 100 MG TAB PO SCH (07:57)
[2021-08-29] MEDS: MULTIVITAMIN TAB PO SCH (07:57)
[2021-08-29] MEDS: SENNA 8.6 MG TAB PO SCH (07:57)
[2021-08-29] MEDS: DOCUSATE SODIUM 100 MG CAP PO SCH ×2 (07:58→19:42)
--- NOTE | 2021-08-29 11:46 | Hospitalist Progress Note ---
Date of Service August 29, 2021 Assessment & Plan (1) Acute respiratory failure due to COVID-19: Plan: Patient is a 61 yr male with H/O Alcohol use and prior tobacco use presented to ER for respiratory distress. Reported pt tested positive for COVID-19 4 days ago. Non-vaccinated. +COVID-19 contact. Initially presented with acute respiratory failure with Hypoxia 2/2 ARDS and COVID-19 pneumonia. Status post intubation requiring paralytics. Initially managed in the ICU Initial CXR with multifocal airspace opacities which may represent atelectasis, pneumonia, and/or aspiration CT Head:There is no hemorrhage, mass effect, or evidence of acute territorial ischemia by CT criteria Status post course of Decadron and antibiotics Extubated on 08/08/21 Still requiring high amounts of oxygen supplementation - currently on 13 L Oxymask Chest CTA today showing extensive multilobar viral pneumonia. No pulmonary emboli. Mediastinal and hilar adenopathy is likely reactive Continue supportive care with pulmonary hygiene (2) Acute encephalopathy: (3) Hypotension: (4) Elevated troponin I level: (5) Elevated lactic acid level: (6) Elevated d-dimer: Plan: Present on admission and have since resovled (7) Alcohol abuse: Plan: Alcohol use disorder. Continue thiamine, No signs of Alcohol withdrawal currently, college counselor to quit drinking (8) Non-sustained ventricular tachycardia: Plan: Asymptomatic Hold Metoprolol due to Low BP Consider to restart BB if needed (9) Hemorrhoids: Plan: Some bleeding noted from hemorrhoids. Stool softener BID and Anusol started. Plan to continue Anusol HS x 20 days per GI. H&H stable today - resumed SQ Lovenox Recheck H&H daily (10) UTI (urinary tract infection): Plan: UTI 2/2 enterococcus faecalis. Received 5 days of Ampicillin. Now off of antibiotics (11) Hoarseness of voice: Plan: Possibly related to vocal cord dysfunction. Noted recent intubation and paralytics. No speech or voice issues prior to hospitalization. No dysphagia, s/p FEES by speech with aspiration precautions recommended. No straws, giving meds in a carrier, good oral hygiene, alternate solids and liquids. Doing well overall and hoarseness is improving. (12) DVT prophylaxis: Plan: SQ lovenox resumed this afternoon Full Dispo-PCU while still requiring high amounts of supplemental oxygen Patient seen in collaboration with Dr. Brian. Please see addendum. Admission and Anticipated Discharge Date Admission Date: August 08, 2021 Supervising Physician Co-Signing Physician Notes I have seen and examined the patient and have discussed the case with the provider above. I agree with the assessment and plan as stated. Pt is feeling well today overall, continues to stay positive and is excited that his CT scan did not reveal a blood clot. We reviewed the images and his progress together. He is improving. Set expectation that this will likely take at least another week or more and that he will probably require supplemental oxygen long-term. He verbalized understanding. Physical exam with coarse crackles at bases bilaterally, normal cardiac exam and no pulmonary edema. No evidence of alcohol withdrawal at this point. Neuro exam grossly normal with clear mentation. Reviewed CT scan with patient. Agree with restarting Lovenox with high risk of DVT despite hemorrhoids. Cont Anusol as prescribed. Pt not in much discomfort at this time. DO Roc Subjective Patient is seen and examined at bedside. Subjectively feels better. No hemorrhoidal bleeding today; received anusol last evening. No SOB at rest. Still on 13 L oxymask. Denies any fever, chills, chest pain, SOB, dizziness, nausea, vomiting, abd pain, dysuria or constipation. Review of Systems Review of Systems: At least ten systems were reviewed and negative except as indicated in HPI above. Physical Exam Physical Exam: Gen: WD/WN, NAD, sitting in bed eating breakfast, A&Ox3, vocal hoarseness HEENT: Normocephalic, atraumatic, conjunctivae moist, sclerae anicteric, wearing oxymask Lung: Clear to Auscultation bilaterally with scattered crackles. No wheezing or rhonchi noted Heart: Regular rate, regular rhythm, no murmurs, rubs, or gallops Abdomen: Soft, NT, ND +BS x 4 Extremities: no edema Skin: Warm, no rash Results & Data Results & Data ([facility]) Vital Signs (Past 12 Hours) Vital Signs Temp Pulse Pulse Pulse Resp BP Pulse Ox 08/29/21 11:06 36.5 C 68 21 106/70 94 08/29/21 08:00 36.9 C 88 70 16 99/60 L 95 08/29/21 04:43 37.0 C 79 18 100/64 94 10/15/21 00:38 94 H Laboratory Results Short CBC 08/29/21 Range/Units 06:23 WBC 7.58 (4.8-10.8) K/uL Hgb 11.2 L (14.0-18.0) g/dL Hct 34.0 L (42-52) % Plt Count 383 (130-400) K/uL BMP 08/29/21 06:23 Sodium 139 Potassium 4.3 Chloride 106 Carbon Dioxide 29 BUN 13 Creatinine 0.55 L Glucose 89 Calcium 8.9 Diagnostic Findings Chest CTA 08/29/21 09:55 CT angio chest PE protocol CT DOSE: 458.97 mGy.cm HISTORY: 61 years-old Male with PE. Acute cough with chest pain and shortness of breath. COVID Positive. TECHNIQUE: Multiple CTA images of the chest were obtained after the intravenous administration of 114 ml Optiray. Coronal and sagittal MIPS were obtained from the axial data set and were submitted for review. All measurements were obtained according to NASCET criteria. A dose lowering technique was utilized adhering to the principles of ALARA. COMPARISON: Chest radiograph 08/23/2021 FINDINGS: CTA: The heart is mildly enlarged. No pericardial effusion. Mild coronary artery calcifications. No thoracic aortic aneurysm or dissection. Patency of the imaged great vessels. The pulmonary arterial tree is opacified to the level of the subsegmental branches and demonstrates no filling defects to suggest thromboembolic disease. CT CHEST: Unremarkable thyroid. Pathologic mediastinal and hilar adenopathy include subcarinal adenopathy measuring up to 3.2 x 2.1 cm. No pneumothorax, or pleural effusion. Multifocal multilobar distribution of extensive groundglass and consolidative opacities with air bronchograms. The central airways are patent. No acute process of the imaged upper abdomen. Mild wall thickening of the distal esophagus. Unremarkable soft tissues. No acute fracture. IMPRESSION: 1. No pulmonary emboli. 2. Extensive multilobar viral pneumonia. 3. Mediastinal and hilar adenopathy is likely reactive. 4. Mild cardiomegaly. ACT 112: Negative or not required by law. The above report was generated using voice recognition software. It may contain grammatical, syntax or spelling errors. Electronically signed by: Eddie Martins M.D. 08/29/2021 2:57 PM
[2021-08-29] MEDS ORDERED: OPTIRAY 320 125ml IV ONE (14:01)
--- NOTE | 2021-08-29 14:58 | CT Scan Report ---
CT angio chest PE protocol CT DOSE: 458.97 mGy.cm HISTORY: 61 years-old Male with PE. Acute cough with chest pain and shortness of breath. COVID Posi tive. TECHNIQUE: Multiple CTA images of the chest were obtained after the intravenous administration of 114 ml Optiray. Coronal and sagittal MIPS were obtained from the axial data set and were submitted for review. All measurements were obtained according to NASCET criteria. A dose lowering technique was u tilized adhering to the principles of ALARA. COMPARISON: Chest radiograph 08/23/2021 FINDINGS: CTA: The heart is mildly enlarged. No pericardial effusion. Mild coronary artery calcifications. No thorac ic aortic aneurysm or dissection. Patency of the imaged great vessels. The pulmonary arterial tree is opacified to the level of the subsegmental branches and demonstrates no filling defects to suggest t hromboembolic disease. CT CHEST: Unremarkable thyroid. Pathologic mediastinal and hilar adenopathy include subcarinal adenopathy measu ring up to 3.2 x 2.1 cm. No pneumothorax, or pleural effusion. Multifocal multilobar distribution of extensive groundglass and consolidative opacities with air bronchograms. The central airways are lima nt. No acute process of the imaged upper abdomen. Mild wall thickening of the distal esophagus. Unremarka ble soft tissues. No acute fracture. IMPRESSION: 1. No pulmonary emboli. 2. Extensive multilobar viral pneumonia. 3. Mediastinal and hilar adenopathy is likely reactive. 4. Mild cardiomegaly. ACT 112: Negative or not required by law. The above report was generated using voice recognition software. It may contain grammatical, syntax o r spelling errors. Electronically signed by: Eddie Martins M.D. 08/29/2021 2:57 PM
[2021-08-29] MEDS: ENOXAPARIN INJ 40 MG/0.4 ML SYR SQ SCH (18:30)
[2021-08-29] MEDS: ANUSOL SUPP 1 EA PR SCH (19:40)
[2021-08-30] MEDS: INSULIN ASPART 100 UNITS/ML 3 ML PEN SC SCH ×4 (07:53→21:08)
[2021-08-30] MEDS: SENNA 8.6 MG TAB PO SCH (08:19)
[2021-08-30] MEDS: DOCUSATE SODIUM 100 MG CAP PO SCH ×2 (08:19→21:11)
[2021-08-30] MEDS: MULTIVITAMIN TAB PO SCH (08:19)
[2021-08-30] MEDS: THIAMINE HCL 100 MG TAB PO SCH (08:19)
[2021-08-30 08:41] LABS: Hematocrit (blood only) 34.2 % (42-52); Hemoglobin 11.2 g/dL (14.0-18.0)
--- NOTE | 2021-08-30 08:46 | Hospitalist Progress Note ---
Date of Service August 30, 2021 Assessment & Plan (1) Acute respiratory failure due to COVID-19: Plan: Secondary to ARDS and COVID-19 pneumonia. Status post intubation requiring paralytics. Status post course of Decadron and antibiotics. Still requiring high amounts of oxygen supplementation. Continue supportive care (2) Alcohol abuse: Plan: Alcohol use disorder. Continue thiamine, No signs of Alcohol withdrawal currently, vocational counselor to quit drinking (3) Hemorrhoids: Plan: Some bleeding noted from hemorrhoids. Stool softener BID and Anusol started. Plan to continue Anusol HS x 20 days per GI. H&H stable today - resumed SQ Lovenox Recheck H&H daily (4) UTI (urinary tract infection): Plan: UTI 2/2 enterococcus faecalis. Received 5 days of Ampicillin. Now off of antibiotics (5) Hoarseness of voice: Plan: Possibly related to vocal cord dysfunction. Noted recent intubation and paralytics. No speech or voice issues prior to hospitalization. No dysphagia, s/p FEES by speech with aspiration precautions recommended. No straws, giving meds in a carrier, good oral hygiene, alternate solids and liquids. Doing well overall and hoarseness continues to improve (6) DVT prophylaxis: Plan: SQ lovenox Full Dispo-PCU while still requiring high amounts of supplemental oxygen Heike Brian DO [facility] Hospitalist Admission and Anticipated Discharge Date Admission Date: August 08, 2021 Subjective 61-year-old man admitted with COVID-19 pneumonia causing acute respiratory failure. He admitted to intensive care unit and was intubated for severe ARDS, required paralytics. Received antibiotics, Decadron. Also with history of alcohol dependence and initial encephalopathy which has now resolved after treatment. 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 ENT follow-up recommended. Speech therapy evaluated. Extubated on 08/18. Also found to have a UTI secondary to Enterococcus with negative blood cultures. He was on cefepime which was transitioned to ampicillin for 5 days. denies acute SOB today feeling well 95% on 15L oxymask denies pain Review of Systems Review of Systems: At least ten systems were reviewed and negative except as indicated in HPI above. Physical Exam Physical Exam: CONSTITUTIONAL: WNWD, vitals as above, generally well- appearing EYES: normal conjunctivae, no scleral icterus ENT: external ear and nose normal, MMM NECK: trachea midline RESPIRATORY: clear to auscultation bilaterally, no crackles, rales or wheezes, normal respiratory effort CARDIOVASCULAR: regular rate and rhythm, S1 and 2 heard without murmurs, gallops or rubs, no JVD, no peripheral edema GASTROINTESTINAL: soft, nontender, ND, no guarding. MUSCULOSKELETAL: strength 5/5 throughout, head is normocephalic and atraumatic, neck supple, normal palpation of chest wall without tenderness SKIN: warm and dry NEUROLOGIC: CN 2-12 grossly intact, no sensory deficit, normal cognition, normal speech, no tremor PSYCHIATRIC: alert cooperative and oriented to person, place and time. Results & Data Results & Data ([facility]) Vital Signs (Past 12 Hours) Vital Signs Temp Pulse Pulse Resp BP BP Pulse Ox 08/30/21 03:48 36.7 C 76 20 111/70 95 08/30/21 00:04 36.5 C 85 24 102/68 96 08/29/21 20:58 36.7 C 91 H 24 114/73 96 Laboratory Results Short CBC 08/30/21 Range/Units 06:38 Hgb 11.2 L (14.0-18.0) g/dL Hct 34.2 L (42-52) % Medications Administered Current Inpatient Medications Acetaminophen (Acetaminophen 325 Mg Tab) 650 mg PO Q4H PRN PRN Reason: Pain or Fever Stop: 09/22/21 17:02 Last Admin: 08/24/21 16:14 Dose: 650 mg Documented by: Dextrose (Dextrose 50% 50 Ml Syringe) 25 - 50 ml IV UD PRN; Protocol PRN Reason: Hypoglycemia Protocol Stop: 09/07/21 23:44 Docusate Sodium (Docusate Sodium 100 Mg Cap) 100 mg PO BID [facility]CHOR Stop: 09/22/21 20:59 Last Admin: 08/30/21 08:19 Dose: Not Given Documented by: Enoxaparin Sodium (Enoxaparin Inj 40 Mg/0.4 Ml Syr) 40 mg SQ Q24H M[facility]CHOR Stop: 09/28/21 17:59 Last Admin: 08/29/21 18:30 Dose: 40 mg Documented by: Glucagon (Glucagon For Inj 1 Mg Vial) 1 mg IM UD PRN; Protocol PRN Reason: Hypoglycemia Protocol Stop: 09/07/21 23:44 Glucose (Glucose 40% Gel 15 Gm Tube) 15 - 30 gm PO UD PRN; Protocol PRN Reason: Hypoglycemia Protocol Stop: 09/07/21 23:44 Glucose (Glucose 10 Tabs/Tube) 4 - 8 tabs PO UD PRN; Protocol PRN Reason: Hypoglycemia Protocol Stop: 09/07/21 23:44 Heparin Sodium (Beef Lung) (Heparin 10 Unit/Ml 5 Ml Flush) 5 ml FLUSH PRN PRN PRN Reason: Flush Stop: 09/13/21 07:37 Last Admin: 08/15/21 14:20 Dose: 15 ml Documented by: Hydrocortisone (Hydrocortisone Hc 2.5% Crm 30gm Tube) 1 appln EXT BID PRN PRN Reason: Hemorrhoid pain Stop: 09/24/21 00:51 Last Admin: 08/26/21 16:05 Dose: 1 appln Documented by: Insulin Aspart (Insulin Aspart 100 Units/Ml 3 Ml Pen) 0 units SC ACHS [facility] Stop: 09/19/21 16:59 Last Admin: 08/30/21 07:53 Dose: 4 units Documented by: Miscellaneous (Carbohydrates For Hypoglycemia ) 15 - 30 gm PO UD PRN PRN Reason: Hypoglycemia Treatment Stop: 09/07/21 23:44 Multivitamins (Multivitamin Tab) 1 tab PO QAM [facility] Stop: 09/22/21 08:59 Last Admin: 08/30/21 08:19 Dose: 1 tab Documented by: Phenylephrine HCl (Anusol Supp 1 Ea) 1 ea [place] HS [facility] Stop: 09/27/21 20:59 Last Admin: 08/29/21 19:40 Dose: 1 ea Documented by: Polyethylene Glycol (Polyethylene (Miralax) 17 Gm Pack) 17 gm PO DAILY PRN PRN Reason: Constipation Stop: 09/24/21 00:50 Sennosides (Senna 8.6 Mg Tab) 8.6 mg PO QAM [facility] Stop: 09/23/21 08:59 Last Admin: 08/30/21 08:19 Dose: 8.6 mg Documented by: Thiamine HCl (Thiamine Hcl 100 Mg Tab) 100 mg PO DAILY [facility] Stop: 09/10/21 11:59 Last Admin: 08/30/21 08:19 Dose: 100 mg Documented by:
[2021-08-30] MEDS: ENOXAPARIN INJ 40 MG/0.4 ML SYR SQ SCH (17:05)
[2021-08-30] MEDS: ANUSOL SUPP 1 EA PR SCH (21:11)
[2021-08-31] MEDS: INSULIN ASPART 100 UNITS/ML 3 ML PEN SC SCH ×4 (09:06→20:47)
[2021-08-31] MEDS: THIAMINE HCL 100 MG TAB PO SCH (09:10)
[2021-08-31] MEDS: DOCUSATE SODIUM 100 MG CAP PO SCH ×2 (09:10→20:35)
[2021-08-31] MEDS: MULTIVITAMIN TAB PO SCH (09:10)
[2021-08-31] MEDS: SENNA 8.6 MG TAB PO SCH (09:10)
--- NOTE | 2021-08-31 10:16 | Hospitalist Progress Note ---
Date of Service August 31, 2021 Assessment & Plan (1) Acute respiratory failure due to COVID-19: Plan: Secondary to ARDS and COVID-19 pneumonia. Status post intubation requiring paralytics. Status post course of Decadron and antibiotics. Still requiring high amounts of oxygen supplementation. Continue supportive care. Amount of adventitial sounds improving and patient is feeling better. Cont to wean oxygen as tolerated. (2) Alcohol abuse: Plan: Alcohol use disorder. Continue thiamine, No signs of Alcohol withdrawal currently, patient financial counselor to quit drinking (3) Hemorrhoids: Plan: Some bleeding noted from hemorrhoids. Stool softener BID and Anusol started. Plan to continue Anusol HS x 20 days per GI. H&H stable today - resumed SQ Lovenox H/H is stable. (4) UTI (urinary tract infection): Plan: UTI 2/2 enterococcus faecalis. Received 5 days of Ampicillin. Now off of antibiotics (5) Hoarseness of voice: Plan: Possibly related to vocal cord dysfunction. Noted recent intubation and paralytics. No speech or voice issues prior to hospitalization. No dysphagia, s/p FEES by speech with aspiration precautions recommended. No straws, giving meds in a carrier, good oral hygiene, alternate solids and liquids. Doing well overall and hoarseness continues to improve (6) DVT prophylaxis: Plan: SQ lovenox Full Dispo-PCU while still requiring high amounts of supplemental oxygen Heike Brian DO [facility] Hospitalist Admission and Anticipated Discharge Date Admission Date: August 08, 2021 Subjective 61-year-old man admitted with COVID-19 pneumonia causing acute respiratory fail ure. He admitted to intensive care unit and was intubated for severe ARDS, required paralytics. Received antibiotics, Decadron. Also with history of alcohol dependence and initial encephalopathy which has now resolved after treatment. 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 ENT follow-up recommended. Speech therapy evaluated. Extubated on 08/18. Also found to have a UTI secondary to Enterococcus with negative blood cultures. He was on cefepime which was transitioned to ampicillin for 5 days. denies acute SOB today reports that he slept the best he has yet overnight last night feels better today--lungs are clearing on auscultation. denies pain afebrile, tolerating PO Review of Systems Review of Systems: At least ten systems were reviewed and negative except as indicated in HPI above. Physical Exam Physical Exam: CONSTITUTIONAL: WNWD, vitals as above, generally well- appearing EYES: normal conjunctivae, no scleral icterus ENT: external ear and nose normal, MMM NECK: trachea midline RESPIRATORY: crackles in left lower lobe, no rales or wheezes, normal respiratory effort CARDIOVASCULAR: regular rate and rhythm, S1 and 2 heard without murmurs, gallops or rubs, no JVD, no peripheral edema GASTROINTESTINAL: soft, nontender, ND, no guarding. MUSCULOSKELETAL: strength 5/5 throughout, head is normocephalic and atraumatic, neck supple, normal palpation of chest wall without tenderness SKIN: warm and dry NEUROLOGIC: CN 2-12 grossly intact, no sensory deficit, normal cognition, normal speech, no tremor PSYCHIATRIC: alert cooperative and oriented to person, place and time. Results & Data Results & Data ([facility]) Vital Signs (Past 12 Hours) Vital Signs Temp Pulse Pulse Pulse Resp BP BP 08/31/21 09:51 36.2 C L 101 H 20 90/61 L 08/31/21 08:00 73 08/31/21 04:47 36.5 C 82 16 109/68 08/30/21 23:44 37.1 C 70 18 112/71 Pulse Ox 08/31/21 09:51 92 08/31/21 08:00 08/31/21 04:47 93 08/30/21 23:44 97 Medications Administered Current Inpatient Medications Acetaminophen (Acetaminophen 325 Mg Tab) 650 mg PO Q4H PRN PRN Reason: Pain or Fever Stop: 09/22/21 17:02 Last Admin: 08/24/21 16:14 Dose: 650 mg Documented by: Dextrose (Dextrose 50% 50 Ml Syringe) 25 - 50 ml IV UD PRN; Protocol PRN Reason: Hypoglycemia Protocol Stop: 09/07/21 23:44 Docusate Sodium (Docusate Sodium 100 Mg Cap) 100 mg PO BID [facility] Stop: 09/22/21 20:59 Last Admin: 08/31/21 09:10 Dose: 100 mg Documented by: Enoxaparin Sodium (Enoxaparin Inj 40 Mg/0.4 Ml Syr) 40 mg SQ Q24H [facility] Stop: 09/28/21 17:59 Last Admin: 08/30/21 17:05 Dose: 40 mg Documented by: Glucagon (Glucagon For Inj 1 Mg Vial) 1 mg IM UD PRN; Protocol PRN Reason: Hypoglycemia Protocol Stop: 09/07/21 23:44 Glucose (Glucose 40% Gel 15 Gm Tube) 15 - 30 gm PO UD PRN; Protocol PRN Reason: Hypoglycemia Protocol Stop: 09/07/21 23:44 Glucose (Glucose 10 Tabs/Tube) 4 - 8 tabs PO UD PRN; Protocol PRN Reason: Hypoglycemia Protocol Stop: 09/07/21 23:44 Heparin Sodium (Beef Lung) (Heparin 10 Unit/Ml 5 Ml Flush) 5 ml FLUSH PRN PRN PRN Reason: Flush Stop: 09/13/21 07:37 Last Admin: 08/15/21 14:20 Dose: 15 ml Documented by: Hydrocortisone (Hydrocortisone Hc 2.5% Crm 30gm Tube) 1 appln EXT BID PRN PRN Reason: Hemorrhoid pain Stop: 09/24/21 00:51 Last Admin: 08/26/21 16:05 Dose: 1 appln Documented by: Insulin Aspart (Insulin Aspart 100 Units/Ml 3 Ml Pen) 0 units SC ACHS [facility] Stop: 09/19/21 16:59 Last Admin: 08/31/21 09:06 Dose: 3 units Documented by: Miscellaneous (Carbohydrates For Hypoglycemia ) 15 - 30 gm PO UD PRN PRN Reason: Hypoglycemia Treatment Stop: 09/07/21 23:44 Last Admin: 08/30/21 11:25 Dose: 15 gm Documented by: Multivitamins ([facility]ivitamin Tab) [facility] Stop: 09/22/21 08:59 Last Admin: 08/31/21 09:10 Dose: 1 tab Documented by: Phenylephrine HCl (Anusol Supp 1 Ea) 1 ea [place] HS [facility] Stop: 09/27/21 20:59 Last Admin: 08/30/21 21:11 Dose: 1 ea Documented by: Polyethylene Glycol (Polyethylene (Miralax) 17 Gm Pack) 17 gm PO DAILY PRN PRN Reason: Constipation Stop: 09/24/21 00:50 Sennosides (Senna 8.6 Mg Tab) 8.6 mg PO QAM [facility] Stop: 09/23/21 08:59 Last Admin: 08/31/21 09:10 Dose: 8.6 mg Documented by: Thiamine HCl (Thiamine Hcl 100 Mg Tab) 100 mg PO DAILY [facility] Stop: 09/10/21 11:59 Last Admin: 08/31/21 09:10 Dose: 100 mg Documented by:
[2021-08-31] MEDS: ENOXAPARIN INJ 40 MG/0.4 ML SYR SQ SCH (17:18)
[2021-08-31] MEDS: ANUSOL SUPP 1 EA PR SCH (20:35)
[2021-09-01] MEDS: SENNA 8.6 MG TAB PO SCH (08:34)
[2021-09-01] MEDS: MULTIVITAMIN TAB PO SCH (08:34)
[2021-09-01] MEDS: DOCUSATE SODIUM 100 MG CAP PO SCH ×2 (08:34→21:10)
[2021-09-01] MEDS: THIAMINE HCL 100 MG TAB PO SCH (08:34)
[2021-09-01] MEDS: INSULIN ASPART 100 UNITS/ML 3 ML PEN SC SCH ×4 (08:35→21:03)
[2021-09-01 08:48] LABS: Hematocrit (blood only) 36.7 % (42-52); Mean Corpuscular Hemoglobin 31.8 pg (25-34); Mean Corpuscular Hgb Conc 32.7 g/dL (32-36); Mean Corpuscular Volume 97.3 fL (80-100); Platelet Count 436 K/uL (130-400); RDW Coefficient of Variation 13.8 % (11.5-14.5); RDW Standard Deviation 48.7 fL (36.4-46.3); Red Blood Count 3.77 M/uL (4.7-6.1); White Blood Count 8.13 K/uL (4.8-10.8)
[2021-09-01 09:15] LABS: BUN Creatinine Ratio 17.4 (10-20); Calcium 9.3 mg/dl (8.5-10.1); Creatinine Clr Calc Pharmacy 110.5 ml/min; Est GFR (African American) 113.9 ml/min; Est GFR (Non-African American) 98.3 ml/min; Potassium 3.9 mmol/L (3.5-5.1)
--- NOTE | 2021-09-01 14:49 | Hospitalist Progress Note ---
Date of Service September 01, 2021 Assessment & Plan (1) Acute respiratory failure due to COVID-19: Plan: Secondary to ARDS and COVID-19 pneumonia. Status post intubation requiring paralytics. Received course of Decadron and antibiotics. Still requiring high amounts of oxygen supplementation (10 L, 50% FiO2). Continue supportive care, wean O2 as able. PT/OT reconsulted (2) Alcohol abuse: Plan: Alcohol use disorder. Continue thiamine. No signs of Alcohol withdrawal. (3) Hemorrhoids: Plan: Some bleeding noted from hemorrhoids. Stool softener BID and Anusol started. Plan to continue Anusol HS x 20 days per GI. Hgb stable at 12.0 (4) UTI (urinary tract infection): Plan: UTI 2/2 enterococcus faecalis. Received 5 days of Ampicillin. (5) Hoarseness of voice: Plan: Possibly related to vocal cord dysfunction. Noted recent intubation and paralytics. No speech or voice issues prior to hospitalization. No dysphagia, s/p FEES by speech with aspiration precautions recommended. No straws, giving meds in a carrier, good oral hygiene, alternate solids and liquids. Doing well overall and hoarseness continues to improve. May need outpatient ENT eval. (6) DVT prophylaxis: Plan: SQ Lovenox Dispo-PCU while still requiring high amounts of supplemental oxygen Admission and Anticipated Discharge Date Admission Date: August 08, 2021 Supervising Physician Co-Signing Physician Notes I have seen and examined the patient and have discussed the case with the provider above. I agree with the assessment and plan as stated with the following exceptions. Pt is feeling well today overall, Physical exam with coarse crackles at bases bilaterally which have improved, normal cardiac exam and no pulmonary edema. Pt feels his voice hoarseness is improving. Cont plan as above. DO Lynette Brian 61-year-old man admitted with COVID-19 pneumonia causing acute respiratory failure. He admitted to intensive care unit and was intubated for severe ARDS, required paralytics. Received antibiotics, Decadron. Also with history of alcohol dependence and initial encephalopathy which has now resolved after emerita tment. 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 ENT follow-up recommended. Speech therapy evaluated. Extubated on 08/18. Also found to have a UTI secondary to Enterococcus with negative blood cultures. He was on cefepime which was transitioned to ampicillin for 5 days. Patient seen and examined. Resting in bed. Mother visiting at bedside. Continues to have shortness of breath with minimal exertion. Fatigues easily. Appetite good. Denies abdominal pain or nausea. Minimal cough. No chest pain. Afebrile Review of Systems Review of Systems: per HPI Physical Exam Constitutional: WD/WN, vitals as above no acute distress Respiratory: normal respiratory effort; no respiratory distress Auscultation: + diminished lung sounds Cardiovascular: Rate/Rhythm: regular rate and regular rhythm Vessels: normal peripheral pulses Extremities: no edema Gastrointestinal (Abdomen): Percussion/Palpation: abdomen soft; abdomen nontender Musculoskeletal: no cyanosis or clubbing, extremities motor strength 5/5 Skin: no rashes, warm and dry Psychiatric: A+Ox3, euthymic affect Results & Data Results & Data ([facility]) Vital Signs (Past 12 Hours) Vital Signs Temp Pulse Pulse Resp BP Pulse Ox 09/01/21 13:50 93 09/01/21 08:16 36.5 C 93 H 20 102/67 95 09/01/21 08:00 92 H 09/01/21 04:42 36.5 C 86 24 99/64 L 92 Laboratory Results Short CBC 09/01/21 Range/Units 08:18 WBC 8.13 (4.8-10.8) K/uL Hgb 12.0 L (14.0-18.0) g/dL Hct 36.7 L (42-52) % Plt Count 436 H (130-400) K/uL BMP 09/01/21 08:18 Sodium 137 Potassium 3.9 Chloride 104 Carbon Dioxide 27 BUN 14 Creatinine 0.79 Glucose 154 H Calcium 9.3
[2021-09-01] MEDS: ENOXAPARIN INJ 40 MG/0.4 ML SYR SQ SCH (17:47)
[2021-09-01] MEDS: ANUSOL SUPP 1 EA PR SCH (21:09)
[2021-09-02] MEDS: INSULIN ASPART 100 UNITS/ML 3 ML PEN SC SCH ×4 (08:03→21:11)
[2021-09-02] MEDS: DOCUSATE SODIUM 100 MG CAP PO SCH ×2 (08:05→21:15)
[2021-09-02] MEDS: SENNA 8.6 MG TAB PO SCH (08:05)
[2021-09-02] MEDS: MULTIVITAMIN TAB PO SCH (08:05)
[2021-09-02] MEDS: THIAMINE HCL 100 MG TAB PO SCH (08:06)
--- NOTE | 2021-09-02 11:27 | Hospitalist Progress Note ---
Date of Service September 02, 2021 Assessment & Plan (1) Acute respiratory failure due to COVID-19: Plan: Secondary to ARDS and COVID-19 pneumonia. Status post intubation requiring paralytics. Received courses of Decadron and antibiotics. Still requiring high amounts of oxygen supplementation (10 L HiFlo) Continue supportive care, wean O2 as able. PT/OT reconsulted ? D/C to [facility] - awaiting acceptance (2) Alcohol abuse: Plan: Alcohol use disorder. Continue thiamine. No signs of Alcohol withdrawal. (3) Hemorrhoids: Plan: Had some bleeding from hemorrhoids. Stool softener BID and Anusol started. Plan to continue Anusol HS x 20 days per GI. Hgb 12.0 on 09/01 (4) UTI (urinary tract infection): Plan: UTI 2/2 enterococcus faecalis. Received 5 days of Ampicillin. (5) Hoarseness of voice: Plan: Possibly related to vocal cord dysfunction. Noted recent intubation and paralytics. No speech or voice issues prior to hospitalization. No dysphagia, s/p FEES by speech with aspiration precautions recommended. No straws, giving meds in a carrier, good oral hygiene, alternate solids and liquids. Doing well overall and hoarseness continues to improve. May need outpatient ENT eval. (6) DVT prophylaxis: Plan: SQ Lovenox Dispo-PCU while still requiring high amounts of supplemental oxygen. Stable for discharge to acute rehab vs. LTAC. Awaiting acceptance decision from [facility]. Admission and Anticipated Discharge Date Admission Date: August 08, 2021 Supervising Physician Co-Signing Physician Notes I have seen and examined the patient and have discussed the case with the provider above. I agree with the assessment and plan as stated with the following exceptions. Pt is feeling well today overall, Physical exam with coarse crackles at bases bilaterally which have improved, normal cardiac exam and no peripheral edema. Cont plan as above. DO Lynette Brian 61-year-old man admitted with COVID-19 pneumonia causing acute respiratory failure. He admitted to intensive care unit and was intubated for severe ARDS, required paralytics. Received antibiotics, Decadron. Also with history of alcohol dependence and initial encephalopathy which has now resolved after treatment. 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 ENT follow-up recommended. Speech therapy evaluated. Extubated on 08/18. Also found to have a UTI secondary to Enterococcus with negative blood cultures. He was on cefepime which was transitioned to ampicillin for 5 days. Patient seen and examined. Resting in bed. Reports small improvements from yesterday however continues to have shortness of breath with minimal exertion, fatigues easily. Appetite good. Denies abdominal pain or nausea. Minimal cough. No chest pain. Afebrile Physical Exam Constitutional: WD/WN, vitals as above Respiratory: normal respiratory effort; no respiratory distress Auscultation: + diminished lung sounds (improved from yesterday, better air exchange) on 10L HiFlo Cardiovascular: Rate/Rhythm: regular rate; + abnormal rhythm (somewhat irregular - tele reviewed w/ PACs) Vessels: normal peripheral pulses Extremities: no edema Gastrointestinal (Abdomen): Percussion/Palpation: abdomen soft; abdomen nontender Skin: no rashes, warm and dry Neurologic: no focal motor deficits Psychiatric: A+Ox3, euthymic affect Results & Data Results & Data ([facility]) Vital Signs (Past 12 Hours) Vital Signs Temp Pulse Pulse Resp BP BP Pulse Ox 09/02/21 08:05 36.7 C 105 H 22 122/72 94 09/02/21 08:00 70 09/02/21 04:31 36.7 C 73 18 105/70 92 09/02/21 00:00 36.7 C 83 18 102/65 93
[2021-09-02] MEDS: ENOXAPARIN INJ 40 MG/0.4 ML SYR SQ SCH (17:18)
[2021-09-02] MEDS: ANUSOL SUPP 1 EA PR SCH (21:15)
[2021-09-03] MEDS: SENNA 8.6 MG TAB PO SCH (08:53)
[2021-09-03] MEDS: MULTIVITAMIN TAB PO SCH (08:53)
[2021-09-03] MEDS: THIAMINE HCL 100 MG TAB PO SCH (08:53)
[2021-09-03] MEDS: INSULIN ASPART 100 UNITS/ML 3 ML PEN SC SCH ×4 (08:54→20:50)
[2021-09-03] MEDS: DOCUSATE SODIUM 100 MG CAP PO SCH ×2 (08:59→20:38)
--- NOTE | 2021-09-03 12:42 | Hospitalist Progress Note ---
Date of Service September 03, 2021 Assessment & Plan (1) Acute respiratory failure due to COVID-19: Plan: Secondary to ARDS and COVID-19 pneumonia. Status post intubation requiring paralytics. Received courses of Decadron and antibiotics. Continues to require high amounts of oxygen supplementation (10 L HiFlo) - decreased to 8 L nasal cannula today and doing well Continue supportive care, wean O2 as able. PT/OT ? D/C to [facility] - awaiting acceptance (2) Alcohol abuse: Plan: Alcohol use disorder. Continue thiamine. No signs of Alcohol withdrawal. (3) Hemorrhoids: Plan: Had some bleeding from hemorrhoids. Stool softener BID and Anusol started. Plan to continue Anusol HS x 20 days per GI (until 09/17/21) Hgb 12.0 on 09/01 (4) UTI (urinary tract infection): Plan: UTI 2/2 enterococcus faecalis. Received 5 days of Ampicillin. (5) Hoarseness of voice: Plan: Possibly related to vocal cord dysfunction. Noted recent intubation and paralytics. No speech or voice issues prior to hospitalization. No dysphagia, s/p FEES by speech with aspiration precautions recommended. No straws, giving meds in a carrier, good oral hygiene, alternate solids and liquids. Doing well overall and hoarseness continues to improve. May need outpatient ENT eval. (6) DVT prophylaxis: Plan: SQ Lovenox Dispo-PCU while still requiring high amounts of supplemental oxygen. Stable for discharge to acute rehab. Awaiting acceptance decision from [facility]. Admission and Anticipated Discharge Date Admission Date: August 08, 2021 Supervising Physician Co-Signing Physician Notes I have seen and examined the patient and have discussed the case with the provider above. I agree with the assessment and plan as stated. Patient was examined at bedside, on 8 L nasal cannula oxygen, overall feeling better. On examination, 8 L nasal cannula oxygen with no acute distress, occasional bilateral crackles, no BLE edema, heart and abdomen examination within normal limit. Patient is getting high flow nasal cannula oxygen for ongoing acute respiratory failure due to COVID-19, wean oxygen as tolerated. Likely need placement upon discharge. Subjective 61-year-old man admitted with COVID-19 pneumonia causing acute respiratory failure. He admitted to intensive care unit and was intubated for severe ARDS, required paralytics. Received antibiotics, Decadron. Also with history of alcohol dependence and initial encephalopathy which has now resolved after treatment. 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 ENT follow-up recommended. Speech therapy evaluated. Extubated on 08/18. Also found to have a UTI secondary to Enterococcus with negative blood cultures. He was on cefepime which was transitioned to ampicillin for 5 days. Patient seen and examined. Sitting up in the chair. Oxygen decreased to 8 L today. Patient does report noticing a difference in his breathing with activity however is comfortable at rest. Offers no other complaints. No chest pain, minimal cough. Physical Exam Constitutional: WD/WN, vitals as above no acute distress Respiratory: normal respiratory effort; no respiratory distress and no cough Auscultation: + diminished lung sounds (mildly - continues to improve) Cardiovascular: Rate/Rhythm: regular rate and regular rhythm Vessels: normal peripheral pulses Extremities: no edema Gastrointestinal (Abdomen): Percussion/Palpation: abdomen soft; abdomen nontender Skin: no rashes, warm and dry Neurologic: no focal motor deficits Psychiatric: A+Ox3, euthymic affect Results & Data Results & Data ([facility]) Vital Signs (Past 12 Hours) Vital Signs Temp Pulse Pulse Resp BP Pulse Ox 09/03/21 11:48 36.7 C 79 19 106/68 93 09/03/21 08:00 77 09/03/21 07:06 36.5 C 77 20 101/64 91 09/03/21 03:25 36.7 C 86 20 106/63 94
[2021-09-03] MEDS: ENOXAPARIN INJ 40 MG/0.4 ML SYR SQ SCH (17:03)
[2021-09-03] MEDS: ANUSOL SUPP 1 EA PR SCH (20:39)
[2021-09-04] MEDS: SENNA 8.6 MG TAB PO SCH (07:57)
[2021-09-04] MEDS: THIAMINE HCL 100 MG TAB PO SCH (07:57)
[2021-09-04] MEDS: MULTIVITAMIN TAB PO SCH (07:57)
[2021-09-04] MEDS: DOCUSATE SODIUM 100 MG CAP PO SCH ×2 (08:00→21:00)
[2021-09-04] MEDS: INSULIN ASPART 100 UNITS/ML 3 ML PEN SC SCH (11:13)
--- NOTE | 2021-09-04 11:28 | Hospitalist Progress Note ---
Date of Service September 04, 2021 Assessment & Plan (1) Acute respiratory failure due to COVID-19: Plan: Secondary to ARDS and COVID-19 pneumonia. Status post intubation requiring paralytics. Received courses of Decadron and antibiotics Continues to require high amounts of oxygen supplementation (10 L HiFlo) Continue supportive care, wean O2 as able PT/OT ? D/C to [facility] - awaiting acceptance. Must be off of high flow O2 for at least 24 hrs (2) Alcohol abuse: Plan: Alcohol use disorder Continue thiamine No signs of Alcohol withdrawal (3) Hemorrhoids: Plan: Had some bleeding from hemorrhoids but overall improved with Anusol. Continue stool softener BID and Anusol HS x 20 days total per GI (until 09/17/21) Hgb 12.0 on 09/01 (4) UTI (urinary tract infection): Plan: UTI 2/2 enterococcus faecalis. Received 5 days of Ampicillin. (5) Hoarseness of voice: Plan: Possibly related to vocal cord dysfunction. Noted recent intubation and paralytics. No speech or voice issues prior to hospitalization. No dysphagia, s/p FEES by speech with aspiration precautions recommended. No straws, giving meds in a carrier, good oral hygiene, alternate solids and liquids. Doing well overall and hoarseness continues to improve. May need outpatient ENT eval. (6) DVT prophylaxis: Plan: SQ Lovenox Dispo-PCU while still requiring high amounts of supplemental oxygen. Stable for discharge to acute rehab. Awaiting acceptance decision from [facility]. Admission and Anticipated Discharge Date Admission Date: August 08, 2021 Supervising Physician Co-Signing Physician Notes I have seen and examined the patient and have discussed the case with the provider above. I agree with the assessment and plan as stated. Patient was examined at bedside, on 10 L nasal cannula oxygen, overall feeling better. On examination, 10 L nasal cannula oxygen with no acute distress, occasional bilateral crackles, no BLE edema, heart and abdomen examination within normal limit. Patient is getting high flow nasal cannula oxygen for ongoing acute respiratory failure due to COVID-19, wean oxygen as tolerated. Likely need placement upon discharge. MARNIE working with [facility]. Subjective 61-year-old man admitted with COVID-19 pneumonia causing acute respiratory failure. He admitted to intensive care unit and was intubated for severe ARDS, required paralytics. Received antibiotics, Decadron. Also with history of alcohol dependence and initial encephalopathy which has now resolved after treatment. 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 ENT follow-up recommended. Speech therapy evaluated. Extubated on 08/18. Also found to have a UTI secondary to Enterococcus with negative blood cultures. He was on cefepime which was transitioned to ampicillin for 5 days. Patient seen and examined. Sitting up in the chair. Oxygen decreased to 8 L today yesterday but back up to 10L high flow nasal cannula. Denies any SOB at rest. Offers no other complaints. No chest pain, minimal cough. Review of Systems Review of Systems: At least ten systems reviewed and negative except as noted in the HPI. Physical Exam Physical Exam: Gen: WD/WN, NAD, sitting in bed eating breakfast, A&Ox3, vocal hoarseness HEENT: Normocephalic, atraumatic, conjunctivae moist, sclerae anicteric, wearing oxymask Lung: Clear to Auscultation bilaterally. No wheezing or rhonchi noted Heart: Regular rate, regular rhythm, no murmurs, rubs, or gallops Abdomen: Soft, NT, ND +BS x 4 Extremities: no edema Skin: Warm, no rash Results & Data Results & Data ([facility]) Vital Signs (Past 12 Hours) Vital Signs Temp Pulse Resp BP BP Pulse Ox 09/04/21 11:25 36.8 C 92 H 19 104/68 91 09/04/21 07:25 36.6 C 88 19 103/66 95 09/04/21 03:14 36.8 C 78 18 101/67 95
[2021-09-04] MEDS: ENOXAPARIN INJ 40 MG/0.4 ML SYR SQ SCH (17:45)
[2021-09-04] MEDS: ANUSOL SUPP 1 EA PR SCH (21:04)
[2021-09-04] MEDS ORDERED: SODIUM CHLORIDE 0.65% NA SOLN 45 ML (OCEAN) ONE (22:32)
[2021-09-04] MEDS ORDERED: SODIUM CHLORIDE 0.65% NA SOLN 45 ML (OCEAN) PRN (22:52)
[2021-09-05] MEDS: SENNA 8.6 MG TAB PO SCH (08:10)
[2021-09-05] MEDS: MULTIVITAMIN TAB PO SCH (08:10)
[2021-09-05] MEDS: THIAMINE HCL 100 MG TAB PO SCH (08:10)
[2021-09-05] MEDS: DOCUSATE SODIUM 100 MG CAP PO SCH ×2 (08:11→20:53)
--- NOTE | 2021-09-05 10:07 | Hospitalist Progress Note ---
Date of Service September 05, 2021 Assessment & Plan (1) Acute respiratory failure due to COVID-19: Plan: Secondary to ARDS and COVID-19 pneumonia. Status post intubation requiring paralytics. Received courses of Decadron and antibiotics Continues to require high amounts of oxygen supplementation - decreased from 10 L HiFlo to 6 L, saturating around 93-95% Continue supportive care, wean O2 as able PT/OT ? D/C to [facility] - awaiting acceptance. Must be off of high flow O2 for at least 24 hrs (2) Alcohol abuse: Plan: Alcohol use disorder Continue thiamine No signs of Alcohol withdrawal (3) Hemorrhoids: Plan: Had some bleeding from hemorrhoids but overall improved with Anusol. Continue stool softener BID and Anusol HS x 20 days total per GI (until 09/17/21) Hgb 12.0 on 09/01 (4) UTI (urinary tract infection): Plan: UTI 2/2 enterococcus faecalis. Received 5 days of Ampicillin. (5) Hoarseness of voice: Plan: Possibly related to vocal cord dysfunction. Noted recent intubation and paralytics. No speech or voice issues prior to hospitalization. No dysphagia, s/p FEES by speech with aspiration precautions recommended. No straws, giving meds in a carrier, good oral hygiene, alternate solids and liquids. Doing well overall and hoarseness continues to improve. May need outpatient ENT eval (6) DVT prophylaxis: Plan: SQ Lovenox Dispo-PCU while still requiring high amounts of supplemental oxygen. Stable for discharge to acute rehab. Awaiting acceptance decision from [facility]. Admission and Anticipated Discharge Date Admission Date: August 08, 2021 Supervising Physician Co-Signing Physician Notes I have seen and examined the patient and have discussed the case with the provider above. I agree with the assessment and plan as stated. Patient was examined at bedside, on 8 L nasal cannula oxygen, overall feeling better. On examination, 8 L nasal cannula oxygen with no acute distress, occasional bibasilar crackles, no BLE edema, heart and abdomen examination within normal limit. Patient is getting high flow nasal cannula oxygen for ongoing acute respiratory failure due to COVID-19, wean oxygen as tolerated. Likely need placement upon discharge. CM working with [facility]. Subjective 61-year-old man admitted with COVID-19 pneumonia causing acute respiratory failure. He admitted to intensive care unit and was intubated for severe ARDS, required paralytics. Received antibiotics, Decadron. Also with history of alcohol dependence and initial encephalopathy which has now resolved after treatment. 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 ENT follow-up recommended. Speech therapy evaluated. Extubated on 08/18. Also found to have a UTI secondary to Enterococcus with negative blood cultures. He was on cefepime which was transitioned to ampicillin for 5 days. Patient seen and examined. Sitting up in the chair. Oxygen decreased to 6 L today and is saturating around 93-95%. Denies any SOB at rest. Offers no other complaints. No chest pain, minimal cough. Review of Systems Review of Systems: At least ten systems reviewed and negative except as noted in the HPI. Physical Exam Physical Exam: Gen: WD/WN, NAD, sitting in bed eating breakfast, A&Ox3, vocal hoarseness HEENT: Normocephalic, atraumatic, conjunctivae moist, sclerae anicteric, wearing oxymask Lung: Clear to Auscultation bilaterally. No wheezing or rhonchi noted Heart: Regular rate, regular rhythm, no murmurs, rubs, or gallops Abdomen: Soft, NT, ND +BS x 4 Extremities: no edema Skin: Warm, no rash Results & Data Results & Data ([facility]) Vital Signs (Past 12 Hours) Vital Signs Temp Pulse Pulse Resp BP BP Pulse Ox 09/05/21 08:16 36.4 C L 88 20 108/70 94 09/05/21 03:55 36.7 C 80 16 103/68 95 09/04/21 23:31 37.0 C 86 16 102/64 93 09/04/21 23:29 94 H Diagnostic Findings Chest X-Ray 08/08/21 12:03 XR chest 1V portable INDICATION: MN ^post intubation . TECHNIQUE: Single frontal radiograph of the chest was obtained. Comparison: None available at the time of this dictation. FINDINGS: Endotracheal tube terminates 41 mm from the cee. The cardiomediastinal silhouette is normal. No focal airspace opacities are seen bilaterally. No evidence of pleural effusion or pneumothorax. IMPRESSION: 1. Multifocal airspace opacities which may represent atelectasis, pneumonia, and/or aspiration. 2. Satisfactory position of endotracheal tube. ACT 112: Negative or not required by law. Electronically signed by: Juan C Floyd M.D. 08/08/2021 12:31 PM Chest X-Ray 08/08/21 13:12 XR chest 1V portable HISTORY: 61 years-old Male post right subclavian central line acute respiratory failure COMPARISON: Chest radiograph of same day at 12:13 PM TECHNIQUE: Supine portable AP view of the chest FINDINGS: Cardiac silhouette is mildly enlarged. Endotracheal tube overlies the midline, 4.4 cm superior to the cee. Left IJ central venous catheter distal tip is noted in the expected location of the brachiocephalic vein. No pneumothorax or large pleural effusion. Multifocal airspace opacities are noted on a background of interstitial coarsening. Spondylitic spurring of the spine. IMPRESSION: 1. Endotracheal tube and left IJ central venous catheter placement as above. No pneumothorax. 2. Multifocal bilateral airspace opacities redemonstrated suggestive of multifocal pneumonia. ACT 112: Negative or not required by law. The above report was generated using voice recognition software. It may contain grammatical, syntax or spelling errors. Electronically signed by: Eddie Martins M.D. 08/08/2021 1:[address] 08/08/21 14:10 CT SCAN OF THE BRAIN WITHOUT IV CONTRAST CLINICAL HISTORY: Change in mental status. Covid. COMPARISON STUDY: No priors. TECHNIQUE: Unenhanced axial CT scan of the brain is performed from the vertex to the skull base. A dose lowering technique was utilized adhering to the principles of ALARA. CT DOSE: 671.51 mGycm FINDINGS: An endotracheal tube is noted on the [employer] tomogram. Brain parenchyma: There is mild microradiographic change. There is no hemorrhage, mass effect, or evidence of acute territorial ischemia by CT criteria. Vargas-white matter differentiation is preserved. No extra-axial fluid collection is seen. Ventricles, sulci, cisterns: Normal in configuration. Intracranial vasculature: There is atherosclerotic calcification of the cavernous carotid and vertebral arteries. Calvarium: Unremarkable. Sinuses and mastoids: Moderate mucosal thickening is noted in the ethmoid sinuses. Trace mucosal thickening is seen within the frontal, maxillary, and sphenoid sinuses. The mastoid air cells are well pneumatized. Orbits: The bony orbits are grossly intact. IMPRESSION: There is no hemorrhage, mass effect, or evidence of acute territorial ischemia by CT criteria. ACT 112: Negative or not required by law. Electronically signed by: Ignacio Kwok M.D. 08/08/2021 2:56 PM Chest X-Ray 08/08/21 16:50 SINGLE VIEW CHEST CLINICAL HISTORY: Enteric tube placement. FINDINGS: An AP, portable, upright chest radiograph is compared to study performed earlier the same day 08/08/2021. An endotracheal tube and a left internal jugular central venous catheter are unchanged in position. An enteric tube has been placed. The tip projects below the diaphragm over the proximal stomach. The cardiomediastinal silhouette is unremarkable. Multifocal patchy airspace consolidation is unchanged from today's earlier examination. No large pleural effusion or pneumothorax is seen. There is chronic posttraumatic deformity of the right clavicle. IMPRESSION: 1. An enteric tube has been placed as above. 2. Additional lines and tubes are unchanged in position. 3. Multifocal airspace consolidation is unchanged from today's earlier examination and typical for multifocal pneumonia. Radiographic follow-up to resolution is recommended. ACT 112: Negative or not required by law. Electronically signed by: Ignacio Kwok M.D. 08/08/2021 5:38 PM Chest X-Ray 08/09/21 06:00 XR chest 1V portable HISTORY: 61 years-old Male intubation acute respiratory failure COMPARISON: Chest radiograph 08/08/2021 TECHNIQUE: Portable AP view of the chest FINDINGS: Endotracheal tube overlies the midline 4.7 cm superior to the cee. Enteric tube distal tip projects over the proximal stomach. Left IJ central venous catheter is noted with distal tip noted within the region of the brachiocephalic SVC confluence. No pneumothorax or large pleural effusion. Multifocal bilateral airspace opacities, left greater than right are unchanged. No acute fracture. IMPRESSION: 1. Lines and tubes as above. 2. Left greater than right bilateral airspace opacities compatible with multifocal pneumonia appear stable from comparison. ACT 112: Negative or not required by law. The above report was generated using voice recognition software. It may contain grammatical, syntax or spelling errors. Electronically signed by: Eddie Martins M.D. 08/09/2021 8:47 AM Chest X-Ray 08/10/21 07:00 SINGLE VIEW CHEST CLINICAL HISTORY: Respiratory failure. FINDINGS: An AP, portable, upright chest radiograph is compared to study performed earlier the same day 08/09/2021. The examination is degraded by portable technique and patient rotation. An endotracheal tube, an enteric tube, and a left internal jugular central venous catheter are unchanged in position. The cardiomediastinal silhouette is unremarkable. Multifocal patchy airspace consolidation is unchanged to modestly worsened as compared to yesterday. No large pleural effusion or pneumothorax is seen. There is chronic posttraumatic deformity of the right clavicle. IMPRESSION: 1. Stable lines and tubes. 3. Multifocal airspace consolidation is unchanged to modestly worsened as compared to yesterday. Radiographic follow-up to resolution is recommended. ACT 112: Negative or not required by law. Electronically signed by: Ignacio Kwok M.D. 08/10/2021 8:44 AM Chest X-Ray 08/11/21 06:00 SINGLE VIEW CHEST CLINICAL HISTORY: Respiratory failure. FINDINGS: An AP, portable, upright chest radiograph is compared to study dated 08/10/2021. The examination is degraded by portable technique and patient rot ation. An endotracheal tube, an enteric tube, and a left internal jugular central venous catheter are unchanged in position. The cardiomediastinal silhouette is unremarkable. Multifocal patchy airspace consolidation is unchanged from yesterday. No large pleural effusion or pneumothorax is seen. There is chronic posttraumatic deformity of the right clavicle. IMPRESSION: 1. Stable lines and tubes. 2. Multifocal airspace consolidation is unchanged from yesterday. ACT 112: Negative or not required by law. Electronically signed by: Ignacio Kwok M.D. 08/11/2021 8:17 AM Chest X-Ray 08/12/21 07:00 XR chest 1V portable CLINICAL HISTORY: Resp failure COMPARISON STUDY: August 11, 2021 FINDINGS: No pneumothorax. No pleural effusion. Patchy airspace opacities are again seen bilaterally, unchanged since prior. Cardiomediastinal silhouette is within normal limits in size. Pulmonary vasculature is obscured.. Osseous structures: Degenerative changes of the spine. Tip of endotracheal tube is seen projecting 3.8 cm above cee. Stable position of the gastric tube with tip and fenestrated side-port below level of hemidiaphragm. Stable position of left-sided IJ central venous line. IMPRESSION: 1. Stable multifocal pneumonia. 2. Tip of endotracheal tube is seen projecting 3.8 cm above cee. The rest of support apparatus as above. ACT 112: Negative or not required by law. The above report was generated using voice recognition software. It may contain grammatical, syntax or spelling errors. Electronically signed by: Michelle Tucker DO 08/12/2021 11:06 AM Chest X-Ray 08/13/21 07:00 XR chest 1V portable CLINICAL HISTORY: Resp failure COMPARISON STUDY: August 12, 2021 FINDINGS: No pneumothorax. No pleural effusion. Redemonstration of patchy airspace opacities which are seen bilaterally, not significantly changed since prior. Cardiomediastinal silhouette is within normal limits in size. Pulmonary vasculature is obscured.. Osseous structures: Degenerative changes of the spine and right shoulder. Fracture deformity of the right clavicle. Tip of endotracheal tube is projecting 3.0 cm above cee. Stable position of the left-sided IJ venous catheter and visualized portion of the gastric tube, tip and fenestrated side-port are outside of [id number] and below level of the left hemidiaphragm. IMPRESSION: 1. Stable multifocal pneumonia. 2. Tip of endotracheal tube is projecting 3.0 cm above cee. The rest of support apparatus as above. ACT 112: Negative or not required by law. The above report was generated using voice recognition software. It may contain grammatical, syntax or spelling errors. Electronically signed by: Michelle Tucker DO 08/13/2021 9:13 AM Chest X-Ray 08/14/21 08:23 XR chest 1V portable CLINICAL HISTORY: f/u COMPARISON STUDY: August 13, 2021 FINDINGS: No pneumothorax. No pleural effusion. Bilateral patchy airspace opacities are unchanged since prior. Evaluation is suboptimal due to rotation. Cardiomediastinal silhouette is within normal limits in size. Pulmonary vasculature is obscured.. Osseous structures: Degenerative changes of the spine and right shoulder. Tip of endotracheal tube is projecting 6.2 cm above cee. Stable position of left sided IJ intravenous line. Fenestrated side-port of gastric tube is seen at the level of the left hemidiaphragm. Tip is projecting to the left upper quadrant. IMPRESSION: 1. Multifocal pneumonia, unchanged since prior. 2. Fenestrated side-port of gastric tube is seen at the level of hemidiaphragm. Repositioning approximately 5 cm forward is recommended. 3. Tip of endotracheal tube is projecting 6.2 cm above cee. 4. The rest of findings as above. ACT 112: Negative or not required by law. The above report was generated using voice recognition software. It may contain grammatical, syntax or spelling errors. Electronically signed by: Michelle Tucker DO 08/14/2021 9:49 AM Chest X-Ray 08/15/21 07:00 XR chest 1V portable INDICATION: MN ^f/u . TECHNIQUE: Single frontal radiograph of the chest was obtained. Comparison: Comparison is made to chest one view 08/14/2021 FINDINGS: Previous seen noted enteric tube has been advanced and is now in satisfactory position. Additional lines and tubes are stable. The cardiomediastinal silhouette is normal. Redemonstration of diffuse bilateral airspace opacities. No evidence of pleural effusion or pneumothorax. IMPRESSION: 1. Multifocal pneumonia, unchanged from prior. 2. Interval advancement of the enteric tube, now in satisfactory position. ACT 112: Negative or not required by law. Electronically signed by: Juan C Floyd M.D. 08/15/2021 8:40 AM Chest X-Ray 08/16/21 07:00 XR chest 1V portable HISTORY: Respiratory failure. Shortness of breath. Follow-up. COMPARISON: Chest 08/15/2021. FINDINGS: Endotracheal tube terminates approximately 3.2 cm from the cee. Nasogastric tube terminates in the stomach. Left jugular central venous catheter terminates at the brachiocephalic/SVC junction. No pneumothorax. No pleural effusions. Hazy bilateral airspace opacities most pronounced within the left lung persists. This likely represents a viral pneumonia. IMPRESSION: 1. Satisfactory support line placement. 2. No change in the multifocal airspace opacities consistent with a pneumonia. ACT 112: Negative or not required by law. Electronically signed by: Perico Baker M.D. 08/16/2021 9:52 AM Chest X-Ray 08/17/21 07:00 XR chest 1V portable INDICATION: [place] ^f/u . TECHNIQUE: Single frontal radiograph of the chest was obtained. Comparison: None available at the time of this dictation. FINDINGS: Lines and tubes are stable. The cardiomediastinal silhouette is normal. Interval slight improvement in left greater than right airspace opacities. No evidence of pleural effusion or pneumothorax. IMPRESSION: Multifocal airspace opacities have somewhat improved from prior exam. ACT 112: Negative or not required by law. Electronically signed by: Juan C Floyd M.D. 08/17/2021 9:51 AM Chest X-Ray 08/18/21 07:00 XR chest 1V portable HISTORY: 61 years-old Male f/u acute respiratory failure COMPARISON: Chest radiograph 08/17/2021 TECHNIQUE: Portable AP view of the chest FINDINGS: Endotracheal tube overlies the midline, 3.8 cm superior to the cee. Enteric tube courses below the diaphragm outside the [id number]. Left IJ central venous catheter is unchanged with distal tip in the expected location of the brachiocephalic SVC confluence. Cardiac silhouette is unchanged. Mild interstitial coarsening with midlung zone and left basilar predominant airspace opacities, stable from comparison. Degenerative changes of the shoulders and spine. IMPRESSION: 1. Lines and tubes as above. 2. Unchanged multifocal bilateral airspace opacities compatible with pneumonia. 3. No pneumothorax. ACT 112: Negative or not required by law. The above report was generated using voice recognition software. It may contain grammatical, syntax or spelling errors. Electronically signed by: Eddie Martins M.D. 08/18/2021 8:15 AM KUB X-Ray 08/18/21 08:56 KUB HISTORY: Check NG tube placement COMPARISON: None. FINDINGS: Feeding tube terminates at the gastroesophageal junction.. The bowel gas pattern is unremarkable. A rectal catheter is noted. No renal calculi. No ureteral calculi. No pneumoperitoneum or pneumatosis. IMPRESSION: Feeding tube terminates at the gastroesophageal junction. ACT 112: Negative or not required by law. Electronically signed by: Perico Baker M.D. 08/18/2021 9:35 AM KUB X-Ray 08/18/21 09:30 KUB HISTORY: REPOSITION NG TUBE COMPARISON: None. FINDINGS: The feeding tube is been repositioned and is now looped within the fundus of the stomach. The bowel gas pattern is unremarkable. No renal calculi. No ureteral calculi. No pneumoperitoneum or pneumatosis. IMPRESSION: The feeding tube is now looped within the fundus of the stomach. ACT 112: Negative or not required by law. Electronically signed by: Perico Baker M.D. 08/18/2021 9:35 AM Chest X-Ray 08/19/21 07:00 XR chest 1V portable HISTORY: Respiratory failure. Pneumonia. COMPARISON: Chest 08/18/2021. FINDINGS: Endotracheal tube is been removed. Feeding tube terminates below the diaphragm. The tip is not included on this study. No pneumothorax. No pleural effusions. Patchy bilateral airspace opacities persist. The heart remains normal in size. Old, healed right clavicle fracture. IMPRESSION: 1. Status post extubation. The feeding tube terminates below the diaphragm. 2. Patchy bilateral airspace opacities consistent with a pneumonia are not significantly changed. ACT 112: Negative or not required by law. Electronically signed by: Perico Baker M.D. 08/19/2021 8:14 AM Chest X-Ray 08/23/21 07:00 XR chest 1V portable HISTORY: 61 years-old Male covid acute shortness of breath with viral pneumonia COMPARISON: Chest radiograph 08/19/2021 TECHNIQUE: Portable AP view of the chest FINDINGS: The cardiomediastinal and hilar silhouettes are within normal limits. Interval removal of the enteric tube. No pneumothorax, or large pleural effusion. Mildly progressed multifocal bilateral airspace opacities. No acute fracture. IMPRESSION: Mildly worsened multifocal opacities compatible with pneumonia. ACT 112: Negative or not required by law. The above report was generated using voice recognition software. It may contain grammatical, syntax or spelling errors. Electronically signed by: Eddie Martins M.D. 08/23/2021 7:45 AM Chest CTA 08/29/21 09:55 CT angio chest PE protocol CT DOSE: 458.97 mGy.cm HISTORY: 61 years-old Male with PE. Acute cough with chest pain and shortness of breath. COVID Positive. TECHNIQUE: Multiple CTA images of the chest were obtained after the intravenous administration of 114 ml Optiray. Coronal and sagittal MIPS were obtained from the axial data set and were submitted for review. All measurements were obtained according to NASCET criteria. A dose lowering technique was utilized adhering to the principles of ALARA. COMPARISON: Chest radiograph 08/23/2021 FINDINGS: CTA: The heart is mildly enlarged. No pericardial effusion. Mild coronary artery calcifications. No thoracic aortic aneurysm or dissection. Patency of the imaged great vessels. The pulmonary arterial tree is opacified to the level of the subsegmental branches and demonstrates no filling defects to suggest thromboembolic disease. CT CHEST: Unremarkable thyroid. Pathologic mediastinal and hilar adenopathy include subcarinal adenopathy measuring up to 3.2 x 2.1 cm. No pneumothorax, or pleural effusion. Multifocal multilobar distribution of extensive groundglass and consolidative opacities with air bronchograms. The central airways are patent. No acute process of the imaged upper abdomen. Mild wall thickening of the distal esophagus. Unremarkable soft tissues. No acute fracture. IMPRESSION: 1. No pulmonary emboli. 2. Extensive multilobar viral pneumonia. 3. Mediastinal and hilar adenopathy is likely reactive. 4. Mild cardiomegaly. ACT 112: Negative or not required by law. The above report was generated using voice recognition software. It may contain grammatical, syntax or spelling errors. Electronically signed by: Eddie Martins M.D. 08/29/2021 2:57 PM
[2021-09-05] MEDS: ENOXAPARIN INJ 40 MG/0.4 ML SYR SQ SCH (16:49)
[2021-09-05] MEDS: ANUSOL SUPP 1 EA PR SCH (20:52)
[2021-09-06 07:44] LABS: Hematocrit (blood only) 36.2 % (42-52); Hemoglobin 11.9 g/dL (14.0-18.0)
[2021-09-06] MEDS: SENNA 8.6 MG TAB PO SCH (08:08)
[2021-09-06] MEDS: DOCUSATE SODIUM 100 MG CAP PO SCH ×2 (08:09→20:37)
[2021-09-06] MEDS: THIAMINE HCL 100 MG TAB PO SCH (08:09)
[2021-09-06] MEDS: MULTIVITAMIN TAB PO SCH (08:09)
--- NOTE | 2021-09-06 16:56 | Hospitalist Progress Note ---
Date of Service September 06, 2021 Assessment & Plan (1) Acute respiratory failure due to COVID-19: Plan: #. Acute respiratory failure due to COVID-19: Secondary to ARDS and COVID-19 pneumonia. Status post intubation requiring paralytics. Received courses of Decadron and antibiotics Continues to require high amounts of oxygen supplementation - decreased to 6 L, saturating around 93-95% Continue supportive care, wean O2 as able PT/OT Lung sounds improving, bibasilar fine crackles appreciated. ? D/C to [facility] - awaiting acceptance. Must be off of high flow O2 for at least 24 hrs #. Alcohol abuse: Alcohol use disorder Continue thiamine, patient counseled. No signs of Alcohol withdrawal #. Hemorrhoids: Had some bleeding from hemorrhoids but overall improved with Anusol. Continue stool softener BID and Anusol HS x 20 days total per GI (until 09/17/21) Hemoglobin fairly stable between 11-12. #. UTI (urinary tract infection): UTI 2/2 enterococcus faecalis. Received 5 days of Ampicillin. #. Hoarseness of voice: Possibly related to vocal cord dysfunction. Noted recent intubation and paralytics. No speech or voice issues prior to hospitalization. No dysphagia, s/p FEES by speech with aspiration precautions recommended. No straws, giving meds in a carrier, good oral hygiene, alternate solids and liquids. Doing well overall and hoarseness continues to improve. May need outpatient ENT eval #. DVT prophylaxis: SQ Lovenox Dispo-PCU while still requiring high amounts of supplemental oxygen. Possible discharge to acute rehab in 1 to 2 days. Awaiting acceptance decision from [facility]. Admission and Anticipated Discharge Date Admission Date: August 08, 2021 Subjective Patient was lying semiupright in bed, on 6 L nasal cannula oxygen, NAD, no acute events overnight. Patient encouraged to continue spirometry every hour while awake. Patient denies any increased shortness of breath/fever/headache/chills/other review of symptoms. Physical Exam Physical Exam: GENERAL: Alert and oriented x3. NAD, on 6L HEENT: No pallor, no icterus. Pupils equal, round and reactive to light. Oral mucosa moist. NECK: No JVD, no neck masses. HEART: S1 and S2 heard. Regular rate and rhythm. No murmur, no gallop. RESPIRATORY SYSTEM: Normal AP diameter. No accessory muscle use. No wheezing, bibasilar fine crackles appreciated. ABDOMEN: Soft, bowel sounds present, nontender, no distention. CENTRAL NERVOUS SYSTEM: Alert and oriented x3. No facial droop. Speech is clear. Obeys simple commands. Moves extremities. EXTREMITIES: No edema, no erythema seen. Results & Data Results & Data ([facility]) Vital Signs (Past 12 Hours) Vital Signs Temp Pulse Pulse Resp BP BP Pulse Ox 09/06/21 16:33 94 H 09/06/21 15:58 36.6 C 94 H 22 105/70 92 09/06/21 14:43 92 09/06/21 11:43 36.4 C L 94 H 23 108/68 90 09/06/21 07:44 36.7 C 89 21 105/66 92 09/06/21 07:33 92 H
[2021-09-06] MEDS: ENOXAPARIN INJ 40 MG/0.4 ML SYR SQ SCH (19:07)
[2021-09-06] MEDS: ANUSOL SUPP 1 EA PR SCH (20:35)
[2021-09-07] MEDS: SENNA 8.6 MG TAB PO SCH (09:03)
[2021-09-07] MEDS: DOCUSATE SODIUM 100 MG CAP PO SCH ×3 (09:03→20:28)
[2021-09-07] MEDS: MULTIVITAMIN TAB PO SCH (09:03)
[2021-09-07] MEDS: THIAMINE HCL 100 MG TAB PO SCH (09:03)
--- NOTE | 2021-09-07 16:51 | Hospitalist Progress Note ---
Date of Service September 07, 2021 Assessment & Plan (1) Acute respiratory failure due to COVID-19: Plan: #. Acute respiratory failure due to COVID-19: Secondary to ARDS and COVID-19 pneumonia. Status post intubation requiring paralytics. Received courses of Decadron and antibiotics Continues to require high amounts of oxygen supplementation - decreased to 6 L, saturating around 93-95% Continue supportive care, wean O2 as able PT/OT Lung sounds improving, bibasilar fine crackles appreciated. ? D/C to [facility] - awaiting acceptance. Must be off of high flow O2 for at least 24 hrs Possible DC tomorrow #. Alcohol abuse: Alcohol use disorder Continue thiamine, patient counseled. No signs of Alcohol withdrawal #. Hemorrhoids: Had some bleeding from hemorrhoids but overall improved with Anusol. Continue stool softener BID and Anusol HS x 20 days total per GI (until 09/17/21) Hemoglobin fairly stable between 11-12. #. UTI (urinary tract infection): UTI 2/2 enterococcus faecalis. Received 5 days of Ampicillin. #. Hoarseness of voice: Possibly related to vocal cord dysfunction. Noted recent intubation and paralytics. No speech or voice issues prior to hospitalization. No dysphagia, s/p FEES by speech with aspiration precautions recommended. No straws, giving meds in a carrier, good oral hygiene, alternate solids and liquids. Doing well overall and hoarseness continues to improve. May need outpatient ENT eval #. DVT prophylaxis: SQ Lovenox Dispo-PCU while still requiring high amounts of supplemental oxygen. Possible discharge to acute rehab in 1 to 2 days. Awaiting acceptance decision from [facility]. Admission and Anticipated Discharge Date Admission Date: August 08, 2021 Subjective Patient was lying semiupright in bed, on 5 L nasal cannula oxygen, NAD, no acute events overnight. Patient encouraged to continue spirometry every hour while awake. Patient denies any increased shortness of breath/fever/headache/chills/other review of symptoms. Physical Exam Physical Exam: GENERAL: Alert and oriented x3. NAD, on 6L HEENT: No pallor, no icterus. Pupils equal, round and reactive to light. Oral mucosa moist. NECK: No JVD, no neck masses. HEART: S1 and S2 heard. Regular rate and rhythm. No murmur, no gallop. RESPIRATORY SYSTEM: Normal AP diameter. No accessory muscle use. No wheezing, bibasilar fine crackles appreciated. ABDOMEN: Soft, bowel sounds present, nontender, no distention. CENTRAL NERVOUS SYSTEM: Alert and oriented x3. No facial droop. Speech is hoarse but articulates clearly. Obeys simple commands. Moves extremities. EXTREMITIES: No edema, no erythema seen. Results & Data Results & Data ([facility]) Vital Signs (Past 12 Hours) Vital Signs Temp Pulse Resp BP Pulse Ox 09/07/21 16:28 36.7 C 96 H 18 114/64 91 09/07/21 13:17 36.5 C 20 L 20 105/68 90 09/07/21 12:17 36.0 C L 71 18 170/61 H 94 09/07/21 06:43 36.5 C 90 18 100/65 92
[2021-09-07] MEDS: ENOXAPARIN INJ 40 MG/0.4 ML SYR SQ SCH (17:45)
[2021-09-07] MEDS: ANUSOL SUPP 1 EA PR SCH (20:19)
[2021-09-08] MEDS: DOCUSATE SODIUM 100 MG CAP PO SCH ×2 (08:10→19:45)
[2021-09-08] MEDS: MULTIVITAMIN TAB PO SCH (08:10)
[2021-09-08] MEDS: SENNA 8.6 MG TAB PO SCH (08:10)
[2021-09-08] MEDS: THIAMINE HCL 100 MG TAB PO SCH (08:10)
[2021-09-08 08:41] LABS: Hematocrit (blood only) 38.5 % (42-52); Hemoglobin 12.4 g/dL (14.0-18.0); Mean Corpuscular Hemoglobin 31.2 pg (25-34); Mean Corpuscular Hgb Conc 32.2 g/dL (32-36); Mean Platelet Volume 9.3 fL (7.4-10.4); Platelet Count 341 K/uL (130-400); Red Blood Count 3.97 M/uL (4.7-6.1)
--- NOTE | 2021-09-08 11:14 | Hospitalist Progress Note ---
Date of Service September 08, 2021 Assessment & Plan (1) Acute respiratory failure due to COVID-19: (2) Pneumonia due to 2019 novel coronavirus: (3) Alcohol abuse: (4) DVT prophylaxis: Plan: Acute respiratory failure due to COVID-19: Secondary to ARDS and COVID-19 pneumonia. Status post intubation requiring paralytics. Received courses of Decadron and antibiotics Continues to require high amounts of oxygen supplementation - decreased from 10 L HiFlo to 6 L, now on 5L @ 92% Continue supportive care, wean O2 as able PT/OT D/C to [facility] - awaiting acceptance. Must be off of high flow O2 for at least 24 hrs Ambulatory Oxygen study rdered Alcohol abuse: Alcohol use disorder Continue thiamine No signs of Alcohol withdrawal Hemorrhoids: Had some bleeding from hemorrhoids but overall improved with Anusol. Continue stool softener BID and Anusol HS x 20 days total per GI (until 09/17/21) Hgb stable, 12.4 today UTI (urinary tract infection): UTI 2/2 enterococcus faecalis. Received 5 days of Ampicillin. Hoarseness of voice: Possibly related to vocal cord dysfunction. Noted recent intubation and paralytics. No speech or voice issues prior to hospitalization. No dysphagia, s/p FEES by speech with aspiration precautions recommended. No straws, giving meds in a carrier, good oral hygiene, alternate solids and liquids. Doing well overall and hoarseness continues to improve. May need outpatient ENT eval DVT prophylaxis: SQ Lovenox DISPO: d/c to [facility] when accepted based on O2 requirement FULL CODE: PCP: No PCP Admission and Anticipated Discharge Date Admission Date: August 08, 2021 Supervising Physician Co-Signing Physician Notes I have seen and examined the patient and have discussed the case with the provider above. I agree with the assessment and plan as stated. Patient was examined at bedside, on 5 L nasal cannula oxygen, overall feeling better. On examination, 5 L nasal cannula oxygen with no acute distress, occasional bibasilar crackles, no BLE edema, heart and abdomen examination within normal limit. Patient is on O2 supplementation for ongoing acute respiratory failure due to COVID-19, wean oxygen as tolerated. Likely need placement upon discharge. CM working with [facility]. Possible DC to [facility] tomorrow. Subjective Patient was seen and examined in room 285-2. Follow-up acute hypoxic respiratory failure setting of ARDS and Covid. Pt feels good this morning. Finally had a good night sleep. Denies f/c/s, chest pain, sob, n/v/d, abd pain. Continues on oxygen at 5L and complains of WRIGHT, minimal cough. Review of Systems Review of Systems: All systems reviewed & are unremarkable except as noted in HPI & below Physical Exam Physical Exam: Gen: WD/WN, NAD, A&O x3 HEENT: Normocephalic, atraumatic, conjunctivae moist, sclerae anicteric, mucous membranes moist. Lung: Clear to Auscultation bilaterally, no wheezes/rales/rhonchi Heart: Regular rate, regular rhythm, no murmurs, rubs, or gallops Abdomen: Soft, NT, ND +BS x 4 Extremities: No edema Skin: Warm, no rash, negative turgor. Results & Data Results & Data ([facility]) Vital Signs (Past 12 Hours) Vital Signs Temp Pulse Pulse Resp BP Pulse Ox 09/08/21 07:18 94 H 09/08/21 07:12 36.7 C 86 16 95/61 L 92 09/08/21 02:52 36.8 C 89 16 99/67 L 91 09/08/21 01:12 89 09/07/21 23:05 36.5 C 84 16 110/71 94 Laboratory Results Short CBC 09/08/21 Range/Units 08:19 WBC 8.90 (4.8-10.8) K/uL Hgb 12.4 L (14.0-18.0) g/dL Hct 38.5 L (42-52) % Plt Count 341 (130-400) K/uL Medications Administered Current Inpatient Medications Acetaminophen (Acetaminophen 325 Mg Tab) 650 mg PO Q4H PRN PRN Reason: Pain or Fever Stop: 09/22/21 17:02 Last Admin: 08/24/21 16:14 Dose: 650 mg Documented by: Docusate Sodium (Docusate Sodium 100 Mg Cap) 100 mg PO BID [facility] Stop: 09/22/21 20:59 Last Admin: 09/08/21 08:10 Dose: 100 mg Documented by: Enoxaparin Sodium (Enoxaparin Inj 40 Mg/0.4 Ml Syr) 40 mg SQ Q24H MELCHOR Stop: 09/28/21 17:59 Last Admin: 09/07/21 17:45 Dose: 40 mg Documented by: Heparin Sodium (Beef Lung) (Heparin 10 Unit/Ml 5 Ml Flush) 5 ml FLUSH PRN PRN PRN Reason: Flush Stop: 09/13/21 07:37 Last Admin: 08/15/21 14:20 Dose: 15 ml Documented by: Hydrocortisone (Hydrocortisone Hc 2.5% Crm 30gm Tube) 1 appln EXT BID PRN PRN Reason: Hemorrhoid pain Stop: 09/24/21 00:51 Last Admin: 08/26/21 16:05 Dose: 1 appln Documented by: Multivitamins (Multivitamin Tab) 1 tab PO QAM MELCHOR Stop: 09/22/21 08:59 Last Admin: 09/08/21 08:10 Dose: 1 tab Documented by: Phenylephrine HCl (Anusol Supp 1 Ea) 1 ea FL HS MELCHOR Stop: 09/27/21 20:59 Last Admin: 09/07/21 20:19 Dose: Not Given Documented by: Polyethylene Glycol (Polyethylene (Miralax) 17 Gm Pack) 17 gm PO DAILY PRN PRN Reason: Constipation Stop: 09/24/21 00:50 Sennosides (Senna 8.6 Mg Tab) 8.6 mg PO QAM MELCHOR Stop: 09/23/21 08:59 Last Admin: 09/08/21 08:10 Dose: 8.6 mg Documented by: Sodium Chloride (Sodium Chloride 0.65% Na Soln 45 Ml (Vega)) 1 sprays NA PRN PRN PRN Reason: Congestion Stop: 10/04/21 22:51 Thiamine HCl (Thiamine Hcl 100 Mg Tab) 100 mg PO DAILY MELCHOR Stop: 09/10/21 11:59 Last Admin: 09/08/21 08:10 Dose: 100 mg Documented by:
[2021-09-08] MEDS: POLYETHYLENE (MIRALAX) 17 GM PACK PO SCH (13:12)
[2021-09-08] MEDS: ENOXAPARIN INJ 40 MG/0.4 ML SYR SQ SCH (18:40)
[2021-09-08] MEDS: ANUSOL SUPP 1 EA PR SCH (19:44)
[2021-09-09] MEDS: THIAMINE HCL 100 MG TAB PO SCH (07:59)
[2021-09-09] MEDS: SENNA 8.6 MG TAB PO SCH (07:59)
[2021-09-09] MEDS: MULTIVITAMIN TAB PO SCH (07:59)
[2021-09-09] MEDS: POLYETHYLENE (MIRALAX) 17 GM PACK PO SCH (07:59)
[2021-09-09] MEDS: DOCUSATE SODIUM 100 MG CAP PO SCH (08:01)
--- NOTE | 2021-09-09 13:33 | Discharge Summary ---
Date of Service September 09, 2021 Admission HPI Per Admitting Provider Pt is a 61 y/o M with PMH alcohol use and prior tobacco use presented to ER for respiratory distress. History obtained from ER staff and pt's mother. Reported that pt tested positive for COVID-19 4 days ago. Thinks pt started with symptoms 4-5 days ago. Reports patient's brother is currently admitted at [facility] for COVID- 19. Patient and brother were together for the weekend 8 days ago. Pt did not answer phone today so they broke into his house and found him confused and blue in color. He was transported to ER via private vehicle. In ER found to have oxygen sat in 40's-60's. Pt was intubated. CXR: multifocal airspace opacities. He is on propofol, was given 2L NSS, banana bag, dexamethasone 10mg IV. Was able to speak to pt's mother, Chantell Perdue. She reports that pt is not vaccinated for COVID-19. She reports pt quit smoking approximately 10 years ago. She knows he drinks beer everyday but is not sure of the amount but thinks it may be a 12 pack. Unknown if pt uses illicit drugs. She is unaware of any m edication allergies. Does not think patient has any known medical problems or takes any medications. States patient does not see PCP. Chantell Perdue - Mother. Home Phone number [phone] [place] - Daughter. Is currently in the service and is in [place] (unsure of her phone number) Basia - Sister. Cell Phone number: [phone] Admission Exam Per Admitting Provider Physical Exam: Vitals signs as noted above General Appearance:Moderately built and nourished, sedated and intubated Head: normocephalic, Atraumatic Eyes: normal inspection Neck: supple, Trachea midline Respiratory/Chest: Decreased breath sounds, CTA, No accessory muscle use Cardiovascular: S1, S2, No murmur Abdomen/GI:Soft, Non tender, Bowel sounds present Extremities/Musculoskeletal:normal inspection, no edema Neurologic/Psych:Sedated and Intubated Skin: normal color, warm Principal Diagnosis Acute hypoxic respiratory failure ARDS Toxic metabolic encephalopathy UTI Alcohol use disorder without withdrawal Elevated troponin, type II in setting of demand ischemia hoarseness Hoarseness Discharge Exam Gen: WD/WN, M, NAD, A&O x3 HEENT: Normocephalic, atraumatic, conjunctivae moist, sclerae anicteric, mucous membranes moist. Lung: Clear to Auscultation bilaterally, no wheezes/rales/rhonchi on 4L of O2 Heart: Regular rate, regular rhythm, no murmurs, rubs, or gallops Abdomen: Soft, NT, ND +BS x 4 Extremities: No edema Skin: Warm, no rash, negative turgor. Discharge Data Allergies Allergy/AdvReac Type Severity Reaction Status Date / Time No Known Allergies Allergy Unverified 08/08/21 13:09 Consultations 08/08/21 12:37 ED Decision to Admit Stat 08/08/21 12:55 Consult Internal Medicine Routine 08/08/21 15:44 Consult Press Maintainer Routine 08/21/21 15:05 Consult Otolaryngology (Head and Neck) Routine Speech Therapy: FEES Mild oropharyngeal dysphagia regular diet thin liquids liquids and single sips only, aspiration precautions, oral hygiene qshift Ordered Studies Chest X-Ray 08/08/21 12:03 XR chest 1V portable INDICATION: MN ^post intubation . TECHNIQUE: Single frontal radiograph of the chest was obtained. Comparison: None available at the time of this dictation. FINDINGS: Endotracheal tube terminates 41 mm from the cee. The cardiomediastinal silhouette is normal. No focal airspace opacities are seen bilaterally. No evidence of pleural effusion or pneumothorax. IMPRESSION: 1. Multifocal airspace opacities which may represent atelectasis, pneumonia, and/or aspiration. 2. Satisfactory position of endotracheal tube. ACT 112: Negative or not required by law. Electronically signed by: Juan C Floyd M.D. 08/08/2021 12:31 PM Chest X-Ray 08/08/21 13:12 XR chest 1V portable HISTORY: 61 years-old Male post right subclavian central line acute respiratory failure COMPARISON: Chest radiograph of same day at 12:13 PM TECHNIQUE: Supine portable AP view of the chest FINDINGS: Cardiac silhouette is mildly enlarged. Endotracheal tube overlies the midline, 4.4 cm superior to the cee. Left IJ central venous catheter distal tip is noted in the expected location of the brachiocephalic vein. No pneumothorax or large pleural effusion. Multifocal airspace opacities are noted on a background of interstitial coarsening. Spondylitic spurring of the spine. IMPRESSION: 1. Endotracheal tube and left IJ central venous catheter placement as above. No pneumothorax. 2. Multifocal bilateral airspace opacities redemonstrated suggestive of multifocal pneumonia. ACT 112: Negative or not required by law. The above report was generated using voice recognition software. It may contain grammatical, syntax or spelling errors. Electronically signed by: Eddie Martins M.D. 08/08/2021 1:[address] 08/08/21 14:10 CT SCAN OF THE BRAIN WITHOUT IV CONTRAST CLINICAL HISTORY: Change in mental status. Covid. COMPARISON STUDY: No priors. TECHNIQUE: Unenhanced axial CT scan of the brain is performed from the vertex to the skull base. A dose lowering technique was utilized adhering to the principles of ALARA. CT DOSE: 671.51 mGycm FINDINGS: An endotracheal tube is noted on the public records researcher tomogram. Brain parenchyma: There is mild microradiographic change. There is no hemorrhage, mass effect, or evidence of acute territorial ischemia by CT criteria. Vargas-white matter differentiation is preserved. No extra-axial fluid collection is seen. Ventricles, sulci, cisterns: Normal in configuration. Intracranial vasculature: There is atherosclerotic calcification of the cavernous carotid and vertebral arteries. Calvarium: Unremarkable. Sinuses and mastoids: Moderate mucosal thickening is noted in the ethmoid sinuses. Trace mucosal thickening is seen within the frontal, maxillary, and sphenoid sinuses. The mastoid air cells are well pneumatized. Orbits: The bony orbits are grossly intact. IMPRESSION: There is no hemorrhage, mass effect, or evidence of acute ronnie torial ischemia by CT criteria. ACT 112: Negative or not required by law. Electronically signed by: Ignacio Kwok M.D. 08/08/2021 2:56 PM Chest X-Ray 08/08/21 16:50 SINGLE VIEW CHEST CLINICAL HISTORY: Enteric tube placement. FINDINGS: An AP, portable, upright chest radiograph is compared to study performed earlier the same day 08/08/2021. An endotracheal tube and a left internal jugular central venous catheter are unchanged in position. An enteric tube has been placed. The tip projects below the diaphragm over the proximal stomach. The cardiomediastinal silhouette is unremarkable. Multifocal patchy airspace consolidation is unchanged from today's earlier examination. No large pleural effusion or pneumothorax is seen. There is chronic posttraumatic deformity of the right clavicle. IMPRESSION: 1. An enteric tube has been placed as above. 2. Additional lines and tubes are unchanged in position. 3. Multifocal airspace consolidation is unchanged from today's earlier examination and typical for multifocal pneumonia. Radiographic follow-up to resolution is recommended. ACT 112: Negative or not required by law. Electronically signed by: Ignacio Kwok M.D. 08/08/2021 5:38 PM Chest X-Ray 08/09/21 06:00 XR chest 1V portable HISTORY: 61 years-old Male intubation acute respiratory failure COMPARISON: Chest radiograph 08/08/2021 TECHNIQUE: Portable AP view of the chest FINDINGS: Endotracheal tube overlies the midline 4.7 cm superior to the cee. Enteric tube distal tip projects over the proximal stomach. Left IJ central venous catheter is noted with distal tip noted within the region of the brachiocephalic SVC confluence. No pneumothorax or large pleural effusion. Multifocal bilateral airspace opacities, left greater than right are unchanged. No acute fracture. IMPRESSION: 1. Lines and tubes as above. 2. Left greater than right bilateral airspace opacities compatible with multifocal pneumonia appear stable from comparison. ACT 112: Negative or not required by law. The above report was generated using voice recognition software. It may contain grammatical, syntax or spelling errors. Electronically signed by: Eddie Martins M.D. 08/09/2021 8:47 AM Chest X-Ray 08/10/21 07:00 SINGLE VIEW CHEST CLINICAL HISTORY: Respiratory failure. FINDINGS: An AP, portable, upright chest radiograph is compared to study performed earlier the same day 08/09/2021. The examination is degraded by portable technique and patient rotation. An endotracheal tube, an enteric tube, and a left internal jugular central venous catheter are unchanged in position. The cardiomediastinal silhouette is unremarkable. Multifocal patchy airspace co nsolidation is unchanged to modestly worsened as compared to yesterday. No large pleural effusion or pneumothorax is seen. There is chronic posttraumatic deformity of the right clavicle. IMPRESSION: 1. Stable lines and tubes. 3. Multifocal airspace consolidation is unchanged to modestly worsened as compared to yesterday. Radiographic follow-up to resolution is recommended. ACT 112: Negative or not required by law. Electronically signed by: Ignacio Kwok M.D. 08/10/2021 8:44 AM Chest X-Ray 08/11/21 06:00 SINGLE VIEW CHEST CLINICAL HISTORY: Respiratory failure. FINDINGS: An AP, portable, upright chest radiograph is compared to study dated 08/10/2021. The examination is degraded by portable technique and patient rotation. An endotracheal tube, an enteric tube, and a left internal jugular central venous catheter are unchanged in position. The cardiomediastinal silhouette is unremarkable. Multifocal patchy airspace consolidation is unchang ed from yesterday. No large pleural effusion or pneumothorax is seen. There is chronic posttraumatic deformity of the right clavicle. IMPRESSION: 1. Stable lines and tubes. 2. Multifocal airspace consolidation is unchanged from yesterday. ACT 112: Negative or not required by law. Electronically signed by: Ignacio Kwok M.D. 08/11/2021 8:17 AM Chest X-Ray 08/12/21 07:00 XR chest 1V portable CLINICAL HISTORY: Resp failure COMPARISON STUDY: August 11, 2021 FINDINGS: No pneumothorax. No pleural effusion. Patchy airspace opacities are again seen bilaterally, unchanged since prior. Cardiomediastinal silhouette is within normal limits in size. Pulmonary vasculature is obscured.. Osseous structures: Degenerative changes of the spine. Tip of endotracheal tube is seen projecting 3.8 cm above cee. Stable position of the gastric tube with tip and fenestrated side-port below level of hemidiaphragm. Stable position of left-sided IJ central venous line. IMPRESSION: 1. Stable multifocal pneumonia. 2. Tip of endotracheal tube is seen projecting 3.8 cm above cee. The rest of support apparatus as above. ACT 112: Negative or not required by law. The above report was generated using voice recognition software. It may contain grammatical, syntax or spelling errors. Electronically signed by: Michelle Tucker DO 08/12/2021 11:06 AM Chest X-Ray 08/13/21 07:00 XR chest 1V portable CLINICAL HISTORY: Resp failure COMPARISON STUDY: August 12, 2021 FINDINGS: No pneumothorax. No pleural effusion. Redemonstration of patchy airspace opacities which are seen bilaterally, not significantly changed since prior. Cardiomediastinal silhouette is within normal limits in size. Pulmonary vasculature is obscured.. Osseous structures: Degenerative changes of the spine and right shoulder. Fracture deformity of the right clavicle. Tip of endotracheal tube is projecting 3.0 cm above cee. Stable position of the left-sided IJ venous catheter and visualized portion of the gastric tube, tip and fenestrated side-port are outside of [id number] and below level of t he left hemidiaphragm. IMPRESSION: 1. Stable multifocal pneumonia. 2. Tip of endotracheal tube is projecting 3.0 cm above cee. The rest of support apparatus as above. ACT 112: Negative or not required by law. The above report was generated using voice recognition software. It may contain grammatical, syntax or spelling errors. Electronically signed by: Michelle Tucker DO 08/13/2021 9:13 AM Chest X-Ray 08/14/21 08:23 XR chest 1V portable CLINICAL HISTORY: f/u COMPARISON STUDY: August 13, 2021 FINDINGS: No pneumothorax. No pleural effusion. Bilateral patchy airspace opacities are unchanged since prior. Evaluation is suboptimal due to rotation. Cardiomediastinal silhouette is within normal limits in size. Pulmonary vasculature is obscured.. Osseous structures: Degenerative changes of the spine and right shoulder. Tip of endotracheal tube is projecting 6.2 cm above cee. Stable position of left sided IJ intravenous line. Fenestrated side-port of gastric tube is seen at the level of the left hemidiaphragm. Tip is projecting to the left upper quadrant. IMPRESSION: 1. Multifocal pneumonia, unchanged since prior. 2. Fenestrated side-port of gastric tube is seen at the level of hemidiaphragm. Repositioning approximately 5 cm forward is recommended. 3. Tip of endotracheal tube is projecting 6.2 cm above cee. 4. The rest of findings as above. ACT 112: Negative or not required by law. The above report was generated using voice recognition software. It may contain grammatical, syntax or spelling errors. Electronically signed by: Michelle Tucker DO 08/14/2021 9:49 AM Chest X-Ray 08/15/21 07:00 XR chest 1V portable INDICATION: MN ^f/u . TECHNIQUE: Single frontal radiograph of the chest was obtained. Comparison: Comparison is made to chest one view 08/14/2021 FINDINGS: Previous seen noted enteric tube has been advanced and is now in satisfactory position. Additional lines and tubes are stable. The cardiomediastinal silhouette is normal. Redemonstration of diffuse bilateral airspace opacities. No evidence of pleural effusion or pneumothorax. IMPRESSION: 1. Multifocal pneumonia, unchanged from prior. 2. Interval advancement of the enteric tube, now in satisfactory position. ACT 112: Negative or not required by law. Electronically signed by: Juan C Floyd M.D. 08/15/2021 8:40 AM Chest X-Ray 08/16/21 07:00 XR chest 1V portable HISTORY: Respiratory failure. Shortness of breath. Follow-up. COMPARISON: Chest 08/15/2021. FINDINGS: Endotracheal tube terminates approximately 3.2 cm from the cee. Nasogastric tube terminates in the stomach. Left jugular central venous catheter terminates at the brachiocephalic/SVC junction. No pneumothorax. No pleural effusions. Hazy bilateral airspace opacities most pronounced within the left lung persists. This likely represents a viral pneumonia. IMPRESSION: 1. Satisfactory support line placement. 2. No change in the multifocal airspace opacities consistent with a pneumonia. ACT 112: Negative or not required by law. Electronically signed by: Perico Baker M.D. 08/16/2021 9:52 AM Chest X-Ray 08/17/21 07:00 XR chest 1V portable INDICATION: [place] ^f/u . TECHNIQUE: Single frontal radiograph of the chest was obtained. Comparison: None available at the time of this dictation. FINDINGS: Lines and tubes are stable. The cardiomediastinal silhouette is normal. Interval slight improvement in left greater than right airspace opacities. No evidence of pleural effusion or pneumothorax. IMPRESSION: Multifocal airspace opacities have somewhat improved from prior exam. ACT 112: Negative or not required by law. Electronically signed by: Juan C Floyd M.D. 08/17/2021 9:51 AM Chest X-Ray 08/18/21 07:00 XR chest 1V portable HISTORY: 61 years-old Male f/u acute respiratory failure COMPARISON: Chest radiograph 08/17/2021 TECHNIQUE: Portable AP view of the chest FINDINGS: Endotracheal tube overlies the midline, 3.8 cm superior to the cee. Enteric tube courses below the diaphragm outside the [id number]. Left IJ central venous catheter is unchanged with distal tip in the expected location of the brachiocephalic SVC confluence. Cardiac silhouette is unchanged. Mild interstitial coarsening with midlung zone and left basilar predominant airspace opacities, stable from comparison. Degenerative changes of the shoulders and spine. IMPRESSION: 1. Lines and tubes as above. 2. Unchanged multifocal bilateral airspace opacities compatible with pneumonia. 3. No pneumothorax. ACT 112: Negative or not required by law. The above report was generated using voice recognition software. It may contain grammatical, syntax or spelling errors. Electronically signed by: Eddie Martins M.D. 08/18/2021 8:15 AM KUB X-Ray 08/18/21 08:56 KUB HISTORY: Check NG tube placement COMPARISON: None. FINDINGS: Feeding tube terminates at the gastroesophageal junction.. The bowel gas pattern is unremarkable. A rectal catheter is noted. No renal calculi. No ureteral calculi. No pneumoperitoneum or pneumatosis. IMPRESSION: Feeding tube terminates at the gastroesophageal junction. ACT 112: Negative or not required by law. Electronically signed by: Perico Baker M.D. 08/18/2021 9:35 AM KUB X-Ray 08/18/21 09:30 KUB HISTORY: REPOSITION NG TUBE COMPARISON: None. FINDINGS: The feeding tube is been repositioned and is now looped within the fundus of the stomach. The bowel gas pattern is unremarkable. No renal calculi. No ureteral calculi. No pneumoperitoneum or pneumatosis. IMPRESSION: The feeding tube is now looped within the fundus of the stomach. ACT 112: Negative or not required by law. Electronically signed by: Perico Baker M.D. 08/18/2021 9:35 AM Chest X-Ray 08/19/21 07:00 XR chest 1V portable HISTORY: Respiratory failure. Pneumonia. COMPARISON: Chest 08/18/2021. FINDINGS: Endotracheal tube is been removed. Feeding tube terminates below the diaphragm. The tip is not included on this study. No pneumothorax. No pleural effusions. Patchy bilateral airspace opacities persist. The heart remains normal in size. Old, healed right clavicle fracture. IMPRESSION: 1. Status post extubation. The feeding tube terminates below the diaphragm. 2. Patchy bilateral airspace opacities consistent with a pneumonia are not significantly changed. ACT 112: Negative or not required by law. Electronically signed by: Perico Baker M.D. 08/19/2021 8:14 AM Chest X-Ray 08/23/21 07:00 XR chest 1V portable HISTORY: 61 years-old Male covid acute shortness of breath with viral pneumonia COMPARISON: Chest radiograph 08/19/2021 TECHNIQUE: Portable AP view of the chest FINDINGS: The cardiomediastinal and hilar silhouettes are within normal limits. Interval removal of the enteric tube. No pneumothorax, or large pleural effusion. Mildly progressed multifocal bilateral airspace opacities. No acute fracture. IMPRESSION: Mildly worsened multifocal opacities compatible with pneumonia. ACT 112: Negative or not required by law. The above report was generated using voice recognition software. It may contain grammatical, syntax or spelling errors. Electronically signed by: Eddie Martins M.D. 08/23/2021 7:45 AM Chest CTA 08/29/21 09:55 CT angio chest PE protocol CT DOSE: 458.97 mGy.cm HISTORY: 61 years-old Male with PE. Acute cough with chest pain and shortness of breath. COVID Positive. TECHNIQUE: Multiple CTA images of the chest were obtained after the intravenous administration of 114 ml Optiray. Coronal and sagittal MIPS were obtained from the axial data set and were submitted for review. All measurements were obtained according to NASCET criteria. A dose lowering technique was utilized adhering to the principles of ALARA. COMPARISON: Chest radiograph 08/23/2021 FINDINGS: CTA: The heart is mildly enlarged. No pericardial effusion. Mild coronary artery calcifications. No thoracic aortic aneurysm or dissection. Patency of the imaged great vessels. The pulmonary arterial tree is opacified to the level of the subsegmental branches and demonstrates no filling defects to suggest thromboembolic disease. CT CHEST: Unremarkable thyroid. Pathologic mediastinal and hilar adenopathy include subcarinal adenopathy measuring up to 3.2 x 2.1 cm. No pneumothorax, or pleural effusion. Multifocal multilobar distribution of extensive groundglass and consolidative opacities with air bronchograms. The central airways are patent. No acute process of the imaged upper abdomen. Mild wall thickening of the distal esophagus. Unremarkable soft tissues. No acute fracture. IMPRESSION: 1. No pulmonary emboli. 2. Extensive multilobar viral pneumonia. 3. Mediastinal and hilar adenopathy is likely reactive. 4. Mild cardiomegaly. ACT 112: Negative or not required by law. The above report was generated using voice recognition software. It may contain grammatical, syntax or spelling errors. Electronically signed by: Eddie Martins M.D. 08/29/2021 2:57 PM Diabetes Follow up Pre Diabetes A1C 6.3 Hospital Course (1) Acute respiratory failure due to COVID-19: (2) Pneumonia due to 2019 novel coronavirus: (3) Alcohol abuse: (4) DVT prophylaxis: Acute respiratory failure due to COVID-19: Secondary to ARDS and COVID-19 pneumonia. Status post intubation requiring paralytics. Received courses of Decadron and antibiotics Continues to require high amounts of oxygen supplementation - decreased from 10 L HiFlo to 6 L, now on 4L @ 90% Continue supportive care, wean O2 as able PT/OT D/C to [facility] Toxic metabolic encephalopathy - resolved Elevated troponin - demand ischemia, resolved lactic acidosis- resolved Alcohol abuse: Alcohol use disorder Continue thiamine No signs of Alcohol withdrawal Hemorrhoids: Had some bleeding from hemorrhoids but overall improved with Anusol. Continue stool softener BID and Anusol HS x 20 days total per GI (until 09/17/21) Hgb stable, 12.4 today Resolved UTI (urinary tract infection): UTI 2/2 enterococcus faecalis. Received 5 days of Ampicillin. Hoarseness of voice: Possibly related to vocal cord dysfunction. Noted recent intubation and paralytics. No speech or voice issues prior to hospitalization. No dysphagia, s/p FEES by speech with aspiration precautions recommended. No straws, giving meds in a carrier, good oral hygiene, alternate solids and liquids. Doing well overall and hoarseness continues to improve. May need outpatient ENT eval Pre Diabetes - a1c on admission 6.3, required insulin with IV steroids, recommend diet modification now DVT prophylaxis: SQ Lovenox, recommend to continue until more ambulatory DISPO: d/c to [facility] when accepted based on O2 requirement FULL CODE: PCP: No PCP - recommend establish with PCP at discharge Total Time Total Time Spent Total Time Spent (In Minutes): 60 minutes Discharge Plan Discharge Items Patient Disposition: Transfer Inpatient Rehab Fac Reason For Visit: ACUTE RESP FAILURE Discharge Diagnosis: Acute respiratory failure due to COVID-19 ARDS Pneumonia due to 2019 novel coronavirus UTI -Enterococcus facialis, treated Hemorrhoids -resolved Activity: Per Instructions section Lifting: Gradually increase as tolerated Bathing: No limitations Driving/Machine Use: Discharge to rehab, will need to be determined at discharge from acute reha Weightbearing: Full weightbearing Non-emergency contact: Primary Care Provider Call non-emergency contact if: you have any medication questions, your symptoms worsen, your pain is not controlled, your pain is worsening, your pain is unusual for you, your pain is concerning for you, you have a fever and your temperature is above 101 Follow-up/Referrals: PCP,NO [Primary Care Provider] - Diet: Carb Consistent or DM2 Diet Comment: Aspiration precautions Addtl Attending Provider Instructions: MEDICATION CHANGES: You are being discharged to acute rehab. Current Inpatient Medication is as follows: Current Inpatient Medications Acetaminophen (Acetaminophen 325 Mg Tab) 650 mg PO Q4H PRN PRN Reason: Pain or Fever Stop: 09/22/21 17:02 Last Admin: 08/24/21 16:14 Dose: 650 mg Documented by: Docusate Sodium (Docusate Sodium 100 Mg Cap) 100 mg PO BID MELCHOR Stop: 09/22/21 20:59 Last Admin: 09/08/21 08:10 Dose: 100 mg Documented by: Enoxaparin Sodium (Enoxaparin Inj 40 Mg/0.4 Ml Syr) 40 mg SQ Q24H MELCHOR Stop: 09/28/21 17:59 Last Admin: 09/07/21 17:45 Dose: 40 mg Documented by: Hydrocortisone (Hydrocortisone Hc 2.5% Crm 30gm Tube) 1 appln EXT BID PRN PRN Reason: Hemorrhoid pain Stop: 09/24/21 00:51 Last Admin: 08/26/21 16:05 Dose: 1 appln Documented by: Multivitamins (Multivitamin Tab) 1 tab PO QAM MELCHOR Stop: 09/22/21 08:59 Last Admin: 09/08/21 08:10 Dose: 1 tab Documented by: Polyethylene Glycol (Polyethylene (Miralax) 17 Gm Pack) 17 gm PO DAILY PRN PRN Reason: Constipation Stop: 09/24/21 00:50 Sennosides (Senna 8.6 Mg Tab) 8.6 mg PO QAM MELCHOR Stop: 09/23/21 08:59 Last Admin: 09/08/21 08:10 Dose: 8.6 mg Documented by: Sodium Chloride (Sodium Chloride 0.65% Na Soln 45 Ml ([place])) 1 sprays NA PRN PRN PRN Reason: Congestion Stop: 10/04/21 22:51 Thiamine HCl (Thiamine Hcl 100 Mg Tab) 100 mg PO DAILY MELCHOR Stop: 09/10/21 11:59 Last Admin: 09/08/21 08:10 Dose: 100 mg Documented by: SUMMARY OF TEST RESULTS/HOSPITALIZATION: You are admitted to hospital secondary to acute respiratory failure, ARDS in setting of COVID-19 and COVID-19 pneumonia on 08/08/2021 You required critical care and required intubation on 08/08 and extubated on 08/18. You were treated with IV dexamethasone as well as IV antibiotics. Hospitalization complicated with UTI which was appropriately treated with antibiotic. Post intubation you were found to have hoarseness. Speech therapy was consulted and you underwent swallow study. Aspiration precautions were recommended. You were seen and evaluated by Pulmonology and your oxygen has been able to be slowly weaned down to an acceptable level to attend acute rehab. Given prolonged hospitalization and immobility you were found to be deconditioned and requiring acute rehab. You are being transferred to [facility]. PENDING TEST RESULTS: NONE RECOMMENDATIONS FOR FOLLOW-UP: Please establish with PCP after being discharged from [facility]. Recommend alcohol cessation. Would recommend continued use of SQ Lovenox for DVT prophylaxis while at acute rehab until ambulating consistently. Encourage incentive spirometry every hour while awake to help maintain overall lung health. OTHER INSTRUCTIONS: Seek medical attention if you have: * temperature above 101 * chest pain or trouble breathing * abdominal pain, nausea, vomiting * diarrhea, dark stools or bloody stools * any unanswered questions or concerns Call 911 if symptoms are severe. Please take good care of yourself. It has been a pleasure taking care of you. Please take care of yourself. If you have any questions regarding your recent hospitalization please contact [facility] and request Gena Mendoza @ [phone]. Yenny Nelson PA-C Pending Studies at Discharge: No Stand-Alone Forms: My [facility] Skilled Items Patient informed of condition?: Yes DNR: No Discharge Level of Care: Acute rehab Communicable Disease: No Discharge Prognosis: Improving Lines: None Urinary Catheter: No Medications and DC Order Prescriptions: New docusate sodium 100 mg Capsule 100 mg PO BID Qty: 30 RF: 0 thiamine HCl (vitamin B1) [Vitamin B-1] 100 mg Tablet 100 mg PO DAILY Qty: 30 RF: 0 multivitamin with folic acid [Daily-Marcial (with folic acid)] 400 mcg Tablet 1 tab PO QAM Qty: 30 RF: 0 sennosides [Senokot] 8.6 mg Tablet 8.6 mg PO QAM Qty: 30 RF: 0 folic acid 1 mg tablet 1 mg PO DAILY Qty: 30 RF: 0 Discharge Orders: Discharge Order (Routine); Ordered 09/09/21 Ordered By: Yenny Leal/Other Patient Handouts: A1C, Prediabetes, 5 Steps for Eating Healthier Admission Data Admit Date/Time: 08/08/21 13:02 Attending Provider: Victorino Murrieta Admit Provider: Barney Muhammad Primary Care Provider: PCP,NO Other Providers: Zachary Schaefer ; [facility] ; Barney Muhammad ; Feliberto Butt ; Yenny Nelson Other Interventions: Discharge Summary Assessment (RN) Last Done: 09/09/21 10:58 Supervising Physician Co-Signing Physician Notes I have seen and examined the patient and have discussed the case with the provider above. I agree with the assessment and plan as stated. Patient was examined at bedside, on 4 L nasal cannula oxygen, overall feeling better. On examination, 4 L nasal cannula oxygen with no acute distress, occasional bibasilar crackles, no BLE edema, heart and abdomen examination within normal limit. Patient is on O2 supplementation for ongoing acute respiratory failure due to COVID-19, wean oxygen as tolerated. Being DC'd to [facility].
== END 2021-09-09 16:00 | DRG 207 ==
LOC: EDBD → ED 11:45 → SUATTDRO 13:02 → 2E 13:02 → 2S 08-26 16:01 → 2N 09-06 21:50